=== PATIENT | female | born 1960 | race Two or more races ===

== ENCOUNTER → 2018-02-04 | Day surgery (SDC) | payer MEDICAID ==
[2018-02-02 10:48] LABS: Eosinophils # (auto) 0.3 uL; Eosinophils % (auto) 4.7 % (0.0-7.0); Lymphocytes # (auto) 3.2 uL; Mean Corpuscular Hgb Conc. 32.7 g/dL (32.0-36.0); Monocytes # (auto) 0.5 uL; Monocytes % (auto) 8.3 % (0.0-12.0); Neutrophils # (auto) 2.5 uL; Platelet Count (auto) 221 10^3/uL (140-450); Red Cell Distribution Width 14.9 % (11.8-14.3)
[2018-02-02 10:50] LABS: Basophils # (auto) 0 uL; Basophils % (auto) 0.7 % (0.0-2.0); Hematocrit 41.6 % (36.0-46.0); Hemoglobin 13.6 g/dL (12.2-16.2); Mean Corpuscular Hemoglobin 26.7 pg (28.0-32.0); Mean Corpuscular Volume 81.7 fL (80.0-100.0); Neutrophils % (auto) 38.3 % (37.0-80.0); Nucleated Red Blood Cells % 0.1 %; White Blood Cell 6.6 10^3/uL (4.4-10.8)
[2018-02-02 11:06] LABS: INR 1.01 (0.9-1.15); Partial Thromboplastin Time 30.5 sec (23.78-33.04); Prothrombin Time 10.8 sec (9.27-12.13)
[2018-02-02 11:11] LABS: Albumin 3.8 g/dL (3.4-5.0); BUN/Creatinine Ratio 24.7; Bilirubin, Total 0.3 mg/dL (0.2-1.0); Calcium 8.7 mg/dL (8.5-10.1); Potassium 3.4 mmol/L (3.5-5.1); Total Protein 7.2 g/dL (6.4-8.2)
[~2018-02-04] VITALS: Ht 154.9 cm; Wt 71.7 kg
[~2018-02-04] MED LIST: BUPIVACAINE 0.75% INJ 10ML MPV SDV IJ ONE; GABA300C10 PO; HYDR-4683 PO; LIDOCAINE 2% (LOCAL ANESTH.) PF 5ml SDV ONE; LOSA25TA40 PO; METH500T6 PO; MIDAZOLAM HCL 1MG/1ML-2 ML VIAL ONE; MORPHINE SULFATE 4 MG/ML SYR/VIAL IV PRN; ONDANSETRON HCL 4 MG/2 ML VIAL IV ONE; PROPOFOL 10 MG/ML 20 ML IV ONE; TRAM50TA2 PO; ceFAZolin 1GM/50ML 50 ML IV ONE; diphenhdrAMINE HCL 50 MG/1 ML VL ONE; ePHEDrine SULFATE 50 MG/ML AMP ONE; fentaNYL CITRATE 100 MCG/2 ML VL ONE
[2018-02-04 09:54] VITALS: BP 137/64
== END | disposition home or self-care (01) ==
LOC: SUR 07:22
PROVIDERS: ATTEND Podiatrist Foot & Ankle Surgery
DX: M20.21 Hallux rigidus, right foot (principal); M20.41 Other hammer toe(s) (acquired), right foot; M20.5X1 Other deformities of toe(s) (acquired), right foot; I10 Essential (primary) hypertension; F41.9 Anxiety disorder, unspecified; M19.90 Unspecified osteoarthritis, unspecified site; G47.33 Obstructive sleep apnea (adult) (pediatric); E66.9 Obesity, unspecified; K21.9 Gastro-esophageal reflux disease without esophagitis; Z79.891 Long term (current) use of opiate analgesic; Z79.1 Long term (current) use of non-steroidal anti-inflammatories (NSAID); Z79.899 Other long term (current) drug therapy
CPT/HCPCS: 28285; 28289; J1200; J3010; L3260; 36415; 80053; 85025; 85610; 85730; J0690; J2001; J2250; J2704; J3490

== ENCOUNTER 2023-12-24 12:36 | Inpatient (IN) | payer MEDICAID ==
[~2023-12-24] VITALS: Ht 154.9 cm; Wt 57.9 kg
[~2023-12-24 12:36] MED LIST changes: -BUPIVACAINE 0.75% INJ 10ML MPV SDV IJ ONE; +GABA-1250 PO; -GABA300C10 PO; -HYDR-4683 PO; +HYDR-4833 PO; -LIDOCAINE 2% (LOCAL ANESTH.) PF 5ml SDV ONE; +LOSA-533 PO; -LOSA25TA40 PO; +METH-1181 PO; -METH500T6 PO; -MIDAZOLAM HCL 1MG/1ML-2 ML VIAL ONE; -MORPHINE SULFATE 4 MG/ML SYR/VIAL IV PRN; -ONDANSETRON HCL 4 MG/2 ML VIAL IV ONE; -PROPOFOL 10 MG/ML 20 ML IV ONE; -ceFAZolin 1GM/50ML 50 ML IV ONE; -diphenhdrAMINE HCL 50 MG/1 ML VL ONE; -ePHEDrine SULFATE 50 MG/ML AMP ONE; -fentaNYL CITRATE 100 MCG/2 ML VL ONE
[2023-12-24 13:24] LABS: Basophils # (auto) 0 10 ^3/uL (0-0.2); Eosinophils # (auto) 0 10 ^3/uL (0-0.8); Hematocrit 33.4 % (36.0-46.0); Hemoglobin 10.5 g/dL (12.2-16.2); Lymphocytes # (auto) 0.9 10 ^3/uL (0.4-5.4); Monocytes # (auto) 0.7 10 ^3/uL (0-1.3); Neutrophils # (auto) 8.1 10 ^3/uL (1.6-8.6); Nucleated Red Blood Cells % 0.1 %; Red Blood Cells 4.55 10^6/uL (4.0-5.20); White Blood Cell 9.7 10^3/uL (4.4-10.8)
[2023-12-24 13:27] LABS: Basophils % (auto) 0.4 % (0.0-2.0); Lymphocytes % (auto) 9.5 % (10.0-50.0); Mean Corpuscular Hgb Conc. 31.3 g/dL (32.0-36.0); Mean Corpuscular Volume 73.5 fL (80.0-100.0); Monocytes % (auto) 6.7 % (0.0-12.0); Neutrophils % (auto) 83.4 % (37.0-80.0); Platelet Count (auto) 377 10^3/uL (140-450); Red Cell Distribution Width 19.2 % (11.8-14.3)
[2023-12-24 13:42] LABS: Alanine Aminotransferase 18 U/L (7-40); Albumin 4.3 g/dL (3.2-4.8); Alkaline Phosphatase 106 U/L (46-116); Anion Gap 12 (5-15); Aspartate Aminotransferase 19 U/L (13-40); BUN/Creatinine Ratio 22.8 (10.0-20.0); Blood Urea Nitrogen 28 mg/dL (9-23); Calcium 9.9 mg/dL (8.7-10.4); Carbon Dioxide 32 mmol/L (20-30); Chloride 95 mmol/L (98-107); Glucose 187 mg/dL (74-106); Lipase 33 U/L (12-53); Potassium 3.5 mmol/L (3.5-5.1); Sodium 139 mmol/L (136-145)
[2023-12-24 13:43] LABS: Bilirubin, Total 0.4 mg/dL (0.2-1.0); Total Protein 7.3 g/dL (5.7-8.2)
[2023-12-24 13:44] LABS: Lactic Acid w/Reflex 4.4 mmol/L (0.4-2.0)
[2023-12-24] MEDS: SODIUM CHLORIDE 0.9% 1,000 ML IV ONE ×2 (13:45→14:11)
[2023-12-24] MEDS: IOHEXOL 300 MG/ML 100ML BOTTLE IJ ONE (13:51)
[2023-12-24] MEDS: hydrALAZINE HCL 20 MG/ML VL IV ONE (15:04)
[2023-12-24 16:28] LABS: Urine Bacteria None Seen /hpf (None Seen)
[2023-12-24 16:40] LABS: Urine Blood Negative /uL (Negative); Urine Clarity Clear (Clear); Urine Color Light-Yellow (Yellow); Urine Protein, UAD TRACE (Negative); Urine Specific Gravity 1.049 (1.001-1.035); Urine Urobilinogen Normal (Negative); Urine WBC <1 /hpf (0 - 5); Urine pH 8.5 (5.0-9.0)
[2023-12-24] MEDS ORDERED: DEXTROSE (50%) 50ML SYRG IV PRN (19:00)
[2023-12-24] MEDS: LACTATED RINGER'S 1,000 ML IV ONE (19:00)
[2023-12-24] MEDS: ONDANSETRON HCL 4 MG/2 ML VIAL IV PRN (19:07)
[2023-12-24 19:10] VITALS: RESP 16; O2SAT 96
[2023-12-24] MEDS: PANTOPRAZOLE 40mg/50ML NS AE 50 ML IV SCH (19:45)
[2023-12-24] MEDS: POTASSIUM CHL 20MEQ/100ML 100 ML IV ONE (19:57)
[2023-12-24] MEDS ORDERED: PANTOPRAZOLE 40 MG/10 ML VIAL INJ IV SCH (22:00)
[2023-12-24] MEDS: SODIUM CHLOR 0.9% PF (SALINE LOCK) 10ML VIAL/SYR IV SCH (22:06)
[2023-12-24 23:57] VITALS: PULSE 94; RESP 18; O2SAT 95
[2023-12-24 23:58] VITALS: BP 128/69; PULSE 94; RESP 18; TEMP 99.2; O2SAT 95
[2023-12-25] VITALS (8 sets, daily range): BP systolic 115–152; BP diastolic 49–82; PULSE 77–95; RESP 17–20; TEMP 98–100.1; O2SAT 93–98
[2023-12-25] MEDS ORDERED: BACL20TA PO (00:24)
[2023-12-25] MEDS ORDERED: HYDR50TA47 PO (00:24)
[2023-12-25] MEDS: ACCU-CHEK COMFORT CURVE STRIP VI SCH ×2 (00:28→12:01)
[2023-12-25] MEDS ORDERED: PNEUMOCOCCAL VACC POLYS 25 MCG/0.5 ML VIAL IM ONE ×2 (05:00→05:15)
[2023-12-25 06:33] LABS: Basophils # (auto) 0 10 ^3/uL (0-0.2); Basophils % (auto) 0.4 % (0.0-2.0); Eosinophils # (auto) 0 10 ^3/uL (0-0.8); Hematocrit 28.1 % (36.0-46.0); Hemoglobin 8.8 g/dL (12.2-16.2); Mean Corpuscular Hemoglobin 22.8 pg (28.0-32.0); Nucleated Red Blood Cells % 0.1 %; White Blood Cell 8.3 10^3/uL (4.4-10.8)
[2023-12-25 06:35] LABS: Eosinophils % (auto) 0.3 % (0.0-7.0); Lymphocytes # (auto) 1.9 10 ^3/uL (0.4-5.4); Lymphocytes % (auto) 22.8 % (10.0-50.0); Mean Corpuscular Hgb Conc. 31.3 g/dL (32.0-36.0); Mean Corpuscular Volume 72.9 fL (80.0-100.0); Monocytes # (auto) 0.9 10 ^3/uL (0-1.3); Monocytes % (auto) 10.3 % (0.0-12.0); Neutrophils # (auto) 5.5 10 ^3/uL (1.6-8.6); Neutrophils % (auto) 66.2 % (37.0-80.0); Platelet Count (auto) 342 10^3/uL (140-450); Red Blood Cells 3.86 10^6/uL (4.0-5.20); Red Cell Distribution Width 19.4 % (11.8-14.3)
[2023-12-25 06:39] LABS: Alanine Aminotransferase 14 U/L (7-40); Albumin 3.9 g/dL (3.2-4.8); Alkaline Phosphatase 90 U/L (46-116); Anion Gap 7 (5-15); Aspartate Aminotransferase 18 U/L (13-40); BUN/Creatinine Ratio 31.9 (10.0-20.0); Blood Urea Nitrogen 23 mg/dL (9-23); Calcium 9.3 mg/dL (8.7-10.4); Carbon Dioxide 31 mmol/L (20-30); Chloride 104 mmol/L (98-107); Glucose 111 mg/dL (74-106); Potassium 2.7 mmol/L (3.5-5.1); Sodium 142 mmol/L (136-145)
[2023-12-25 06:40] LABS: Bilirubin, Total 0.3 mg/dL (0.2-1.0); Total Protein 6.5 g/dL (5.7-8.2)
[2023-12-25] MEDS: POTASSIUM CHLORIDE 60 MEQ, LIDOCAINE 1% (LOCAL ANESTH.) 6 ML in SODIUM CHL 0.9% 500 ML IV ONE (08:00)
[2023-12-25] MEDS: diphenhdrAMINE HCL 50 MG/1 ML VL IV ONE (09:13)
[2023-12-25] MEDS: NIFEdipine ER 30 MG TAB PO SCH (10:00)
[2023-12-25 10:01] LABS: Hepatitis B Surface Antigen Negative (Negative)
[2023-12-25 10:23] LABS: Hepatitis C Antibody Negative (Negative)
[2023-12-25] MEDS ORDERED: CLINIMIX PER PHARMACY 0 ML IV SCH (11:15)
[2023-12-25] MEDS ORDERED: DEXTROSE (50%) 50ML SYRG IV SCH (11:45)
[2023-12-25] MEDS: InsuLIN REG 1unit/0.01ml Soln (100units/ml) SC SCH ×2 (12:00)
[2023-12-25 12:57] LABS: INR 1.07 (0.9-1.15); Prothrombin Time 11.3 sec (9.3-11.8)
[2023-12-25] MEDS: HYDROmorphone HCL 2 MG/ML VL/or syr IV PRN (14:01)
[2023-12-25] MEDS: AMINO ACID INFUSION IN D10W 1,000 ML IV SCH (20:27)
[2023-12-26] VITALS (10 sets, daily range): BP systolic 134–150; BP diastolic 49–71; PULSE 77–92; RESP 11–20; TEMP 97.8–99.2; O2SAT 96–100
[2023-12-26 05:23] LABS: Eosinophils % (auto) 0.5 % (0.0-7.0)
[2023-12-26 05:27] LABS: Basophils # (auto) 0.1 10 ^3/uL (0-0.2); Basophils % (auto) 0.7 % (0.0-2.0); Eosinophils # (auto) 0.1 10 ^3/uL (0-0.8); Hematocrit 24.7 % (36.0-46.0); Lymphocytes # (auto) 1.8 10 ^3/uL (0.4-5.4); Lymphocytes % (auto) 18.6 % (10.0-50.0); Mean Corpuscular Hemoglobin 23.7 pg (28.0-32.0); Mean Corpuscular Hgb Conc. 32.3 g/dL (32.0-36.0); Mean Corpuscular Volume 73.5 fL (80.0-100.0); Monocytes # (auto) 0.8 10 ^3/uL (0-1.3); Monocytes % (auto) 8.2 % (0.0-12.0); Platelet Count (auto) 278 10^3/uL (140-450); Red Blood Cells 3.36 10^6/uL (4.0-5.20); Red Cell Distribution Width 20.6 % (11.8-14.3); White Blood Cell 9.7 10^3/uL (4.4-10.8)
[2023-12-26 05:45] LABS: Alanine Aminotransferase 32 U/L (7-40); Albumin 3.7 g/dL (3.2-4.8); Alkaline Phosphatase 87 U/L (46-116); Anion Gap 5 (5-15); Aspartate Aminotransferase 31 U/L (13-40); BUN/Creatinine Ratio 43.6 (10.0-20.0); Blood Urea Nitrogen 24 mg/dL (9-23); Carbon Dioxide 30 mmol/L (20-30); Chloride 108 mmol/L (98-107); Glucose 116 mg/dL (74-106); Magnesium 2.3 mg/dL (1.6-2.6); Potassium 3.5 mmol/L (3.5-5.1); Sodium 143 mmol/L (136-145)
[2023-12-26 05:46] LABS: Bilirubin, Total 0.3 mg/dL (0.2-1.0); Phosphorus 2.1 mg/dL (2.4-5.1); Total Protein 6.2 g/dL (5.7-8.2)
[2023-12-26 08:51] LABS: Urine Bacteria None Seen /hpf (None Seen)
[2023-12-26] MEDS ORDERED: BENZOCAINE (DENTAL) 20 % SPRAY 60ML MT ONE (09:00)
[2023-12-26 09:06] LABS: Urine Amorphous Crystal FEW /hpf (None Seen); Urine Blood Negative /uL (Negative); Urine Protein, UAD TRACE (Negative); Urine Specific Gravity 1.024 (1.001-1.035); Urine Urobilinogen Normal (Negative); Urine WBC 2 /hpf (0 - 5); Urine pH 7.5 (5.0-9.0)
[2023-12-26 09:15] LABS: Urine Color Yellow (Yellow)
[2023-12-26 09:16] LABS: Urine Clarity Hazy (Clear)
[2023-12-26] MEDS ORDERED: MIDAZOLAM HCL 2MG/2ML 2ml VIAL (1mg/ml) ONE (09:28)
[2023-12-26] MEDS: ONDANSETRON HCL 4 MG/2 ML VIAL IV ONE (09:30)
[2023-12-26] MEDS ORDERED: CLINIMIX PER PHARMACY 0 ML IV SCH (10:30)
[2023-12-26] MEDS: POTASSIUM PHOSPHATE 22 MEQ in SODIUM CHL 0.9% 100 ML IV ONE (11:32)
[2023-12-26] MEDS: SUCRALFATE 1 GM/10 ML ORAL SUSP GT SCH (11:32)
[2023-12-26] MEDS ORDERED: ENALAPRILAT 1.25 MG/ML-1ML VIAL IV PRN (12:45)
[2023-12-26] MEDS: MORPHINE SULFATE INJ 2 MG/ml SYRG IV PRN (13:01)
[2023-12-26] MEDS: IRON SUCROSE COMPLEX 100 ML IV SCH (13:19)
[2023-12-26] MEDS ORDERED: PROPOFOL 10 MG/ML 20 ML IV ONE (13:50)
[2023-12-26] MEDS: GASTROGRAFIN 120 ML SOL ONE (15:30)
[2023-12-26] MEDS: MELATONIN 5 MG TAB PO ONE (22:20)
[2023-12-27] VITALS (9 sets, daily range): BP systolic 122–151; BP diastolic 55–82; PULSE 67–91; RESP 14–20; TEMP 98.1–100.3; O2SAT 97–100
[2023-12-27 06:18] LABS: Eosinophils # (auto) 0 10 ^3/uL (0-0.8); Hemoglobin 8.1 g/dL (12.2-16.2); Mean Corpuscular Volume 74.4 fL (80.0-100.0); Neutrophils # (auto) 7.5 10 ^3/uL (1.6-8.6); White Blood Cell 10.1 10^3/uL (4.4-10.8)
[2023-12-27 06:23] LABS: Basophils # (auto) 0 10 ^3/uL (0-0.2); Basophils % (auto) 0.3 % (0.0-2.0); Eosinophils % (auto) 0.2 % (0.0-7.0); Hematocrit 25.3 % (36.0-46.0); Lymphocytes # (auto) 1.5 10 ^3/uL (0.4-5.4); Lymphocytes % (auto) 14.8 % (10.0-50.0); Mean Corpuscular Hemoglobin 23.8 pg (28.0-32.0); Monocytes % (auto) 10.2 % (0.0-12.0); Neutrophils % (auto) 74.5 % (37.0-80.0); Platelet Count (auto) 269 10^3/uL (140-450)
[2023-12-27 06:35] LABS: Alanine Aminotransferase 54 U/L (7-40); Albumin 3.9 g/dL (3.2-4.8); Alkaline Phosphatase 91 U/L (46-116); Anion Gap 7 (5-15); Aspartate Aminotransferase 44 U/L (13-40); Blood Urea Nitrogen 11 mg/dL (9-23); Calcium 8.8 mg/dL (8.7-10.4); Carbon Dioxide 23 mmol/L (20-30); Chloride 108 mmol/L (98-107); Glucose 126 mg/dL (74-106); Potassium 3.3 mmol/L (3.5-5.1); Sodium 138 mmol/L (136-145)
[2023-12-27 06:36] LABS: Bilirubin, Total 0.3 mg/dL (0.2-1.0); Phosphorus 1.7 mg/dL (2.4-5.1); Total Protein 6.3 g/dL (5.7-8.2)
[2023-12-27] MEDS: POTASSIUM PHOSPHATE 44 MEQ in D5W 5% 250 ML IV ONE (15:16)
[2023-12-27] MEDS: MORPHINE SULFATE INJ 2 MG/ml SYRG IV PRN (20:47)
[2023-12-28] VITALS (9 sets, daily range): BP systolic 121–136; BP diastolic 52–68; PULSE 74–92; RESP 15–18; TEMP 97.9–99; O2SAT 97–99
[2023-12-28 07:46] LABS: Basophils # (auto) 0 10 ^3/uL (0-0.2); Eosinophils # (auto) 0.1 10 ^3/uL (0-0.8); Hemoglobin 7.9 g/dL (12.2-16.2); Monocytes # (auto) 0.9 10 ^3/uL (0-1.3)
[2023-12-28 07:50] LABS: Basophils % (auto) 0.4 % (0.0-2.0); Eosinophils % (auto) 0.6 % (0.0-7.0); Hematocrit 24.9 % (36.0-46.0); Lymphocytes # (auto) 1.6 10 ^3/uL (0.4-5.4); Mean Corpuscular Hemoglobin 23.8 pg (28.0-32.0); Mean Corpuscular Hgb Conc. 31.8 g/dL (32.0-36.0); Mean Corpuscular Volume 74.8 fL (80.0-100.0); Neutrophils # (auto) 6.7 10 ^3/uL (1.6-8.6); Platelet Count (auto) 274 10^3/uL (140-450); Red Blood Cells 3.32 10^6/uL (4.0-5.20); Red Cell Distribution Width 20.6 % (11.8-14.3); White Blood Cell 9.3 10^3/uL (4.4-10.8)
[2023-12-28 08:03] LABS: Alanine Aminotransferase 37 U/L (7-40); Albumin 3.8 g/dL (3.2-4.8); Alkaline Phosphatase 95 U/L (46-116); Anion Gap 7 (5-15); Aspartate Aminotransferase 17 U/L (13-40); BUN/Creatinine Ratio 18.8 (10.0-20.0); Bilirubin, Total 0.2 mg/dL (0.2-1.0); Blood Urea Nitrogen 9 mg/dL (9-23); Calcium 9.3 mg/dL (8.7-10.4); Carbon Dioxide 24 mmol/L (20-30); Chloride 109 mmol/L (98-107); Glucose 122 mg/dL (74-106); Phosphorus 2.4 mg/dL (2.4-5.1); Potassium 3.1 mmol/L (3.5-5.1); Sodium 140 mmol/L (136-145); Total Protein 6.4 g/dL (5.7-8.2)
[2023-12-28] MEDS: POTASSIUM CHL 20MEQ/100ML 100 ML IV SCH ×2 (09:45→19:20)
[2023-12-28] MEDS ORDERED: TPN PER PHARMACY 0 ML IV SCH (12:30)
[2023-12-28] MEDS: diphenhdrAMINE HCL 25 MG CAP PO PRN (13:39)
[2023-12-28] MEDS: LIDOCAINE 5% TOPICAL PATCH TOP PRN (13:54)
[2023-12-28] MEDS: POTASSIUM PHOSPHATE 22 MEQ in SODIUM CHL 0.9% 100 ML IV ONE (16:04)
[2023-12-29] VITALS (8 sets, daily range): BP systolic 117–141; BP diastolic 59–66; PULSE 84–94; RESP 14–20; TEMP 98.1–100.4; O2SAT 90–99
[2023-12-29 07:01] LABS: Eosinophils # (auto) 0 10 ^3/uL (0-0.8); Hemoglobin 8.3 g/dL (12.2-16.2)
[2023-12-29 07:05] LABS: Basophils # (auto) 0 10 ^3/uL (0-0.2); Basophils % (auto) 0.3 % (0.0-2.0); Eosinophils % (auto) 0.2 % (0.0-7.0); Lymphocytes # (auto) 1.6 10 ^3/uL (0.4-5.4); Lymphocytes % (auto) 13.7 % (10.0-50.0); Mean Corpuscular Hemoglobin 23.7 pg (28.0-32.0); Mean Corpuscular Hgb Conc. 31.9 g/dL (32.0-36.0); Mean Corpuscular Volume 74.3 fL (80.0-100.0); Monocytes # (auto) 1.2 10 ^3/uL (0-1.3); Neutrophils # (auto) 8.8 10 ^3/uL (1.6-8.6); Neutrophils % (auto) 75.8 % (37.0-80.0); Nucleated Red Blood Cells % 0.1 %; Platelet Count (auto) 347 10^3/uL (140-450); Red Blood Cells 3.51 10^6/uL (4.0-5.20); White Blood Cell 11.6 10^3/uL (4.4-10.8)
[2023-12-29 07:07] LABS: Alanine Aminotransferase 32 U/L (7-40); Albumin 4.2 g/dL (3.2-4.8); Alkaline Phosphatase 113 U/L (46-116); Anion Gap 9 (5-15); Aspartate Aminotransferase 19 U/L (13-40); BUN/Creatinine Ratio 19.2 (10.0-20.0); Blood Urea Nitrogen 10 mg/dL (9-23); Calcium 9.3 mg/dL (8.7-10.4); Carbon Dioxide 22 mmol/L (20-30); Chloride 106 mmol/L (98-107); Glucose 118 mg/dL (74-106); Magnesium 1.8 mg/dL (1.6-2.6); Potassium 3.4 mmol/L (3.5-5.1); Sodium 137 mmol/L (136-145)
[2023-12-29 07:08] LABS: Bilirubin, Total 0.3 mg/dL (0.2-1.0)
[2023-12-29 08:17] LABS: INR 1.17 (0.9-1.15); Partial Thromboplastin Time 35.7 SEC (24.5-34.5); Prothrombin Time 12.3 sec (9.3-11.8)
[2023-12-29] MEDS: EZ-GAS II GRANULES (RADIOLOGY USE) PO ONE (09:31)
[2023-12-29] MEDS: GASTROGRAFIN 120 ML SOL ONE (09:31)
[2023-12-29] MEDS: POTASSIUM PHOSPHATE 26.4 MEQ in SODIUM CHL 0.9% 100 ML IV ONE (12:27)
[2023-12-29] MEDS ORDERED: GABA300T4 PO (14:40)
[2023-12-29] MEDS: BACLOFEN 10 MG TAB PO ONE (18:24)
[2023-12-29] MEDS: GABAPENTIN 300 MG CAP PO ONE (18:24)
[2023-12-29] MEDS: PPN PER PHARMACY IV NR (19:55)
[2023-12-29] MEDS: BACLOFEN 10 MG TAB PO SCH (21:43)
[2023-12-29] MEDS: GABAPENTIN 300 MG CAP PO SCH (21:43)
[2023-12-30] VITALS (8 sets, daily range): BP systolic 108–135; BP diastolic 61–78; PULSE 66–94; RESP 16–20; TEMP 97.9–99.6; O2SAT 95–98
[2023-12-30 06:06] LABS: Basophils # (auto) 0.1 10 ^3/uL (0-0.2); Eosinophils # (auto) 0.1 10 ^3/uL (0-0.8); Monocytes % (auto) 10.3 % (0.0-12.0); Neutrophils # (auto) 6.5 10 ^3/uL (1.6-8.6)
[2023-12-30 06:12] LABS: Basophils % (auto) 0.5 % (0.0-2.0); Eosinophils % (auto) 0.9 % (0.0-7.0); Hematocrit 24.9 % (36.0-46.0); Hemoglobin 8.2 g/dL (12.2-16.2); Lymphocytes % (auto) 20.7 % (10.0-50.0); Mean Corpuscular Hgb Conc. 32.9 g/dL (32.0-36.0); Neutrophils % (auto) 67.6 % (37.0-80.0); Platelet Count (auto) 370 10^3/uL (140-450); Red Blood Cells 3.28 10^6/uL (4.0-5.20); White Blood Cell 9.6 10^3/uL (4.4-10.8)
[2023-12-30 06:18] LABS: Alanine Aminotransferase 54 U/L (7-40); Alkaline Phosphatase 175 U/L (46-116); Anion Gap 9 (5-15); Aspartate Aminotransferase 41 U/L (13-40); BUN/Creatinine Ratio 19.2 (10.0-20.0); Bilirubin, Total 0.3 mg/dL (0.2-1.0); Blood Urea Nitrogen 10 mg/dL (9-23); Calcium 9.3 mg/dL (8.7-10.4); Carbon Dioxide 24 mmol/L (20-30); Chloride 108 mmol/L (98-107); Glucose 100 mg/dL (74-106); Magnesium 1.9 mg/dL (1.6-2.6); Phosphorus 2.6 mg/dL (2.4-5.1); Potassium 3.3 mmol/L (3.5-5.1); Sodium 141 mmol/L (136-145)
[2023-12-30 06:19] LABS: Total Protein 6.7 g/dL (5.7-8.2)
[2023-12-30 06:29] LABS: Red Cell Distribution Width 20.6 % (11.8-14.3)
[2023-12-30 06:38] LABS: Triglycerides 132 mg/dL (< 150)
[2023-12-30] MEDS: MAGNESIUM SULFATE 1GM/100ML 100 ML IV ONE (09:30)
[2023-12-30] MEDS: POTASSIUM CHLORIDE 20 MEQ, LIDOCAINE 1% (LOCAL ANESTH.) 2 ML in SODIUM CHL 0.9% 100 ML IV ONE (09:30)
[2023-12-30] MEDS: POTASSIUM EFFERVESENT TAB 25 MEQ PO ONE (12:37)
[2023-12-30] MEDS: PANTOPRAZOLE 40 MG TAB PO SCH (16:59)
[2023-12-30] MEDS: PANTOPRAZOLE 40 MG TAB PO ONE (17:33)
[2023-12-31 05:00] VITALS: BP 97/50; PULSE 69; RESP 16; TEMP 98.4; O2SAT 96
[2023-12-31 05:08] LABS: Eosinophils # (auto) 0.1 10 ^3/uL (0-0.8); Eosinophils % (auto) 1.9 % (0.0-7.0); Hemoglobin 8.6 g/dL (12.2-16.2); Lymphocytes # (auto) 1.8 10 ^3/uL (0.4-5.4); Monocytes # (auto) 0.6 10 ^3/uL (0-1.3)
[2023-12-31 05:10] LABS: Basophils # (auto) 0.1 10 ^3/uL (0-0.2); Basophils % (auto) 0.9 % (0.0-2.0); Hematocrit 26.2 % (36.0-46.0); Lymphocytes % (auto) 26.5 % (10.0-50.0); Mean Corpuscular Hemoglobin 24.6 pg (28.0-32.0); Mean Corpuscular Hgb Conc. 32.8 g/dL (32.0-36.0); Mean Corpuscular Volume 75.1 fL (80.0-100.0); Monocytes % (auto) 9.2 % (0.0-12.0); Neutrophils # (auto) 4.1 10 ^3/uL (1.6-8.6); Neutrophils % (auto) 61.5 % (37.0-80.0); Platelet Count (auto) 394 10^3/uL (140-450); Red Blood Cells 3.49 10^6/uL (4.0-5.20); White Blood Cell 6.7 10^3/uL (4.4-10.8)
[2023-12-31 05:12] LABS: Anion Gap 6 (5-15); Carbon Dioxide 26 mmol/L (20-30); Chloride 108 mmol/L (98-107); Potassium 3.8 mmol/L (3.5-5.1); Sodium 140 mmol/L (136-145)
[2023-12-31 05:13] LABS: Calcium 9.6 mg/dL (8.7-10.4); Red Cell Distribution Width 21.2 % (11.8-14.3)
[2023-12-31 05:18] LABS: BUN/Creatinine Ratio 11.3 (10.0-20.0); Blood Urea Nitrogen 6 mg/dL (9-23); Glucose 106 mg/dL (74-106)
[2023-12-31 08:00] VITALS: PULSE 76; RESP 15; O2SAT 99
[2023-12-31 08:52] VITALS: BP 102/66; PULSE 71; RESP 15; TEMP 98.2; O2SAT 99
[2023-12-31] MEDS: IRON SUCROSE COMPLEX 100 ML IV SCH (11:15)
[2023-12-31] MEDS ORDERED: IRON SUCROSE COMPLEX 100 ML IV SCH (12:00)
[2023-12-31 12:28] VITALS: BP 99/57; PULSE 74; RESP 16; TEMP 98.2; O2SAT 99
[2023-12-31] MEDS ORDERED: PANT40T PO (14:41)
[2023-12-31] MEDS ORDERED: SUCR1TAB31 OR (14:41)
[2023-12-31 16:03] VITALS: BP 102/66; TEMP 36.8
[2023-12-31 16:37] VITALS: BP 117/69; PULSE 78; RESP 15; TEMP 97.8; O2SAT 99
== END 2023-12-31 16:29 | disposition home or self-care (01) | DRG 241 ==
LOC: EDBD 12:36 → ER 12:59 → TELE 18:13 → TELE-WESTW 23:10 → WEST WING 12-25 16:09 → CENTRAL 12-25 21:26
PROVIDERS: ADMIT Internal Medicine; ATTEND Emergency Medicine
PROC: 0DB68ZX Excision of Stomach, Via Natural or Artificial Opening Endoscopic, Diagnostic (ICD-10-PCS; 2023-12-26)
PROC: 0DB98ZX Excision of Duodenum, Via Natural or Artificial Opening Endoscopic, Diagnostic (ICD-10-PCS; principal; 2023-12-26 09:26)
DX: K26.9 Duodenal ulcer, unspecified as acute or chronic, without hemorrhage or perforation (principal); N17.0 Acute kidney failure with tubular necrosis; K56.51 Intestinal adhesions [bands], with partial obstruction; E87.20 Acidosis, unspecified; K29.70 Gastritis, unspecified, without bleeding; K44.9 Diaphragmatic hernia without obstruction or gangrene; E87.6 Hypokalemia; K80.20 Calculus of gallbladder without cholecystitis without obstruction; I10 Essential (primary) hypertension; G89.29 Other chronic pain; M54.9 Dorsalgia, unspecified; D50.9 Iron deficiency anemia, unspecified; Z88.8 Allergy status to other drugs, medicaments and biological substances; Z79.1 Long term (current) use of non-steroidal anti-inflammatories (NSAID); Z79.891 Long term (current) use of opiate analgesic
CPT/HCPCS: 36415; 71045; 74177; 74246; 80048; 80053; 81001; 82270; 82962; 83036; 83605; 83690; 83735; 84100; 84478; 84484; 85025; 85048; 85610; 85730; 86803; 87340; 93005; 96365; 96375; G0378; J1756; J1815; J2001; J2250; J2405; J2704; J3480; J7060

== ENCOUNTER 2024-04-16 09:13 | Day surgery (SDC) | payer MEDICAID ==
[2024-04-13 14:51] LABS: Basophils # (auto) 0 10 ^3/uL (0-0.2); Basophils % (auto) 0.6 % (0.0-2.0); Eosinophils # (auto) 0.2 10 ^3/uL (0-0.8); Hemoglobin 12.9 g/dL (12.2-16.2); Lymphocytes % (auto) 46.3 % (10.0-50.0); Monocytes # (auto) 0.4 10 ^3/uL (0-1.3); Nucleated Red Blood Cells % 0.1 %
[2024-04-13 14:55] LABS: Hematocrit 39.3 % (36.0-46.0); Lymphocytes # (auto) 2.9 10 ^3/uL (0.4-5.4); Mean Corpuscular Hemoglobin 26.5 pg (28.0-32.0); Mean Corpuscular Hgb Conc. 32.8 g/dL (32.0-36.0); Mean Corpuscular Volume 80.8 fL (80.0-100.0); Monocytes % (auto) 6.3 % (0.0-12.0); Neutrophils # (auto) 2.7 10 ^3/uL (1.6-8.6); Neutrophils % (auto) 43.8 % (37.0-80.0); Platelet Count (auto) 243 10^3/uL (140-450); Red Blood Cells 4.86 10^6/uL (4.0-5.20); Red Cell Distribution Width 16.1 % (11.8-14.3); White Blood Cell 6.2 10^3/uL (4.4-10.8)
[2024-04-13 15:06] LABS: INR 1.01 (0.9-1.15); Partial Thromboplastin Time 30.6 SEC (24.5-34.5); Prothrombin Time 10.7 sec (9.3-11.8)
[2024-04-13 15:33] LABS: Alanine Aminotransferase 18 U/L (7-40); Albumin 4.1 g/dL (3.2-4.8); Alkaline Phosphatase 113 U/L (46-116); Anion Gap 5 (5-15); Aspartate Aminotransferase 19 U/L (13-40); BUN/Creatinine Ratio 19.7 (10.0-20.0); Blood Urea Nitrogen 13 mg/dL (9-23); Calcium 9.6 mg/dL (8.7-10.4); Chloride 102 mmol/L (98-107); Glucose 90 mg/dL (74-106); Potassium 4.4 mmol/L (3.5-5.1); Sodium 140 mmol/L (136-145)
[2024-04-13 15:34] LABS: Total Protein 6.6 g/dL (5.7-8.2)
[2024-04-13 15:39] LABS: Bilirubin, Total < 0.2 mg/dL (0.2-1.0); Carbon Dioxide 33 mmol/L (20-31)
[~2024-04-16] VITALS: Ht 154.9 cm; Wt 53.5 kg
[~2024-04-16 09:13] MED LIST changes: +ACET-1080 PO; +BACL20TA PO; +DICY20TA PO; +DOCU100T7 PO; +ESCI20TA PO; -GABA-1250 PO; +GABA300T4 PO; +HYDR-4069 PO; -HYDR-4833 PO; +HYDR25TA87 PO; -LOSA-533 PO; +LOSA100T25 PO; -METH-1181 PO; +ONDA-155 PO; +PANT40T PO; +POTA80TA OR; +SUCR1TAB31 OR; -TRAM50TA2 PO
[2024-04-16] MEDS ORDERED: SODIUM CHLORIDE LOCK 0 ML ONE (09:19)
[2024-04-16] MEDS ORDERED: MIDAZOLAM HCL 5 MG/ML-1ML VIAL ONE (09:19)
[2024-04-16] MEDS ORDERED: diphenhdrAMINE HCL 50 MG/1 ML VL ONE (09:19)
[2024-04-16] MEDS ORDERED: LIDOCAINE VISCOUS 2% 15ML UD ONE (09:19)
[2024-04-16] MEDS ORDERED: fentaNYL CITRATE 100 MCG/2 ML VL ONE (09:20)
[2024-04-16] MEDS ORDERED: PROPOFOL 10 MG/ML 20 ML IV ONE (13:46)
[2024-04-16] MEDS ORDERED: LIDOCAINE 2% (LOCAL ANESTH.) PF 5ml SDV ONE (13:46)
--- NOTE | 2024-04-16 14:19 | DVHOP2 ---
Operative Report DATE OF OPERATION: 04/16/24 PROCEDURE: Upper Endoscopy with biopsy and balloon dilation. PREOPERATIVE INDICATION: The patient is a 64 -year-old female undergoing endoscopy for history of duodenal ulcer and duodenal stricture undergoing re- evaluation POSTOPERATIVE DIAGNOSES: 1. Patient had a 1.5 to 2 cm residual pyloric duodenal ulcer within the pyloric channel without any signs of active bleeding or visible vessel; there was no obstruction or stricture at this point 2. Patient had a postbulbar duodenal area narrowing and inflammatory stricture through which the endoscope could not be advanced although I was able to visualize the duodenum beyond this area Attempt was made to dilate this with 8-10 mm of Microvasive radial expansion balloon. However deep cannulation could not be obtained into the 2nd part of the duodenum I was not able to pass the endoscope into the 2nd part of the duodenum post dilation at this time 3. 2 cm sliding-type hiatal hernia without any evidence of esophagitis 4. Otherwise normal examination to the postbulbar area with no active bleeding except oozing from the stricture because of dilation 5. Overall the endoscopic appearance appeared improved from her last endoscopy PROCEDURE PERFORMED BY: Low Dubois GI NURSE: Karolina SCOPE: Olympus videoendoscope. ASA CLASS: 2. PREOPERATIVE MEDICATIONS: Mac sedationBo PROCEDURE IN DETAIL: After obtaining an informed consent, the patient was placed on left lateral decubitus position. The patient was then sedated with the above medications. A bite block was placed between her teeth. The endoscope was then passed through the oropharynx, into the esophagus, and through the stomach and pylorus up to the postbulbar area and proximal portion of the 2nd part of the duodenum. At this point there was a circumferential narrowing or inflammatory stricture beyond which I could not pass the endoscope. This appeared to be slightly improved from previous examination I was able to visualize the part of the duodenal bulb beyond the stricture. Biopsies were obtained from the area of the stricture and the postbulbar area Attempt was made to dilate this with Microvasive radial expansion balloon from about 8-10 mm. There was minimal oozing. I was not able to pass the endoscope into the 2nd part of the duodenum . The duodenal bulb was normal There was a residual pyloric channel ulcer of about 1.5-2 cm at the 3 o'clock position with no visible vessel or active bleeding The pyloric channel was not obstructed and I was able to easily pass the endoscope through this area. The pre-pyloric area and antrum showed minimal gastritis. Duodenal and gastric biopsies were obtained. On retroflexion the fundus cardia and angularis were normal. There was no residual food in the stomach. The endoscope was then withdrawn into the distal esophagus where the patient had a 2 cm sliding-type hiatal hernia with no esophagitis The remaining distal and proximal esophagus and oropharynx were unremarkable The patient tolerated the procedure well without difficulty. COMPLICATIONS : None SPECIMENS: Duodenal biopsies Gastric biopsy DISPOSITION: Stable D/C to home PLAN: 1. Await for biopsy result 2. Will place pt on Protonix 40 mg bid 3. Carafate 1 g p.o. 4 times a day 5. DC aspirin NSAIDs smoking alcohol 6. Start with clear liquid diet advance to full liquid and then pureed 7. Outpatient follow up with me in 4-6 weeks to review results and discuss further management LOW DUBOIS MD Apr 16, 2024 14:19
[2024-04-16 14:55] VITALS: BP 125/60; PULSE 65; RESP 14; O2SAT 97
== END 2024-04-16 15:00 | disposition home or self-care (01) ==
LOC: GI 09:13
PROVIDERS: ATTEND Internal Medicine Gastroenterology
DX: K31.5 Obstruction of duodenum (principal); K26.9 Duodenal ulcer, unspecified as acute or chronic, without hemorrhage or perforation; K21.9 Gastro-esophageal reflux disease without esophagitis; K29.50 Unspecified chronic gastritis without bleeding; K29.80 Duodenitis without bleeding; K44.9 Diaphragmatic hernia without obstruction or gangrene; F17.200 Nicotine dependence, unspecified, uncomplicated; I10 Essential (primary) hypertension
CPT/HCPCS: 36415; 43239; 43245; 80053; 85025; 85610; 85730; 88305; 88312; 88342; J2003; J2704; J7030; J2250

== ENCOUNTER 2024-07-20 07:58 | Inpatient (IN) | payer MEDICAID ==
[~2024-07-20] VITALS: Ht 154.9 cm; Wt 50.0 kg
[2024-07-20 08:09] VITALS: PULSE 72; RESP 16; O2SAT 95
[2024-07-20 08:34] LABS: Urine Bacteria FEW /hpf (None Seen); Urine Blood Negative /uL (Negative); Urine Budding Yeast MODERATE /hpf (None Seen); Urine Clarity Turbid (Clear); Urine Color Yellow (Yellow); Urine Hyaline Cast FEW /lpf (0 - 2); Urine Mucus FEW (None Seen); Urine Protein, UAD 1+ (Negative); Urine Specific Gravity 1.025 (1.001-1.035); Urine Squamous Epithelial Cell FEW /hpf (<5); Urine Urobilinogen Normal (Negative); Urine WBC 2 /HPF (0-5)
--- NOTE | 2024-07-20 08:59 | ED.PDOC ---
GI ASSESSMENT HPI Comments 64 year old female presents to the ED with chief complaint of abdominal pain. Patient reports that she has been experiencing epigastric abdominal pain with associated nausea and vomiting since Friday. Patient relays that she was seen last year in the ED and evaluated by Dr. Dubois when admitted. Patient states she was told she had a small bowel obstruction and gastric ulcers, being advised that she will most likely have similar symptoms again in the future and to come into the ED if this occurs. Patient denies any diarrhea, chest pain, fever, chills, hematemesis, or dysuria. Chief Complaint: Abdominal Pain Time Seen by MD: 08:56 Primary Care Provider: [facility] Notes: Nurses Notes, Medications, Allergies Allergies: Coded Allergies: Fluticasone (Verified Allergy, Unknown, 04/15/24) HEADACHE Home Meds Active Scripts Pantoprazole Sodium Sesquihydr (Pantoprazole Sodium) 40 Mg Tab, 40 MG PO BID for 30 Days, #60 TAB 2 Refills Prov:ANDREW SINGER RESIDENT 12/31/23 Sucralfate (CARAFATE) 1 Gm Tab, 1 GM OR BID for 30 Days, #60 TAB 2 Refills Prov:ANDREW SINGER RESIDENT 12/31/23 Reported Medications Docusate Sodium (Stool Softener) 100 Mg Tab, 100 MG PO DAILY, TAB 04/13/24 Potassium Gluconate (POTASSIUM GLUCONATE) 80 Mg Tab, 80 MG OR DAILY, TAB 04/13/24 Acetaminophen (Tylenol 8 Hour Arthritis) 650 Mg Tab, 650 MG PO PRN, TAB 04/13/24 Losartan Potassium & Hydrochlo (Hyzaar) 1 Tab Tab, 1 TAB PO DAILY, TAB 04/13/24 Ondansetron HCl (Ondansetron) 4 Mg Tab, 4 MG PO DAILY, TAB 04/13/24 Dicyclomine Hcl (Dicyclomine Hcl) 20 Mg Tab, 20 MG PO, TAB 04/13/24 Escitalopram Oxalate (Lexapro) 20 Mg Tab, 20 MG PO DAILY, TAB 04/13/24 Hydralazine HCl (Hydralazine HCl) 25 Mg Tab, 25 MG PO DAILY, TAB 04/13/24 Hydrocodone-Acetaminophen (Hydrocodone/Acetaminophen 7.5-325 mg) 1 Tab Tab, 1 TAB PO DAILY, TAB 04/13/24 Gabapentin (Once-Daily) (Gabapentin) 300 Mg Tab, 600 MG PO, TAB 12/29/23 Baclofen (Baclofen) 20 Mg Tab, 10 TAB PO TID, #90 TAB 2 Refills 12/25/23 Information Source: Patient, Relative Mode of Arrival: Ambulatory Timing: Days Duration: Since onset Prehospital treatment: None Quality: Aching Vomitus: Watery Stool: Normal Severity: Moderate Recent: None Recent Hx of: None Pain Location: Epigastric Modifying Factors: Nothing Associated sign and symptoms: Nausea, Vomiting, Abdominal Pain Past Medical History PAST MEDICAL HISTORY: Arthritis, HTN Surgical History: Denies all surgeries DELIVERY DIRECTOR History: No Pertinent DELIVERY DIRECTOR History Family History Family History: No family hx of DM, No family hx of HTN Social History Smoker: Non-Smoker Alcohol: Denies ETOH Use Drugs: Denies Drug Use Lives In: Home Constitutional: denies: chills, diaphoresis, fatigue, fever, malaise, sweats, weakness, others EENTM: denies: blurred vision, double vision, ear bleeding, ear discharge, ear drainage, ear pain, ear ringing, eye pain, eye redness, hearing loss, mouth pain, mouth swelling, nasal discharge, nose bleeding, nose congestion, nose pain, photophobia, tearing, throat pain, throat swelling, voice changes, others Respiratory: denies: cough, hemoptysis, orthopnea, SOB at rest, shortness of breath, SOB with excertion, stridor, wheezing, others Cardiovascular: denies: chest pain, dizzy spells, diaphoresis, Dyspnea on exertion, edema, irregular heart beat, left arm pain, lightheadedness, palpitations, PND, syncope, others Gastrointestinal: reports: abdominal pain, nausea, vomiting; denies: abdomen distended, blood streaked bowels, constipated, diarrhea, dysphagia, difficulty swallowing, hematemesis, melena, poor appetite, poor fluid intake, rectal bleeding, rectal pain, others Genitourinary: denies: abnormal vagina bleeding, burning, dyspareunia, dysuria, flank pain, frequency, hematuria, incontinence, pain, , vagina discharge, urgency, others Neurological: denies: dizziness, fainting, headache, left sided numbness, left sided weakness, numbness, paresthesia, pre-existing deficit, right sided numbness, right sided weakness, seizure, speech problems, tingling, tremors, weakness, others Musculoskeletal: denies: back pain, gout, joint pain, joint swelling, muscle pain, muscle stiffness, neck pain, others Integumetry: denies: bruises, change in color, change in hair/nails, dryness, laceration, lesions, lumps, rash, wounds, others Allergic/Immunocompromised: denies: Difficulty Healing, Frequent Infections, Hives, Itching, others Hematologic/Lymphatic: denies: anemia, blood clots, easy bleeding, easy bruising, swollen glands, others Endocrine: denies: excessive hunger, excessive sweating, excessive thirst, excessive urination, flushing, intolerance to cold, intolerance to heat, unexplained weight gain, unexplained weight loss, others Psychiatric: denies: anxiety, bipolar disorder, depression, hopeless, panic disorder, schizophrenia, sleepless, suicidal, others All Other Systems: Reviewed and Negative Physical Exam General Appearance: Moderate Distress, Normal HEENT: Normal ENT Inspection, PERRL/EOMI Neck: Full Range of Motion, Non-Tender, Normal, Normal Inspection Respiratory: Chest Non-Tender, Lungs Clear, No Accessory Muscle Use, No Respiratory Distress, Normal Breath Sounds Cardiovascular: No Edema, No JVD, No Murmur, No Gallop, Normal Peripheral Pulses, Regular Rate/Rhythm Breast Exam: Deferred Gastrointestinal: Epigastric, No Organomegaly, No Pulsatile Mass, Normal Bowel Sounds, Soft Genitalia: Deferred Pelvic: Deferred Rectal: Deferred Extremities: No calf tenderness, Normal capillary refill, Normal inspection, Normal range of motion, Non-tender, No pedal edema Musculoskeletal : Apperance: Normal Neurologic: Alert, automatic steel tie adjuster II-XII nml as Tested, No Motor Deficits, Normal Affect, Normal Mood, No Sensory Deficits Cerebellar Function: Normal Reflexes: Normal Skin: Dry, Normal Color, Warm Peripheral Pulses: 3+ Radial (R), 3+ Radial (L) Lymphatic: No Adenopathy Was a procedure done? Was a procedure done?: No GI differential Dx Differential Diagnosis: Constipation, Diverticular disease, Esophagitis, Gastritis/PUD, Gastroenteritis X-Ray, Labs, Meds, VS Vital Signs Date Time Temp Pulse Resp B/P (MAP) Pulse Ox O2 Delivery O2 Flow Rate FiO2 07/20/24 09:37 98.7 72 16 143/67 (92) 95 98.7 07/20/24 09:37 72 16 07/20/24 09:34 72 20 143/67 07/20/24 08:09 97.5 72 16 142/73 (96) 95 97.5 07/20/24 08:09 97.5 72 16 142/73 (96) 95 97.5 07/20/24 08:09 72 16 95 Room Air* 0 21 Lab Test 07/20/24 09:32 07/20/24 08:12 Range/Units White Blood Count 5.6 4.4-10.8 10^3/uL Red Blood Count 4.47 4.0-5.20 10^6/uL Hemoglobin 10.7 L 12.2-16.2 g/dL Hematocrit 33.8 L 36.0-46.0 % Mean Corpuscular Volume 75.5 L 80.0-100.0 fL Mean Corpuscular Hemoglobin 24.0 L 28.0-32.0 pg Mean Corpuscular Hemoglobin Concent 31.8 L 32.0-36.0 g/dL Red Cell Distribution Width 16.5 H 11.8-14.3 % Platelet Count 337 140-450 10^3/uL Mean Platelet Volume 8.3 6.9-10.8 fL Neutrophils (%) (Auto) 68.6 37.0-80.0 % Lymphocytes (%) (Auto) 23.3 10.0-50.0 % Monocytes (%) (Auto) 6.4 0.0-12.0 % Eosinophils (%) (Auto) 1.0 0.0-7.0 % Basophils (%) (Auto) 0.7 0.0-2.0 % Neutrophils # (Auto) 3.8 1.6-8.6 10 ^3/uL Lymphocytes # (Auto) 1.3 0.4-5.4 10 ^3/uL Monocytes # (Auto) 0.4 0-1.3 10 ^3/uL Eosinophils # (Auto) 0.1 0-0.8 10 ^3/uL Basophils # (Auto) 0 0-0.2 10 ^3/uL Nucleated Red Blood Cells 0.0 % Sodium Level 140 136-145 mmol/L Potassium Level 3.6 3.5-5.1 mmol/L Chloride Level 101 98-107 mmol/L Carbon Dioxide Level 31 20-31 mmol/L Anion Gap 8 5-15 Blood Urea Nitrogen 12 9-23 mg/dL Creatinine 0.84 0.550-1.02 mg/dL Glomerular Filtration Rate Calc 79 >90 mL/min BUN/Creatinine Ratio 14.3 10.0-20.0 Serum Glucose 145 H 74-106 mg/dL Calcium Level 10.0 8.7-10.4 mg/dL Urine Color Yellow Yellow Urine Clarity Turbid H Clear Urine pH 8.0 5.0-9.0 Urine Specific [place] 1.025 1.001-1.035 Urine Protein 1+ H Negative Urine Ketones 1+ H Negative Urine Blood Negative Negative /uL Urine Nitrite Negative Negative Urine Bilirubin Negative Negative Urine Urobilinogen Normal Negative mg/dL Urine Leukocyte Esterase Negative Negative /uL Urine RBC 5 0 - 4 /hpf Urine Microscopic WBC 2 0-5 /HPF Urine Squamous Epithelial Cells Few <5 /hpf Urine Bacteria Few H None Seen /hpf Urine Hyaline Casts Few 0 - 2 /lpf Urine Mucus Few None Seen Urine Yeast (Budding) Moderate None Seen /hpf Urine Glucose Normal Normal mg/dL Current Medications Medications (Trade) Dose Ordered Sig/Francia Route Start Time Stop Time Status Last Admin Sodium Chloride 1,000 ml @ 1,000 mls/hr Q1H ONCE IV 07/20/24 09:15 07/20/24 10:14 DC 07/20/24 09:34 Morphine Sulfate 4 mg ONCE ONCE IV 07/20/24 09:15 07/20/24 09:16 DC 07/20/24 09:34 Ondansetron HCl (Zofran) 4 mg ONCE ONCE IV 07/20/24 09:15 07/20/24 09:16 DC 07/20/24 09:33 Ceftriaxone Sodium 50 ml @ 100 mls/hr ONCE ONCE IV 07/20/24 09:15 07/20/24 09:44 DC 07/20/24 09:33 Patient alert. Complaining of epigastric pain. Blood sugar elevated. Vitals stable. Examination she is tender in the epigastric region. History of gastric ulcer. GI consultation. Establish intravenous access. Was given fluids. Was given Rocephin. Was given morphine. Was given Zofran. Was given Protonix. Reviewed her previous visit. Blood pressure slightly elevated. Urinalysis shows few bacteria. Explained to the family. Continue cardiac monitoring. Time of 1ST Reevaluation: 09:54 Reevaluation 1ST: Unchanged Patient Education/Counseling: Diagnosis, Treatment Family Education/Counseling: Diagnosis, Treatment Additional Information Previous visit documents reviewed: 12/24/23 for abdominal pain w/ suspected SBO The following tests were ordered, and results were reviewed by me: UA, CBC, BMP, Urine Culture Additional Information was gathered from interviewing the following independent historians: Son-in-law I reviewed and agreed with the following test results read by other providers: None I discussed treatment and results with medical personnel and: Patient Departure 1 Departure Time of Disposition: 10:20 Impression: Primary Impression: Duodenal ulcer disease Additional Impressions: Gastritis Qualified Codes: K29.00 - Acute gastritis without bleeding Dehydration Disposition: ADMITTED INPATIENT Admit to: Med Surg Condition: Guarded Critical Care Note Critical Care Time?: No Stability Stability form required: No Heart Score Heart Score: Heart Score Response (Comments) Value History N/A 0 EKG N/A 0 Age N/A 0 Risk Factors N/A 0 Troponin N/A 0 Total 0 I personally scribed for JOSEPH RICHARDSON MD ([email or web address]) on 07/20/24 at 08:59. Electronically submitted by Stewart Baker ([email or web address]). I personally scribed for JOSEPH RICHARDSON MD ([email or web address]) on 07/20/24 at 09:26. Electronically submitted by Stewart Baker ([email or web address]). JOSEPH RICHARDSON MD Jul 20, 2024 08:59
[2024-07-20] MEDS: ONDANSETRON HCL 4 MG/2 ML VIAL IV ONE (09:33)
[2024-07-20] MEDS: cefTRIAXone 1GM/50ML D5W 50 ML IV ONE (09:33)
[2024-07-20] MEDS: MORPHINE SULFATE 4 MG/ML SYR/VIAL IV ONE (09:34)
[2024-07-20] MEDS: SODIUM CHLORIDE 0.9% 1,000 ML IV ONE ×2 (09:34→11:15)
[2024-07-20 09:40] LABS: Basophils # (auto) 0 10 ^3/uL (0-0.2); Basophils % (auto) 0.7 % (0.0-2.0); Eosinophils # (auto) 0.1 10 ^3/uL (0-0.8); Hematocrit 33.8 % (36.0-46.0); Hemoglobin 10.7 g/dL (12.2-16.2); Lymphocytes # (auto) 1.3 10 ^3/uL (0.4-5.4); Lymphocytes % (auto) 23.3 % (10.0-50.0); Mean Corpuscular Hgb Conc. 31.8 g/dL (32.0-36.0); Mean Corpuscular Volume 75.5 fL (80.0-100.0); Monocytes # (auto) 0.4 10 ^3/uL (0-1.3); Monocytes % (auto) 6.4 % (0.0-12.0); Neutrophils # (auto) 3.8 10 ^3/uL (1.6-8.6); Neutrophils % (auto) 68.6 % (37.0-80.0); Platelet Count (auto) 337 10^3/uL (140-450); Red Blood Cells 4.47 10^6/uL (4.0-5.20); Red Cell Distribution Width 16.5 % (11.8-14.3); White Blood Cell 5.6 10^3/uL (4.4-10.8)
[2024-07-20 09:56] LABS: Chloride 101 mmol/L (98-107); Potassium 3.6 mmol/L (3.5-5.1); Sodium 140 mmol/L (136-145)
[2024-07-20 09:57] LABS: Anion Gap 8 (5-15); Carbon Dioxide 31 mmol/L (20-31)
[2024-07-20 10:02] LABS: BUN/Creatinine Ratio 14.3 (10.0-20.0); Blood Urea Nitrogen 12 mg/dL (9-23)
[2024-07-20 10:07] LABS: Glucose 145 mg/dL (74-106)
[2024-07-20] MEDS: PANTOPRAZOLE 40 MG/10 ML VIAL INJ IV ONE (10:41)
[2024-07-20] MEDS ORDERED: METOCLOPRAMIDE HCL 5MG/ml INJ 2ml VIAL IV PRN (11:15)
[2024-07-20] MEDS ORDERED: GABA-339 PO (11:27)
[2024-07-20] MEDS ORDERED: HYDR-4069 PO (11:27)
[2024-07-20] MEDS ORDERED: BACL10TA PO (11:27)
[2024-07-20] MEDS: MAALOX PLUS or MAALOX 30 ML PO ONE (11:28)
[2024-07-20] MEDS: DONNATAL 5ml ORAL Elix (BELLADONNA ALK-PHENOBARB) PO ONE (11:28)
[2024-07-20] MEDS: LIDOCAINE VISCOUS 2% 15ML UD PO ONE (11:28)
--- NOTE | 2024-07-20 11:45 | DVHHP2 ---
History of Present Illness Reason for Visit: Abdominal Pain History of Present Illness Stephenie Fan is a 64-year-old female with past medical history of hypertension, arthritis, duodenal ulcer, duodenal stenosis, and chronic pain who came in for abdominal pain. Patient has been following with GI for duodenal ulcer and duodenal stricture. She has only been able to advance her diet to full liquids and some puree food. She came to the ER because she began having severe abdominal pain, nausea, and vomiting. She states the nausea medication has not been helping. That her stomach feels the way it did the last time she was admitted, like her food is not being digested. Cardiovascular: HTN Psych: Depression Musculoskeletal: Osteoarthritis Past Surgical History: Tubal Ligation Smoke: No ALCOHOL: none Drugs: None Lives: with Family Domestic Violence: Neg Review of Systems Constitutional: No: Fever, Chills, Sweats, Weakness, Malaise, Other Eyes: No: Pain, Vision change, Conjunctivae inflammation, Eyelid inflammation, Other, Redness ENT: No: Ear pain, Ear discharge, Nose pain, Nose discharge, Nose congestion, Mouth pain, Mouth swelling, Throat pain, Throat swelling, Other Respiratory: No: Cough, Dry, Shortness of breath, SOB with excertion, Wheezing, Hemoptysis, Pleuritic Pain, Sputum, Wheezing, Other Cardiovascular: No: Chest Pain, Palpitations, Orthopnea, Paroxysmal Noc. Dyspnea, Edema, Lt Headedness, Other Gastrointestinal: Nausea, Vomiting, Abdominal Pain; No: Diarrhea, Constipation, Melena, Hematochezia, Other Genitourinary: No Dysuria, No Frequency, No Incontinence, No Hematuria, No Retention, No Other Musculoskeletal: No: other, neck pain, shoulder pain, arm pain, back pain, hand pain, leg pain, foot pain Skin: No: Rash, Lesions, Jaundice, Bruising, Other Neurological: No: Weakness, Numbness, Incoordination, Change in speech, Confusion, Seizures, Other Allergies: Coded Allergies: Fluticasone (Verified Allergy, Unknown, 04/15/24) HEADACHE Exam Vital Signs Vital Signs Date Time Temp Pulse Resp B/P (MAP) Pulse Ox O2 Delivery O2 Flow Rate FiO2 07/20/24 11:08 69 18 122/51 07/20/24 11:06 98 07/20/24 09:37 98.7 98.7 07/20/24 08:09 Room Air* 0 21 General Appearance: Alert, Oriented X3, Cooperative, mild distress HEENT: Atraumatic, PERRLA Respiratory: Clear to auscultation, Normal air movement Cardiovascular: Regular rate, Normal S1, Normal S2, No murmurs Abdominal: Normal bowel sounds, Soft, Other (Tenderness to upper quadrants) Extremities: No clubbing, No cyanosis, No edema, Normal pulses, No tend erness/swelling Skin: No rashes, No breakdown, No significant lesion Neuro: Normal gait, Normal speech, Strength at 5/5 X4 ext, Normal tone Psych/Mental Status: Mental status NL, Mood NL Labs/Xrays Labs Test 07/20/24 09:32 07/20/24 08:12 Range/Units White Blood Count 5.6 4.4-10.8 10^3/uL Red Blood Count 4.47 4.0-5.20 10^6/uL Hemoglobin 10.7 L 12.2-16.2 g/dL Hematocrit 33.8 L 36.0-46.0 % Mean Corpuscular Volume 75.5 L 80.0-100.0 fL Mean Corpuscular Hemoglobin 24.0 L 28.0-32.0 pg Mean Corpuscular Hemoglobin Concent 31.8 L 32.0-36.0 g/dL Red Cell Distribution Width 16.5 H 11.8-14.3 % Platelet Count 337 140-450 10^3/uL Mean Platelet Volume 8.3 6.9-10.8 fL Neutrophils (%) (Auto) 68.6 37.0-80.0 % Lymphocytes (%) (Auto) 23.3 10.0-50.0 % Monocytes (%) (Auto) 6.4 0.0-12.0 % Eosinophils (%) (Auto) 1.0 0.0-7.0 % Basophils (%) (Auto) 0.7 0.0-2.0 % Neutrophils # (Auto) 3.8 1.6-8.6 10 ^3/uL Lymphocytes # (Auto) 1.3 0.4-5.4 10 ^3/uL Monocytes # (Auto) 0.4 0-1.3 10 ^3/uL Eosinophils # (Auto) 0.1 0-0.8 10 ^3/uL Basophils # (Auto) 0 0-0.2 10 ^3/uL Nucleated Red Blood Cells 0.0 % Sodium Level 140 136-145 mmol/L Potassium Level 3.6 3.5-5.1 mmol/L Chloride Level 101 98-107 mmol/L Carbon Dioxide Level 31 20-31 mmol/L Anion Gap 8 5-15 Blood Urea Nitrogen 12 9-23 mg/dL Creatinine 0.84 0.550-1.02 mg/dL Glomerular Filtration Rate Calc 79 >90 mL/min BUN/Creatinine Ratio 14.3 10.0-20.0 Serum Glucose 145 H 74-106 mg/dL Calcium Level 10.0 8.7-10.4 mg/dL Urine Color Yellow Yellow Urine Clarity Turbid H Clear Urine pH 8.0 5.0-9.0 Urine Specific [place] 1.025 1.001-1.035 Urine Protein 1+ H Negative Urine Ketones 1+ H Negative Urine Blood Negative Negative /uL Urine Nitrite Negative Negative Urine Bilirubin Negative Negative Urine Urobilinogen Normal Negative mg/dL Urine Leukocyte Esterase Negative Negative /uL Urine RBC 5 0 - 4 /hpf Urine Microscopic WBC 2 0-5 /HPF Urine Squamous Epithelial Cells Few <5 /hpf Urine Bacteria Few H None Seen /hpf Urine Hyaline Casts Few 0 - 2 /lpf Urine Mucus Few None Seen Urine Yeast (Budding) Moderate None Seen /hpf Urine Glucose Normal Normal mg/dL Exam: CT CT AB PEL WO CON-NO ORAL OR IV Findings: Evaluation of solid organs is limited due to lack of intravenous contrast use. Lung Bases: Dependent atelectasis. Liver: The liver is normal in size. No focal lesions. Gallbladder and Biliary Tree: Cholelithiasis noted without secondary findings of cholecystitis or biliary obstruction. Spleen: Unremarkable Pancreas: The pancreas is grossly normal in appearance. Adrenal Glands: Unremarkable Kidneys: Kidneys are grossly normal without calculi or hydronephrosis. Bladder: Grossly unremarkable for degree of distention. Bowel: Distended stomach. Moderate volume colonic stool. The appendix is not visualized; however, no secondary findings of acute appendicitis identified. Ascites: Absent Lymphadenopathy: No mesenteric, retroperitoneal or periportal lymphadenopathy. Abdominal Wall and Mesentery: Unremarkable. Vasculature: The visualized abdominal aorta is normal in size and caliber. Evaluation of abdominal and pelvic vessels is limited due to lack of intravenous contrast. Pelvic Organs: Unremarkable Musculoskeletal: No aggressive focal bony lesions, acute fractures or dislocation. Grade 1 anterolisthesis of L4 on L5. Degenerative changes of the spine. IMPRESSION: Distended stomach. Moderate volume colonic stool. Assessment/Plan Assessment/Plan Assessment: Duodenal stenosis, Duodenal ulcer disease, Hypertension, Chronic pain, Osteoarthritis, Plan: Admit to Med-Surg, GI consult, Clear liquid diet, Antiemetics, Home medications reconciled, Plan discussed with: Patient Date of Service: Jul 20, 2024 Billing Provider: DAYNA MANUEL Common Visit Codes: 11565-[id number] INP/OBS CARE (MOD) DAYNA MANUEL Jul 20, 2024 11:45
--- NOTE | 2024-07-20 12:13 | DVH ---
Exam: CT CT AB PEL WO CON-NO ORAL OR IV History: gastriculcer Comparison Study: None Technique: Multidetector spiral CT of the abdomen was performed from lung bases to pubic symphysis. I maging was performed without IV contrast. Axial, coronal and sagittal multiplanar reformats were obta ined from the axial data set by the technologist. Radiation Dose : 1. Abdomen/Pelvis: CTDIvol 8.29 mGy, DLP 394.8 mGy*cm. Findings: Evaluation of solid organs is limited due to lack of intravenous contrast use. Lung Bases: Dependent atelectasis. Liver: The liver is normal in size. No focal lesions. Gallbladder and Biliary Tree: Cholelithiasis noted without secondary findings of cholecystitis or isael iary obstruction. Spleen: Unremarkable Pancreas: The pancreas is grossly normal in appearance. Adrenal Glands: Unremarkable Kidneys: Kidneys are grossly normal without calculi or hydronephrosis. Bladder: Grossly unremarkable for degree of distention. Bowel: Distended stomach. Moderate volume colonic stool. The appendix is not visualized; however, no secondary findings of acute appendicitis identified. Ascites: Absent Lymphadenopathy: No mesenteric, retroperitoneal or periportal lymphadenopathy. Abdominal Wall and Mesentery: Unremarkable. Vasculature: The visualized abdominal aorta is normal in size and caliber. Evaluation of abdominal a nd pelvic vessels is limited due to lack of intravenous contrast. Pelvic Organs: Unremarkable Musculoskeletal: No aggressive focal bony lesions, acute fractures or dislocation. Grade 1 anterolist hesis of L4 on L5. Degenerative changes of the spine. IMPRESSION: Distended stomach. Moderate volume colonic stool. Radiation optimization: All CT scans at this facility use at least one of these dose optimization chaparrita hniques: automated exposure control mA and/or kV adjustment per patient size (includes targeted exam s where dose is matched to clinical indication) or iterative reconstruction.
[2024-07-20] MEDS: hydrALAZINE HCL 25 MG TAB PO SCH (12:58)
--- NOTE | 2024-07-20 15:27 | DVHCONRES ---
Date Seen: Jul 20, 2024 Resident Creating Document: MALDONADO CRUZ RESIDENT Referring Physician Dr. Corona Reason for Consultation Ulcer History of Present Illness Patient is a 63 year old female with a past medical history of duodenal ulcer w strictures causing SBO, Hypertension and chronic back pain came to the hospital with worsening abdominal pain. According to the patient, on Friday afternoon she started experiencing a midepigastric pain which was sharp in nature, 6/10 in intensity with radiation to bilateral flanks. Patient notes pain is relieved by morphine and denies any exacerbating factors. Patient notes she had similar pain 6 months ago and she was found to have a duodenal ulcer, patient notes pain is similar to the pain 6 months ago, but worse. Pain is also associated with vomiting, patient reports 7 episodes of vomiting since Friday. Denies any blood in vomitus. Last EGD was in April 2024. Family History: Hypertension G8 MOTHER Allergies: Coded Allergies: Fluticasone (Verified Allergy, Unknown, 04/15/24) HEADACHE Home Meds Active Scripts Pantoprazole Sodium Sesquihydr (Pantoprazole Sodium) 40 Mg Tab, 40 MG PO BID for 30 Days, #60 TAB 2 Refills Prov:ANDREW SINGER RESIDENT 12/31/23 Sucralfate (CARAFATE) 1 Gm Tab, 1 GM OR BID for 30 Days, #60 TAB 2 Refills Prov:ANDREW SINGER RESIDENT 12/31/23 Reported Medications Baclofen (Baclofen) 10 Mg Tab, 1 TAB PO Q8HPRN PRN 07/20/24 Hydrocodone-Acetaminophen (Hydrocodone/Acetaminophen 7.5-325 mg) 1 Tab Tab, 1 TAB PO TIDPRN PRN 07/20/24 Gabapentin (Gabapentin) 600 Mg Tab, 1 TAB PO TID 07/20/24 Docusate Sodium (Stool Softener) 100 Mg Tab, 100 MG PO DAILY, TAB 04/13/24 Potassium Gluconate (POTASSIUM GLUCONATE) 80 Mg Tab, 80 MG OR DAILY, TAB 04/13/24 Acetaminophen (Tylenol 8 Hour Arthritis) 650 Mg Tab, 650 MG PO PRN, TAB 04/13/24 Losartan Potassium & Hydrochlo (Hyzaar) 1 Tab Tab, 1 TAB PO DAILY, TAB 04/13/24 Ondansetron HCl (Ondansetron) 4 Mg Tab, 4 MG PO DAILY, TAB 04/13/24 Dicyclomine Hcl (Dicyclomine Hcl) 20 Mg Tab, 20 MG PO, TAB 04/13/24 Escitalopram Oxalate (Lexapro) 20 Mg Tab, 20 MG PO DAILY, TAB 04/13/24 Hydralazine HCl (Hydralazine HCl) 25 Mg Tab, 25 MG PO DAILY, TAB 04/13/24 Discontinued Reported Medications Hydrocodone-Acetaminophen (Hydrocodone/Acetaminophen 7.5-325 mg) 1 Tab Tab, 1 TAB PO DAILY, TAB 04/13/24 Gabapentin (Once-Daily) (Gabapentin) 300 Mg Tab, 600 MG PO, TAB 12/29/23 Baclofen (Baclofen) 20 Mg Tab, 10 TAB PO TID, #90 TAB 2 Refills 12/25/23 Current Medications Current Medications Medications (Trade) Dose Ordered Sig/Francia Route PRN Reason Start Time Stop Time Status Last Admin Ondansetron HCl (Zofran) 4 mg Q4HP PRN IV NAUSEA / VOMITING 07/20/24 11:15 Metoclopramide HCl (Reglan Injection) 10 mg Q6HPRN PRN IV NAUSEA / VOMITING 07/20/24 11:15 Hydrochlorothiazide (hydroCHLOROthiazide TABLET) 25 mg DAILY PO 07/21/24 10:00 Pantoprazole Sodium (Protonix) 40 mg BID IV 07/20/24 22:00 Hydralazine HCl (Apresoline Tablet) 25 mg DAILY PO 07/20/24 12:58 Hold Citalopram Hydrobromide (CeleXA TABLET) 40 mg DAILY PO 07/21/24 10:00 Baclofen (Liorisal Tablet) 10 mg Q8HPRN PRN PO FOR MUSCLE SPASM 07/20/24 11:30 Acetaminophen/ Hydrocodone Bitart ([place] 7.5/325MG Tab) 1 tab Q8HPRN PRN PO PAIN SCALE 1 THRU 6 07/20/24 11:30 Gabapentin (Neurontin Capsule) 600 mg TID PO 07/20/24 14:00 Losartan Potassium (Cozaar Tablet) 100 mg DAILY PO 07/21/24 10:00 Review of Systems Eyes: No Pain, No Vision change, No Conjunctivae inflammation, No Eyelid inflammation, No Other, No Redness ENT: No Ear pain, No Ear discharge, No Nose pain, No Nose discharge, No Nose congestion, No Mouth pain, No Mouth swelling, No Throat pain, No Throat swelling, No Other Cardiovascular: No Chest Pain, No Palpitations, No Orthopnea, No Paroxysmal No Dyspnea, No Edema, No Lt Headedness, No Other Respiratory: No Cough, No Dry, No Shortness of breath, No SOB with exertion, No Wheezing, No Hemoptysis, No Pleuritic Pain, No Sputum, No Other Gastrointestinal: Nausea, Vomiting, Abdominal Pain, No Diarrhea, No Constipation, No Melena, No Hematochezia, No Other Genitourinary: No Dysuria, No Frequency, No Incontinence, No Hematuria, No Retention, No Other Musculoskeletal: No other, No neck pain, No shoulder pain, No arm pain, No back pain, No hand pain, No leg pain, No foot pain Skin: No Rash, No Lesions, No Jaundice, No Bruising, No Other Vital Signs Vital Signs Date Time Temp Pulse Resp B/P (MAP) Pulse Ox O2 Delivery O2 Flow Rate FiO2 07/20/24 11:08 69 18 122/51 07/20/24 11:06 98 07/20/24 09:37 98.7 98.7 07/20/24 08:09 Room Air* 0 21 Physical Exam General Appearance: Cooperative. Well developed. Well nourished. NAD. Dry mucous membrane Head Exam: Normal inspection Neck Exam: Normal inspection. Non-tender. Normal alignment Pulmonary/Respiratory: Chest non-tender. Clear bilateral breath sounds, no crackles, no wheezing. Cardiovascular/Chest: Regular rate and rhythm. No murmurs. No JVD. Abdominal Exam: Normal bowel sounds. Soft. normal abdomen, no visible veins, some tenderness to palpation No hepatospenomegaly. No masses Lower extremities: Negative lower extremity edema Neuro/Mental Status: A&O x4. Coherent. Thoughts/Psych: Normal thought pattern. Appropriate mood and affect. Good judgement and insight Skin Exam: Normal inspection. Normal color. Warm. Dry Labs/Diagnostic Data Labs Test 07/20/24 09:32 07/20/24 08:12 Range/Units White Blood Count 5.6 4.4-10.8 10^3/uL Red Blood Count 4.47 4.0-5.20 10^6/uL Hemoglobin 10.7 L 12.2-16.2 g/dL Hematocrit 33.8 L 36.0-46.0 % Mean Corpuscular Volume 75.5 L 80.0-100.0 fL Mean Corpuscular Hemoglobin 24.0 L 28.0-32.0 pg Mean Corpuscular Hemoglobin Concent 31.8 L 32.0-36.0 g/dL Red Cell Distribution Width 16.5 H 11.8-14.3 % Platelet Count 337 140-450 10^3/uL Mean Platelet Volume 8.3 6.9-10.8 fL Neutrophils (%) (Auto) 68.6 37.0-80.0 % Lymphocytes (%) (Auto) 23.3 10.0-50.0 % Monocytes (%) (Auto) 6.4 0.0-12.0 % Eosinophils (%) (Auto) 1.0 0.0-7.0 % Basophils (%) (Auto) 0.7 0.0-2.0 % Neutrophils # (Auto) 3.8 1.6-8.6 10 ^3/uL Lymphocytes # (Auto) 1.3 0.4-5.4 10 ^3/uL Monocytes # (Auto) 0.4 0-1.3 10 ^3/uL Eosinophils # (Auto) 0.1 0-0.8 10 ^3/uL Basophils # (Auto) 0 0-0.2 10 ^3/uL Nucleated Red Blood Cells 0.0 % Sodium Level 140 136-145 mmol/L Potassium Level 3.6 3.5-5.1 mmol/L Chloride Level 101 98-107 mmol/L Carbon Dioxide Level 31 20-31 mmol/L Anion Gap 8 5-15 Blood Urea Nitrogen 12 9-23 mg/dL Creatinine 0.84 0.550-1.02 mg/dL Glomerular Filtration Rate Calc 79 >90 mL/min BUN/Creatinine Ratio 14.3 10.0-20.0 Serum Glucose 145 H 74-106 mg/dL Calcium Level 10.0 8.7-10.4 mg/dL Urine Color Yellow Yellow Urine Clarity Turbid H Clear Urine pH 8.0 5.0-9.0 Urine Specific [place] 1.025 1.001-1.035 Urine Protein 1+ H Negative Urine Ketones 1+ H Negative Urine Blood Negative Negative /uL Urine Nitrite Negative Negative Urine Bilirubin Negative Negative Urine Urobilinogen Normal Negative mg/dL Urine Leukocyte Esterase Negative Negative /uL Urine RBC 5 0 - 4 /hpf Urine Microscopic WBC 2 0-5 /HPF Urine Squamous Epithelial Cells Few <5 /hpf Urine Bacteria Few H None Seen /hpf Urine Hyaline Casts Few 0 - 2 /lpf Urine Mucus Few None Seen Urine Yeast (Budding) Moderate None Seen /hpf Urine Glucose Normal Normal mg/dL Assessment Acute intractable abdominal pain Hx of Postbulbar duodenal ulcer with surrounding inflammatory changes and i nflammatory stricture Mild antral gastritis 3 cm sliding-type hiatal hernia with no significant erosive esophagitis Plan: Scheduled for EGD tomorrow NPO starting midnight Protonix 40 mg b.i.d. Carafate 1 g p.o. 4 times a day DC aspirin NSAIDs smoking alcohol Plan discussed with Dr. Dubois Plan discussed with: Patient, Daughter, Other (RN) MALDONADO CRUZ RESIDENT Jul 20, 2024 15:27
[2024-07-20 15:30] VITALS: BP 109/55; PULSE 88; RESP 17; TEMP 98; O2SAT 92
[2024-07-20 16:16] VITALS: O2SAT 93
[2024-07-20 17:00] VITALS: BP 148/84; PULSE 64; RESP 19; TEMP 98.1; O2SAT 93
[2024-07-20] MEDS: SUCRALFATE 1 GM/10 ML ORAL SUSP GT SCH (17:11)
[2024-07-20] MEDS: GABAPENTIN 300 MG CAP PO SCH (17:11)
[2024-07-20] MEDS: HYDROcodone-ACET 7.5/325MG TAB PO PRN (18:08)
[2024-07-20 20:53] VITALS: BP 118/37; PULSE 62; RESP 20; TEMP 97.7; O2SAT 99
[2024-07-20] MEDS: PANTOPRAZOLE 40 MG/10 ML VIAL INJ IV SCH (21:18)
[2024-07-21] VITALS (8 sets, daily range): BP systolic 119–146; BP diastolic 49–64; PULSE 57–77; RESP 14–20; TEMP 98.1–98.3; O2SAT 93–100
[2024-07-21] MEDS: diphenhdrAMINE HCL 50 MG/1 ML VL IV ONE ×2 (01:54→23:49)
[2024-07-21 07:00] LABS: Alanine Aminotransferase 13 U/L (7-40); Albumin 4.6 g/dL (3.2-4.8); Alkaline Phosphatase 77 U/L (46-116); Anion Gap 5 (5-15); Aspartate Aminotransferase 18 U/L (13-40); BUN/Creatinine Ratio 11.5 (10.0-20.0); Blood Urea Nitrogen 9 mg/dL (9-23); Calcium 10.1 mg/dL (8.7-10.4); Carbon Dioxide 30 mmol/L (20-31); Chloride 105 mmol/L (98-107); Glucose 81 mg/dL (74-106); Potassium 3.8 mmol/L (3.5-5.1); Sodium 140 mmol/L (136-145); Total Protein 7.3 g/dL (5.7-8.2)
[2024-07-21 07:01] LABS: Bilirubin, Total 0.2 mg/dL (0.2-1.0)
[2024-07-21 07:04] LABS: INR 1.07 (0.9-1.15); Partial Thromboplastin Time 27.9 SEC (24.5-34.5); Prothrombin Time 11.3 sec (9.3-11.8)
[2024-07-21 07:06] LABS: Basophils # (auto) 0 10 ^3/uL (0-0.2); Eosinophils # (auto) 0.1 10 ^3/uL (0-0.8)
[2024-07-21 07:08] LABS: Basophils % (auto) 0.8 % (0.0-2.0); Eosinophils % (auto) 2.5 % (0.0-7.0); Hemoglobin 9.8 g/dL (12.2-16.2); Lymphocytes # (auto) 2.5 10 ^3/uL (0.4-5.4); Lymphocytes % (auto) 52.2 % (10.0-50.0); Mean Corpuscular Hgb Conc. 31.5 g/dL (32.0-36.0); Mean Corpuscular Volume 76.2 fL (80.0-100.0); Monocytes # (auto) 0.3 10 ^3/uL (0-1.3); Monocytes % (auto) 7.4 % (0.0-12.0); Neutrophils # (auto) 1.8 10 ^3/uL (1.6-8.6); Neutrophils % (auto) 37.1 % (37.0-80.0); Platelet Count (auto) 321 10^3/uL (140-450); Red Blood Cells 4.07 10^6/uL (4.0-5.20); Red Cell Distribution Width 16.5 % (11.8-14.3); White Blood Cell 4.7 10^3/uL (4.4-10.8)
--- NOTE | 2024-07-21 07:16 | DVH ---
EXAM: XR Chest, 1 View CLINICAL INDICATION: protocol TECHNIQUE: Frontal view of the chest. COMPARISON: XY CHEST XRAY 1 VIEW on DOS: 12/29/23, XY CHEST XRAY 1 VIEW on DOS: 12/25/23, XY CHEST PO RTABLE on DOS: 12/24/23 FINDINGS: LUNGS AND PLEURAL SPACES: Unremarkable. No consolidation. No pneumothorax. HEART: Unremarkable. No cardiomegaly. MEDIASTINUM: Unremarkable. Normal mediastinal contour. BONES/JOINTS: Unremarkable. No acute fracture. OTHER FINDINGS: . None. IMPRESSION: No acute cardiopulmonary process.
--- NOTE | 2024-07-21 07:49 | ECG ---
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
[2024-07-21] MEDS: CITALOPRAM HYDROBR 20 MG TAB PO SCH (10:00)
[2024-07-21] MEDS: hydroCHLOROthiazide 25 MG TAB PO SCH (10:00)
[2024-07-21] MEDS: LOSARTAN POTASSIUM 50 MG TAB PO SCH (10:00)
[2024-07-21] MEDS ORDERED: LIDOCAINE 2% (LOCAL ANESTH.) PF 5ml SDV ONE (12:22)
[2024-07-21] MEDS ORDERED: MIDAZOLAM HCL 2MG/2ML 2ml VIAL (1mg/ml) ONE (12:22)
[2024-07-21] MEDS ORDERED: PROPOFOL 10 MG/ML 20 ML IV ONE (13:01)
--- NOTE | 2024-07-21 13:38 | DVHPNRES ---
Progress Note Date Seen: Jul 21, 2024 Resident Creating Document: CRISTIAN CEDENO RESIDENT Medical Necessity Reason Pt with a Central, PICC or Fol: No Subjective Review of Systems Stephenie Fan is a 64-year-old female who came in for abdominal pain. PMH: HTN, Depression, Osteoarthritis Past Surgical History: Tubal Ligation Social history: Smoke: No. ALCOHOL: none. Drugs: None. Lives: with Family Patient has been following with GI for duodenal ulcer and duodenal stricture. She has only been able to advance her diet to full liquids and some puree food. She came to the ER because she began having severe abdominal pain, nausea, and vomiting. She states the nausea medication has not been helping. That her stomach feels the way it did the last time she was admitted, like her food is not being digested. On my initial assessment, patient continued to complain of a mild epigastric and right upper quadrant pain, she stated having some nausea. She has a mentioned that around 2-3 weeks ago she had a few episodes of black colored emesis. She denies any hematemesis or melena. Patient currently denies any chest pain, shortness of breath, dizziness, lightheadedness, diarrhea, constipation. Objective vital signs Vital Sign Date Time Temp Pulse Resp B/P (MAP) Pulse Ox O2 Delivery O2 Flow Rate FiO2 07/21/24 09:00 98.1 63 15 126/57 (80) 93 98.1 07/21/24 08:19 Room Air* 0 21 Total Intake and Output 07/20/24 07/20/24 07/21/24 15:00 23:00 07:00 Intake Total 300 ml Balance 300 ml medications Current Medications Medications Dose Ordered Sig/Francia Route Start Time Stop Time Status Last Admin Dose Admin Ondansetron HCl 4 mg Q4HP PRN IV 07/20/24 11:15 Metoclopramide HCl 10 mg Q6HPRN PRN IV 07/20/24 11:15 Hydrochlorothiazide 25 mg DAILY PO 07/21/24 10:00 Pantoprazole Sodium 40 mg BID IV 07/20/24 22:00 07/21/24 10:17 40 MG Hydralazine HCl 25 mg DAILY PO 07/20/24 12:58 Hold Citalopram Hydrobromide 40 mg DAILY PO 07/21/24 10:00 Baclofen 10 mg Q8HPRN PRN PO 07/20/24 11:30 Acetaminophen/ Hydrocodone Bitart 1 tab Q8HPRN PRN PO 07/20/24 11:30 07/20/24 18:08 1 TAB Gabapentin 600 mg TID PO 07/20/24 14:00 07/20/24 21:19 600 MG Losartan Potassium 100 mg DAILY PO 07/21/24 10:00 Sucralfate 1 gm ACHS GT 07/20/24 17:00 07/20/24 21:19 1 GM Examination General: Awake, alert, comfortable appearing, in no acute distress. HEENT: Head is normocephalic and atraumatic. Pupils are equal, round, and reactive to light. Extraocular muscles are intact. No nasal discharge. No facial trauma. Intraoral exam shows moist mucous membranes with no tonsillar enlargement or exudate. Neck: Supple with no cervical lymphadenopathy No meningismus. No goiter. Heart: Regular rate without murmur, rub, or gallop. Lungs: Equal breath sounds bilaterally with no wheezing, rales, or rhonchi. There is no chest wall tenderness or instability. Abdomen: No external sign of injury. Bowel sounds are present. Abdomen is soft, mild tenderness to palpation on epigastric region Extremities: Strong peripheral pulses. There is no clubbing, no cyanosis, and no edema. Skin: No rash. Neurologic: Cranial nerves II-XII intact without motor, sensory, or cerebellar deficit, no asterixis. laboratory and microbiology Laboratory Tests 07/21/24 05:31 Test 07/21/24 05:31 Range/Units Serum Glucose 81 74-106 mg/dL Labs and/or images reviewed: Labs reviewed by me, Image(s) reviewed by me Problem List/Assessment/Plan Problem List/Assessment/Plan Possible upper GI bleeding Anemia, mild-moderate, microcytic Abdominal pain likely due to Duodenal stenosis and Duodenal ulcer disease Hypertension, controlled Osteoarthritis Plan: EGD will be performed today GI doctor following Protonix 40mg iv bid carafate 1g achs Full liquid diet IV iron Patient will also undergo colonoscopy on 07/23, bowel prep ordered Continue home medications losartan, hydrochlorothiazide, citalopram, gabapentin, baclofen Goals of care were discussed for over 30 mins. FULL CODE Case was discussed with dr. reed Plan discussed with: Patient, Other (RN) Date of Service: Jul 21, 2024 Billing Provider: ÁLVARO REED MD Common Visit Codes: [id number] INP/OBS CARE(HIGH) NAZIA CEDENOIS RESIDENT Jul 21, 2024 13:38 ÁLVARO REED MD Jul 21, 2024 17:34
[2024-07-21 14:01] LABS: % Iron Saturation 7.6 % (15-50)
--- NOTE | 2024-07-21 14:18 | DVHOP2 ---
Operative Report DATE OF OPERATION: 07/21/24 PROCEDURE: Upper Endoscopy with biopsy and balloon dilation of duodenal stricture PREOPERATIVE INDICATION: The patient is a 64 -year-old female undergoing endoscopy for recurrent nausea and vomiting POSTOPERATIVE DIAGNOSES: 1. 2-3 cm sliding-type hiatal hernia with no significant erosive esophagitis 2. Mild gastroduodenitis 3. Persistent postbulbar duodenal stricture with surrounding inflammatory changes and unable to pass the endoscope through This was dilated with radial expansion balloon from up to 8-9 mm beyond which there was moderate resistance PROCEDURE PERFORMED BY: Low Dubois GI NURSE: SCOPE: Olympus videoendoscope. ASA CLASS: PREOPERATIVE MEDICATIONS: Kasi Milan PROCEDURE IN DETAIL: After obtaining an informed consent, the patient was placed on left lateral decubitus position. The patient was then sedated with the above medications. A bite block was placed between her teeth. The endoscope was then passed through the oropharynx, into the esophagus, and through the stomach and pylorus up to the 1st part of the duodenal. In the postbulbar area there w as a persistent duodenal stricture The endoscope could not be advanced beyond the stricture but was able to look beyond into the 2nd and 3rd part and it appeared to be inflammatory. The junction was attempted to be dilated with a Microvasive radial expansion balloon and I was able to expanded from 8-9 mm At this time there was moderate amount of resistance in the balloon and some oozing from the stricture area. No further dilation was attempted Biopsies were obtained from the duodenal bulb and around the stricture. The endoscope was then withdrawn into the stomach The pre-pyloric area and antrum showed minimal antral gastritis. On retroflexion the fundus and cardia were normal. Gastric biopsies were obtained. The endoscope was then withdrawn into the distal esophagus where she had a 3 cm sliding-type hiatal hernia with no significant erosive esophagitis at this time The remaining distal and proximal esophagus and oropharynx were unremarkable. Patient tolerated the procedure well COMPLICATIONS : None SPECIMENS: Duodenal biopsies Gastric biopsies DISPOSITION: Transfer back to the floor Stable PLAN: 1. Await for biopsy result 2. Will place pt on Protonix 40 mg bid IV 3. Carafate suspension 1 g p.o. 4 times a day 4. Full liquid diet 5. DC aspirin NSAIDs smoking alcohol 6. Patient will go undergo a bowel prep tomorrow and I will schedule colonoscopy on 07/23/2024 LOW DUBOIS MD 19, 2025 14:18
[2024-07-21 14:26] LABS: Ferritin 3.9 ng/mL (10-291); Folate (Folic Acid) 19.47 ng/mL (>5.38)
[2024-07-21] MEDS: SUCRALFATE 1 GM/10 ML ORAL SUSP PO SCH (17:19)
[2024-07-21] MEDS: IRON SUCROSE COMPLEX 110 ML IV SCH (17:51)
[2024-07-21] MEDS: diphenhdrAMINE HCL 50 MG/1 ML VL IM ONE (22:15)
[2024-07-22 01:19] VITALS: BP 123/63; PULSE 64; RESP 17; TEMP 98.3; O2SAT 96
[2024-07-22 05:00] VITALS: BP 120/63; PULSE 62; RESP 17; TEMP 97.9; O2SAT 95
[2024-07-22 06:16] LABS: Basophils # (auto) 0 10 ^3/uL (0-0.2); Eosinophils # (auto) 0.1 10 ^3/uL (0-0.8); Eosinophils % (auto) 1.4 % (0.0-7.0); Lymphocytes # (auto) 1.6 10 ^3/uL (0.4-5.4); Monocytes # (auto) 0.5 10 ^3/uL (0-1.3)
[2024-07-22 06:19] LABS: Basophils % (auto) 0.6 % (0.0-2.0); Hematocrit 32.5 % (36.0-46.0); Lymphocytes % (auto) 29.5 % (10.0-50.0); Mean Corpuscular Hemoglobin 23.3 pg (28.0-32.0); Mean Corpuscular Hgb Conc. 30.6 g/dL (32.0-36.0); Mean Corpuscular Volume 76.1 fL (80.0-100.0); Monocytes % (auto) 9.4 % (0.0-12.0); Neutrophils # (auto) 3.2 10 ^3/uL (1.6-8.6); Neutrophils % (auto) 59.1 % (37.0-80.0); Platelet Count (auto) 302 10^3/uL (140-450); Red Blood Cells 4.28 10^6/uL (4.0-5.20); Red Cell Distribution Width 16.3 % (11.8-14.3); White Blood Cell 5.4 10^3/uL (4.4-10.8)
[2024-07-22 06:36] LABS: Anion Gap 7 (5-15); Carbon Dioxide 29 mmol/L (20-31); Chloride 107 mmol/L (98-107); Potassium 3.6 mmol/L (3.5-5.1); Sodium 143 mmol/L (136-145)
[2024-07-22 06:37] LABS: Calcium 10.3 mg/dL (8.7-10.4)
[2024-07-22 06:42] LABS: Blood Urea Nitrogen 12 mg/dL (9-23); Glucose 98 mg/dL (74-106); Lipase 38 U/L (12-53)
[2024-07-22 06:43] LABS: Magnesium 2.4 mg/dL (1.6-2.6)
--- NOTE | 2024-07-22 06:57 | DVHPNRES ---
Progress Note Date Seen: Jul 22, 2024 Resident Creating Document: CRISTIAN CEDENO RESIDENT Medical Necessity Reason Pt with a Central, PICC or Fol: No Subjective Review of Systems On my assessment, patient stated feeling better only very mild epigastric. She denies any hematemesis or melena. Patient currently denies any chest pain, shortness of breath, dizziness, lightheadedness, diarrhea, constipation. Objective vital signs Vital Sign Date Time Temp Pulse Resp B/P (MAP) Pulse Ox O2 Delivery O2 Flow Rate FiO2 07/22/24 05:00 97.9 62 17 120/63 (82) 95 97.9 07/21/24 20:00 Room Air* 0 21 Total Intake and Output 07/21/24 07/21/24 07/22/24 15:00 23:00 07:00 Intake Total 100 ml 0 ml 200 ml Balance 100 ml 0 ml 200 ml medications Current Medications Medications Dose Ordered Sig/Francia Route Start Time Stop Time Status Last Admin Dose Admin Ondansetron HCl 4 mg Q4HP PRN IV 07/20/24 11:15 Metoclopramide HCl 10 mg Q6HPRN PRN IV 07/20/24 11:15 Hydrochlorothiazide 25 mg DAILY PO 07/21/24 10:00 Pantoprazole Sodium 40 mg BID IV 07/20/24 22:00 07/21/24 21:30 40 MG Hydralazine HCl 25 mg DAILY PO 07/20/24 12:58 Hold Citalopram Hydrobromide 40 mg DAILY PO 07/21/24 10:00 Baclofen 10 mg Q8HPRN PRN PO 07/20/24 11:30 Acetaminophen/ Hydrocodone Bitart 1 tab Q8HPRN PRN PO 07/20/24 11:30 07/21/24 23:03 1 TAB Gabapentin 600 mg TID PO 07/20/24 14:00 07/22/24 05:43 600 MG Losartan Potassium 100 mg DAILY PO 07/21/24 10:00 Sucralfate 1 gm ACHS GT 07/20/24 17:00 07/20/24 21:19 1 GM Sucralfate 1 gm QID@0600,1130,1700,2200 PO 07/21/24 17:00 07/22/24 05:43 1 GM Iron Sucrose 110 ml @ 110 mls/hr DAILY@1200 IV 07/21/24 14:45 07/25/24 12:59 07/21/24 17:51 110 MLS/HR Examination General: Awake, alert, comfortable appearing, in no acute distress. HEENT: Head is normocephalic and atraumatic. Pupils are equal, round, and reactive to light. Extraocular muscles are intact. No nasal discharge. No facial trauma. Intraoral exam shows moist mucous membranes with no tonsillar enlargement or exudate. Neck: Supple with no cervical lymphadenopathy No meningismus. No goiter. Heart: Regular rate without murmur, rub, or gallop. Lungs: Equal breath sounds bilaterally with no wheezing, rales, or rhonchi. There is no chest wall tenderness or instability. Abdomen: No external sign of injury. Bowel sounds are present. Abdomen is soft, mild tenderness to palpation on epigastric region Extremities: Strong peripheral pulses. There is no clubbing, no cyanosis, and no edema. Skin: No rash. Neurologic: Cranial nerves II-XII intact without motor, sensory, or cerebellar deficit, no asterixis. laboratory and microbiology Laboratory Tests 07/22/24 04:41 Test 07/22/24 04:41 Range/Units Serum Glucose 98 74-106 mg/dL Labs and/or images reviewed: Labs reviewed by me, Image(s) reviewed by me Problem List/Assessment/Plan Problem List/Assessment/Plan Possible upper GI bleeding Sliding hiatal hernia gastroduodenitis, mild Anemia, mild-moderate, microcytic Abdominal pain likely due to persistent Duodenal stricture Duodenal ulcer disease Hypertension, controlled Osteoarthritis Plan: EGD will be performed revealed sliding hiatal hernia, gastroduedenitis, cannot pass endoscope due to duodenal stenosis GI doctor following Protonix 40mg iv bid carafate 1g achs Full liquid diet IV iron Patient will also undergo colonoscopy on 07/23, bowel prep ordered Continue home medications losartan, hydrochlorothiazide, citalopram, gabapentin, baclofen Goals of care were discussed for over 30 mins. FULL CODE Case was discussed with dr. reed Plan discussed with: Patient, Other (RN) My Orders My Orders Orders - CRISTIAN CEDENO RESIDENT Procedure Category Date Status Time Iron Sucrose Complex PHA 07/21/24 In Process (Venofer) 14:45 Date of Service: Jul 22, 2024 Billing Provider: ÁLVARO REED MD Common Visit Codes: [id number] INP/OBS CARE(HIGH) CRISTIAN CEDENO RESIDENT Jul 22, 2024 06:57 ÁLVARO REED MD Jul 23, 2024 12:47
[2024-07-22 08:32] VITALS: BP 112/51; PULSE 65; RESP 16; TEMP 97.9; O2SAT 100
--- NOTE | 2024-07-22 11:30 | DVHPN2 ---
Progress Note Date Seen: Jul 22, 2024 Resident Creating Document: MALDONADO CRUZ RESIDENT Medical Necessity Reason Pt with a Central, PICC or Fol: No Subjective Review of Systems Patient is a 63 year old female with a past medical history of duodenal ulcer w strictures causing SBO, Hypertension and chronic back pain came to the hospital with worsening abdominal pain. According to the patient, on Friday afternoon she started experiencing a midepigastric pain which was sharp in nature, 6/10 in intensity with radiation to bilateral flanks. Patient notes pain is relieved by morphine and denies any exacerbating factors. Patient notes she had similar pain 6 months ago and she was found to have a duodenal ulcer, patient notes pain is similar to the pain 6 months ago, but worse. Pain is also associated with vomiting, patient reports 7 episodes of vomiting since Friday. Denies any blood in vomitus. Last EGD was in April 2024. Patient completed EGD yesterday on 07/21/2024 which showed 2-3 cm sliding-type hiatal hernia, mild gastroduodenitis. On repeat finding of persistent postbulbar duodenal stricture with surrounding inflammator changes and inability to pass the endoscope through, this was dilated with radial expansion balloon from up to 8-9 mm beyond which there was moderate resistance. Time of my assessment today, patient denies any active ongoing abdominal pain, nausea, vomiting or diarrhea. Patient is scheduled to undergo a colonoscopy tomorrow on 07/23/2024, started patient on a clear liquid diet and encourage to begin GoLYTELY by 11:00 a.m.-12:00 p.m.. Objective vital signs Vital Sign Date Time Temp Pulse Resp B/P (MAP) Pulse Ox O2 Delivery O2 Flow Rate FiO2 07/22/24 11:11 112/51 07/22/24 08:32 97.9 65 16 100 97.9 07/21/24 20:00 Room Air* 0 21 Total Intake and Output 07/21/24 07/21/24 07/22/24 15:00 23:00 07:00 Intake Total 100 ml 0 ml 200 ml Balance 100 ml 0 ml 200 ml medications Current Medications Medications Dose Ordered Sig/Francia Route Start Time Stop Time Status Last Admin Dose Admin Ondansetron HCl 4 mg Q4HP PRN IV 07/20/24 11:15 Metoclopramide HCl 10 mg Q6HPRN PRN IV 07/20/24 11:15 Hydrochlorothiazide 25 mg DAILY PO 07/21/24 10:00 07/22/24 11:11 25 MG Pantoprazole Sodium 40 mg BID IV 07/20/24 22:00 07/22/24 11:06 40 MG Hydralazine HCl 25 mg DAILY PO 07/20/24 12:58 Hold Citalopram Hydrobromide 40 mg DAILY PO 07/21/24 10:00 07/22/24 11:06 40 MG Baclofen 10 mg Q8HPRN PRN PO 07/20/24 11:30 Acetaminophen/ Hydrocodone Bitart 1 tab Q8HPRN PRN PO 07/20/24 11:30 07/22/24 08:26 1 TAB Gabapentin 600 mg TID PO 07/20/24 14:00 07/22/24 05:43 600 MG Losartan Potassium 100 mg DAILY PO 07/21/24 10:00 07/22/24 11:10 100 MG Sucralfate 1 gm ACHS GT 07/20/24 17:00 07/22/24 11:06 1 GM Sucralfate 1 gm QID@0600,1130,1700,2200 PO 07/21/24 17:00 07/22/24 05:43 1 GM Iron Sucrose 110 ml @ 110 mls/hr DAILY@1200 IV 07/21/24 14:45 07/25/24 12:59 07/22/24 11:05 110 MLS/HR Examination General Appearance: Cooperative. Well developed. Well nourished. NAD Head Exam: Normal inspection Neck Exam: Normal inspection. Non-tender. Normal alignment Pulmonary/Respiratory: Chest non-tender. Clear bilateral breath sounds, no crackles, no wheezing. Cardiovascular/Chest: Regular rate and rhythm. No murmurs. No JVD. Abdominal Exam: Normal bowel sounds. Soft. normal abdomen, no visible veins, mild midepigastric tenderness to palpation. No hepatospenomegaly. No masses Lower extremities: Negative lower extremity edema Neuro/Mental Status: A&O x4. Coherent. Thoughts/Psych: Normal thought pattern. Appropriate mood and affect. Good judgement and insight Skin Exam: Normal inspection. Normal color. Warm. Dry laboratory and microbiology Laboratory Tests 07/22/24 04:41 Test 07/22/24 04:41 Range/Units Serum Glucose 98 74-106 mg/dL Microbiology Date/Time Source Procedure Growth Status 07/20/24 08:12 Voided Urine Urine Culture - Final Complete Labs and/or images reviewed: Labs reviewed by me, Image(s) reviewed by me Problem List/Assessment/Plan Problem List/Assessment/Plan Acute intractable abdominal pain, now improved Postbulbar duodenal ulcer with surrounding inflammatory changes and inflammatory stricture Mild antral gastritis 3 cm sliding-type hiatal hernia with no significant erosive esophagitis Plan: Completed EGD yesterday Scheduled for colonoscopy tomorrow Begin clear liquid diet today Begin GoLYTELY today around noon Protonix 40 mg b.i.d. Carafate 1 g p.o. 4 times a day DC aspirin NSAIDs smoking alcohol Thank you so much for the opportunity to consult on your patient. GI team will follow the patient. In case of any questions or concerns please feel free to reach out. Plan discussed with Dr. Dubois, patient and RN Plan discussed with: Patient, Other (RN) MALDONADO CRUZ RESIDENT Jul 22, 2024 11:30
[2024-07-22] MEDS: GOLYTELY 4L KIT PO ONE (12:22)
[2024-07-22 13:00] VITALS: BP 141/65; PULSE 73; RESP 16; TEMP 98.1; O2SAT 99
[2024-07-22] MEDS ORDERED: METOCLOPRAMIDE HCL 5MG/ml INJ 2ml VIAL IV PRN (15:15)
[2024-07-22 17:00] VITALS: BP 139/79; PULSE 78; RESP 20; TEMP 97.6; O2SAT 98
[2024-07-22 21:00] VITALS: BP 173/62; PULSE 85; RESP 20; TEMP 98.2; O2SAT 95
[2024-07-22] MEDS: GABAPENTIN 300 MG CAP PO SCH (21:45)
[2024-07-22] MEDS: diphenhdrAMINE HCL 50 MG/1 ML VL IV ONE (21:49)
[2024-07-23] VITALS (7 sets, daily range): BP systolic 135–171; BP diastolic 72–77; PULSE 63–95; RESP 15–18; TEMP 97.3–98.8; O2SAT 95–99
[2024-07-23] MEDS: MAGNESIUM CITRATE SOLUTION 300 ML BTL PO ONE (06:16)
[2024-07-23 06:17] LABS: Sodium 143 mmol/L (136-145)
[2024-07-23 06:18] LABS: Anion Gap 9 (5-15); Calcium 10.2 mg/dL (8.7-10.4); Carbon Dioxide 27 mmol/L (20-31)
[2024-07-23 06:20] LABS: Chloride 107 mmol/L (98-107); Potassium 3.3 mmol/L (3.5-5.1)
[2024-07-23 06:23] LABS: BUN/Creatinine Ratio 11.3 (10.0-20.0); Glucose 98 mg/dL (74-106)
[2024-07-23 06:24] LABS: Blood Urea Nitrogen 7 mg/dL (9-23)
[2024-07-23] MEDS: GOLYTELY 4L KIT PO ONE (07:03)
[2024-07-23] MEDS: ONDANSETRON HCL 4 MG/2 ML VIAL IV PRN (09:19)
[2024-07-23 09:36] LABS: Basophils # (auto) 0 10 ^3/uL (0-0.2); Eosinophils # (auto) 0.1 10 ^3/uL (0-0.8); Eosinophils % (auto) 0.9 % (0.0-7.0); Lymphocytes # (auto) 2.4 10 ^3/uL (0.4-5.4); Monocytes # (auto) 0.7 10 ^3/uL (0-1.3); Nucleated Red Blood Cells % 0.1 %; White Blood Cell 5.7 10^3/uL (4.4-10.8)
[2024-07-23 09:38] LABS: Basophils % (auto) 0.7 % (0.0-2.0); Hematocrit 30.1 % (36.0-46.0); Hemoglobin 9.6 g/dL (12.2-16.2); Lymphocytes % (auto) 42.6 % (10.0-50.0); Mean Corpuscular Hemoglobin 24.2 pg (28.0-32.0); Mean Corpuscular Volume 75.6 fL (80.0-100.0); Monocytes % (auto) 11.8 % (0.0-12.0); Neutrophils # (auto) 2.5 10 ^3/uL (1.6-8.6); Platelet Count (auto) 294 10^3/uL (140-450); Red Blood Cells 3.99 10^6/uL (4.0-5.20); Red Cell Distribution Width 16.2 % (11.8-14.3)
[2024-07-23] MEDS: POTASSIUM CHLORIDE 40 MEQ, LIDOCAINE 1% (LOCAL ANESTH.) 4 ML in SODIUM CHL 0.9% 250 ML IV ONE (09:38)
[2024-07-23] MEDS ORDERED: PROPOFOL 10 MG/ML 20 ML IV ONE (11:47)
[2024-07-23] MEDS ORDERED: fentaNYL CITRATE 100 MCG/2 ML VL ONE (11:47)
--- NOTE | 2024-07-23 12:57 | DVHOP2 ---
Operative Report DATE OF OPERATION: 07/23/24 PROCEDURE: Diagnostic Colonoscopy. PREOPERATIVE INDICATION: The patient is a 64 -year-old female with abdominal pain undergoing colonoscopy for colon cancer screening POSTOPERATIVE DIAGNOSES: 1. Zjvh-ay-moninkpg tortuosity of the colon; early sigmoid diverticular disease 2. Trace internal hemorrhoids otherwise essentially completely normal colonoscopy examination up to the cecum and terminal ileum PROCEDURE PERFORMED BY: Low Dubois M.D. SCOPE: Olympus videocolonoscope. ASA CLASS: 3 PREOPERATIVE MEDICATIONS: Dr. Melissa Milan PROCEDURE IN DETAIL: After obtaining an informed consent, the patient was placed on left lateral decubitus position. She was then sedated with the above medications. A rectal examination was performed that was normal. The colonoscope was then passed through the anus into the rectosigmoid and through the descending, transverse, and ascending colon up to the cecum with visualization of the appendiceal orifice, base of the cecum and the ileocecal valve. The colonoscope was then withdrawn. The distal 5-10 cm of the terminal ileum were normal. No polyps or masses were. There was no colitis. Patient had fnik-xe-bbfufbdl tortuosity and redundancy of the colon. In the sigmoid colon I saw one or two early si gmoid diverticular pockets On retroflexion and straight on view the patient had trace to 1+ internal hemorrhoids. The patient tolerated the procedure well without difficulty. WITHDRAWAL TIME: 6 minutes QUALITY OF THE PREP: [place] Bowel Prep score: 9. COMPLICATIONS : None SPECIMENS: None DISPOSITION: Transfer back to the floor Stable PLAN: 1. Repeat colonoscopy in 10 years 2. Resume GI soft diet 3. Outpatient follow up with me in 4-6 weeks to review results and discuss further management 4. Patient can be discharged on Protonix Carafate Bentyl and Zofran for abdominal pain and nausea LOW DUBOIS MD Jul 23, 2024 12:57
--- NOTE | 2024-07-23 13:12 | DVHDSRES ---
Discharge Summary Date of Admission Resident Creating Document: CRISTIAN CEDENO RESIDENT Jul 20, 2024 at 11:08 Date of Discharge: Jul 23, 2024 Admitting Diagnosis Abdominal pain Labs/Diagnostic Data: Laboratory Results Test 07/23/24 05:30 07/22/24 04:41 07/21/24 05:31 07/20/24 08:12 White Blood Count 5.7 10^3/uL (4.4-10.8) Red Blood Count 3.99 10^6/uL (4.0-5.20) Hemoglobin 9.6 g/dL (12.2-16.2) Hematocrit 30.1 % (36.0-46.0) Mean Corpuscular Volume 75.6 fL (80.0-100.0) Mean Corpuscular Hemoglobin 24.2 pg (28.0-32.0) Mean Corpuscular Hemoglobin Concent 32.0 g/dL (32.0-36.0) Red Cell Distribution Width 16.2 % (11.8-14.3) Platelet Count 294 10^3/uL (140-450) Mean Platelet Volume 8.9 fL (6.9-10.8) Neutrophils (%) (Auto) 44.0 % (37.0-80.0) Lymphocytes (%) (Auto) 42.6 % (10.0-50.0) Monocytes (%) (Auto) 11.8 % (0.0-12.0) Eosinophils (%) (Auto) 0.9 % (0.0-7.0) Basophils (%) (Auto) 0.7 % (0.0-2.0) Neutrophils # (Auto) 2.5 10 ^3/uL (1.6-8.6) Lymphocytes # (Auto) 2.4 10 ^3/uL (0.4-5.4) Monocytes # (Auto) 0.7 10 ^3/uL (0-1.3) Eosinophils # (Auto) 0.1 10 ^3/uL (0-0.8) Basophils # (Auto) 0 10 ^3/uL (0-0.2) Nucleated Red Blood Cells 0.1 % Sodium Level 143 mmol/L (136-145) Potassium Level 3.3 mmol/L (3.5-5.1) Chloride Level 107 mmol/L (98-107) Carbon Dioxide Level 27 mmol/L (20-31) Anion Gap 9 (5-15) Blood Urea Nitrogen 7 mg/dL (9-23) Creatinine 0.62 mg/dL (0.550-1.02) Glomerular Filtration Rate Calc 101 mL/min (>90) BUN/Creatinine Ratio 11.3 (10.0-20.0) Serum Glucose 98 mg/dL (74-106) Calcium Level 10.2 mg/dL (8.7-10.4) Magnesium Level 2.4 mg/dL (1.6-2.6) Lipase 38 U/L (12-53) Prothrombin Time 11.3 sec (9.3-11.8) Prothrombin Time INR 1.07 (0.9-1.15) Activated Partial Thromboplast Time 27.9 SEC (24.5-34.5) Iron Level 25 ug/dL (50-170) Total Iron Binding Capacity 327 ug/dL (250-425) Percent Iron Saturation 7.6 % (15-50) Ferritin 3.9 ng/mL (10-291) Total Bilirubin 0.2 mg/dL (0.2-1.0) Aspartate Amino Transferase (AST) 18 U/L (13-40) Alanine Aminotransferase (ALT) 13 U/L (7-40) Alkaline Phosphatase 77 U/L (46-116) Total Protein 7.3 g/dL (5.7-8.2) Albumin 4.6 g/dL (3.2-4.8) Vitamin B12 Level 4345 pg/mL (211-911) Folic Acid 19.47 ng/mL (>5.38) Urine Color Yellow (Yellow) Urine Clarity Turbid (Clear) Urine pH 8.0 (5.0-9.0) Urine Specific [place] 1.025 (1.001-1.035) Urine Protein 1+ (Negative) Urine Ketones 1+ (Negative) Urine Blood Negative /uL (Negative) Urine Nitrite Negative (Negative) Urine Bilirubin Negative (Negative) Urine Urobilinogen Normal mg/dL (Negative) Urine Leukocyte Esterase Negative /uL (Negative) Urine RBC 5 /hpf (0 - 4) Urine Microscopic WBC 2 /HPF (0-5) Urine Squamous Epithelial Cells Few /hpf (<5) Urine Bacteria Few /hpf (None Seen) Urine Hyaline Casts Few /lpf (0 - 2) Urine Mucus Few (None Seen) Urine Yeast (Budding) Moderate /hpf (None Seen) Urine Glucose Normal mg/dL (Normal) Other Laboratory Tests 07/23/24 05:30 Brief Hx & Hospital Course: Jessica Fan is a 64-year-old female who came in for abdominal pain. PMH: HTN, Depression, Osteoarthritis Past Surgical History: Tubal Ligation Social history: Smoke: No. ALCOHOL: none. Drugs: None. Lives: with Family Patient has been following with GI for duodenal ulcer and duodenal stricture. She has only been able to advance her diet to full liquids and some puree food. She came to the ER because she began having severe abdominal pain, nausea, and vomiting. She states the nausea medication has not been helping. That her stomach feels the way it did the last time she was admitted, like her food is not being digested. On my initial assessment, patient continued to complain of a mild epigastric and right upper quadrant pain, she stated having some nausea. She has a mentioned that around 2-3 weeks ago she had a few episodes of black colored emesis. She denies any hematemesis or melena. Patient currently denies any chest pain, shortness of breath, dizziness, lightheadedness, diarrhea, constipation. During patient's hospitalization, she had significant clinical improvement, she initially had this epigastric pain moderate, fluctuating, waxing and waning. She was experiencing significant nausea and vomiting, acid reflux. Patient was placed on Protonix. She had an upper endoscopy which revealed sliding hiatal hernia, duodenal ulcers, and a duodenal stricture, these findings are similar to the previous ones she had. However, we will trying to pass the endoscope through the duodenal stricture only 8-9 mm were able to be dilated. No complications were seen during the procedure. Patient states feeling better after the procedure, she was able to tolerate full liquid diet. Patient also underwent colonoscopy, which only showed mild internal hemorrhoids, no polyps. Patient was comprehensively explained about all the findings in these procedures. Patient currently states feeling well, denies any chest pain, shortness of breath any significant abdominal pain, nausea or vomiting. She is currently tolerating diet, ambulatory. Physical examination as below: General: Awake, alert, comfortable appearing, in no acute distress. HEENT: Head is normocephalic and atraumatic. Pupils are equal, round, and reactive to light. Extraocular muscles are intact. No nasal discharge. No facial trauma. Intraoral exam shows moist mucous membranes with no tonsillar enlargement or exudate. Neck: Supple with no cervical lymphadenopathy No meningismus. No goiter. Heart: Regular rate without murmur, rub, or gallop. Lungs: Equal breath sounds bilaterally with no wheezing, rales, or rhonchi. There is no chest wall tenderness or instability. Abdomen: No external sign of injury. Bowel sounds are present. Abdomen is soft, mild tenderness to palpation on epigastric region Extremities: Strong peripheral pulses. There is no clubbing, no cyanosis, and no edema. Skin: No rash. Neurologic: Cranial nerves II-XII intact without motor, sensory, or cerebellar deficit, no asterixis. Patient will be discharged home and continue medications as prescribed. She will continue taking Protonix, Carafate, she can continue taking Zofran and Bentyl p.r.n.. Patient will continue taking full liquid diet and try to do soft diet, however, her prognosis in regard to the duodenal stricture is guarded, as the patient is a poor candidate for surgery. She will continue to follow up with with a GI doctor in outpatient setting. She will also follow up with Dr. Clark in the DC clinic this coming Friday. Both patient and family members verbalized understanding and agree with the DC plan, we spent over 30 minute explained the plan. Case was discussed with dr. reed Consults/Reason for consult GI was consulted due to duodenal ulcer and stricture Operations or Procedures Patient: JESSICA FAN Acct: [id number] : 1960 Loc: [facility] Age/Sex: 64/F Room: [facility] / Bed: A Attending Phy: CRISTIAN CEDENO RESIDENT Operative Report DATE OF OPERATION: 07/21/24 PROCEDURE: Upper Endoscopy with biopsy and balloon dilation of duodenal stricture PREOPERATIVE INDICATION: The patient is a 64 -year-old female undergoing endoscopy for recurrent nausea and vomiting POSTOPERATIVE DIAGNOSES: 1. 2-3 cm sliding-type hiatal hernia with no significant erosive esophagitis 2. Mild gastroduodenitis 3. Persistent postbulbar duodenal stricture with surrounding inflammatory changes and unable to pass the endoscope through This was dilated with radial expansion balloon from up to 8-9 mm beyond which there was moderate resistance PROCEDURE PERFORMED BY: Low Christine GI NURSE: SCOPE: Olympus videoendoscope. ASA CLASS: PREOPERATIVE MEDICATIONS: Kasi Milan PROCEDURE IN DETAIL: After obtaining an informed consent, the patient was placed on left lateral decubitus position. The patient was then sedated with the above medications. A bite block was placed between her teeth. The endoscope was then passed through the oropharynx, into the esophagus, and through the stomach and pylorus up to the 1st part of the duodenal. In the postbulbar area there was a persistent duodenal stricture The endoscope could not be advanced beyond the stricture but was able to look beyond into the 2nd and 3rd part and it appeared to be inflammatory. The junction was attempted to be dilated with a Microvasive radial expansion balloon and I was able to expanded from 8-9 mm At this time there was moderate amount of resistance in the balloon and some oozing from the stricture area. No further dilation was attempted Biopsies were obtained from the duodenal bulb and around the stricture. The endoscope was then withdrawn into the stomach The pre-pyloric area and antrum showed minimal antral gastritis. On retroflexion the fundus and cardia were normal. Gastric biopsies were obtained. The endoscope was then withdrawn into the distal esophagus where she had a 3 cm sliding-type hiatal hernia with no significant erosive esophagitis at this time The remaining distal and proximal esophagus and oropharynx were unremarkable. Patient tolerated the procedure well COMPLICATIONS : None SPECIMENS: Duodenal biopsies Gastric biopsies DISPOSITION: Transfer back to the floor Stable PLAN: 1. Await for biopsy result 2. Will place pt on Protonix 40 mg bid IV 3. Carafate suspension 1 g p.o. 4 times a day 4. Full liquid diet 5. DC aspirin NSAIDs smoking alcohol 6. Patient will go undergo a bowel prep tomorrow and I will schedule colonoscopy on 07/23/2024 LOW CHRISTINE MD Jul 21, 2024 14:18 DICTATED BY:LOW CHRISTINE MD DICTATED DATE/TIME:07/21/24 1418 ELECTRONICALLY SIGNED BY:LOW CHRISTINE MD 07/21/24 1418 ELECTRONICALLY CO-SIGNED BY: Patient: JESSICA FAN Acct: [id number] : 1960 Loc: [facility] Age/Sex: 64/F Room: [facility] / Bed: A Attending Phy: CRISTIAN CEDENO RESIDENT Operative Report DATE OF OPERATION: 07/23/24 PROCEDURE: Diagnostic Colonoscopy. PREOPERATIVE INDICATION: The patient is a 64 -year-old female with abdominal pain undergoing colonoscopy for colon cancer screening POSTOPERATIVE DIAGNOSES: 1. Mtdd-ht-apxlcarf tortuosity of the colon; early sigmoid diverticular disease 2. Trace internal hemorrhoids otherwise essentially completely normal colonoscopy examination up to the cecum and terminal ileum PROCEDURE PERFORMED BY: Low Christine M.D. SCOPE: Olympus videocolonoscope. ASA CLASS: 3 PREOPERATIVE MEDICATIONS: Dr. Melissa Milan PROCEDURE IN DETAIL: After obtaining an informed consent, the patient was placed on left lateral decubitus position. She was then sedated with the above medications. A rectal examination was performed that was normal. The colonoscope was then passed through the anus into the rectosigmoid and through the descending, transverse, and ascending colon up to the cecum with visualization of the appendiceal orifice, base of the cecum and the ileocecal valve. The colonoscope was then withdrawn. The distal 5-10 cm of the terminal ileum were normal. No polyps or masses were. There was no colitis. Patient had nzhk-sy-bnmmcufx tortuosity and redundancy of the colon. In the sigmoid colon I saw one or two early sigmoid diverticular pockets On retroflexion and straight on view the patient had trace to 1+ internal hemorrhoids. The patient tolerated the procedure well without difficulty. WITHDRAWAL TIME: 6 minutes QUALITY OF THE PREP: [place] Bowel Prep score: 9. COMPLICATIONS : None SPECIMENS: None DISPOSITION: Transfer back to the floor Stable PLAN: 1. Repeat colonoscopy in 10 years 2. Resume GI soft diet 3. Outpatient follow up with me in 4-6 weeks to review results and discuss further management 4. Patient can be discharged on Protonix Carafate Bentyl and Zofran for abdominal pain and nausea LOW CHRISTINE MD Jul 23, 2024 12:57 DICTATED BY:LOW CHRISTINE MD DICTATED DATE/TIME:07/23/24 1257 ELECTRONICALLY SIGNED BY:LOW CHRISTINE MD 07/23/24 1257 ELECTRONICALLY CO-SIGNED BY: [facility] [id number] [place] [id number] Ph: [phone] DIAGNOSTIC IMAGING Diagnostic Imaging Report : [id number] Signed PATIENT: JESSICA FAN ACCT: [id number] UNIT: [id number] : 1960 LOC: OVERFLOW ROOM / BED: 1015-ER / A AGE / SEX: 64 / F ADM STATUS: ADM IN SERVICE 1022 ORDERING PHYSICIAN: JOSEPH RICHARDSON MD PROCEDURE(s): ABPL - CT AB PEL WO CON-NO ORAL OR IV REASON: gastriculcer ORDER NUMBER(s): [id number], ACCESSION NUMBER(s): [id number] Exam: CT CT AB PEL WO CON-NO ORAL OR IV History: gastriculcer Comparison Study: None Technique: Multidetector spiral CT of the abdomen was performed from lung bases to pubic symphysis. Imaging was performed without IV contrast. Axial, coronal and sagittal multiplanar reformats were obtained from the axial data set by the technologist. Radiation Dose : 1. Abdomen/Pelvis: CTDIvol 8.29 mGy, DLP 394.8 mGy*cm. Findings: Evaluation of solid organs is limited due to lack of intravenous contrast use. Lung Bases: Dependent atelectasis. Liver: The liver is normal in size. No focal lesions. Gallbladder and Biliary Tree: Cholelithiasis noted without secondary findings of cholecystitis or biliary obstruction. Spleen: Unremarkable Pancreas: The pancreas is grossly normal in appearance. Adrenal Glands: Unremarkable Kidneys: Kidneys are grossly normal without calculi or hydronephrosis. Bladder: Grossly unremarkable for degree of distention. Bowel: Distended stomach. Moderate volume colonic stool. The appendix is not visualized; however, no secondary findings of acute appendicitis identified. Ascites: Absent Lymphadenopathy: No mesenteric, retroperitoneal or periportal lymphadenopathy. Abdominal Wall and Mesentery: Unremarkable. Vasculature: The visualized abdominal aorta is normal in size and caliber. Evaluation of abdominal and pelvic vessels is limited due to lack of intravenous contrast. Pelvic Organs: Unremarkable Musculoskeletal: No aggressive focal bony lesions, acute fractures or dislocation. Grade 1 anterolisthesis of L4 on L5. Degenerative changes of the spine. IMPRESSION: Distended stomach. Moderate volume colonic stool. Radiation optimization: All CT scans at this facility use at least one of these dose optimization techniques: automated exposure control mA and/or kV adjustment per patient size (includes targeted exams where dose is matched to clinical indication) or iterative reconstruction. ATED BY: WALI ISABEL MD DICTATED DATE/TIME: 07/20/241209 SIGNED BY: WALI ISABEL MD SIGNED DATE/TIME: 07/20/241209 CC: [place] [id number] Ph: [phone] DIAGNOSTIC IMAGING Diagnostic Imaging Report : [id number] Signed PATIENT: JESSICA FAN ACCT: [id number] UNIT: [id number] : 1960 LOC: [facility] ROOM / BED: [address] [place] [address] AGE / SEX: 64 / F ADM STATUS: ADM IN SERVICE 35 ORDERING PHYSICIAN: LOW CHRISTINE MD PROCEDURE(s): CXRP - CHEST PORTABLE REASON: protocol ORDER NUMBER(s): [id number], ACCESSION NUMBER(s): [id number] EXAM: XR Chest, 1 View CLINICAL INDICATION: protocol TECHNIQUE: Frontal view of the chest. COMPARISON: XY CHEST XRAY 1 VIEW on DOS: 12/29/23, XY CHEST XRAY 1 VIEW on DOS: 12/25/23, XY CHEST PORTABLE on DOS: 12/24/23 FINDINGS: LUNGS AND PLEURAL SPACES: Unremarkable. No consolidation. No pneumothorax. HEART: Unremarkable. No cardiomegaly. MEDIASTINUM: Unremarkable. Normal mediastinal contour. BONES/JOINTS: Unremarkable. No acute fracture. OTHER FINDINGS: . None. IMPRESSION: No acute cardiopulmonary process. ATED BY: MARIEL ESPINOZA MD DICTATED DATE/TIME: 07/21/24713 SIGNED BY: MARIEL ESPINOZA MD SIGNED DATE/TIME: 07/21/24713 CC: Condition at Discharge: Guarded Final Diagnosis/Problems List Possible upper GI bleeding, no active bleeding Sliding hiatal hernia gastroduodenitis, mild Anemia, mild-moderate, microcytic Abdominal pain likely due to persistent Duodenal stricture Duodenal ulcer disease Hypertension, controlled Osteoarthritis Discharge Disposition: Home Discharge Statement: "Patient was advised to return to the ER or call 911 if any headaches, dizziness, shortness of breath, chest pain, abdominal pain, bleeding, fevers, or worsening of medical condition. Patient was counseled about treatment plan, medications, possible side effects, patientverbalized understanding. All questions were answered to the best of my ability. This discharge took greater then 30 minutes in planning, reviewing documentation, counseling the patient, and discussing with other team members." ASSESSMENT ASSESSMENT Assessment Date of Service: Jul 23, 2024 Billing Provider: ÁLVARO REED MD Common Visit Codes: 11180-SNU/OBS DISCH DAY >30min CRISTIAN CEDENO RESIDENT Jul 23, 2024 13:11 ÁLVARO REED MD Jul 23, 2024 18:56
[2024-07-23] MEDS ORDERED: DICY10CA PO (13:14)
[2024-07-23] MEDS ORDERED: PANT40TA2 PO (13:14)
[2024-07-23] MEDS ORDERED: SUCR1SUS26 PO (13:14)
[2024-07-23] MEDS ORDERED: ZOFR4T PO (13:14)
[2024-07-23] MEDS: BACLOFEN 10 MG TAB PO PRN (15:55)
== END 2024-07-23 18:00 | disposition home or self-care (01) | DRG 254 ==
LOC: EEVIPCON 07:58 → ER 07:58 → OVERFLOW 11:08 → WEST WING 14:45
PROVIDERS: ADMIT Internal Medicine; ATTEND Emergency Medicine
PROC: 0DB68ZX Excision of Stomach, Via Natural or Artificial Opening Endoscopic, Diagnostic (ICD-10-PCS; 2024-07-21)
PROC: 0D798ZZ Dilation of Duodenum, Via Natural or Artificial Opening Endoscopic (ICD-10-PCS; 2024-07-21)
PROC: 0DB98ZX Excision of Duodenum, Via Natural or Artificial Opening Endoscopic, Diagnostic (ICD-10-PCS; principal; 2024-07-21 13:21)
PROC: 0DJD8ZZ Inspection of Lower Intestinal Tract, Via Natural or Artificial Opening Endoscopic (ICD-10-PCS; 2024-07-23)
DX: K64.8 Other hemorrhoids (principal); K22.11 Ulcer of esophagus with bleeding; K26.4 Chronic or unspecified duodenal ulcer with hemorrhage; K29.91 Gastroduodenitis, unspecified, with bleeding; K31.5 Obstruction of duodenum; G89.29 Other chronic pain; I10 Essential (primary) hypertension; K44.9 Diaphragmatic hernia without obstruction or gangrene; F32.A Depression, unspecified; M54.9 Dorsalgia, unspecified; K57.30 Diverticulosis of large intestine without perforation or abscess without bleeding; Z88.8 Allergy status to other drugs, medicaments and biological substances; Z79.899 Other long term (current) drug therapy; Z79.1 Long term (current) use of non-steroidal anti-inflammatories (NSAID); Z79.891 Long term (current) use of opiate analgesic; Z87.11 Personal history of peptic ulcer disease; D50.9 Iron deficiency anemia, unspecified
CPT/HCPCS: 36415; 71045; 74176; 80048; 80053; 81001; 82607; 82728; 82746; 83540; 83550; 83690; 83735; 85025; 85610; 85730; 86850; 86900; 86901; 87086; 93005; 96365; 96375; G0378; J1756; J2003; J2250; J2405; J2470; J2704

== ENCOUNTER 2024-11-05 11:59 | Emergency (ER) | payer MEDICAID ==
[~2024-11-05] VITALS: Ht 154.9 cm; Wt 56.4 kg
[~2024-11-05 11:59] MED LIST changes: +BACL10TA PO; -BACL20TA PO; +DICY10CA PO; -DICY20TA PO; +GABA-339 PO; -GABA300T4 PO; -ONDA-155 PO; -PANT40T PO; +PANT40TA2 PO; +SUCR1SUS26 PO; -SUCR1TAB31 OR; +ZOFR4T PO
--- NOTE | 2024-11-05 12:41 | ED.PDOC ---
GI ASSESSMENT HPI Comments A 64 YEAR-OLD FEMALE REPORTS TO THE ED WITH A CHIEF COMPLAINT OF EPIGASTRIC ABDOMINAL PAIN OF THIS MORNING. PATIENT ADDITIONALLY REPORTS N/V ASSOCIATED WITH ABDOMINAL PAIN. PATIENT HAS A PMHX OF GERD AND TAKES PROTONIX MEDICATION AT [facility]. PATIENT HAS NO FURTHER COMPLAINTS AT THIS TIME AND OTHERWISE DENIES FEVER, CHILLS, CHEST PAIN, DYSURIA, OR HEMATURIA. PATIENT IS ALERT, ORIENTED X 4, AND HAS STEADY GAIT. PT TAKES NORCO FOR HER CHRONIC LOW BACK PAIN. Chief Complaint: Abdominal Pain Time Seen by MD: 12:25 Primary Care Provider: [facility] Reviewed Notes: Nurses Notes, Medications, Allergies Allergies: Coded Allergies: Fluticasone (Verified Allergy, Unknown, 04/15/24) HEADACHE Home Meds Active Scripts Ondansetron Odt 4MG Tab (ZOFRAN PO) 4 Mg Tb, 4 MG PO BID, #20 TAB ODT TAB-DISSOLVE IN MOUTH, THEN SWALLOW Prov:BRANDIE ALMAZAN 11/05/24 Dicyclomine Hcl (BENTYL CAPSULE) 10 Mg Cp, 1 CAP PO Q6HPRN for 30 Days, #100 CAP 3 Refills Prov:CRISTIAN CEDENO RESIDENT 07/23/24 Ondansetron Odt 4MG Tab (ZOFRAN PO) 4 Mg Tb, 4 MG PO Q4HPRN PRN for 30 Days, #150 TAB 1 Refill ODT TAB-DISSOLVE IN MOUTH, THEN SWALLOW Prov:CRISTIAN CEDENO RESIDENT 07/23/24 Pantoprazole Sodium Sesquihydr (Protonix) 40 Mg Tab, 40 MG PO BID for 30 Days, #60 TAB 2 Refills Prov:CRISTIAN CEDENO RESIDENT 07/23/24 Sucralfate (CARAFATE SUSP) 1 Gm/10 Ml Ss, 10 ML PO QID for 30 Days, #1200 ML 3 Refills Prov:CRISTIAN CEDENO RESIDENT 07/23/24 Reported Medications Baclofen (Baclofen) 10 Mg Tab, 1 TAB PO Q8HPRN PRN 07/20/24 Hydrocodone-Acetaminophen (Hydrocodone/Acetaminophen 7.5-325 mg) 1 Tab Tab, 1 T AB PO TIDPRN PRN 07/20/24 Gabapentin (Gabapentin) 600 Mg Tab, 1 TAB PO TID 07/20/24 Docusate Sodium (Stool Softener) 100 Mg Tab, 100 MG PO DAILY, TAB 04/13/24 Potassium Gluconate (POTASSIUM GLUCONATE) 80 Mg Tab, 80 MG OR DAILY, TAB 04/13/24 Acetaminophen (Tylenol 8 Hour Arthritis) 650 Mg Tab, 650 MG PO PRN, TAB 04/13/24 Losartan Potassium & Hydrochlo (Hyzaar) 1 Tab Tab, 1 TAB PO DAILY, TAB 04/13/24 Escitalopram Oxalate (Lexapro) 20 Mg Tab, 20 MG PO DAILY, TAB 04/13/24 Hydralazine HCl (Hydralazine HCl) 25 Mg Tab, 25 MG PO DAILY, TAB 04/13/24 Information Source: Patient Mode of Arrival: Ambulatory Timing: Hours Duration: Since onset, Hours Prehospital treatment: None Quality: Aching, Burning, Cramping, Colicky Vomitus: Food Particles Severity: Moderate Recent: None Recent Hx of: Other (GERD) Pain Location: Epigastric Associated sign and symptoms: Nausea, Vomiting, Abdominal Pain (EPIGASTRIC ) Past Medical History PAST MEDICAL HISTORY: Arthritis, GERD, HTN Past Medical History (Other): CHRONIC LOW BACK PAIN Surgical History: Denies all surgeries CONFIGURATION MANAGEMENT SPECIALIST History: No Pertinent CONFIGURATION MANAGEMENT SPECIALIST History Family History Family History: No family hx of DM, No family hx of HTN Social History Smoker: Non-Smoker Alcohol: Denies ETOH Use Drugs: Denies Drug Use Lives In: Home Constitutional: reports: others (ANXIETY ); denies: chills, diaphoresis, fatigue, fever, malaise, sweats, weakness EENTM: denies: blurred vision, double vision, ear bleeding, ear discharge, ear drainage, ear pain, ear ringing, eye pain, eye redness, hearing loss, mouth pain, mouth swelling, nasal discharge, nose bleeding, nose congestion, nose pain, photophobia, tearing, throat pain, throat swelling, voice changes, others Respiratory: denies: cough, hemoptysis, orthopnea, SOB at rest, shortness of breath, SOB with excertion, stridor, wheezing, others Cardiovascular: denies: chest pain, dizzy spells, diaphoresis, Dyspnea on exertion, edema, irregular heart beat, left arm pain, lightheadedness, palpitations, PND, syncope, others Gastrointestinal: reports: abdominal pain (EPIGASTRIC ), nausea, vomiting; denies: abdomen distended, blood streaked bowels, constipated, diarrhea, dysphagia, difficulty swallowing, hematemesis, melena, poor appetite, poor fluid intake, rectal bleeding, rectal pain, others Genitourinary: denies: abnormal vagina bleeding, burning, dyspareunia, dysuria, flank pain, frequency, hematuria, incontinence, pain, , vagina discharge, urgency, others Neurological: denies: dizziness, fainting, headache, left sided numbness, left sided weakness, numbness, paresthesia, pre-existing deficit, right sided numbness, right sided weakness, seizure, speech problems, tingling, tremors, weakness, others Musculoskeletal: denies: back pain, gout, joint pain, joint swelling, muscle pain, muscle stiffness, neck pain, others Integumetry: denies: bruises, change in color, change in hair/nails, dryness, laceration, lesions, lumps, rash, wounds, others Allergic/Immunocompromised: denies: Difficulty Healing, Frequent Infections, Hives, Itching, others Hematologic/Lymphatic: denies: anemia, blood clots, easy bleeding, easy bruising, swollen glands, others Endocrine: denies: excessive hunger, excessive sweating, excessive thirst, excessive urination, flushing, intolerance to cold, intolerance to heat, unexplained weight gain, unexplained weight loss, others Psychiatric: reports: anxiety; denies: bipolar disorder, depression, hopeless, panic disorder, schizophrenia, sleepless, suicidal, others All Other Systems: Reviewed and Negative Physical Exam General Appearance: Mild Distress, Normal, Other (ANXIETY ) HEENT: Normal ENT Inspection, PERRL/EOMI, Pharynx Normal, TMs Normal Neck: Full Range of Motion, Non-Tender, Normal, Normal Inspection Respiratory: Chest Non-Tender, Lungs Clear, No Accessory Muscle Use, No Respiratory Distress, Normal Breath Sounds Cardiovascular: No Edema, No JVD, No Murmur, No Gallop, Normal Peripheral Pulses, Regular Rate/Rhythm Breast Exam: Deferred Gastrointestinal: Epigastric, No Organomegaly, No Pulsatile Mass, Normal Bowel Sounds, Soft, Tenderness (EPIGASTRIC, NO GUARDING AND REBOUND TENDERNESS. ) Genitalia: Deferred Pelvic: Deferred Rectal: Deferred Extremities: No calf tenderness, Normal capillary refill, Normal inspection, Normal range of motion, Non-tender, No pedal edema Musculoskeletal : Apperance: Normal Neurologic: Alert, public stenographer II-XII nml as Tested, No Motor Deficits, Normal Affect, Normal Mood, No Sensory Deficits Cerebellar Function: Normal Reflexes: Normal Skin: Dry, Normal Color, Warm Peripheral Pulses: 2+ carotid (R), 2+ carotid (L) Lymphatic: No Adenopathy Was a procedure done? Was a procedure done?: No GI differential Dx Differential Diagnosis: Appendicitis, Cholangitis, Cholecystitis, Gastritis/PUD, Gastroenteritis, Inflammatory BD, UTI, Food Poisoning, Bacterial, Parasitic, Viral X-Ray, Labs, Meds, VS Vital Signs Date Time Temp Pulse Resp B/P (MAP) Pulse Ox O2 Delivery O2 Flow Rate FiO2 11/05/24 14:04 73 18 97 Room Air* 0 21 11/05/24 13:53 73 18 97 Room Air 11/05/24 13:53 98.4 73 18 146/91 (109) 97 98.4 11/05/24 12:29 78 11/05/24 12:20 98.5 71 16 171/83 (112) 97 98.5 Lab Test 11/05/24 12:55 11/05/24 12:20 Range/Units White Blood Count 7.4 4.4-10.8 10^3/uL Red Blood Count 6.22 H 4.0-5.20 10^6/uL Hemoglobin 15.8 12.2-16.2 g/dL Hematocrit 47.9 H 36.0-46.0 % Mean Corpuscular Volume 77.1 L 80.0-100.0 fL Mean Corpuscular Hemoglobin 25.4 L 28.0-32.0 pg Mean Corpuscular Hemoglobin Concent 32.9 32.0-36.0 g/dL Red Cell Distribution Width 19.9 H 11.8-14.3 % Platelet Count 271 140-450 10^3/uL Mean Platelet Volume 8.8 6.9-10.8 fL Neutrophils (%) (Auto) 72.6 37.0-80.0 % Lymphocytes (%) (Auto) 19.6 10.0-50.0 % Monocytes (%) (Auto) 6.3 0.0-12.0 % Eosinophils (%) (Auto) 0.8 0.0-7.0 % Basophils (%) (Auto) 0.7 0.0-2.0 % Neutrophils # (Auto) 5.4 1.6-8.6 10 ^3/uL Lymphocytes # (Auto) 1.4 0.4-5.4 10 ^3/uL Monocytes # (Auto) 0.5 0-1.3 10 ^3/uL Eosinophils # (Auto) 0.1 0-0.8 10 ^3/uL Basophils # (Auto) 0.1 0-0.2 10 ^3/uL Nucleated Red Blood Cells 0.3 % Sodium Level 141 136-145 mmol/L Potassium Level 3.5 3.5-5.1 mmol/L Chloride Level 96 L 98-107 mmol/L Carbon Dioxide Level 36 H 20-31 mmol/L Anion Gap 9 5-15 Blood Urea Nitrogen 17 9-23 mg/dL Creatinine 0.79 0.550-1.02 mg/dL Glomerular Filtration Rate Calc 85 >90 mL/min BUN/Creatinine Ratio 21.5 H 10.0-20.0 Serum Glucose 142 H 74-106 mg/dL Calcium Level 10.7 H 8.7-10.4 mg/dL Total Bilirubin 0.4 0.2-1.0 mg/dL Aspartate Amino Transferase (AST) 21 13-40 U/L Alanine Aminotransferase (ALT) 12 7-40 U/L Alkaline Phosphatase 107 46-116 U/L Troponin I High Sensitivity < 3 L </=34 ng/L Total Protein 8.5 H 5.7-8.2 g/dL Albumin 5.3 H 3.2-4.8 g/dL Lipase 42 12-53 U/L Urine Color Light-yellow Yellow Urine Clarity Turbid H Clear Urine pH 8.5 5.0-9.0 Urine Specific [place] 1.022 1.001-1.035 Urine Protein 1+ H Negative Urine Ketones Negative Negative Urine Blood Negative Negative /uL Urine Nitrite Negative Negative Urine Bilirubin Negative Negative Urine Urobilinogen Normal Negative mg/dL Urine Leukocyte Esterase Negative Negative /uL Urine RBC 8 0 - 4 /hpf Urine Microscopic WBC 3 0-5 /HPF Urine Squamous Epithelial Cells Few <5 /hpf Urine Calcium Oxalate Crystals Few None Seen Urine Amorphous Crystals Few None Seen /hpf Urine Bacteria None seen None Seen /hpf Urine Glucose Normal Normal mg/dL Current Medications Medications (Trade) Dose Ordered Sig/Francia Route Start Time Stop Time Status Last Admin Metoclopramide HCl (Reglan Injection) 10 mg ONCE ONCE IV 11/05/24 14:00 7/4/25 14:01 DC 11/05/24 14:03 Sodium Chloride 1,000 ml @ 1,000 mls/hr Q1H ONCE IV 11/05/24 14:00 11/05/24 14:59 11/05/24 14:03 Ketorolac Tromethamine (Toradol Injection) 30 mg ONCE ONCE IV 11/05/24 14:00 11/05/24 14:01 DC 11/05/24 14:02 Famotidine (Pepcid Injection) 20 mg ONCE ONCE IV 11/05/24 14:00 11/05/24 14:01 DC 11/05/24 14:02 EXAM DESCRIPTION: US ABDOMEN LIMITED CLINICAL HISTORY: EPIGASTRIC PAIN COMPARISON: None TECHNIQUE: Using real-time ultrasonography multiple images of the abdomen were obtained. FINDINGS: The liver measures 12.5 cm. No focal liver masses. The liver echongenicity is within normal limits. The partially imaged pancreas is unremarkable. The gallbladder lumen is obscured by a large shadowing gallstone. No gallbladder wall thickening. No pericholecystic fluid. Negative sonographic Martinez sign. The common bile duct measures 5 mm in diameter. The right kidney measures 8.2 cm. There is no right renal calculi or hydronephrosis. There is no free intraperitoneal fluid. IMPRESSION: 1. Cholelithiasis without evidence of acute cholecystitis. 2. Mildly atrophic right kidney. X-Ray, Labs, Meds, VS Comment EXTERNAL MEDICAL RECORDS: NONE INDEPENDENT HISTORIANS: NONE SOCIAL DETERMINANTS OF HEALTH: NONE LABS ORDERED: BLOOD COUNT, METABOLIC PANEL, LIPASE, URINALYSIS, TROPONIN REVIEWED AND INTERPRETED RESULTS: NONE IMAGING ORDERED: ABDOMINAL US TREATMENTS ORDERED: NONE PATIENT HAS NORCO AT HOME FOR CHRONIC BACK PAIN. PATIENT'S CASE AND RESULTS HAVE BEEN DISCUSSED WITH THE ED ATTENDING PHYSICIAN, DR. RICHARDSON, AND THEY AGREE WITH MY PLAN OF CARE. I HAVE DISCUSSED IMAGING AND LAB RESULTS WITH THE PATIENT AND HAVE INSTRUCTED THE PATIENT TO FOLLOW UP WITH THEIR PCP IN 1-2 DAYS. THE PATIENT FULLY UNDERSTANDS THEIR RESULTS AND ARE AWARE THEY NEED TO FOLLOW UP WITH THEIR PCP FOR FURTHER EVALUATION IF THEIR SYMPTOMS PERSIST. Images Reviewed?: Images reviewed and evaluated by me Time of 1ST Reevaluation: 15:00 Reevaluation 1ST: Improved Patient Education/Counseling: Diagnosis, Treatment, Need For Follow Up Family Education/Counseling: Diagnosis, Treatment, Need For Follow Up Medical Screening: No EMC Exist At This Time SEPSIS Sepsis Screen Physician Orders Electrocardigram (11/05/24 12:26) Abdomen Limited (11/05/24 12:26) Heplock Iv (11/05/24 ) Sodium Chloride 0.9% (11/05/24 14:00) Vital Signs Date Time Temp Pulse Resp B/P (MAP) Pulse Ox O2 Delivery O2 Flow Rate FiO2 11/05/24 14:04 73 18 97 Room Air* 0 21 11/05/24 13:53 73 18 97 Room Air 11/05/24 13:53 98.4 73 18 146/91 (109) 97 98.4 11/05/24 12:29 78 11/05/24 12:20 98.5 71 16 171/83 (112) 97 98.5 Laboratory Tests Test 11/05/24 12:55 White Blood Count 7.4 10^3/uL (4.4-10.8) Medications Medications Dose Ordered Sig/Francia Route Start Time Stop Time Status Last Admin Dose Admin Famotidine 20 mg ONCE ONCE IV 11/05/24 14:00 11/05/24 14:01 DC 11/05/24 14:02 Ketorolac Tromethamine 30 mg ONCE ONCE IV 11/05/24 14:00 11/05/24 14:01 DC 11/05/24 14:02 Metoclopramide HCl 10 mg ONCE ONCE IV 11/05/24 14:00 11/05/24 14:01 DC 11/05/24 14:03 Sodium Chloride 1,000 ml @ 1,000 mls/hr Q1H ONCE IV 11/05/24 14:00 11/05/24 14:59 11/05/24 14:03 Departure 1 Departure Time of Disposition: 15:00 Impression: Primary Impression: Cholelithiases Qualified Codes: K80.21 - Calculus of gallbladder without cholecystitis with obstruction Disposition: HOME / SELF CARE / HOMELESS Condition: Stable Additional Instructions: FOLLOW-UP WITH PCP IN 1 TO 2 DAYS. TAKE MEDICATIONS PRESCRIBED. RETURN TO ED FOR ANY NEW OR WORSENING SYMPTOMS. e-Prescriptions Metoclopramide Hcl (Reglan) 10 Mg Tab 10 MG PO BID, #30 TAB Prov: BRANDIE ALMAZAN 11/05/24 Discharged With: Self Critical Care Note Critical Care Time?: No Stability Stability form required: No Heart Score Heart Score: Heart Score Response (Comments) Value History N/A 0 EKG N/A 0 Age N/A 0 Risk Factors N/A 0 Troponin N/A 0 Total 0 I personally scribed for NORAH,YINXIA PA ([email or web address]) on 11/05/24 at 12:41. Electronically submitted by Alpa Contreras ([employer]). I personally scribed for NORAH,YINXIA PA ([email or web address]) on 11/05/24 at 12:42. Electronically submitted by Alpa Contreras ([employer]). I personally scribed for NORAH,YINXIA PA ([email or web address]) on 11/05/24 at 13:11. Electronically submitted by Alpa Contreras ([employer]). I personally scribed for NORAH,YINXIA PA ([email or web address]) on 11/05/24 at 13:12. Electronically submitted by Alpa Contreras ([employer]). I personally scribed for NORAH,YINXIA PA ([email or web address]) on 11/05/24 at 13:40. Electronically submitted by Alpa Contreras ([employer]). I personally scribed for NORAH,YINXIA PA ([email or web address]) on 11/05/24 at 13:42. Electronically submitted by Alpa Contreras ([employer]). I personally scribed for NORAH,YINXIA PA ([email or web address]) on 11/05/24 at 13:44. Electronically submitted by Alpa Contreras ([employer]). NORAHYINXIA PA Nov 05, 2024 12:41
--- NOTE | 2024-11-05 13:01 | DVH ---
EXAM DESCRIPTION: US ABDOMEN LIMITED CLINICAL HISTORY: EPIGASTRIC PAIN COMPARISON: None TECHNIQUE: Using real-time ultrasonography multiple images of the abdomen were obtained. FINDINGS: The liver measures 12.5 cm. No focal liver masses. The liver echongenicity is within normal limits. The partially imaged pancreas is unremarkable. The gallbladder lumen is obscured by a large shadowing gallstone. No gallbladder wall thickening. No pericholecystic fluid. Negative sonographic Martinez sign. The common bile duct measures 5 mm in diameter. The right kidney measures 8.2 cm. There is no right renal calculi or hydronephrosis. There is no free intraperitoneal fluid. IMPRESSION: 1. Cholelithiasis without evidence of acute cholecystitis. 2. Mildly atrophic right kidney.
[2024-11-05 13:11] LABS: Hematocrit 47.9 % (36.0-46.0); Hemoglobin 15.8 g/dL (12.2-16.2); Mean Corpuscular Hemoglobin 25.4 pg (28.0-32.0); Mean Corpuscular Volume 77.1 fL (80.0-100.0); Nucleated Red Blood Cells % 0.3 %
[2024-11-05 13:27] LABS: Urine Amorphous Crystal FEW /hpf (None Seen); Urine Protein, UAD 1+ (Negative)
[2024-11-05 13:30] LABS: Alanine Aminotransferase 12 U/L (7-40); Alkaline Phosphatase 107 U/L (46-116); Anion Gap 9 (5-15); BUN/Creatinine Ratio 21.5 (10.0-20.0); Blood Urea Nitrogen 17 mg/dL (9-23); Lipase 42 U/L (12-53); Sodium 141 mmol/L (136-145)
[2024-11-05 13:31] LABS: Bilirubin, Total 0.4 mg/dL (0.2-1.0)
[2024-11-05 13:33] LABS: Albumin 5.3 g/dL (3.2-4.8); Calcium 10.7 mg/dL (8.7-10.4); Carbon Dioxide 36 mmol/L (20-31); Chloride 96 mmol/L (98-107); Glucose 142 mg/dL (74-106); Potassium 3.5 mmol/L (3.5-5.1); Total Protein 8.5 g/dL (5.7-8.2)
[2024-11-05] MEDS ORDERED: TRAM-626 PO (13:42)
[2024-11-05] MEDS ORDERED: ZOFR4T PO (13:42)
[2024-11-05] MEDS ORDERED: KETOROLAC TROMETH 60MG/2ML VIAL IM ONE (13:45)
[2024-11-05] MEDS ORDERED: ONDANSETRON ODT 4 MG TAB PO ONE (13:45)
[2024-11-05 13:53] VITALS: BP 146/91; TEMP 98.4
[2024-11-05] MEDS: KETOROLAC TROMETH 30 MG/ML 1ML VIAL IV ONE (14:02)
[2024-11-05] MEDS: FAMOTIDINE (10MG/ML) 2ML VL IV ONE (14:02)
[2024-11-05] MEDS: METOCLOPRAMIDE HCL 5MG/ml INJ 2ml VIAL IV ONE (14:03)
[2024-11-05] MEDS: SODIUM CHLORIDE 0.9% 1,000 ML IV ONE (14:03)
[2024-11-05 14:04] VITALS: PULSE 73; RESP 18; O2SAT 97
[2024-11-05] MEDS ORDERED: METO-281 PO (14:35)
--- NOTE | 2024-11-06 06:56 | ECG ---
[facility] Test Date: 2024-11-05 Test Time: 12:29:51 Pat Name: JESSICA HILL Department: ER Room: Gender: F Web Sizer: JONA : 1960 Requested By: BRANDIE ALMAZAN Order Number: [id number] Reading MD: Measurements Intervals Gary Rate: 78 P: 62 PA: 139 QRS: 67 QRSD: 91 T: 61 QT: 383 QTc: 437 Interpretive Statements Sinus rhythm Low voltage, precordial leads Please click the below link to view image of tracing.
== END 2024-11-05 14:47 | disposition home or self-care (01) ==
LOC: ER 11:59
DX: K80.20 Calculus of gallbladder without cholecystitis without obstruction (principal); M19.90 Unspecified osteoarthritis, unspecified site; I10 Essential (primary) hypertension; K21.9 Gastro-esophageal reflux disease without esophagitis; G89.29 Other chronic pain; Z79.899 Other long term (current) drug therapy; Z88.1 Allergy status to other antibiotic agents
CPT/HCPCS: 36415; 76705; 80053; 81001; 83690; 84484; 85025; 93005; 96361; 96374; 96375; 99285; J1885; J2765; J3490; J7030; Q0162

== ENCOUNTER 2025-01-27 07:14 | Inpatient (IN) | payer MEDICAID ==
[~2025-01-27] VITALS: Ht 149.9 cm; Wt 48.5 kg
[~2025-01-27 07:14] MED LIST changes: +METO-281 PO; +METO5TAB2 PO; +NYS5LQ MT
--- NOTE | 2025-01-27 07:33 | ECG ---
[facility] Test Date: 2025-01-27 Test Time: 07:27:54 Pat Name: JESSICA HILL Department: Room: 0207 Gender: F Community Music Therapist: MAGUE : 1960 Requested By: EMERGENCY EMERGENCY Order Number: [id number] Reading MD: Rick Archibald Measurements Intervals [place] Rate: 64 P: 58 IN: 138 QRS: 76 QRSD: 86 T: 38 QT: 422 QTc: 436 Interpretive Statements Sinus rhythm Electronically Signed On 02-03-2025 21:41:05 PDT by Rick Archibald Please click the below link to view image of tracing.
--- NOTE | 2025-01-27 07:45 | ED.PDOC ---
GI ASSESSMENT HPI Comments A 64 YEAR OLD FEMALE PRESENTS TO THE ED WITH COMPLAINT OF EPIGASTRIC PAIN. PATIENT STATES SHE HAS BEEN EXPERIENCING EPIGASTRIC PAIN WITH NAUSEA AND VOMITING FOR THE PAST 1 WEEK. PATIENT REPORTS SHE HAS A HISTORY OF GALLSTONES IN THE PAST, BUT IS NOT SURE IF THIS IS WHAT IS CAUSING HER SYMPTOMS AGAIN. PATIENT NOTES SHE WENT TO A GI SPECIALIST 6 MONTHS AGO WHERE AN ENDOSCOPY WAS DONE WHICH REVEALED ULCERS. PT STATES SHE IS UNABLE TO EAT DUE TO THE PAIN AND N/V. PATIENT DENIES FEVER, CHILLS, SHORTNESS OF BREATH, CHEST PAIN, HEADACHE, VOMITING BLOOD, RECTAL BLEEDING OR OTHER COMPLAINTS. NO OTHER SYMPTOMS OR MODIFYING FACTORS AT THIS TIME. PATIENT IS ALERT, ORIENTED X 4, AND HAS STEADY GAIT. Chief Complaint: Abdominal Pain Time Seen by MD: 07:23 Primary Care Provider: [facility] Notes: Nurses Notes, Medications, Allergies Allergies: Coded Allergies: Fluticasone (Verified Allergy, Unknown, 04/15/24) HEADACHE Home Meds Active Scripts Nystatin (Mouth-Throat) (Mycostatin (Mouth-Throat)) 500,000 Units/5 Ml Ss, 5 ML MT QID for 5 Days, #100 ML 1 Refill Prov:MALDONADO CRUZ 01/19/25 Metoclopramide Hcl (Metoclopramide Hcl) 5 Mg Tab, 5 MG PO BID for 30 Days, #60 TAB 2 Refills Prov:MALDONADO CRUZ [facility] 01/19/25 Metoclopramide Hcl (Reglan) 10 Mg Tab, 10 MG PO BID, #30 TAB Prov:BRANDIE ALMAZAN 11/05/24 Dicyclomine Hcl (BENTYL CAPSULE) 10 Mg Cp, 1 CAP PO Q6HPRN for 30 Days, #100 CAP 3 Refills Prov:CRISTIAN CEDENO RESIDENT 07/23/24 Ondansetron Odt 4MG Tab (ZOFRAN PO) 4 Mg Tb, 4 MG PO Q4HPRN PRN for 30 Days, #150 TAB 1 Refill ODT TAB-DISSOLVE IN MOUTH, THEN SWALLOW Prov:CRISTIAN CEDENO RESIDENT 07/23/24 Pantoprazole Sodium Sesquihydr (Protonix) 40 Mg Tab, 40 MG PO BID for 30 Days, #60 TAB 2 Refills Prov:CRISTIAN CEDENO RESIDENT 07/23/24 Sucralfate (CARAFATE SUSP) 1 Gm/10 Ml Ss, 10 ML PO QID for 30 Days, #1200 ML 3 Refills Prov:CRISTIAN CEDENO RESIDENT 07/23/24 Reported Medications Baclofen (Baclofen) 10 Mg Tab, 1 TAB PO Q8HPRN PRN 07/20/24 Hydrocodone-Acetaminophen (Hydrocodone/Acetaminophen 7.5-325 mg) 1 Tab Tab, 1 TAB PO TIDPRN PRN 07/20/24 Gabapentin (Gabapentin) 600 Mg Tab, 1 TAB PO TID 07/20/24 Docusate Sodium (Stool Softener) 100 Mg Tab, 100 MG PO DAILY, TAB 04/13/24 Potassium Gluconate (POTASSIUM GLUCONATE) 80 Mg Tab, 80 MG OR DAILY, TAB 04/13/24 Acetaminophen (Tylenol 8 Hour Arthritis) 650 Mg Tab, 650 MG PO PRN, TAB 04/13/24 Losartan Potassium & Hydrochlo (Hyzaar) 1 Tab Tab, 1 TAB PO DAILY, TAB 04/13/24 Escitalopram Oxalate (Lexapro) 20 Mg Tab, 20 MG PO DAILY, TAB 04/13/24 Hydralazine HCl (Hydralazine HCl) 25 Mg Tab, 25 MG PO DAILY, TAB 04/13/24 Information Source: Patient Mode of Arrival: Ambulatory Timing: Days Duration: Since onset, Days Prehospital treatment: None Quality: Aching, Cramping, Sharp, Colicky Vomitus: Food Particles Stool: Normal Severity: Moderate Recent: None Recent Hx of: None Pain Location: Epigastric Modifying Factors: Food, Nothing Associated sign and symptoms: Nausea, Vomiting, Abdominal Pain Past Medical History PAST MEDICAL HISTORY: Anemia, Anxiety, Gallstones, GERD, HTN Surgical History: Denies all surgeries TALLIER History: Denies all TALLIER Hx, No Pertinent TALLIER History Family History Family History: No family hx of DM, No family hx of HTN Social History Smoker: Non-Smoker Alcohol: Denies ETOH Use Drugs: Denies Drug Use Lives In: Home Constitutional: reports: others (ANXIOUS ); denies: chills, diaphoresis, fatigue, fever, malaise, sweats, weakness EENTM: denies: blurred vision, double vision, ear bleeding, ear discharge, ear drainage, ear pain, ear ringing, eye pain, eye redness, hearing loss, mouth pain, mouth swelling, nasal discharge, nose bleeding, nose congestion, nose pain, photophobia, tearing, throat pain, throat swelling, voice changes, others Respiratory: denies: cough, hemoptysis, orthopnea, SOB at rest, shortness of breath, SOB with excertion, stridor, wheezing, others Cardiovascular: denies: chest pain, dizzy spells, diaphoresis, Dyspnea on exertion, edema, irregular heart beat, left arm pain, lightheadedness, palpitations, PND, syncope, others Gastrointestinal: reports: abdominal pain, nausea, vomiting; denies: abdomen distended, blood streaked bowels, constipated, diarrhea, dysphagia, difficulty swallowing, hematemesis, melena, poor appetite, poor fluid intake, rectal bleeding, rectal pain, others Genitourinary: denies: abnormal vagina bleeding, burning, dyspareunia, dysuria, flank pain, frequency, hematuria, incontinence, pain, , vagina discharge, urgency, others Neurological: denies: dizziness, fainting, headache, left sided numbness, left sided weakness, numbness, paresthesia, pre-existing deficit, right sided numbness, right sided weakness, seizure, speech problems, tingling, tremors, weakness, others Musculoskeletal: denies: back pain, gout, joint pain, joint swelling, muscle pain, muscle stiffness, neck pain, others Integumetry: denies: bruises, change in color, change in hair/nails, dryness, laceration, lesions, lumps, rash, wounds, others Allergic/Immunocompromised: denies: Difficulty Healing, Frequent Infections, Hives, Itching, others Hematologic/Lymphatic: denies: anemia, blood clots, easy bleeding, easy bruising, swollen glands, others Endocrine: denies: excessive hunger, excessive sweating, excessive thirst, excessive urination, flushing, intolerance to cold, intolerance to heat, unexplained weight gain, unexplained weight loss, others Psychiatric: denies: anxiety, bipolar disorder, depression, hopeless, panic disorder, schizophrenia, sleepless, suicidal, others All Other Systems: Reviewed and Negative Physical Exam General Appearance: Mild Distress, Normal, Thin, Other (ANXIETY ) HEENT: Normal ENT Inspection, PERRL/EOMI, Pharynx Normal, TMs Normal Neck: Full Range of Motion, Non-Tender, Normal, Normal Inspection Respiratory: Chest Non-Tender, Lungs Clear, No Accessory Muscle Use, No Respiratory Distress, Normal Breath Sounds Cardiovascular: No Edema, No JVD, No Murmur, No Gallop, Normal Peripheral Pulses, Regular Rate/Rhythm Breast Exam: Deferred Gastrointestinal: Epigastric, No Organomegaly, No Pulsatile Mass, Normal Bowel Sounds, Soft, Tenderness (EPIGASTRIC WITH MILD GUARDING, NO REBOUND TENDERNESS. ) Genitalia: Deferred Pelvic: Deferred Rectal: Deferred Extremities: No calf tenderness, Normal capillary refill, Normal inspection, Normal range of motion, Non-tender, No pedal edema Musculoskeletal : Apperance: Normal Neurologic: Alert, medical oncology physician II-XII nml as Tested, No Motor Deficits, Normal Affect, Normal Mood, No Sensory Deficits Cerebellar Function: Normal Reflexes: Normal Skin: Dry, Normal Color, Warm Peripheral Pulses: 2+ carotid (R), 2+ carotid (L) Lymphatic: No Adenopathy Was a procedure done? Was a procedure done?: No GI differential Dx Differential Diagnosis: Cholecystitis, Constipation, Gastritis/PUD, Gastroenteritis, Pancreatitis, UTI X-Ray, Labs, Meds, VS Vital Signs Date Time Temp Pulse Resp B/P (MAP) Pulse Ox O2 Delivery O2 Flow Rate FiO2 01/27/25 09:55 98.2 64 17 123/65 (84) 95 98.2 01/27/25 07:27 64 01/27/25 07:20 98.1 69 18 139/76 98 98.1 Lab Test 01/27/25 07:50 01/27/25 07:41 Range/Units White Blood Count 6.0 4.4-10.8 10^3/uL Red Blood Count 4.89 4.0-5.20 10^6/uL Hemoglobin 13.0 12.2-16.2 g/dL Hematocrit 38.9 36.0-46.0 % Mean Corpuscular Volume 79.6 L 80.0-100.0 fL Mean Corpuscular Hemoglobin 26.5 L 28.0-32.0 pg Mean Corpuscular Hemoglobin Concent 33.3 32.0-36.0 g/dL Red Cell Distribution Width 14.7 H 11.8-14.3 % Platelet Count 288 140-450 10^3/uL Mean Platelet Volume 9.1 6.9-10.8 fL Neutrophils (%) (Auto) 57.4 37.0-80.0 % Lymphocytes (%) (Auto) 33.4 10.0-50.0 % Monocytes (%) (Auto) 7.3 0.0-12.0 % Eosinophils (%) (Auto) 1.4 0.0-7.0 % Basophils (%) (Auto) 0.5 0.0-2.0 % Neutrophils # (Auto) 3.4 1.6-8.6 10 ^3/uL Lymphocytes # (Auto) 2.0 0.4-5.4 10 ^3/uL Monocytes # (Auto) 0.4 0-1.3 10 ^3/uL Eosinophils # (Auto) 0.1 0-0.8 10 ^3/uL Basophils # (Auto) 0 0-0.2 10 ^3/uL Nucleated Red Blood Cells 0.0 % Sodium Level 140 136-145 mmol/L Potassium Level 2.9 L 3.5-5.1 mmol/L Chloride Level 100 98-107 mmol/L Carbon Dioxide Level 30 20-31 mmol/L Anion Gap 10 5-15 Blood Urea Nitrogen 13 9-23 mg/dL Creatinine 0.67 0.550-1.02 mg/dL Glomerular Filtration Rate Calc 99 >90 mL/min BUN/Creatinine Ratio 19.4 10.0-20.0 Serum Glucose 125 H 74-106 mg/dL Calcium Level 9.2 8.7-10.4 mg/dL Total Bilirubin 0.5 0.2-1.0 mg/dL Aspartate Amino Transferase (AST) 20 13-40 U/L Alanine Aminotransferase (ALT) 16 7-40 U/L Alkaline Phosphatase 100 46-116 U/L Troponin I High Sensitivity 4 </=34 ng/L Total Protein 6.8 5.7-8.2 g/dL Albumin 4.1 3.2-4.8 g/dL Lipase 26 12-53 U/L Urine Color Yellow Yellow Urine Clarity Clear Clear Urine pH 6.0 5.0-9.0 Urine Specific [place] 1.040 H 1.001-1.035 Urine Protein 1+ H Negative Urine Ketones 3+ H Negative Urine Blood Negative Negative /uL Urine Nitrite Negative Negative Urine Bilirubin Negative Negative Urine Urobilinogen 2 H Negative mg/dL Urine Leukocyte Esterase 1+ Negative /uL Urine RBC 4 0 - 4 /hpf Urine Microscopic WBC 9 H 0-5 /HPF Urine Squamous Epithelial Cells Few <5 /hpf Urine Bacteria None seen None Seen /hpf Urine Mucus Few None Seen Urine Glucose Normal Normal mg/dL Current Medications Medications (Trade) Dose Ordered Sig/Francia Route Start Time Stop Time Status Last Admin Sodium Chloride 1,000 ml @ 1,000 mls/hr Q1H ONCE IV 01/27/25 07:45 01/27/25 08:44 DC 01/27/25 07:59 Ondansetron HCl (Zofran) 4 mg ONCE ONCE IV 01/27/25 07:45 01/27/25 07:46 DC 01/27/25 08:07 Pantoprazole Sodium (Protonix) 40 mg ONCE ONCE IV 01/27/25 07:45 01/27/25 07:46 DC 01/27/25 08:09 Potassium Bicarbonate (Klor-Con/Ef) 75 meq ONCE ONCE PO 01/27/25 09:30 01/27/25 09:32 DC 01/27/25 10:01 INDICATION: EPIGASTRIC PAIN WITH N/V TECHNIQUE: Multiple real-time sonographic images of the abdomen were obtained. COMPARISON: US ABDOMEN LIMITED on DOS: 11/05/24, CT CT AB PEL WO CON-NO ORAL OR IV on DOS: 07/20/24, CT CT AB PEL WITH IV CON ONLY on DOS: 12/24/23 FINDINGS: The liver is homogenous in echogenicity. The liver measures 12 cm. No intrahepatic biliary ductal dilatation is noted. The gallbladder wall measures 0.3 cm and is unremarkable. Gallstones are noted. The common duct measures 0.6 cm and is unremarkable. No pericholecystic fluid is noted. The right kidney measures 9cm. No hydronephrosis. limits. The echogenicity is within normal limits. The pancreas is not well visualized due to obscuration from bowel gas. The visualized portions of the IVC and aorta are grossly unremarkable. IMPRESSION: Gallstones ATED BY: CHATO CM MD DICTATED DATE/TIME: 01/27/25929 SIGNED BY: CHATO CM MD SIGNED DATE/TIME: 01/27/25929 CC: X-Ray, Labs, Meds, VS Comment EXTERNAL MEDICAL RECORDS REVIEWED: [NONE] INDEPENDENT HISTORIANS: [NONE] SOCIAL DETERMINANTS OF HEALTH: [NONE] LABS ORDERED: CBC, CMP, LIPASE, UA, TROPONIN REVIEWED AND INTERPRETED RESULTS: KET 3+, LEUKO 1+, PROTEIN 1+, K 2.9 IMAGING ORDERED: US ABDOMEN TREATMENTS ORDERED: NS 1 L IV, ZOFRAN 4 MG IV, PROTONIX 40 MG IV AND KCL 70MEQ PO PROCEDURES PERFORMED: NONE CRITICAL CARE TIME: NONE I HAVE DISCUSSED THE PATIENT WITH THE ATTENDING PHYSICIAN DR. BUTT AND HE AGREES WITH THE PATIENT'S PLAN OF CARE. UPON MY PHYSICAL EXAMINATION, THE PATIENT HAD GUARDING NOTED UPON PALPATION TO HER EPIGASTRIC REGION, BUT NO REBOUND TENDERNESS NOTED. DUE TO THE PATIENT'S MEDICAL HISTORY AND INTRACTABLE NAUSEA AND VOMITING, I HAVE DETERMINED THE PATIENT NEEDS TO BE ADMITTED FOR FURTHER TREATMENT AND EVALUATION. THE ON-CALL HOSPITALIST WILL BE CONTACTED FOR ADMISSION OF THIS PATIENT. Images Reviewed?: Images reviewed and evaluated by me Time of 1ST Reevaluation: 09:47 Reevaluation 1ST: Unchanged Patient Education/Counseling: Diagnosis, Treatment Family Education/Counseling: Diagnosis, Treatment SEPSIS Sepsis Screen Date sepsis recognized/suspect: Jan 27, 2025 Time Sepsis recognized/suspect: 720 Recent Procedure: No On Antibiotic Therapy: No Respiratory Rate >20: No Heart Rate >90: No Temp<36 C (96.8 F) or >38.3 C: No SBP <90 or MAP <65 mmHG: No New Acute Mental Status Change: No Is the patient on CPAP, BIPAP,: No Physician Orders Heplock Iv (01/27/25 ) Abdomen Limited (01/27/25 07:40) Vital Signs Date Time Temp Pulse Resp B/P (MAP) Pulse Ox O2 Delivery O2 Flow Rate FiO2 01/27/25 09:55 98.2 64 17 123/65 (84) 95 98.2 01/27/25 07:27 64 01/27/25 07:20 98.1 69 18 139/76 98 98.1 Laboratory Tests Test 01/27/25 07:50 White Blood Count 6.0 10^3/uL (4.4-10.8) Medications Medications Dose Ordered Sig/Francia Route Start Time Stop Time Status Last Admin Dose Admin Ondansetron HCl 4 mg ONCE ONCE IV 01/27/25 07:45 01/27/25 07:46 DC 01/27/25 08:07 Pantoprazole Sodium 40 mg ONCE ONCE IV 01/27/25 07:45 01/27/25 07:46 DC 01/27/25 08:09 Potassium Bicarbonate 75 meq ONCE ONCE PO 01/27/25 09:30 01/27/25 09:32 DC 01/27/25 10:01 Sodium Chloride 1,000 ml @ 1,000 mls/hr Q1H ONCE IV 01/27/25 07:45 01/27/25 08:44 DC 01/27/25 07:59 Departure 1 Departure Time of Disposition: 09:47 Impression: Primary Impression: Intractable nausea and vomiting Additional Impressions: Cholelithiasis Qualified Codes: K80.20 - Calculus of gallbladder without cholecystitis without obstruction Hypokalemia Disposition: ADMITTED INPATIENT Condition: Serious Critical Care Note Critical Care Time?: No Stability Stability form required: Yes Unstable for transfer: Requires medication, ED Physician Assesment, Possible rapid decline I personally scribed for BRANDIE ALMAZAN ([email or web address]) on 01/27/25 at 07:45. Electronically submitted by Constantino Finney ([employer]). I personally scribed for BRANDIE ALMAZAN ([email or web address]) on 01/27/25 at 08:14. Electronically submitted by Constantino Finney ([employer]). I personally scribed for BRANDIE ALMAZAN ([email or web address]) on 01/27/25 at 09:16. Electronically submitted by Constantino Finney ([employer]). I personally scribed for BRANDIE ALMAZAN ([email or web address]) on 01/27/25 at 09:33. Electronically submitted by Constantino Finney ([employer]). I personally scribed for BRANDIE ALMAZAN ([email or web address]) on 01/27/25 at 09:34. Electronically submitted by Constantino Finney ([employer]). BRANDIE ALMAZAN Jan 27, 2025 07:45
[2025-01-27] MEDS: SODIUM CHLORIDE 0.9% 1,000 ML IV ONE ×2 (07:59→14:32)
[2025-01-27] MEDS: ONDANSETRON HCL 4 MG/2 ML VIAL IV ONE (08:07)
[2025-01-27] MEDS: PANTOPRAZOLE 40 MG/10 ML VIAL INJ IV ONE (08:09)
[2025-01-27 08:17] LABS: Hematocrit 38.9 % (36.0-46.0); Hemoglobin 13.0 g/dL (12.2-16.2); Mean Corpuscular Hemoglobin 26.5 pg (28.0-32.0); Mean Corpuscular Volume 79.6 fL (80.0-100.0); Nucleated Red Blood Cells % 0.0 %
[2025-01-27 08:25] LABS: Urine Protein, UAD 1+ (Negative)
[2025-01-27 08:29] LABS: Alanine Aminotransferase 16 U/L (7-40); Alkaline Phosphatase 100 U/L (46-116); Anion Gap 10 (5-15); Carbon Dioxide 30 mmol/L (20-31); Chloride 100 mmol/L (98-107); Sodium 140 mmol/L (136-145)
[2025-01-27 08:31] LABS: Albumin 4.1 g/dL (3.2-4.8)
[2025-01-27 08:32] LABS: Glucose 125 mg/dL (74-106); Potassium 2.9 mmol/L (3.5-5.1)
--- NOTE | 2025-01-27 09:32 | DVH ---
INDICATION: EPIGASTRIC PAIN WITH N/V TECHNIQUE: Multiple real-time sonographic images of the abdomen were obtained. COMPARISON: US ABDOMEN LIMITED on DOS: 11/05/24, CT CT AB PEL WO CON-NO ORAL OR IV on DOS: 07/20/24, CT CT AB PEL WITH IV CON ONLY on DOS: 12/24/23 FINDINGS: The liver is homogenous in echogenicity. The liver measures 12 cm. No intrahepatic biliary ductal dilatation is noted. The gallbladder wall measures 0.3 cm and is unremarkable. Gallstones are noted. The common duct dana ures 0.6 cm and is unremarkable. No pericholecystic fluid is noted. The right kidney measures 9cm. No hydronephrosis. limits. The echogenicity is within normal limits . The pancreas is not well visualized due to obscuration from bowel gas. The visualized portions of the IVC and aorta are grossly unremarkable. IMPRESSION: Gallstones
[2025-01-27] MEDS: POTASSIUM EFFERVESENT TAB 25 MEQ PO ONE (10:01)
[2025-01-27 10:24] LABS: Calcium 9.2 mg/dL (8.7-10.4)
[2025-01-27 10:29] LABS: BUN/Creatinine Ratio 19.4 (10.0-20.0); Blood Urea Nitrogen 13 mg/dL (9-23); Lipase 26 U/L (12-53); Total Protein 6.8 g/dL (5.7-8.2)
[2025-01-27 10:31] LABS: Bilirubin, Total 0.5 mg/dL (0.2-1.0)
[2025-01-27] MEDS ORDERED: MORPHINE SULFATE INJ 2 MG/ml SYRG IV PRN (11:15)
[2025-01-27] MEDS ORDERED: ONDANSETRON HCL 4 MG/2 ML VIAL IV PRN ×2 (11:15→13:15)
--- NOTE | 2025-01-27 11:20 | DVHHP2 ---
History of Present Illness Reason for Visit: Abdominal pain with nausea and vomiting History of Present Illness Stephenie Fan is a 64-year-old female with past medical history of anemia, anxiety, gallstones, GERD, hypertension, arthritis, duodenal ulcer, duodenal stenosis, depression, osteoarthritis, and tubal ligation who presents to the ED with abdominal pain with nausea and vomiting x1 week. Patient reports that there are no triggering or alleviating factors. She also reports that she had an endoscopy 6 months ago which revealed ulcers. Patient's son-in-law at chair side, Abhijit. Patient also reports that she has been vomiting yellow/brownish emesis x2 days and states that it tastes like blood. She reports the abdominal pain 5 out of 10 feels like agitation and constant. She also reports that she has been unable to hold food down. She has been trying to drink ensures but vomits on and off for 1 week. Patient denies any recent trauma or injury, recent sick contacts, recent ingestion of spoiled food, recent travels, fever, chills, lightheadedness, dizziness, chest pain, shortness of breath, or diarrhea. Patient also reports that she has been feeling weak the last 7 days. Patient also uses a cane with ambulation. Patient reports that she was seeing Dr. Dubois and was supposed to get an EGD but not scheduled until February 25 and requesting for her. Per notes, patient also had a colonoscopy in July of this year. Cardiovascular: HTN GI: GERD Heme/Onc: Anemia NOS Psych: Anxiety, Depression Past Medical History Cholelithiasis Arthritis Duodenal ulcer Duodenal stenosis Osteoarthritis Past Surgical History: Tubal Ligation Family History: None Smoke: No ALCOHOL: none Drugs: None Lives: with Family Domestic Violence: Neg Review of Systems Constitutional: Yes: Weakness Gastrointestinal: Nausea, Vomiting, Abdominal Pain Allergies: Coded Allergies: Fluticasone (Verified Allergy, Unknown, 04/15/24) HEADACHE Exam Vital Signs Vital Signs Date Time Temp Pulse Resp B/P (MAP) Pulse Ox O2 Delivery O2 Flow Rate FiO2 01/27/25 09:55 98.2 64 17 123/65 (84) 95 98.2 General Appearance: Alert, Oriented X3, Cooperative, No acute distress HEENT: Atraumatic, PERRLA, EOMI, Mucous membr. moist/pink Respiratory: Clear to auscultation, Normal air movement Cardiovascular: Regular rate, Normal S1, Normal S2, No murmurs Abdominal: Normal bowel sounds, Soft Extremities: No edema, Normal pulses Skin: No significant lesion Neuro: Normal gait, Normal speech, Strength at 5/5 X4 ext, Normal tone, Sensa tion intact Psych/Mental Status: Mental status NL, Mood NL Labs/Xrays Labs Test 01/27/25 07:50 01/27/25 07:41 Range/Units White Blood Count 6.0 4.4-10.8 10^3/uL Red Blood Count 4.89 4.0-5.20 10^6/uL Hemoglobin 13.0 12.2-16.2 g/dL Hematocrit 38.9 36.0-46.0 % Mean Corpuscular Volume 79.6 L 80.0-100.0 fL Mean Corpuscular Hemoglobin 26.5 L 28.0-32.0 pg Mean Corpuscular Hemoglobin Concent 33.3 32.0-36.0 g/dL Red Cell Distribution Width 14.7 H 11.8-14.3 % Platelet Count 288 140-450 10^3/uL Mean Platelet Volume 9.1 6.9-10.8 fL Neutrophils (%) (Auto) 57.4 37.0-80.0 % Lymphocytes (%) (Auto) 33.4 10.0-50.0 % Monocytes (%) (Auto) 7.3 0.0-12.0 % Eosinophils (%) (Auto) 1.4 0.0-7.0 % Basophils (%) (Auto) 0.5 0.0-2.0 % Neutrophils # (Auto) 3.4 1.6-8.6 10 ^3/uL Lymphocytes # (Auto) 2.0 0.4-5.4 10 ^3/uL Monocytes # (Auto) 0.4 0-1.3 10 ^3/uL Eosinophils # (Auto) 0.1 0-0.8 10 ^3/uL Basophils # (Auto) 0 0-0.2 10 ^3/uL Nucleated Red Blood Cells 0.0 % Sodium Level 140 136-145 mmol/L Potassium Level 2.9 L 3.5-5.1 mmol/L Chloride Level 100 98-107 mmol/L Carbon Dioxide Level 30 20-31 mmol/L Anion Gap 10 5-15 Blood Urea Nitrogen 13 9-23 mg/dL Creatinine 0.67 0.550-1.02 mg/dL Glomerular Filtration Rate Calc 99 >90 mL/min BUN/Creatinine Ratio 19.4 10.0-20.0 Serum Glucose 125 H 74-106 mg/dL Calcium Level 9.2 8.7-10.4 mg/dL Total Bilirubin 0.5 0.2-1.0 mg/dL Aspartate Amino Transferase (AST) 20 13-40 U/L Alanine Aminotransferase (ALT) 16 7-40 U/L Alkaline Phosphatase 100 46-116 U/L Troponin I High Sensitivity 4 </=34 ng/L Total Protein 6.8 5.7-8.2 g/dL Albumin 4.1 3.2-4.8 g/dL Lipase 26 12-53 U/L Urine Color Yellow Yellow Urine Clarity Clear Clear Urine pH 6.0 5.0-9.0 Urine Specific [place] 1.040 H 1.001-1.035 Urine Protein 1+ H Negative Urine Ketones 3+ H Negative Urine Blood Negative Negative /uL Urine Nitrite Negative Negative Urine Bilirubin Negative Negative Urine Urobilinogen 2 H Negative mg/dL Urine Leukocyte Esterase 1+ Negative /uL Urine RBC 4 0 - 4 /hpf Urine Microscopic WBC 9 H 0-5 /HPF Urine Squamous Epithelial Cells Few <5 /hpf Urine Bacteria None seen None Seen /hpf Urine Mucus Few None Seen Urine Glucose Normal Normal mg/dL INDICATION: EPIGASTRIC PAIN WITH N/V TECHNIQUE: Multiple real-time sonographic images of the abdomen were obtained. COMPARISON: US ABDOMEN LIMITED on DOS: 11/05/24, CT CT AB PEL WO CON-NO ORAL OR IV on DOS: 07/20/24, CT CT AB PEL WITH IV CON ONLY on DOS: 12/24/23 FINDINGS: The liver is homogenous in echogenicity. The liver measures 12 cm. No intrahepatic biliary ductal dilatation is noted. The gallbladder wall measures 0.3 cm and is unremarkable. Gallstones are noted. The common duct measures 0.6 cm and is unremarkable. No pericholecystic fluid is noted. The right kidney measures 9cm. No hydronephrosis. limits. The echogenicity is within normal limits. The pancreas is not well visualized due to obscuration from bowel gas. The visualized portions of the IVC and aorta are grossly unremarkable. IMPRESSION: Gallstones SEPSIS Sepsis Screen Date sepsis recognized/suspect: Jan 27, 2025 Time Sepsis recognized/suspect: 07 Recent Procedure: No On Antibiotic Therapy: No Respiratory Rate >20: No Heart Rate >90: No Temp<36 C (96.8 F) or >38.3 C: No SBP <90 or MAP <65 mmHG: No New Acute Mental Status Change: No Is the patient on CPAP, BIPAP,: No Physician Orders Heplock Iv (01/27/25 ) Abdomen Limited (01/27/25 07:40) Vital Signs Date Time Temp Pulse Resp B/P (MAP) Pulse Ox O2 Delivery O2 Flow Rate FiO2 01/27/25 09:55 98.2 64 17 123/65 (84) 95 98.2 01/27/25 07:27 64 01/27/25 07:20 98.1 69 18 139/76 98 98.1 Laboratory Tests Test 01/27/25 07:50 White Blood Count 6.0 10^3/uL (4.4-10.8) Medications Medications Dose Ordered Sig/Francia Route Start Time Stop Time Status Last Admin Dose Admin Ondansetron HCl 4 mg ONCE ONCE IV 01/27/25 07:45 01/27/25 07:46 DC 01/27/25 08:07 4 MG Pantoprazole Sodium 40 mg ONCE ONCE IV 01/27/25 07:45 01/27/25 07:46 DC 01/27/25 08:09 40 MG Potassium Bicarbonate 75 meq ONCE ONCE PO 01/27/25 09:30 01/27/25 09:32 DC 01/27/25 10:01 75 MEQ Sodium Chloride 1,000 ml @ 1,000 mls/hr Q1H ONCE IV 01/27/25 07:45 01/27/25 08:44 DC 01/27/25 07:59 1,000 MLS/HR Assessment/Plan Assessment/Plan Assessment Hypokalemia Acute cystitis Intractable abdominal pain with nausea and vomiting Rule out GI bleed History of anemia History of anxiety History of gallstones History of GERD History of hypertension History of arthritis History of duodenal ulcer History of duodenal stenosis history of depression History of osteoarthritis History of tubal ligation Plan Admit to med surge Antiemetics Pain management NS 1 L given in ED Troponin noted negative x1 UA Lipase EKG Abdominal ultrasound IV antibiotics-ceftriaxone Diet Home medications reconciled DVT prophylaxis-not indicated patient ambulating PUD prophylaxis-PPIs Discussed plan of care with patient and nurse GI consulted Dietary consult [id number] Preventive counseling healthy eating habits, physical activity, and regular checkups Plan discussed with: Patient Date of Service: Jan 27, 2025 Billing Provider: WIL MALONE Common Visit Codes: 30192-TVQHPOC INP/OBS CARE (HIGH) Secondary Visit Codes: 84919-[id number] COUNSELING IND WIL MALONE Jan 27, 2025 11:20
[2025-01-27] MEDS ORDERED: SUCRALFATE 1 GM/10 ML ORAL SUSP PO SCH (12:00)
[2025-01-27 12:45] VITALS: PULSE 70; RESP 16; O2SAT 98
[2025-01-27 13:31] LABS: Iron 64.0 ug/dL (50-170)
[2025-01-27 13:39] LABS: Total Iron Binding Capacity 241.0 ug/dL (250-425)
[2025-01-27] MEDS ORDERED: PATIENTS OWN MEDICATION (Gabapentin 1 TAB) PO SCH (14:00)
--- NOTE | 2025-01-27 14:58 | DVHINCON2 ---
GI Consult Consult Note GI consult note Date of Consultation: 01/27/2025 Chief Complaint: Rule out GI bleed Referring Physician: KIRA RIOS H&P: 64-year-old Citizen Of [place]-speaking female, son at bedside translating, admitted with complains of epigastric pain, for the last one-week. Patient also has nausea and vomiting, denies hematemesis. Patient had similar flare-up when in [place] four weeks ago, status post EGD. Patient also has 10 lb weight loss due to decreased appetite because of abdominal pain. Patient usually follows up with Dr. Dubois in [facility] also and is scheduled for an outpatient endoscopy in February Past Medical History: Anemia, Anxiety, Gallstones, GERD, HTN Past Surgical History: Denies Social History: NO smoking, drinking ETOH and use of illegal drugs. Family History: Noncontributory Review of Systems: Constitutional: no fever, chill, weight loss HEENT: no eye pain, no hearing loss, no oral lesion, no scleral icterus Heart: no chest pain, no chest pressure Lung: no cough, no dyspnea with exertion Abdomen: see HPI Physical exam: General: NAD, AAOX3 Chest: lung dasilva clear to auscultation Heart: RRR, no murmur Abdomen positive epigastric tenderness to palpation, +BS Labs: Labs Test 01/27/25 14:07 01/27/25 11:46 01/27/25 07:50 01/27/25 07:41 Range/Units Folic Acid 18.23 >5.38 ng/mL White Blood Count 6.0 4.4-10.8 10^3/uL Red Blood Count 4.89 4.0-5.20 10^6/uL Hemoglobin 13.0 12.2-16.2 g/dL Hematocrit 38.9 36.0-46.0 % Mean Corpuscular Volume 79.6 L 80.0-100.0 fL Mean Corpuscular Hemoglobin 26.5 L 28.0-32.0 pg Mean Corpuscular Hemoglobin Concent 33.3 32.0-36.0 g/dL Red Cell Distribution Width 14.7 H 11.8-14.3 % Platelet Count 288 140-450 10^3/uL Mean Platelet Volume 9.1 6.9-10.8 fL Neutrophils (%) (Auto) 57.4 37.0-80.0 % Lymphocytes (%) (Auto) 33.4 10.0-50.0 % Monocytes (%) (Auto) 7.3 0.0-12.0 % Eosinophils (%) (Auto) 1.4 0.0-7.0 % Basophils (%) (Auto) 0.5 0.0-2.0 % Neutrophils # (Auto) 3.4 1.6-8.6 10 ^3/uL Lymphocytes # (Auto) 2.0 0.4-5.4 10 ^3/uL Monocytes # (Auto) 0.4 0-1.3 10 ^3/uL Eosinophils # (Auto) 0.1 0-0.8 10 ^3/uL Basophils # (Auto) 0 0-0.2 10 ^3/uL Nucleated Red Blood Cells 0.0 % Reticulocyte Count (auto) 0.78 0.5-1.5 % Sodium Level 140 136-145 mmol/L Potassium Level 2.9 L 3.5-5.1 mmol/L Chloride Level 100 98-107 mmol/L Carbon Dioxide Level 30 20-31 mmol/L Anion Gap 10 5-15 Blood Urea Nitrogen 13 9-23 mg/dL Creatinine 0.67 0.550-1.02 mg/dL Glomerular Filtration Rate Calc 99 >90 mL/min BUN/Creatinine Ratio 19.4 10.0-20.0 Serum Glucose 125 H 74-106 mg/dL Calcium Level 9.2 8.7-10.4 mg/dL Iron Level 64 50-170 ug/dL Total Iron Binding Capacity 241 L 250-425 ug/dL Percent Iron Saturation 26.6 15-50 % Total Bilirubin 0.5 0.2-1.0 mg/dL Aspartate Amino Transferase (AST) 20 13-40 U/L Alanine Aminotransferase (ALT) 16 7-40 U/L Alkaline Phosphatase 100 46-116 U/L Troponin I High Sensitivity 4 </=34 ng/L Total Protein 6.8 5.7-8.2 g/dL Albumin 4.1 3.2-4.8 g/dL Lipase 26 12-53 U/L Urine Color Yellow Yellow Urine Clarity Clear Clear Urine pH 6.0 5.0-9.0 Urine Specific [place] 1.040 H 1.001-1.035 Urine Protein 1+ H Negative Urine Ketones 3+ H Negative Urine Blood Negative Negative /uL Urine Nitrite Negative Negative Urine Bilirubin Negative Negative Urine Urobilinogen 2 H Negative mg/dL Urine Leukocyte Esterase 1+ Negative /uL Urine RBC 4 0 - 4 /hpf Urine Microscopic WBC 9 H 0-5 /HPF Urine Squamous Epithelial Cells Few <5 /hpf Urine Bacteria None seen None Seen /hpf Urine Mucus Few None Seen Urine Glucose Normal Normal mg/dL Imaging: Liver ultrasound IMPRESSION: Gallstones Assessment: Abdominal pain Nausea and vomiting Cholelithiasis Plan: Discussed with Dr. Dubois Monitor labs Protonix and Carafate Zofran as needed Clear liquid diet advance to full liquids if tolerated Symptomatic treatment recommended at this time We will continue to monitor Discussed plan with patient family at bedside and RN Thank you for this consult Date of Service: Jan 27, 2025 Billing Provider: JELANI JOAQUIN Common Visit Codes: CONSULT ONLY Consultation Codes: [id number] CONSULT <60MIN JELANI JOAQUIN Jan 27, 2025 14:58
[2025-01-27 17:00] VITALS: BP 110/72; PULSE 69; RESP 16; TEMP 97.9; O2SAT 98
[2025-01-27] MEDS: HYDROcodone-ACET 5/325MG TAB PO PRN (19:56)
[2025-01-27 21:00] VITALS: BP 147/75; PULSE 55; RESP 18; TEMP 98.4; O2SAT 99
[2025-01-27] MEDS: SUCRALFATE 1 GM/10 ML ORAL SUSP PO SCH (21:07)
[2025-01-27] MEDS: GABAPENTIN 300 MG CAP PO SCH (21:07)
[2025-01-27] MEDS: PANTOPRAZOLE 40 MG/10 ML VIAL INJ IV SCH (21:08)
[2025-01-28] VITALS (7 sets, daily range): BP systolic 112–143; BP diastolic 49–72; PULSE 54–66; RESP 14–18; TEMP 98.1–98.5; O2SAT 96–100
[2025-01-28 04:39] LABS: Hematocrit 34.1 % (36.0-46.0); Hemoglobin 11.5 g/dL (12.2-16.2); Mean Corpuscular Hemoglobin 27.0 pg (28.0-32.0); Mean Corpuscular Volume 80.3 fL (80.0-100.0); Nucleated Red Blood Cells % 0.4 %
[2025-01-28 05:00] LABS: Alanine Aminotransferase 13 U/L (7-40); Alkaline Phosphatase 81 U/L (46-116); Anion Gap 10 (5-15); Carbon Dioxide 25 mmol/L (20-31); Glucose 94 mg/dL (74-106); Potassium 3.6 mmol/L (3.5-5.1)
[2025-01-28 05:01] LABS: Albumin 3.1 g/dL (3.2-4.8); BUN/Creatinine Ratio 8.8 (10.0-20.0); Bilirubin, Total < 0.2 mg/dL (0.2-1.0); Blood Urea Nitrogen < 5 mg/dL (9-23); Calcium 8.6 mg/dL (8.7-10.4); Chloride 111 mmol/L (98-107); Sodium 146 mmol/L (136-145); Total Protein 5.4 g/dL (5.7-8.2)
[2025-01-28] MEDS: hydroCHLOROthiazide 25 MG TAB PO SCH (09:55)
[2025-01-28] MEDS: LOSARTAN POTASSIUM 50 MG TAB PO SCH (09:55)
[2025-01-28] MEDS: CITALOPRAM HYDROBR 20 MG TAB PO SCH (09:56)
[2025-01-28] MEDS ORDERED: PATIENTS OWN MEDICATION (Losartan Potassium & Hydrochlo (Hyzaar) 1 TAB) PO SCH (10:00)
[2025-01-28] MEDS ORDERED: ESCITALOPRAM OXALATE 20 MG PO SCH (10:00)
--- NOTE | 2025-01-28 10:17 | DVHPN2 ---
Progress Note - Dictate Date Seen: Jan 28, 2025 Medical Necessity Reason Pt with a Central, PICC or Fol: No Subjective No new complaints Had some itching last night requiring Benadryl vital signs Vital Sign Date Time Temp Pulse Resp B/P (MAP) Pulse Ox O2 Delivery O2 Flow Rate FiO2 01/28/25 09:56 122/72 01/28/25 09:00 98.5 63 16 97 98.5 01/28/25 07:37 Room Air* 0 21 Total Intake and Output 01/27/25 01/27/25 01/28/25 15:00 23:00 07:00 Intake Total 1000 ml 940 ml Balance 1000 ml 940 ml medications Current Medications Medications Dose Ordered Sig/Francia Route Start Time Stop Time Status Last Admin Dose Admin Ceftriaxone Sodium 50 ml @ 100 mls/hr DAILY@09 IV 01/27/25 11:15 01/28/25 09:57 100 MLS/HR Acetaminophen/ Hydrocodone Bitart 1 tab Q4HP PRN PO 01/27/25 11:15 01/27/25 19:56 1 TAB Ondansetron HCl 4 mg Q4HP PRN IV 01/27/25 11:15 UNV Acetaminophen 650 mg Q6HP PRN PO 01/27/25 11:15 Morphine Sulfate 2 mg Q4HPRN PRN IV 01/27/25 11:15 Hydralazine HCl 25 mg DAILY PO 01/28/25 10:00 01/28/25 09:56 25 MG Sucralfate 1 gm QID PO 01/27/25 12:00 UNV Patient Own Medication 20 mg DAILY PO 01/28/25 10:00 UNV Patient Own Medication 1 tab TID PO 01/27/25 14:00 UNV Patient Own Medication 1 tab DAILY PO 01/28/25 10:00 UNV Pantoprazole Sodium 40 mg BID IV 01/27/25 22:00 01/28/25 09:56 40 MG Sucralfate 1 gm TID@0600,1130,2200 PO 01/27/25 22:00 01/28/25 05:54 1 GM Ondansetron HCl 4 mg Q4HPRN PRN IV 01/27/25 13:15 Gabapentin 600 mg BID PO 01/27/25 22:00 01/28/25 09:54 600 MG Citalopram Hydrobromide 40 mg DAILY PO 01/28/25 10:00 01/28/25 09:56 40 MG Losartan Potassium 100 mg DAILY PO 01/28/25 10:00 01/28/25 09:55 100 MG Hydrochlorothiazide 25 mg DAILY PO 01/28/25 10:00 01/28/25 09:55 25 MG objective General: NAD, AAOX3 Chest: lung dasilva clear to auscultation Heart: RRR, no murmur Abdomen positive epigastric tenderness to palpation, +BS laboratory and microbiology Laboratory Tests 01/28/25 04:17 Test 01/28/25 04:17 Range/Units Serum Glucose 94 74-106 mg/dL Problems(with codes): (1) Cholelithiasis (2) Intractable nausea and vomiting Prognosis PLAN Monitor labs Protonix and Carafate Zofran as needed Clear liquid diet advance to full liquids if tolerated Symptomatic treatment recommended at this time We will continue to monitor I can arrange a repeat endoscopy on Friday If the patient is discharged then patient will keep outpatient appointment for endoscopy Patient also has a surgical referral to discuss possible gastrojejunostomy or a bypass procedure for duodenal stricture Plan discussed with: Other (Candelaria Mcgee) LOW CHRISTINE MD Jan 28, 2025 10:16
--- NOTE | 2025-01-28 10:31 | DVHPN2 ---
Subjective Patient continues to have intermittent nausea and vomiting. Able to tolerate oral intake this morning. Noted epigastric in right lower quadrant pain. Reviewed: Care Plan, H&P, Labs, Medications Changes from previous H/P or p: No Changes Gastrointestinal: Nausea, Vomiting, Abdominal Pain Objective Vitals Vital Signs Date Time Temp Pulse Resp B/P (MAP) Pulse Ox O2 Delivery O2 Flow Rate FiO2 01/28/25 09:56 122/72 01/28/25 09:00 98.5 63 16 97 98.5 01/28/25 07:37 Room Air* 0 21 Intake/Output Intake and Output 01/28/25 07:00 Intake Total 1940 ml Balance 1940 ml Intake Oral 940 ml IV Total 1000 ml # Voids 4 # Bowel Movements 1 General Appearance: Alert, Oriented X3, Cooperative, mild distress HEENT: Atraumatic, PERRLA Lungs: Clear to auscultation, Normal air movement Cardiovascular: Normal S1, Normal S2 Abdomen: Normal bowel sounds, No tenderness, No hepatospenomegaly Musculoskeletal: Normal sensory function, Normal motor function Skin: Dry, Intact Psych/Mental Status: Mental status NL, Mood NL Medications Current Medications Medications Dose Ordered Sig/Francia Route Start Time Stop Time Status Last Admin Dose Admin Ceftriaxone Sodium 50 ml @ 100 mls/hr DAILY@09 IV 01/27/25 11:15 01/28/25 09:57 100 MLS/HR Acetaminophen/ Hydrocodone Bitart 1 tab Q4HP PRN PO 01/27/25 11:15 01/27/25 19:56 1 TAB Ondansetron HCl 4 mg Q4HP PRN IV 01/27/25 11:15 UNV Acetaminophen 650 mg Q6HP PRN PO 01/27/25 11:15 Morphine Sulfate 2 mg Q4HPRN PRN IV 01/27/25 11:15 Hydralazine HCl 25 mg DAILY PO 01/28/25 10:00 01/28/25 09:56 25 MG Sucralfate 1 gm QID PO 01/27/25 12:00 UNV Patient Own Medication 20 mg DAILY PO 01/28/25 10:00 UNV Patient Own Medication 1 tab TID PO 01/27/25 14:00 UNV Patient Own Medication 1 tab DAILY PO 01/28/25 10:00 UNV Pantoprazole Sodium 40 mg BID IV 01/27/25 22:00 01/28/25 09:56 40 MG Sucralfate 1 gm TID@0600,1130,2200 PO 01/27/25 22:00 01/28/25 05:54 1 GM Ondansetron HCl 4 mg Q4HPRN PRN IV 01/27/25 13:15 Gabapentin 600 mg BID PO 01/27/25 22:00 01/28/25 09:54 600 MG Citalopram Hydrobromide 40 mg DAILY PO 01/28/25 10:00 01/28/25 09:56 40 MG Losartan Potassium 100 mg DAILY PO 01/28/25 10:00 01/28/25 09:55 100 MG Hydrochlorothiazide 25 mg DAILY PO 01/28/25 10:00 01/28/25 09:55 25 MG Laboratory Results Laboratory Tests 01/28/25 04:17 Chemistry Test 01/28/25 04:17 Albumin 3.1 g/dL (3.2-4.8) L Calcium Level 8.6 mg/dL (8.7-10.4) L Total Protein 5.4 g/dL (5.7-8.2) L LFT Test 01/28/25 04:17 Alanine Aminotransferase (ALT) 13 U/L (7-40) Alkaline Phosphatase 81 U/L (46-116) Aspartate Amino Transferase (AST) 14 U/L (13-40) Total Bilirubin < 0.2 mg/dL (0.2-1.0) L Urinalysis Test 01/27/25 07:41 Urine Color Yellow (Yellow) Urine Clarity Clear (Clear) Urine pH 6.0 (5.0-9.0) Urine Specific [place] 1.040 (1.001-1.035) Urine Protein 1+ (Negative) H Urine Ketones 3+ (Negative) H Urine Blood Negative /uL (Negative) Urine Nitrite Negative (Negative) Urine Bilirubin Negative (Negative) Urine Urobilinogen 2 mg/dL (Negative) H Urine Leukocyte Esterase 1+ /uL (Negative) Urine RBC 4 /hpf (0 - 4) Urine Microscopic WBC 9 /HPF (0-5) H Urine Squamous Epithelial Cells Few /hpf (<5) Urine Bacteria None seen /hpf (None Seen) Urine Mucus Few (None Seen) Urine Glucose Normal mg/dL (Normal) Labs and/or images reviewed: Labs reviewed by me, Image(s) reviewed by me Assessment/Plan Assessment/Plan Impression: -intractable nausea and vomiting -peptic ulcer disease -cholelithiasis -primary hypertension -recent endoscopy Plan: -GI consultation: Continue Carafate and PPI -CT of the abdomen and pelvis with IV and oral contrast -continue clear liquid diet -restart IV hydration -antiemetics -repeat labs -discussion made with the patient's daughter and son-in-law. All questions answered. Total time spent with patient discussing and formulating plan of care: 35 minutes. This medical document was created using an electronic medical record system with [employer] dictation system. Although this document has been carefully reviewed, there may still be some phonetic and typographical errors. These areas are purely typographical due to imperfections of the software programs, and do not reflect any compromise in the patient's medical care. Plan discussed with: Patient, Other (RN) My Orders Orders - CORINA GONSALVES NP Procedure Category Date Status Time Ct Ab Pelv W Wo CT 01/28/25 Logged Con-Oral & Iv 10:11 Carcinoembryonic LAB 01/28/25 Transmitted Antigen 10:26 Carbohydrate Antigen LAB 01/28/25 Transmitted 19-9 NS PHA 01/28/25 Transmitted 10:30 Comprehensive LAB 01/29/25 Verified Metabolic Panel 04:00 Magnesium LAB 01/29/25 Verified 04:00 Date of Service: Jan 28, 2025 Billing Provider: CORINA GONSALVES NP Common Visit Codes: [id number] INP/OBS CARE(HIGH) CORINA GONSALVES NP Jan 28, 2025 10:31
[2025-01-28] MEDS: SODIUM CHLORIDE 0.9% 1,000 ML IV SCH (10:48)
[2025-01-28] MEDS: OMNIPAQUE 12mg/ml 500ml ORAL SOLUTION PO ONE (12:38)
[2025-01-28] MEDS: IOHEXOL 300 MG/ML 100ML BOTTLE IJ ONE (14:36)
--- NOTE | 2025-01-28 15:12 | DVH ---
Indication: N/V. QUESTIONABLE DUODENAL STENOSIS Technique: CT axial images of the abdomen and pelvis are obtained with intravenous contrast. Coronal and sagittal reformats were obtained. Radiation Dose Information: CTDI volume is 9.56 mGy. Dose-length product is 458.99 mGy*cm Comparison: CT CT AB PEL WITH IV CON ONLY on DOS: 12/24/23 FINDINGS: Lung bases demonstrate no pleural effusion. Adrenal glands, spleen pancreas unremarkable . Cholelithiasis and possible porcelain gallbladder. N o enhancing hepatic lesion. Kidneys demonstrate no hydronephrosis. Marked gastric distention. Small bowel loops are moderately distended. Contrast extends to the ileum . Large volume stool within the colon normal appendix. Abdominal aortic atherosclerotic disease. Bladder is partially distended. No free pelvic fluid. No in guinal lymphadenopathy. Moderate bilateral sacroiliac degenerative joint disease. Severe lumbar degenerative disc disease. 7 mm anterolisthesis of L4 upon L5. Severe lumbar facet hyp ertrophic changes. IMPRESSION: Marked gastric distention. Correlate for gastric outlet obstruction and other etiologies. Recommend GI consultation. Enteric contrast extends to the ileum. Cholelithiasis and possible porcelain gallbladder. Recommend surgical consultation. Large volume stool in the colon. Other findings as described.
--- NOTE | 2025-01-28 18:33 | DVHINCON2 ---
Date of service: Jan 28, 2025 History of Present Illness 64-year-old female with a history of postbulbar duodenal stricture status post EGD with balloon dilation by Dr. Loco Dubois in July now admitted secondary to nausea and vomiting. For today the patient denies any abdominal pain and has been able to tolerate liquid diet without problems. Past Medical History Anxiety. Depression. Duodenal stenosis. Past Surgical History No abdominal surgeries Family History: Hypertension G8 MOTHER Family History Noncontributory Social History Patient is . Denies any alcohol, tobacco, IV drug use Allergies: Coded Allergies: Fluticasone (Verified Allergy, Unknown, 04/15/24) HEADACHE Home Meds Active Scripts Nystatin (Mouth-Throat) (Mycostatin (Mouth-Throat)) 500,000 Units/5 Ml Ss, 5 ML MT QID for 5 Days, #100 ML 1 Refill Prov:MALDONADO CRUZ [facility] 01/19/25 Metoclopramide Hcl (Metoclopramide Hcl) 5 Mg Tab, 5 MG PO BID for 30 Days, #60 TAB 2 Refills Prov:MALDONADO CRUZ [facility] 01/19/25 Metoclopramide Hcl (Reglan) 10 Mg Tab, 10 MG PO BID, #30 TAB Prov:BRANDIE ALMAZAN 11/05/24 Dicyclomine Hcl (BENTYL CAPSULE) 10 Mg Cp, 1 CAP PO Q6HPRN for 30 Days, #100 CAP 3 Refills Prov:CRISTIAN CEDENO [facility] 07/23/24 Ondansetron Odt 4MG Tab (ZOFRAN PO) 4 Mg Tb, 4 MG PO Q4HPRN PRN for 30 Days, #150 TAB 1 Refill ODT TAB-DISSOLVE IN MOUTH, THEN SWALLOW Prov:CRISTIAN CEDENO [facility] 07/23/24 Pantoprazole Sodium Sesquihydr (Protonix) 40 Mg Tab, 40 MG PO BID for 30 Days, #60 TAB 2 Refills Prov:CRISTIAN CEDENO [facility] 07/23/24 Sucralfate (CARAFATE SUSP) 1 Gm/10 Ml Ss, 10 ML PO QID for 30 Days, #1200 ML 3 Refills Prov:CRISTIAN CEDENO [facility] 07/23/24 Reported Medications Baclofen (Baclofen) 10 Mg Tab, 1 TAB PO Q8HPRN PRN 07/20/24 Hydrocodone-Acetaminophen (Hydrocodone/Acetaminophen 7.5-325 mg) 1 Tab Tab, 1 TAB PO TIDPRN PRN 07/20/24 Gabapentin (Gabapentin) 600 Mg Tab, 1 TAB PO TID 07/20/24 Docusate Sodium (Stool Softener) 100 Mg Tab, 100 MG PO DAILY, TAB 04/13/24 Potassium Gluconate (POTASSIUM GLUCONATE) 80 Mg Tab, 80 MG OR DAILY, TAB 04/13/24 Acetaminophen (Tylenol 8 Hour Arthritis) 650 Mg Tab, 650 MG PO PRN, TAB 04/13/24 Losartan Potassium & Hydrochlo (Hyzaar) 1 Tab Tab, 1 TAB PO DAILY, TAB 04/13/24 Escitalopram Oxalate (Lexapro) 20 Mg Tab, 20 MG PO DAILY, TAB 04/13/24 Hydralazine HCl (Hydralazine HCl) 25 Mg Tab, 25 MG PO DAILY, TAB 04/13/24 Current Medications Current Medications Medications (Trade) Dose Ordered Sig/Francia Route PRN Reason Start Time Stop Time Status Last Admin Hydralazine HCl (Apresoline Tablet) 25 mg DAILY PO 01/28/25 10:00 01/28/25 09:56 Patient Own Medication 20 mg DAILY PO 01/28/25 10:00 UNV Patient Own Medication 1 tab DAILY PO 01/28/25 10:00 UNV Pantoprazole Sodium (Protonix) 40 mg BID IV 01/27/25 22:00 01/28/25 09:56 Sucralfate (Carafate Susp) 1 gm TID@0600,1130,2200 PO 01/27/25 22:00 01/28/25 05:54 Gabapentin (Neurontin Capsule) 600 mg BID PO 01/27/25 22:00 01/28/25 09:54 Citalopram Hydrobromide (CeleXA TABLET) 40 mg DAILY PO 01/28/25 10:00 01/28/25 09:56 Losartan Potassium (Cozaar Tablet) 100 mg DAILY PO 01/28/25 10:00 01/28/25 09:55 Hydrochlorothiazide (hydroCHLOROthiazide TABLET) 25 mg DAILY PO 01/28/25 10:00 01/28/25 09:55 Sodium Chloride 1,000 ml @ 75 mls/hr [id number] IV 01/28/25 10:30 01/28/25 10:48 Lactulose 30 ml BID PO 01/28/25 22:00 Vital Signs Vital Signs Date Time Temp Pulse Resp B/P (MAP) Pulse Ox O2 Delivery O2 Flow Rate FiO2 01/28/25 17:00 98.3 66 16 143/55 (84) 98 98.3 01/28/25 07:37 Room Air* 0 21 Physical Exam GEN: Age-appropriate female in no acute distress. Alert. HEENT: Normocephalic atraumatic. Moist mucous membranes. Anicteric sclerae. CV: RRR Respiratory: CTAB ABD: Soft. Nontender nondistended. CT of the abdomen and pelvis: Gastric distention. Cholelithiasis with possible porcelain gallbladder. Abdominal ultrasound: Cholelithiasis. Normal gallbladder wall thickness. CBD within normal limits. No pericholecystic fluid. Labs/Diagnostic Data Labs Test 01/28/25 10:53 01/28/25 04:17 01/27/25 14:07 01/27/25 11:46 Range/Units White Blood Count 4.7 4.4-10.8 10^3/uL Red Blood Count 4.25 4.0-5.20 10^6/uL Hemoglobin 11.5 L 12.2-16.2 g/dL Hematocrit 34.1 #L 36.0-46.0 % Mean Corpuscular Volume 80.3 80.0-100.0 fL Mean Corpuscular Hemoglobin 27.0 L 28.0-32.0 pg Mean Corpuscular Hemoglobin Concent 33.6 32.0-36.0 g/dL Red Cell Distribution Width 15.0 H 11.8-14.3 % Platelet Count 257 140-450 10^3/uL Mean Platelet Volume 9.0 6.9-10.8 fL Neutrophils (%) (Auto) 33.3 L 37.0-80.0 % Lymphocytes (%) (Auto) 51.0 H 10.0-50.0 % Monocytes (%) (Auto) 9.2 0.0-12.0 % Eosinophils (%) (Auto) 5.7 0.0-7.0 % Basophils (%) (Auto) 0.8 0.0-2.0 % Neutrophils # (Auto) 1.6 1.6-8.6 10 ^3/uL Lymphocytes # (Auto) 2.4 0.4-5.4 10 ^3/uL Monocytes # (Auto) 0.4 0-1.3 10 ^3/uL Eosinophils # (Auto) 0.3 0-0.8 10 ^3/uL Basophils # (Auto) 0 0-0.2 10 ^3/uL Nucleated Red Blood Cells 0.4 % Sodium Level 146 #H 136-145 mmol/L Potassium Level 3.6 3.5-5.1 mmol/L Chloride Level 111 #H 98-107 mmol/L Carbon Dioxide Level 25 20-31 mmol/L Anion Gap 10 5-15 Blood Urea Nitrogen < 5 L 9-23 mg/dL Creatinine 0.57 0.550-1.02 mg/dL Glomerular Filtration Rate Calc 103 >90 mL/min BUN/Creatinine Ratio 8.8 L 10.0-20.0 Serum Glucose 94 74-106 mg/dL Calcium Level 8.6 L 8.7-10.4 mg/dL Total Bilirubin < 0.2 L 0.2-1.0 mg/dL Aspartate Amino Transferase (AST) 14 13-40 U/L Alanine Aminotransferase (ALT) 13 7-40 U/L Alkaline Phosphatase 81 46-116 U/L Total Protein 5.4 L 5.7-8.2 g/dL Albumin 3.1 L 3.2-4.8 g/dL Carcinoembryonic Antigen 0.96 <=5.0 ng/mL Haptoglobin 236 37-355 mg/dL Folic Acid 18.23 >5.38 ng/mL Test 01/27/25 07:50 01/27/25 07:41 Range/Units Reticulocyte Count (auto) 0.78 0.5-1.5 % Iron Level 64 50-170 ug/dL Total Iron Binding Capacity 241 L 250-425 ug/dL Percent Iron Saturation 26.6 15-50 % Troponin I High Sensitivity 4 </=34 ng/L Lipase 26 12-53 U/L Urine Color Yellow Yellow Urine Clarity Clear Clear Urine pH 6.0 5.0-9.0 Urine Specific [place] 1.040 H 1.001-1.035 Urine Protein 1+ H Negative Urine Ketones 3+ H Negative Urine Blood Negative Negative /uL Urine Nitrite Negative Negative Urine Bilirubin Negative Negative Urine Urobilinogen 2 H Negative mg/dL Urine Leukocyte Esterase 1+ Negative /uL Urine RBC 4 0 - 4 /hpf Urine Microscopic WBC 9 H 0-5 /HPF Urine Squamous Epithelial Cells Few <5 /hpf Urine Bacteria None seen None Seen /hpf Urine Mucus Few None Seen Urine Glucose Normal Normal mg/dL Assessment 1. Duodenal stenosis 2. Cholelithiasis Plan/Recommendation 1. Patient is able to tolerate liquid diet. Patient is also scheduled for another repeat EGD by Dr. Dubois next week. I recommended that if she proceeds with a an elective surgery for the duodenal stenosis, I recommend removing the gallbladder at the same time. There was no indication for acute surgery at this time as patient is currently asymptomatic. I recommend follow up with Dr. Live's clinic for possible surgery for duodenal stenosis. Plan discussed with: Patient, Spouse LEWIS HOROWITZ MD Jan 28, 2025 18:33
[2025-01-28] MEDS: LACTULOSE 20Gm/30ML SOLN PO SCH (22:29)
[2025-01-29] VITALS (7 sets, daily range): BP systolic 113–148; BP diastolic 60–87; PULSE 55–64; RESP 12–18; TEMP 98.1–98.6; O2SAT 97–99
[2025-01-29 07:54] LABS: Hematocrit 36.6 % (36.0-46.0); Hemoglobin 12.4 g/dL (12.2-16.2); Mean Corpuscular Hemoglobin 27.4 pg (28.0-32.0); Mean Corpuscular Volume 80.8 fL (80.0-100.0); Nucleated Red Blood Cells % 0.2 %
[2025-01-29 08:09] LABS: Alanine Aminotransferase 13 U/L (7-40); Albumin 3.7 g/dL (3.2-4.8); Alkaline Phosphatase 86 U/L (46-116); Anion Gap 11 (5-15); Calcium 9.1 mg/dL (8.7-10.4); Carbon Dioxide 24 mmol/L (20-31); Glucose 90 mg/dL (74-106); Magnesium 2.2 mg/dL (1.6-2.6); Potassium 3.5 mmol/L (3.5-5.1); Sodium 142 mmol/L (136-145); Total Protein 6.3 g/dL (5.7-8.2)
[2025-01-29 08:11] LABS: BUN/Creatinine Ratio 7.9 (10.0-20.0); Bilirubin, Total < 0.2 mg/dL (0.2-1.0); Blood Urea Nitrogen < 5 mg/dL (9-23); Chloride 107 mmol/L (98-107)
[2025-01-29 08:20] LABS: INR 1.03 (0.9-1.15); Partial Thromboplastin Time 28.2 SEC (24.5-34.5); Prothrombin Time 10.9 sec (9.3-11.8)
--- NOTE | 2025-01-29 11:02 | DVHPN2 ---
Subjective better Reviewed: Care Plan, H&P, Labs, Medications, Previous Orders, Radiology, Other (consult) Changes from previous H/P or p: No Changes Gastrointestinal: Nausea, Vomiting, Abdominal Pain Objective Vitals Vital Signs Date Time Temp Pulse Resp B/P (MAP) Pulse Ox O2 Delivery O2 Flow Rate FiO2 01/29/25 09:24 124/81 01/29/25 09:00 98.3 64 12 98 98.3 01/29/25 08:10 Room Air* 0 21 Intake/Output Intake and Output 01/29/25 07:00 Intake Total 1840 ml Balance 1840 ml Intake Oral 1840 ml # Voids 6 General Appearance: Alert, Oriented X3, Cooperative HEENT: Atraumatic Lungs: Clear to auscultation, Normal air movement Cardiovascular: Regular rate Abdomen: Normal bowel sounds, Other (mild tenderness in mid epigastric) Medications Current Medications Medications Dose Ordered Sig/Francia Route Start Time Stop Time Status Last Admin Dose Admin Ceftriaxone Sodium 50 ml @ 100 mls/hr DAILY@09 IV 01/27/25 11:15 01/29/25 08:22 100 MLS/HR Acetaminophen/ Hydrocodone Bitart 1 tab Q4HP PRN PO 01/27/25 11:15 01/29/25 10:39 1 TAB Ondansetron HCl 4 mg Q4HP PRN IV 01/27/25 11:15 UNV Acetaminophen 650 mg Q6HP PRN PO 01/27/25 11:15 Morphine Sulfate 2 mg Q4HPRN PRN IV 01/27/25 11:15 Hydralazine HCl 25 mg DAILY PO 01/28/25 10:00 01/29/25 09:24 25 MG Sucralfate 1 gm QID PO 01/27/25 12:00 UNV Patient Own Medication 20 mg DAILY PO 01/28/25 10:00 UNV Patient Own Medication 1 tab TID PO 01/27/25 14:00 UNV Patient Own Medication 1 tab DAILY PO 01/28/25 10:00 UNV Pantoprazole Sodium 40 mg BID IV 01/27/25 22:00 01/29/25 09:25 40 MG Sucralfate 1 gm TID@0600,1130,2200 PO 01/27/25 22:00 01/29/25 05:29 1 GM Ondansetron HCl 4 mg Q4HPRN PRN IV 01/27/25 13:15 Gabapentin 600 mg BID PO 01/27/25 22:00 01/29/25 09:23 600 MG Citalopram Hydrobromide 40 mg DAILY PO 01/28/25 10:00 01/29/25 09:22 40 MG Losartan Potassium 100 mg DAILY PO 01/28/25 10:00 01/29/25 09:23 100 MG Hydrochlorothiazide 25 mg DAILY PO 01/28/25 10:00 01/29/25 09:23 25 MG Sodium Chloride 1,000 ml @ 75 mls/hr [id number] IV 01/28/25 10:30 01/28/25 23:50 75 MLS/HR Lactulose 30 ml BID PO 01/28/25 22:00 01/29/25 09:28 30 ML Laboratory Results Laboratory Tests 01/29/25 06:29 Chemistry Test 01/29/25 06:29 Albumin 3.7 g/dL (3.2-4.8) Calcium Level 9.1 mg/dL (8.7-10.4) Magnesium Level 2.2 mg/dL (1.6-2.6) Total Protein 6.3 g/dL (5.7-8.2) Coagulation Test 01/29/25 06:29 Prothrombin Time 10.9 sec (9.3-11.8) Prothrombin Time INR 1.03 (0.9-1.15) Activated Partial Thromboplast Time 28.2 SEC (24.5-34.5) LFT Test 01/29/25 06:29 Alanine Aminotransferase (ALT) 13 U/L (7-40) Alkaline Phosphatase 86 U/L (46-116) Aspartate Amino Transferase (AST) 17 U/L (13-40) Total Bilirubin < 0.2 mg/dL (0.2-1.0) L Urinalysis Test 01/27/25 07:41 Urine Color Yellow (Yellow) Urine Clarity Clear (Clear) Urine pH 6.0 (5.0-9.0) Urine Specific [place] 1.040 (1.001-1.035) Urine Protein 1+ (Negative) H Urine Ketones 3+ (Negative) H Urine Blood Negative /uL (Negative) Urine Nitrite Negative (Negative) Urine Bilirubin Negative (Negative) Urine Urobilinogen 2 mg/dL (Negative) H Urine Leukocyte Esterase 1+ /uL (Negative) Urine RBC 4 /hpf (0 - 4) Urine Microscopic WBC 9 /HPF (0-5) H Urine Squamous Epithelial Cells Few /hpf (<5) Urine Bacteria None seen /hpf (None Seen) Urine Mucus Few (None Seen) Urine Glucose Normal mg/dL (Normal) Assessment/Plan Assessment/Plan Abdominal pain Duodenal stricture Cholelithiasis /borderline gallbladder Peptic ulcer disease Hypertension Anemia Depression Plan: EGD on Friday. Then re-evaluation for possible surgery for both duodenal stricture and cholecystectomy at the same time possibly inpatient or as outpatient depending on the finding with the EGD. Plan discussed with: Patient Date of Service: Jan 29, 2025 Billing Provider: NATI HAWKINS MD Common Visit Codes: [id number] INP/OBS CARE(HIGH) NATI HAWKINS MD Jan 29, 2025 11:02
[2025-01-30] VITALS (8 sets, daily range): BP systolic 123–145; BP diastolic 61–88; PULSE 55–66; RESP 12–18; TEMP 97.5–99.1; O2SAT 97–98
--- NOTE | 2025-01-30 15:13 | DVHPN2 ---
Subjective better Reviewed: Care Plan, H&P, Labs, Medications, Previous Orders, Radiology, Other Changes from previous H/P or p: No Changes Objective Vitals Vital Signs Date Time Temp Pulse Resp B/P (MAP) Pulse Ox O2 Delivery O2 Flow Rate FiO2 01/30/25 13:00 97.5 66 18 129/61 (83) 98 97.5 01/30/25 08:00 Room Air* 0 21 Intake/Output Intake and Output 01/30/25 07:00 Intake Total 2861 ml Balance 2861 ml Intake Oral 2436 ml IV Total 425 ml # Voids 8 # Bowel Movements 5 General Appearance: Alert, Oriented X3, Cooperative HEENT: Atraumatic Lungs: Clear to auscultation, Normal air movement Cardiovascular: Regular rate Abdomen: Normal bowel sounds, Other (mild tenderness in mid epigastric) Medications Current Medications Medications Dose Ordered Sig/Francia Route Start Time Stop Time Status Last Admin Dose Admin Ceftriaxone Sodium 50 ml @ 100 mls/hr DAILY@09 IV 01/27/25 11:15 01/30/25 09:45 100 MLS/HR Acetaminophen/ Hydrocodone Bitart 1 tab Q4HP PRN PO 01/27/25 11:15 01/30/25 14:13 1 TAB Ondansetron HCl 4 mg Q4HP PRN IV 01/27/25 11:15 UNV Acetaminophen 650 mg Q6HP PRN PO 01/27/25 11:15 Morphine Sulfate 2 mg Q4HPRN PRN IV 01/27/25 11:15 Hydralazine HCl 25 mg DAILY PO 01/28/25 10:00 01/30/25 09:41 25 MG Sucralfate 1 gm QID PO 01/27/25 12:00 UNV Patient Own Medication 20 mg DAILY PO 01/28/25 10:00 UNV Patient Own Medication 1 tab TID PO 01/27/25 14:00 UNV Patient Own Medication 1 tab DAILY PO 01/28/25 10:00 UNV Pantoprazole Sodium 40 mg BID IV 01/27/25 22:00 01/30/25 09:42 40 MG Sucralfate 1 gm TID@0600,1130,2200 PO 01/27/25 22:00 01/30/25 11:35 1 GM Ondansetron HCl 4 mg Q4HPRN PRN IV 01/27/25 13:15 Gabapentin 600 mg BID PO 01/27/25 22:00 01/30/25 09:42 600 MG Citalopram Hydrobromide 40 mg DAILY PO 01/28/25 10:00 01/30/25 09:42 40 MG Losartan Potassium 100 mg DAILY PO 01/28/25 10:00 01/30/25 09:42 100 MG Hydrochlorothiazide 25 mg DAILY PO 01/28/25 10:00 01/30/25 09:41 25 MG Sodium Chloride 1,000 ml @ 75 mls/hr [id number] IV 01/28/25 10:30 01/30/25 14:14 75 MLS/HR Lactulose 30 ml BID PO 01/28/25 22:00 01/29/25 09:28 30 ML Diphenhydramine HCl 25 mg BIDP PRN PO 01/29/25 15:00 01/30/25 14:13 25 MG Laboratory Results Laboratory Tests 01/29/25 06:29 Urinalysis Test 01/27/25 07:41 Urine Color Yellow (Yellow) Urine Clarity Clear (Clear) Urine pH 6.0 (5.0-9.0) Urine Specific [place] 1.040 (1.001-1.035) Urine Protein 1+ (Negative) H Urine Ketones 3+ (Negative) H Urine Blood Negative /uL (Negative) Urine Nitrite Negative (Negative) Urine Bilirubin Negative (Negative) Urine Urobilinogen 2 mg/dL (Negative) H Urine Leukocyte Esterase 1+ /uL (Negative) Urine RBC 4 /hpf (0 - 4) Urine Microscopic WBC 9 /HPF (0-5) H Urine Squamous Epithelial Cells Few /hpf (<5) Urine Bacteria None seen /hpf (None Seen) Urine Mucus Few (None Seen) Urine Glucose Normal mg/dL (Normal) Assessment/Plan Assessment/Plan Abdominal pain Duodenal stricture Cholelithiasis /borderline gallbladder Peptic ulcer disease Hypertension Anemia Depression Plan: Continue current plan of care. Possible EGD tomorrow. Possible duodenal stricture surgery and cholecystectomy as inpatient or as outpatient depending on the EGD findings Plan discussed with: Patient Date of Service: Jan 30, 2025 Billing Provider: NATI HAWKINS MD Common Visit Codes: [id number] INP/OBS CARE(HIGH) NATI HAWKINS MD Jan 30, 2025 15:13
[2025-01-30] MEDS: KETOROLAC TROMETH 30 MG/ML 1ML VIAL IV ONE (22:57)
[2025-01-31] VITALS (8 sets, daily range): BP systolic 113–152; BP diastolic 73–86; PULSE 56–82; RESP 12–18; TEMP 97.9–98.7; O2SAT 97–99
--- NOTE | 2025-01-31 09:58 | DVHPN2 ---
Subjective Patient continues to have intermittent nausea and vomiting. Able to tolerate oral intake this morning. Noted epigastric in right lower quadrant pain. Reviewed: Care Plan, H&P, Labs, Medications, Previous Orders, Radiology, Other Changes from previous H/P or p: No Changes Objective Vitals Vital Signs Date Time Temp Pulse Resp B/P (MAP) Pulse Ox O2 Delivery O2 Flow Rate FiO2 01/31/25 09:43 152/76 01/31/25 08:41 98.1 66 18 98 98.1 01/30/25 20:00 Room Air* 0 21 Intake/Output Intake and Output 01/31/25 07:00 Intake Total 1448 ml Balance 1448 ml Intake Oral 1398 ml IV Total 50 ml # Voids 11 # Bowel Movements 3 General Appearance: Alert, Oriented X3, Cooperative, No acute distress HEENT: Atraumatic Lungs: Clear to auscultation, Normal air movement Cardiovascular: Regular rate Abdomen: Normal bowel sounds, Other (mild tenderness in mid epigastric) Skin: Dry, Intact Psych/Mental Status: Mental status NL, Mood NL Medications Current Medications Medications Dose Ordered Sig/Francia Route Start Time Stop Time Status Last Admin Dose Admin Ceftriaxone Sodium 50 ml @ 100 mls/hr DAILY@09 IV 01/27/25 11:15 01/31/25 09:34 100 MLS/HR Acetaminophen/ Hydrocodone Bitart 1 tab Q4HP PRN PO 01/27/25 11:15 01/30/25 14:13 1 TAB Ondansetron HCl 4 mg Q4HP PRN IV 01/27/25 11:15 UNV Acetaminophen 650 mg Q6HP PRN PO 01/27/25 11:15 Morphine Sulfate 2 mg Q4HPRN PRN IV 01/27/25 11:15 Hydralazine HCl 25 mg DAILY PO 01/28/25 10:00 01/31/25 09:43 25 MG Sucralfate 1 gm QID PO 01/27/25 12:00 UNV Patient Own Medication 20 mg DAILY PO 01/28/25 10:00 UNV Patient Own Medication 1 tab TID PO 01/27/25 14:00 UNV Patient Own Medication 1 tab DAILY PO 01/28/25 10:00 UNV Pantoprazole Sodium 40 mg BID IV 01/27/25 22:00 01/31/25 09:40 40 MG Sucralfate 1 gm TID@0600,1130,2200 PO 01/27/25 22:00 01/31/25 05:59 1 GM Ondansetron HCl 4 mg Q4HPRN PRN IV 01/27/25 13:15 Gabapentin 600 mg BID PO 01/27/25 22:00 01/31/25 09:40 600 MG Citalopram Hydrobromide 40 mg DAILY PO 01/28/25 10:00 01/31/25 09:41 40 MG Losartan Potassium 100 mg DAILY PO 01/28/25 10:00 01/31/25 09:41 100 MG Hydrochlorothiazide 25 mg DAILY PO 01/28/25 10:00 01/31/25 09:42 25 MG Sodium Chloride 1,000 ml @ 75 mls/hr [id number] IV 01/28/25 10:30 01/31/25 05:10 75 MLS/HR Lactulose 30 ml BID PO 01/28/25 22:00 01/29/25 09:28 30 ML Diphenhydramine HCl 25 mg BIDP PRN PO 01/29/25 15:00 01/31/25 01:45 25 MG Laboratory Results Laboratory Tests 01/29/25 06:29 Urinalysis Test 01/27/25 07:41 Urine Color Yellow (Yellow) Urine Clarity Clear (Clear) Urine pH 6.0 (5.0-9.0) Urine Specific [place] 1.040 (1.001-1.035) Urine Protein 1+ (Negative) H Urine Ketones 3+ (Negative) H Urine Blood Negative /uL (Negative) Urine Nitrite Negative (Negative) Urine Bilirubin Negative (Negative) Urine Urobilinogen 2 mg/dL (Negative) H Urine Leukocyte Esterase 1+ /uL (Negative) Urine RBC 4 /hpf (0 - 4) Urine Microscopic WBC 9 /HPF (0-5) H Urine Squamous Epithelial Cells Few /hpf (<5) Urine Bacteria None seen /hpf (None Seen) Urine Mucus Few (None Seen) Urine Glucose Normal mg/dL (Normal) Labs and/or images reviewed: Labs reviewed by me, Image(s) reviewed by me Assessment/Plan Assessment/Plan Impression: -intractable nausea and vomiting -peptic ulcer disease -cholelithiasis -primary hypertension -recent endoscopy Plan: -GI consultation: Questionable EGD today. Patient will be NPO after breakfast -CT of the abdomen and pelvis with IV and oral contrast -continue clear liquid diet -continue IV hydration -antiemetics -social service consultation for IHEP caser up referral for outpatient surgical consultation. Patient may require gastrojejunal bypass -discussion made with the patient's daughter and son-in-law. All questions answered. Total time spent with patient discussing and formulating plan of care: 35 minutes. This medical document was created using an electronic medical record system with [employer] dictation system. Although this document has been carefully reviewed, there may still be some phonetic and typographical errors. These areas are purely typographical due to imperfections of the software programs, and do not reflect any compromise in the patient's medical care. 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
--- NOTE | 2025-01-31 12:27 | DVHPN2 ---
Progress Note Date Seen: Jan 31, 2025 Resident Creating Document: MLADONADO CRUZ RESIDENT Medical Necessity Reason Pt with a Central, PICC or Fol: No Subjective Review of Systems Patient seen and examined at bedside Denies any nausea or vomiting Denies any abdominal pain Tolerating clear liquid diet Objective vital signs Vital Sign Date Time Temp Pulse Resp B/P (MAP) Pulse Ox O2 Delivery O2 Flow Rate FiO2 01/31/25 09:43 152/76 01/31/25 08:41 98.1 66 18 98 98.1 01/30/25 20:00 Room Air* 0 21 Total Intake and Output 01/30/25 01/30/25 01/31/25 15:00 23:00 07:00 Intake Total 50 ml 598 ml 800 ml Balance 50 ml 598 ml 800 ml medications Current Medications Medications Dose Ordered Sig/Francia Route Start Time Stop Time Status Last Admin Dose Admin Ceftriaxone Sodium 50 ml @ 100 mls/hr DAILY@09 IV 01/27/25 11:15 01/31/25 09:34 100 MLS/HR Acetaminophen/ Hydrocodone Bitart 1 tab Q4HP PRN PO 01/27/25 11:15 Hold 01/30/25 14:13 1 TAB Ondansetron HCl 4 mg Q4HP PRN IV 01/27/25 11:15 UNV Acetaminophen 650 mg Q6HP PRN PO 01/27/25 11:15 Morphine Sulfate 2 mg Q4HPRN PRN IV 01/27/25 11:15 Hydralazine HCl 25 mg DAILY PO 01/28/25 10:00 01/31/25 09:43 25 MG Sucralfate 1 gm QID PO 01/27/25 12:00 UNV Patient Own Medication 20 mg DAILY PO 01/28/25 10:00 UNV Patient Own Medication 1 tab TID PO 01/27/25 14:00 UNV Patient Own Medication 1 tab DAILY PO 01/28/25 10:00 UNV Pantoprazole Sodium 40 mg BID IV 01/27/25 22:00 01/31/25 09:40 40 MG Sucralfate 1 gm TID@0600,1130,2200 PO 01/27/25 22:00 01/31/25 05:59 1 GM Ondansetron HCl 4 mg Q4HPRN PRN IV 01/27/25 13:15 Gabapentin 600 mg BID PO 01/27/25 22:00 01/31/25 09:40 600 MG Citalopram Hydrobromide 40 mg DAILY PO 01/28/25 10:00 01/31/25 09:41 40 MG Losartan Potassium 100 mg DAILY PO 01/28/25 10:00 01/31/25 09:41 100 MG Hydrochlorothiazide 25 mg DAILY PO 01/28/25 10:00 01/31/25 09:42 25 MG Sodium Chloride 1,000 ml @ 75 mls/hr [id number] IV 01/28/25 10:30 01/31/25 05:10 75 MLS/HR Diphenhydramine HCl 25 mg BIDP PRN PO 01/29/25 15:00 01/31/25 01:45 25 MG Ketorolac Tromethamine 30 mg Q6HPRN PRN IV 01/31/25 11:00 02/05/25 10:59 Examination General Appearance: Cooperative. Well developed. Well nourished. NAD Pulmonary/Respiratory: Equal bilateral air entry Cardiovascular/Chest: Regular rate and rhythm. No murmurs. No JVD. Abdominal Exam: Normal bowel sounds. Soft. normal abdomen, no visible veins, midepigastric tenderness to palpation No hepatospenomegaly. No masses Neuro/Mental Status: A&O x4. Coherent. Thoughts/Psych: Normal thought pattern. Appropriate mood and affect. Good judgement and insight Skin Exam: Normal inspection. Normal color. Warm. 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 with meals Scheduled for EGD tomorrow Patient will eventually need surgical management to discuss possible gastrojejunostomy bypass procedure for the duodenal stricture Conservative and symptomatic management recommended Continue Protonix and Carafate IV Zofran as needed Thank you so much for the opportunity to consult on your patient. GI team will follow the patient. In case of any questions or concerns please feel free to reach out. Plan discussed with Dr. Dubois Plan discussed with: Patient, Other (RN) Dietary Evaluation Review Comments: Nutrition Recommendation 1) Ensure clear TID 2) Advance diet as medically feasible 3) Monitor PO intake, lab values, weight trend, and I/O Expected Outcomes/Goals: To meet >75% estimated needs GI symptoms to improve Fu 2-3 days MALDONADO CRUZ RESIDENT Jan 31, 2025 12:27
[2025-01-31] MEDS: KETOROLAC TROMETH 30 MG/ML 1ML VIAL IV PRN (12:28)
[2025-01-31] MEDS: LIDOCAINE 5% TOPICAL PATCH TOP SCH (15:25)
[2025-01-31 16:07] LABS: Vitamin D-2 25-Hydroxy <1.0 ng/mL (.); Vitamin D-3 25-Hydroxy 35 ng/mL (.)
[2025-01-31] MEDS: ENSURE CLEAR Mixed Berry 8oz Carton PO SCH (17:09)
[2025-02-01] VITALS (8 sets, daily range): BP systolic 123–151; BP diastolic 70–96; PULSE 59–99; RESP 15–18; TEMP 97.9–98.6; O2SAT 98–99
--- NOTE | 2025-02-01 10:01 | DVHPN2 ---
Subjective Patient continues to have intermittent nausea and vomiting. Able to tolerate oral intake this morning. Noted epigastric in right lower quadrant pain. Reviewed: Care Plan, H&P, Labs, Medications, Previous Orders, Radiology, Other Changes from previous H/P or p: No Changes Objective Vitals Vital Signs Date Time Temp Pulse Resp B/P (MAP) Pulse Ox O2 Delivery O2 Flow Rate FiO2 02/01/25 09:16 128/95 02/01/25 08:30 97.9 63 18 98 97.9 02/01/25 08:00 Room Air* 0 21 Intake/Output Intake and Output 02/01/25 06:59 Intake Total 2636 ml Balance 2636 ml Intake Oral 1606 ml IV Total 1030 ml # Voids 9 # Bowel Movements 3 General Appearance: Alert, Oriented X3, Cooperative, No acute distress HEENT: Atraumatic Lungs: Clear to auscultation, Normal air movement Cardiovascular: Regular rate Abdomen: Normal bowel sounds, Other (mild tenderness in mid epigastric) Skin: Dry, Intact Psych/Mental Status: Mental status NL, Mood NL Medications Current Medications Medications Dose Ordered Sig/Francia Route Start Time Stop Time Status Last Admin Dose Admin Ceftriaxone Sodium 50 ml @ 100 mls/hr DAILY@09 IV 01/27/25 11:15 02/01/25 09:04 100 MLS/HR Acetaminophen/ Hydrocodone Bitart 1 tab Q4HP PRN PO 01/27/25 11:15 Hold 01/30/25 14:13 1 TAB Ondansetron HCl 4 mg Q4HP PRN IV 01/27/25 11:15 UNV Acetaminophen 650 mg Q6HP PRN PO 01/27/25 11:15 Morphine Sulfate 2 mg Q4HPRN PRN IV 01/27/25 11:15 Hydralazine HCl 25 mg DAILY PO 01/28/25 10:00 02/01/25 09:15 25 MG Sucralfate 1 gm QID PO 01/27/25 12:00 UNV Patient Own Medication 20 mg DAILY PO 01/28/25 10:00 UNV Patient Own Medication 1 tab TID PO 01/27/25 14:00 UNV Patient Own Medication 1 tab DAILY PO 01/28/25 10:00 UNV Pantoprazole Sodium 40 mg BID IV 01/27/25 22:00 02/01/25 09:05 40 MG Sucralfate 1 gm TID@0600,1130,2200 PO 01/27/25 22:00 02/01/25 06:05 1 GM Ondansetron HCl 4 mg Q4HPRN PRN IV 01/27/25 13:15 Gabapentin 600 mg BID PO 01/27/25 22:00 02/01/25 09:04 600 MG Citalopram Hydrobromide 40 mg DAILY PO 01/28/25 10:00 02/01/25 09:04 40 MG Losartan Potassium 100 mg DAILY PO 01/28/25 10:00 02/01/25 09:15 100 MG Hydrochlorothiazide 25 mg DAILY PO 01/28/25 10:00 02/01/25 09:16 25 MG Sodium Chloride 1,000 ml @ 75 mls/hr [id number] IV 01/28/25 10:30 02/01/25 07:50 75 MLS/HR Diphenhydramine HCl 25 mg BIDP PRN PO 01/29/25 15:00 01/31/25 20:11 25 MG Ketorolac Tromethamine 30 mg Q6HPRN PRN IV 01/31/25 11:00 02/05/25 10:59 02/01/25 09:05 30 MG Enteral Nutritional Formula 240 ml TIDWM PO 01/31/25 18:00 01/31/25 17:09 240 ML Lidocaine 1 patch DAILY TOP 01/31/25 13:45 02/01/25 09:04 1 PATCH Laboratory Results Laboratory Tests 01/29/25 06:29 Urinalysis Test 01/27/25 07:41 Urine Color Yellow (Yellow) Urine Clarity Clear (Clear) Urine pH 6.0 (5.0-9.0) Urine Specific [place] 1.040 (1.001-1.035) Urine Protein 1+ (Negative) H Urine Ketones 3+ (Negative) H Urine Blood Negative /uL (Negative) Urine Nitrite Negative (Negative) Urine Bilirubin Negative (Negative) Urine Urobilinogen 2 mg/dL (Negative) H Urine Leukocyte Esterase 1+ /uL (Negative) Urine RBC 4 /hpf (0 - 4) Urine Microscopic WBC 9 /HPF (0-5) H Urine Squamous Epithelial Cells Few /hpf (<5) Urine Bacteria None seen /hpf (None Seen) Urine Mucus Few (None Seen) Urine Glucose Normal mg/dL (Normal) Labs and/or images reviewed: Labs reviewed by me, Image(s) reviewed by me Assessment/Plan Assessment/Plan Impression: -intractable nausea and vomiting -peptic ulcer disease -cholelithiasis -primary hypertension -recent endoscopy Plan: -GI consultation: Plans for EGD today. Advance to Full liquid diet. Surgical consult for Gastrojejunostomy bypass. -NPO, start diet post EGD -Stop IVF -antiemetics -Surgical consultation -discussion made with the patient's daughter and son-in-law. All questions answered. Total time spent with patient discussing and formulating plan of care: 35 minutes. This medical document was created using an electronic medical record system with [employer] dictation system. Although this document has been carefully reviewed, there may still be some phonetic and typographical errors. These areas are purely typographical due to imperfections of the software programs, and do not reflect any compromise in the patient's medical care. Plan discussed with: Patient, Other (RN) My Orders Orders - CORINA GONSALVES NP Procedure Category Date Status Time Ketorolac Injection PHA 01/31/25 In Process (Toradol Injection) 11:00 Lidocaine 5% Topical PHA 01/31/25 In Process Patch (Lidoderm 5% 13:45 Chest Portable XY 02/01/25 Logged 07:32 * Surgical Consult CONS 02/01/25 Transmitted Basic Metabolic Panel LAB 02/02/25 Verified 04:00 Complete Blood Count LAB 02/02/25 Verified 04:00 Full Liq Diet DIET 02/01/25 Transmitted Lunch Date of Service: Feb 01, 2025 Billing Provider: CORINA GONSALVES NP Common Visit Codes: [id number] INP/OBS CARE(HIGH) CORINA GONSALVES NP Feb 01, 2025 10:01
[2025-02-01 10:07] LABS: Vitamin B1, Whole Blood 316.4 nmol/L (66.5-200.0)
[2025-02-01] MEDS ORDERED: PROPOFOL 10 MG/ML 20 ML IV ONE (12:11)
[2025-02-01] MEDS ORDERED: LIDOCAINE 2% (LOCAL ANESTH.) PF 5ml SDV ONE (12:12)
--- NOTE | 2025-02-01 12:58 | DVHOP2 ---
Operative Report DATE OF OPERATION: 02/01/25 PROCEDURE: Upper Endoscopy with biopsy. PREOPERATIVE INDICATION: The patient is a 64 -year-old female undergoing endoscopy for chronic nausea vomiting gastric outlet obstruction history of duodenal stricture POSTOPERATIVE DIAGNOSES: 1. Patient had a 1.0 to 1.5 cm recurrent pyloric duodenal ulcer within the pyloric channel between 4 and 6 o cock positions without any signs of active bleeding or visible vessel; there was no obstruction or stricture at this point 2. Patient had a persist postbulbar duodenal area narrowing and inflammatory stricture and tortuoisity through which the endoscope could not be advanced . It was a pinpoint opening and I was unable to visualize the duodenal bulb beyond this area and I was not able to pass the endoscope into the 2nd part of the duodenum. No dilation attempt was attempted at this time as it was felt to be unsafe 3. 2 cm sliding-type hiatal hernia without any evidence of esophagitis 4. Mild gastric distention with some retained gastric fluids PROCEDURE PERFORMED BY: Low Dubois GI NURSE: Bea SCOPE: Olympus videoendoscope. ASA CLASS: 3 PREOPERATIVE MEDICATIONS: Bo Padilla PROCEDURE IN DETAIL: After obtaining an informed consent, the patient was placed on left lateral decubitus position. The patient was then sedated with the above medications. A bite block was placed between her teeth. The endoscope was then passed through the oropharynx, into the esophagus, and through the stomach and pylorus up to the postbulbar duodenal area. Patient had a persistent postbulbar duodenal stricture with a pinpoint opening narrowing tortuosity and inflammatory changes beyond which the endoscope could not be advanced This area was not felt safe to be dilated at this time because of the pinpoint opening and inability to visualize the duodenal beyond this area clearly. The endoscope was then withdrawn. Patient had a recurrent ulceration noted in the pyloric channel itself between the four and 6 o'clock position This was about 1-1.5 cm in size Wiliam classification C with no visible vessel and no active bleeding. There was mild pre-pyloric antral gastritis On retroflexion there was a pool of fluid in the stomach that was aspirated she had mild gastric distention. Duodenal and gastric biopsies were obtained The endoscope was then withdrawn into the distal esophagus where the patient had a 2 cm sliding-type hiatal hernia with slightly irregular squamocolumnar junction no significant esophagitis The remaining distal and proximal esophagus and oropharynx were unremarkable The patient tolerated the procedure well without difficulty. COMPLICATIONS : None SPECIMENS: Duodenal biopsies Gastric biopsies DISPOSITION: Transfer back to the floor Stable PLAN: 1. Await for biopsy result 2. Will place pt on Protonix 40 mg bid IV 3. Carafate suspension 1 g p.o. 4 times a day 4. Resume clear liquid diet only 5. Start Clinimix and IV TPN 6. Surgical consult has seen patient and there was a plan for possible gastric bypass, gastrojejunostomy and cholecystectomy later this week LOW DUBOIS MD Feb 01, 2025 12:58
[2025-02-01] MEDS ORDERED: CLINIMIX PER PHARMACY 0 ML IV SCH (13:00)
[2025-02-01] MEDS: SOD CHL 0.45% WITH 20MEQ KCL 1,000 ML IV SCH (15:15)
[2025-02-01 16:23] LABS: INR 1.06 (0.9-1.15); Partial Thromboplastin Time 30.1 SEC (24.5-34.5); Prothrombin Time 11.2 sec (9.3-11.8)
[2025-02-01] MEDS: SUCRALFATE 1 GM/10 ML ORAL SUSP PO SCH (17:00)
[2025-02-01] MEDS: AMINO ACID INFUSION IN D10W 1,000 ML IV SCH (21:59)
[2025-02-01] MEDS ORDERED: DEXTROSE (50%) 50ML SYRG IV SCH (22:00)
[2025-02-02] VITALS (7 sets, daily range): BP systolic 120–144; BP diastolic 73–89; PULSE 55–71; RESP 16–20; TEMP 98.1–98.9; O2SAT 98–99
[2025-02-02] MEDS: InsuLIN REG 1unit/0.01ml Soln (100units/ml) SC SCH
[2025-02-02] MEDS: ACCU-CHEK COMFORT CURVE STRIP VI SCH (00:16)
[2025-02-02 07:08] LABS: Hemoglobin 12.8 g/dL (12.2-16.2)
[2025-02-02 07:11] LABS: Hematocrit 38.1 % (36.0-46.0); Mean Corpuscular Hemoglobin 26.7 pg (28.0-32.0); Mean Corpuscular Volume 79.3 fL (80.0-100.0); Nucleated Red Blood Cells % 0.1 %
[2025-02-02 07:23] LABS: Anion Gap 10 (5-15); Carbon Dioxide 26 mmol/L (20-31); Sodium 144 mmol/L (136-145)
[2025-02-02 07:24] LABS: Calcium 9.1 mg/dL (8.7-10.4)
[2025-02-02 07:29] LABS: BUN/Creatinine Ratio 8.7 (10.0-20.0); Chloride 108 mmol/L (98-107); Potassium 3.4 mmol/L (3.5-5.1)
[2025-02-02 07:30] LABS: Magnesium 1.9 mg/dL (1.6-2.6)
[2025-02-02 07:31] LABS: Blood Urea Nitrogen 6 mg/dL (9-23); Glucose 108 mg/dL (74-106); Triglycerides 158 mg/dL (< 150)
--- NOTE | 2025-02-02 08:59 | DVHPN2 ---
Progress Note Date Seen: Feb 02, 2025 Resident Creating Document: MALDONADO CRUZ RESIDENT Medical Necessity Reason Pt with a Central, PICC or Fol: No Subjective Review of Systems Patient seen and examined at bedside Denies any nausea or vomiting Denies any abdominal pain Tolerating clear liquid diet Last BM today x2, soft brown Objective vital signs Vital Sign Date Time Temp Pulse Resp B/P (MAP) Pulse Ox O2 Delivery O2 Flow Rate FiO2 02/02/25 05:00 98.3 55 17 140/76 (97) 98 98.3 02/01/25 20:00 Room Air* 0 21 Total Intake and Output 02/01/25 02/01/25 02/02/25 14:59 22:59 06:59 Intake Total 60 ml 328 ml Balance 60 ml 328 ml medications Current Medications Medications Dose Ordered Sig/Francia Route Start Time Stop Time Status Last Admin Dose Admin Ceftriaxone Sodium 50 ml @ 100 mls/hr DAILY@09 IV 01/27/25 11:15 02/01/25 09:04 100 MLS/HR Acetaminophen/ Hydrocodone Bitart 1 tab Q4HP PRN PO 01/27/25 11:15 Hold 01/30/25 14:13 1 TAB Ondansetron HCl 4 mg Q4HP PRN IV 01/27/25 11:15 UNV Acetaminophen 650 mg Q6HP PRN PO 01/27/25 11:15 Morphine Sulfate 2 mg Q4HPRN PRN IV 01/27/25 11:15 Hydralazine HCl 25 mg DAILY PO 01/28/25 10:00 02/01/25 09:15 25 MG Sucralfate 1 gm QID PO 01/27/25 12:00 UNV Patient Own Medication 20 mg DAILY PO 01/28/25 10:00 UNV Patient Own Medication 1 tab TID PO 01/27/25 14:00 UNV Patient Own Medication 1 tab DAILY PO 01/28/25 10:00 UNV Pantoprazole Sodium 40 mg BID IV 01/27/25 22:00 02/01/25 21:58 40 MG Ondansetron HCl 4 mg Q4HPRN PRN IV 01/27/25 13:15 Gabapentin 600 mg BID PO 01/27/25 22:00 02/01/25 21:58 600 MG Citalopram Hydrobromide 40 mg DAILY PO 01/28/25 10:00 02/01/25 09:04 40 MG Losartan Potassium 100 mg DAILY PO 01/28/25 10:00 02/01/25 09:15 100 MG Hydrochlorothiazide 25 mg DAILY PO 01/28/25 10:00 02/01/25 09:16 25 MG Diphenhydramine HCl 25 mg BIDP PRN PO 01/29/25 15:00 02/01/25 21:58 25 MG Ketorolac Tromethamine 30 mg Q6HPRN PRN IV 01/31/25 11:00 02/05/25 10:59 02/01/25 20:21 30 MG Enteral Nutritional Formula 240 ml TIDWM PO 01/31/25 18:00 01/31/25 17:09 240 ML Lidocaine 1 patch DAILY TOP 01/31/25 13:45 02/01/25 09:04 1 PATCH Sucralfate 1 gm QID@0600,1130,1700,2200 PO 02/01/25 17:00 02/02/25 05:01 1 GM Amino Acids 0 ml @ 0 mls/hr PER PHARMACY IV 02/01/25 13:00 Amino Acids/ Electrolytes/ Dextrose 1,000 ml @ 41 mls/hr DAILY@2200 IV 02/01/25 22:00 02/01/25 21:59 41 MLS/HR Diagnostic Test (Pha) 1 strip Q6HR 02/02/25 00:00 02/02/25 05:06 1 STRIP Insulin Human Regular FOLLOW SLIDING SCALE Q6HR SC 02/02/25 00:00 Dextrose 50 ml UD IV 02/01/25 22:00 Potassium Chloride/Sodium Chloride 1,000 ml @ 120 mls/hr Q8H20M IV 02/01/25 15:15 02/01/25 15:15 120 MLS/HR Examination General Appearance: Cooperative. Well developed. Well nourished. NAD Pulmonary/Respiratory: Equal bilateral air entry Cardiovascular/Chest: Regular rate and rhythm. No murmurs. No JVD. Abdominal Exam: Normal bowel sounds. Soft. normal abdomen, no visible veins, midepigastric tenderness to palpation No hepatospenomegaly. No masses Neuro/Mental Status: A&O x4. Coherent. Thoughts/Psych: Normal thought pattern. Appropriate mood and affect. Good judgement and insight Skin Exam: Normal inspection. Normal color. Warm. 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 with meals Patient will eventually need surgical management to discuss possible gastrojejunostomy bypass procedure for the duodenal stricture Conservative and symptomatic management recommended Continue Protonix and Carafate IV Zofran as needed Thank you so much for the opportunity to consult on your patient. GI team will follow the patient. In case of any questions or concerns please feel free to reach out. Plan discussed with Dr. Dubois Plan discussed with: Patient, Son, Other (RN) Dietary Evaluation Review Comments: Nutrition Recommendation 1) Ensure clear TID 2) Advance diet as medically feasible 3) Monitor PO intake, lab values, weight trend, and I/O Expected Outcomes/Goals: To meet >75% estimated needs GI symptoms to improve Fu 2-3 days MALDONADO CRUZ RESIDENT Feb 02, 2025 08:59
--- NOTE | 2025-02-02 09:41 | DVH ---
INDICATION: pre procedure TECHNIQUE: Frontal view of the chest. COMPARISON: XY CHEST PORTABLE on DOS: 07/21/24, XY CHEST XRAY 1 VIEW on DOS: 12/29/23, XY CHEST XRAY 1 VIEW on DOS: 12/25/23, XY CHEST PORTABLE on DOS: 12/24/23 FINDINGS: . The heart and mediastinal contours are grossly unremarkable. There is no evidence of pleural disea se. The lungs are clear. The bony structures of the chest are intact without fracture. IMPRESSION: 1. No evidence of acute disease.
--- NOTE | 2025-02-02 09:42 | DVHINCON2 ---
Date of service: Feb 02, 2025 Family History: Hypertension G8 MOTHER Allergies: Coded Allergies: NO KNOWN ALLERGIES (Unverified , 02/01/25) Home Meds Active Scripts Nystatin (Mouth-Throat) (Mycostatin (Mouth-Throat)) 500,000 Units/5 Ml Ss, 5 ML MT QID for 5 Days, #100 ML 1 Refill Prov:MALDONADO CRUZ [facility] [place] 01/19/25 Metoclopramide Hcl (Metoclopramide Hcl) 5 Mg Tab, 5 MG PO BID for 30 Days, #60 TAB 2 Refills Prov:MALDONADO CRUZ [facility] [place] 01/19/25 Metoclopramide Hcl (Reglan) 10 Mg Tab, 10 MG PO BID, #30 TAB Prov:BRANDIE ALMAZAN 11/05/24 Dicyclomine Hcl (BENTYL CAPSULE) 10 Mg Cp, 1 CAP PO Q6HPRN for 30 Days, #100 CAP 3 Refills Prov:CRISTIAN CEDENO [facility] [place] 07/23/24 Ondansetron Odt 4MG Tab (ZOFRAN PO) 4 Mg Tb, 4 MG PO Q4HPRN PRN for 30 Days, #150 TAB 1 Refill ODT TAB-DISSOLVE IN MOUTH, THEN SWALLOW Prov:CRISTIAN CEDENO [facility] [place] 07/23/24 Pantoprazole Sodium Sesquihydr (Protonix) 40 Mg Tab, 40 MG PO BID for 30 Days, #60 TAB 2 Refills Prov:CRISTIAN CEDENO [facility] [place] 07/23/24 Sucralfate (CARAFATE SUSP) 1 Gm/10 Ml Ss, 10 ML PO QID for 30 Days, #1200 ML 3 Refills Prov:CRISTIAN CEDENO [facility] [place] 07/23/24 Reported Medications Baclofen (Baclofen) 10 Mg Tab, 1 TAB PO Q8HPRN PRN 07/20/24 Hydrocodone-Acetaminophen (Hydrocodone/Acetaminophen 7.5-325 mg) 1 Tab Tab, 1 TAB PO TIDPRN PRN 07/20/24 Gabapentin (Gabapentin) 600 Mg Tab, 1 TAB PO TID 07/20/24 Docusate Sodium (Stool Softener) 100 Mg Tab, 100 MG PO DAILY, TAB 04/13/24 Potassium Gluconate (POTASSIUM GLUCONATE) 80 Mg Tab, 80 MG OR DAILY, TAB 04/13/24 Acetaminophen (Tylenol 8 Hour Arthritis) 650 Mg Tab, 650 MG PO PRN, TAB 04/13/24 Losartan Potassium & Hydrochlo (Hyzaar) 1 Tab Tab, 1 TAB PO DAILY, TAB 04/13/24 Escitalopram Oxalate (Lexapro) 20 Mg Tab, 20 MG PO DAILY, TAB 04/13/24 Hydralazine HCl (Hydralazine HCl) 25 Mg Tab, 25 MG PO DAILY, TAB 04/13/24 Current Medications Current Medications Medications (Trade) Dose Ordered Sig/Francia Route PRN Reason Start Time Stop Time Status Last Admin Sucralfate (Carafate Susp) 1 gm QID@0600,1130,1700,2200 PO 02/01/25 17:00 02/02/25 05:01 Amino Acids 0 ml @ 0 mls/hr PER PHARMACY IV 02/01/25 13:00 Amino Acids/ Electrolytes/ Dextrose 1,000 ml @ 41 mls/hr DAILY@2200 IV 02/01/25 22:00 02/01/25 21:59 Diagnostic Test (Pha) (Accu-Chek Comfort Curve T) 1 strip Q6HR 02/02/25 00:00 02/02/25 05:06 Insulin Human Regular (InsuLIN R) FOLLOW SLIDING SCALE Q6HR SC 02/02/25 00:00 Dextrose 50 ml UD IV 02/01/25 22:00 Potassium Chloride/Sodium Chloride 1,000 ml @ 120 mls/hr Q8H20M IV 02/01/25 15:15 02/01/25 15:15 Vital Signs Vital Signs Date Time Temp Pulse Resp B/P (MAP) Pulse Ox O2 Delivery O2 Flow Rate FiO2 02/02/25 09:00 98.9 68 19 141/82 (101) 99 98.9 02/01/25 20:00 Room Air* 0 21 Labs/Diagnostic Data Labs Test 02/02/25 06:29 02/02/25 05:03 02/01/25 15:10 01/29/25 08:30 Range/Units White Blood Count 4.5 4.4-10.8 10^3/uL Red Blood Count 4.80 4.0-5.20 10^6/uL Hemoglobin 12.8 12.2-16.2 g/dL Hematocrit 38.1 36.0-46.0 % Mean Corpuscular Volume 79.3 L 80.0-100.0 fL Mean Corpuscular Hemoglobin 26.7 L 28.0-32.0 pg Mean Corpuscular Hemoglobin Concent 33.7 32.0-36.0 g/dL Red Cell Distribution Width 14.8 H 11.8-14.3 % Platelet Count 302 140-450 10^3/uL Mean Platelet Volume 9.0 6.9-10.8 fL Neutrophils (%) (Auto) 53.4 37.0-80.0 % Lymphocytes (%) (Auto) 37.8 10.0-50.0 % Monocytes (%) (Auto) 6.5 0.0-12.0 % Eosinophils (%) (Auto) 1.9 0.0-7.0 % Basophils (%) (Auto) 0.4 0.0-2.0 % Neutrophils # (Auto) 2.4 1.6-8.6 10 ^3/uL Lymphocytes # (Auto) 1.7 0.4-5.4 10 ^3/uL Monocytes # (Auto) 0.3 0-1.3 10 ^3/uL Eosinophils # (Auto) 0.1 0-0.8 10 ^3/uL Basophils # (Auto) 0 0-0.2 10 ^3/uL Nucleated Red Blood Cells 0.1 % Sodium Level 144 136-145 mmol/L Potassium Level 3.4 L 3.5-5.1 mmol/L Chloride Level 108 H 98-107 mmol/L Carbon Dioxide Level 26 20-31 mmol/L Anion Gap 10 5-15 Blood Urea Nitrogen 6 L 9-23 mg/dL Creatinine 0.69 0.550-1.02 mg/dL Glomerular Filtration Rate Calc 98 >90 mL/min BUN/Creatinine Ratio 8.7 L 10.0-20.0 Serum Glucose 108 H 74-106 mg/dL Calcium Level 9.1 8.7-10.4 mg/dL Phosphorus Level 2.9 2.4-5.1 mg/dL Magnesium Level 1.9 1.6-2.6 mg/dL Triglycerides Level 158 H < 150 mg/dL POC Glucose 112 H 70-106 mg/dl Prothrombin Time 11.2 9.3-11.8 sec Prothrombin Time INR 1.06 0.9-1.15 Activated Partial Thromboplast Time 30.1 24.5-34.5 SEC Stool Occult Blood Negative Negative Stool Occult Blood Sample #3 Negative Test 01/29/25 06:29 01/28/25 10:53 01/28/25 04:17 01/27/25 14:07 Range/Units Total Bilirubin < 0.2 L 0.2-1.0 mg/dL Aspartate Amino Transferase (AST) 17 13-40 U/L Alanine Aminotransferase (ALT) 13 7-40 U/L Alkaline Phosphatase 86 46-116 U/L Total Protein 6.3 5.7-8.2 g/dL Albumin 3.7 3.2-4.8 g/dL CA 19-9 Antigen 21 0-35 U/mL Carcinoembryonic Antigen 0.96 <=5.0 ng/mL Haptoglobin 236 37-355 mg/dL Vitamin B1 Level 316.4 H 66.5-200.0 nmol/L Vitamin D 25-Hydroxy 36 . ng/mL 25-Hydroxy Vitamin D2 <1.0 . ng/mL 25-Hydroxy Vitamin D3 35 . ng/mL Test 01/27/25 11:46 01/27/25 07:50 01/27/25 07:41 Range/Units Folic Acid 18.23 >5.38 ng/mL Reticulocyte Count (auto) 0.78 0.5-1.5 % Iron Level 64 50-170 ug/dL Total Iron Binding Capacity 241 L 250-425 ug/dL Percent Iron Saturation 26.6 15-50 % Troponin I High Sensitivity 4 </=34 ng/L Lipase 26 12-53 U/L Urine Color Yellow Yellow Urine Clarity Clear Clear Urine pH 6.0 5.0-9.0 Urine Specific [place] 1.040 H 1.001-1.035 Urine Protein 1+ H Negative Urine Ketones 3+ H Negative Urine Blood Negative Negative /uL Urine Nitrite Negative Negative Urine Bilirubin Negative Negative Urine Urobilinogen 2 H Negative mg/dL Urine Leukocyte Esterase 1+ Negative /uL Urine RBC 4 0 - 4 /hpf Urine Microscopic WBC 9 H 0-5 /HPF Urine Squamous Epithelial Cells Few <5 /hpf Urine Bacteria None seen None Seen /hpf Urine Mucus Few None Seen Urine Glucose Normal Normal mg/dL Assessment 64 year old female with long history of peptic ulcer disease resulting in pin point opening in the post pyloric duodenum,patient has lost much weight due to persistent nausea and vomiting and food intolerance. yesterday she had an endoscopy documenting presence of acute ulceration and gastric outlet obstruction due to stricturing. 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 I fear if we proceed with the originally planned gastrointestinal bypass only, she would possibly develop marginal ulcerations antrectomy,vagotomy, cholecystectomy and B II gastrojejunostomy, risks and complications explained in detail to patient in [place]ian. Plan discussed with: Patient GIN ORLANDO MD Feb 02, 2025 09:42
--- NOTE | 2025-02-02 10:41 | DVHPN2 ---
Subjective No new symptoms Reviewed: Care Plan, H&P, Labs, Medications, Previous Orders, Radiology, Other Changes from previous H/P or p: No Changes Objective Vitals Vital Signs Date Time Temp Pulse Resp B/P (MAP) Pulse Ox O2 Delivery O2 Flow Rate FiO2 02/02/25 09:00 98.9 68 19 141/82 (101) 99 98.9 02/02/25 08:20 Room Air* 0 21 Intake/Output Intake and Output 02/02/25 07:00 Intake Total 388 ml Balance 388 ml Intake Oral 0 ml IV Total 388 ml # Voids 8 # Bowel Movements 4 General Appearance: Alert, Oriented X3, Cooperative, No acute distress HEENT: Atraumatic, PERRLA Lungs: Clear to auscultation, Normal air movement Cardiovascular: Regular rate, Normal S1, Normal S2 Abdomen: Normal bowel sounds, Other (mild tenderness in mid epigastric) Skin: Dry, Intact Psych/Mental Status: Mental status NL, Mood NL Medications Current Medications Medications Dose Ordered Sig/Francia Route Start Time Stop Time Status Last Admin Dose Admin Ceftriaxone Sodium 50 ml @ 100 mls/hr DAILY@09 IV 01/27/25 11:15 02/01/25 09:04 100 MLS/HR Acetaminophen/ Hydrocodone Bitart 1 tab Q4HP PRN PO 01/27/25 11:15 Hold 01/30/25 14:13 1 TAB Ondansetron HCl 4 mg Q4HP PRN IV 01/27/25 11:15 UNV Acetaminophen 650 mg Q6HP PRN PO 01/27/25 11:15 Morphine Sulfate 2 mg Q4HPRN PRN IV 01/27/25 11:15 Hydralazine HCl 25 mg DAILY PO 01/28/25 10:00 02/01/25 09:15 25 MG Sucralfate 1 gm QID PO 01/27/25 12:00 UNV Patient Own Medication 20 mg DAILY PO 01/28/25 10:00 UNV Patient Own Medication 1 tab TID PO 01/27/25 14:00 UNV Patient Own Medication 1 tab DAILY PO 01/28/25 10:00 UNV Pantoprazole Sodium 40 mg BID IV 01/27/25 22:00 02/01/25 21:58 40 MG Ondansetron HCl 4 mg Q4HPRN PRN IV 01/27/25 13:15 Gabapentin 600 mg BID PO 01/27/25 22:00 02/01/25 21:58 600 MG Citalopram Hydrobromide 40 mg DAILY PO 01/28/25 10:00 02/01/25 09:04 40 MG Losartan Potassium 100 mg DAILY PO 01/28/25 10:00 02/01/25 09:15 100 MG Hydrochlorothiazide 25 mg DAILY PO 01/28/25 10:00 02/01/25 09:16 25 MG Diphenhydramine HCl 25 mg BIDP PRN PO 01/29/25 15:00 02/01/25 21:58 25 MG Ketorolac Tromethamine 30 mg Q6HPRN PRN IV 01/31/25 11:00 02/05/25 10:59 02/01/25 20:21 30 MG Enteral Nutritional Formula 240 ml TIDWM PO 01/31/25 18:00 01/31/25 17:09 240 ML Lidocaine 1 patch DAILY TOP 01/31/25 13:45 02/01/25 09:04 1 PATCH Sucralfate 1 gm QID@0600,1130,1700,2200 PO 02/01/25 17:00 02/02/25 05:01 1 GM Amino Acids 0 ml @ 0 mls/hr PER PHARMACY IV 02/01/25 13:00 Amino Acids/ Electrolytes/ Dextrose 1,000 ml @ 41 mls/hr DAILY@2200 IV 02/01/25 22:00 02/01/25 21:59 41 MLS/HR Diagnostic Test (Pha) 1 strip Q6HR 02/02/25 00:00 02/02/25 05:06 1 STRIP Insulin Human Regular FOLLOW SLIDING SCALE Q6HR SC 02/02/25 00:00 Dextrose 50 ml UD IV 02/01/25 22:00 Potassium Chloride/Sodium Chloride 1,000 ml @ 120 mls/hr Q8H20M IV 02/01/25 15:15 02/01/25 15:15 120 MLS/HR Laboratory Results Laboratory Tests 02/02/25 06:29 Chemistry Test 02/02/25 06:29 Calcium Level 9.1 mg/dL (8.7-10.4) Magnesium Level 1.9 mg/dL (1.6-2.6) Phosphorus Level 2.9 mg/dL (2.4-5.1) Coagulation Test 02/01/25 15:10 Prothrombin Time 11.2 sec (9.3-11.8) Prothrombin Time INR 1.06 (0.9-1.15) Activated Partial Thromboplast Time 30.1 SEC (24.5-34.5) Lipid panel Test 02/02/25 06:29 Triglycerides Level 158 mg/dL (< 150) H Urinalysis Test 01/27/25 07:41 Urine Color Yellow (Yellow) Urine Clarity Clear (Clear) Urine pH 6.0 (5.0-9.0) Urine Specific [place] 1.040 (1.001-1.035) Urine Protein 1+ (Negative) H Urine Ketones 3+ (Negative) H Urine Blood Negative /uL (Negative) Urine Nitrite Negative (Negative) Urine Bilirubin Negative (Negative) Urine Urobilinogen 2 mg/dL (Negative) H Urine Leukocyte Esterase 1+ /uL (Negative) Urine RBC 4 /hpf (0 - 4) Urine Microscopic WBC 9 /HPF (0-5) H Urine Squamous Epithelial Cells Few /hpf (<5) Urine Bacteria None seen /hpf (None Seen) Urine Mucus Few (None Seen) Urine Glucose Normal mg/dL (Normal) Labs and/or images reviewed: Labs reviewed by me, Image(s) reviewed by me Assessment/Plan Assessment/Plan Impression: -intractable nausea and vomiting -peptic ulcer disease -cholelithiasis -primary hypertension -recent endoscopy Plan: -GI consultation: Recommendation reviewed -Surgical consult: Plans for Gastrojejunostomy bypass and cholecystectomy tomorrow -NPO -Continue IVF and PPN -Echo, EKG -Repeat labs -IV antihypertensive Total time spent with patient discussing and formulating plan of care: 35 minutes. This medical document was created using an electronic medical record system with [employer] dictation system. Although this document has been carefully reviewed, there may still be some phonetic and typographical errors. These areas are purely typographical due to imperfections of the software programs, and do not reflect any compromise in the patient's medical care. Plan discussed with: Patient, Other (RN) My Orders Orders - CORINA GONSALVES [employer] Procedure Category Date Status Time Hydralazine Injection PHA 02/02/25 Logged (Apresoline Inject 10:30 Echo 2d Mode Cardiac US 02/02/25 Logged DOP 10:30 Electrocardigram EKG 02/02/25 Verified 10:37 Date of Service: Feb 02, 2025 Billing Provider: CORINA GONSALVES NP Common Visit Codes: [id number] INP/OBS CARE(HIGH) CORINA GONSALVES NP Feb 02, 2025 10:41
[2025-02-02] MEDS: LIDOCAINE 1% (LOCAL ANESTH.) PF 5ml SDV ID ONE (13:43)
[2025-02-02] MEDS: LORazepam 2MG/ML-1ML VIAL IV PRN (13:49)
[2025-02-02] MEDS: POTASSIUM PHOSPHATE 22 MEQ in SODIUM CHL 0.9% 100 ML IV ONE (13:49)
[2025-02-02] MEDS: SODIUM CHLOR 0.9% PF (SALINE LOCK) 10ML VIAL/SYR IV SCH (22:21)
[2025-02-03 00:59] VITALS: BP 132/87; PULSE 66; RESP 18; TEMP 98; O2SAT 97
[2025-02-03 05:05] VITALS: BP 154/85; PULSE 77; RESP 18; TEMP 98.7; O2SAT 98
[2025-02-03 05:54] VITALS: BP 144/83; PULSE 70; RESP 18; TEMP 98.3
[2025-02-03 06:07] LABS: Hematocrit 37.7 % (36.0-46.0); Hemoglobin 12.8 g/dL (12.2-16.2); Mean Corpuscular Hemoglobin 26.9 pg (28.0-32.0); Mean Corpuscular Volume 79.4 fL (80.0-100.0); Nucleated Red Blood Cells % 0.0 %
[2025-02-03 06:29] LABS: Albumin 3.9 g/dL (3.2-4.8); Alkaline Phosphatase 89 U/L (46-116); Anion Gap 13 (5-15); BUN/Creatinine Ratio 17.2 (10.0-20.0); Blood Urea Nitrogen 11 mg/dL (9-23); Calcium 8.9 mg/dL (8.7-10.4); Carbon Dioxide 22 mmol/L (20-31); Magnesium 2.0 mg/dL (1.6-2.6); Sodium 143 mmol/L (136-145); Total Protein 6.6 g/dL (5.7-8.2)
[2025-02-03 06:30] LABS: Bilirubin, Total 0.4 mg/dL (0.2-1.0)
[2025-02-03 06:32] LABS: Alanine Aminotransferase < 9 U/L (7-40); Chloride 108 mmol/L (98-107); Glucose 108 mg/dL (74-106); Potassium 3.0 mmol/L (3.5-5.1)
[2025-02-03] MEDS ORDERED: HYDROmorphone HCL 2 MG/ML VL/or syr ONE (08:22)
[2025-02-03] MEDS ORDERED: MIDAZOLAM HCL 2MG/2ML 2ml VIAL (1mg/ml) ONE (08:22)
[2025-02-03] MEDS ORDERED: fentaNYL CITRATE 100 MCG/2 ML VL ONE (08:22)
[2025-02-03] MEDS ORDERED: ONDANSETRON HCL 4 MG/2 ML VIAL ONE (08:23)
[2025-02-03] MEDS: ceFAZolin 2 GM/D5W50ml 50 ML IV ONE (08:28)
[2025-02-03] MEDS: POTASSIUM CHL 20MEQ/100ML 100 ML IV ONE (08:55)
--- NOTE | 2025-02-03 09:19 | DVHPN2 ---
Progress Note Date Seen: Feb 03, 2025 Resident Creating Document: MALDONADO CRUZ RESIDENT Medical Necessity Reason Pt with a Central, PICC or Fol: No Subjective Review of Systems Patient in the OR Last BM yesterday One TPN and NPO Objective vital signs Vital Sign Date Time Temp Pulse Resp B/P (MAP) Pulse Ox O2 Delivery O2 Flow Rate FiO2 02/03/25 05:54 98.3 70 18 144/83 (103) 98.3 02/03/25 05:05 98 02/02/25 20:25 Room Air* 0 21 Total Intake and Output 02/02/25 02/02/25 02/03/25 15:00 23:00 07:00 Intake Total 455 ml 0 ml Output Total 0 ml Balance 455 ml 0 ml medications Current Medications Medications Dose Ordered Sig/Francia Route Start Time Stop Time Status Last Admin Dose Admin Ceftriaxone Sodium 50 ml @ 100 mls/hr DAILY@09 IV 01/27/25 11:15 02/01/25 09:04 100 MLS/HR Acetaminophen/ Hydrocodone Bitart 1 tab Q4HP PRN PO 01/27/25 11:15 Hold 01/30/25 14:13 1 TAB Ondansetron HCl 4 mg Q4HP PRN IV 01/27/25 11:15 UNV Acetaminophen 650 mg Q6HP PRN PO 01/27/25 11:15 Morphine Sulfate 2 mg Q4HPRN PRN IV 01/27/25 11:15 Sucralfate 1 gm QID PO 01/27/25 12:00 UNV Patient Own Medication 20 mg DAILY PO 01/28/25 10:00 UNV Patient Own Medication 1 tab TID PO 01/27/25 14:00 UNV Patient Own Medication 1 tab DAILY PO 01/28/25 10:00 UNV Pantoprazole Sodium 40 mg BID IV 01/27/25 22:00 02/02/25 22:19 40 MG Ondansetron HCl 4 mg Q4HPRN PRN IV 01/27/25 13:15 Diphenhydramine HCl 25 mg BIDP PRN PO 01/29/25 15:00 02/01/25 21:58 25 MG Ketorolac Tromethamine 30 mg Q6HPRN PRN IV 01/31/25 11:00 02/05/25 10:59 02/02/25 17:48 30 MG Lidocaine 1 patch DAILY TOP 01/31/25 13:45 02/02/25 11:11 1 PATCH Amino Acids 0 ml @ 0 mls/hr PER PHARMACY IV 02/01/25 13:00 Amino Acids/ Electrolytes/ Dextrose 1,000 ml @ 41 mls/hr DAILY@2200 IV 02/01/25 22:00 02/02/25 22:19 41 MLS/HR Diagnostic Test (Pha) 1 strip Q6HR 02/02/25 00:00 02/03/25 05:59 1 STRIP Insulin Human Regular FOLLOW SLIDING SCALE Q6HR SC 02/02/25 00:00 Dextrose 50 ml UD IV 02/01/25 22:00 Hydralazine HCl 10 mg Q6HP PRN IV 02/02/25 10:30 Lorazepam 0.5 mg Q6HP PRN IV 02/02/25 12:00 02/03/25 00:00 0.5 MG Sodium Chloride 10 ml QSHIFT@10,22 IV 02/02/25 22:00 02/02/25 22:21 10 ML Examination General Appearance: Cooperative. Well developed. Well nourished. NAD Pulmonary/Respiratory: Equal bilateral air entry Cardiovascular/Chest: Regular rate and rhythm. No murmurs. No JVD. Abdominal Exam: Normal bowel sounds. Soft. normal abdomen, no visible veins, midepigastric tenderness to palpation No hepatospenomegaly. No masses Neuro/Mental Status: A&O x4. Coherent. Thoughts/Psych: Normal thought pattern. Appropriate mood and affect. Good judgement and insight Skin Exam: Normal inspection. Normal color. Warm. 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 with meals Patient will eventually need surgical management to discuss possible gastrojejunostomy bypass procedure for the duodenal stricture Conservative and symptomatic management recommended Continue Protonix and Carafate IV Zofran as needed Thank you so much for the opportunity to consult on your patient. GI team will follow the patient. In case of any questions or concerns please feel free to reach out. Plan discussed with Dr. Dubois Plan discussed with: Other (Son-in-law SABRINA Fuentes) Dietary Evaluation Review Comments: Nutrition Recommendation 1) Ensure clear TID 2) Advance diet as medically feasible 3) Monitor PO intake, lab values, weight trend, and I/O Expected Outcomes/Goals: To meet >75% estimated needs GI symptoms to improve Fu 2-3 days MALDONADO CRUZ RESIDENT Feb 03, 2025 09:19
--- NOTE | 2025-02-03 09:32 | ECG ---
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
--- NOTE | 2025-02-03 09:43 | DVHPN2 ---
Subjective No new symptoms Reviewed: Care Plan, H&P, Labs, Medications, Previous Orders, Radiology, Other Changes from previous H/P or p: No Changes Objective Vitals Vital Signs Date Time Temp Pulse Resp B/P (MAP) Pulse Ox O2 Delivery O2 Flow Rate FiO2 02/03/25 05:54 98.3 70 18 144/83 (103) 98.3 02/03/25 05:05 98 02/02/25 20:25 Room Air* 0 21 Intake/Output Intake and Output 02/03/25 07:00 Intake Total 455 ml Output Total 0 ml Balance 455 ml Intake Oral 0 ml IV Total 455 ml Tube Feeding 0 ml Output Urine Total 0 ml General Appearance: Alert, Oriented X3, Cooperative, No acute distress HEENT: Atraumatic, PERRLA Lungs: Clear to auscultation, Normal air movement Cardiovascular: Regular rate, Normal S1, Normal S2 Abdomen: Normal bowel sounds, Other (mild tenderness in mid epigastric) Skin: Dry, Intact Psych/Mental Status: Mental status NL, Mood NL Medications Current Medications Medications Dose Ordered Sig/Francia Route Start Time Stop Time Status Last Admin Dose Admin Ceftriaxone Sodium 50 ml @ 100 mls/hr DAILY@09 IV 01/27/25 11:15 02/01/25 09:04 100 MLS/HR Acetaminophen/ Hydrocodone Bitart 1 tab Q4HP PRN PO 01/27/25 11:15 Hold 01/30/25 14:13 1 TAB Ondansetron HCl 4 mg Q4HP PRN IV 01/27/25 11:15 UNV Acetaminophen 650 mg Q6HP PRN PO 01/27/25 11:15 Morphine Sulfate 2 mg Q4HPRN PRN IV 01/27/25 11:15 Sucralfate 1 gm QID PO 01/27/25 12:00 UNV Patient Own Medication 20 mg DAILY PO 01/28/25 10:00 UNV Patient Own Medication 1 tab TID PO 01/27/25 14:00 UNV Patient Own Medication 1 tab DAILY PO 01/28/25 10:00 UNV Pantoprazole Sodium 40 mg BID IV 01/27/25 22:00 02/02/25 22:19 40 MG Ondansetron HCl 4 mg Q4HPRN PRN IV 01/27/25 13:15 Diphenhydramine HCl 25 mg BIDP PRN PO 01/29/25 15:00 02/01/25 21:58 25 MG Ketorolac Tromethamine 30 mg Q6HPRN PRN IV 01/31/25 11:00 02/05/25 10:59 02/02/25 17:48 30 MG Lidocaine 1 patch DAILY TOP 01/31/25 13:45 02/02/25 11:11 1 PATCH Amino Acids 0 ml @ 0 mls/hr PER PHARMACY IV 02/01/25 13:00 Amino Acids/ Electrolytes/ Dextrose 1,000 ml @ 41 mls/hr DAILY@2200 IV 02/01/25 22:00 02/02/25 22:19 41 MLS/HR Diagnostic Test (Pha) 1 strip Q6HR 02/02/25 00:00 02/03/25 05:59 1 STRIP Insulin Human Regular FOLLOW SLIDING SCALE Q6HR SC 02/02/25 00:00 Dextrose 50 ml UD IV 02/01/25 22:00 Hydralazine HCl 10 mg Q6HP PRN IV 02/02/25 10:30 Lorazepam 0.5 mg Q6HP PRN IV 02/02/25 12:00 02/03/25 00:00 0.5 MG Sodium Chloride 10 ml QSHIFT@10,22 IV 02/02/25 22:00 02/02/25 22:21 10 ML Laboratory Results Laboratory Tests 02/03/25 05:04 Chemistry Test 02/03/25 05:04 Albumin 3.9 g/dL (3.2-4.8) Calcium Level 8.9 mg/dL (8.7-10.4) Magnesium Level 2.0 mg/dL (1.6-2.6) Phosphorus Level 2.4 mg/dL (2.4-5.1) Total Protein 6.6 g/dL (5.7-8.2) LFT Test 02/03/25 05:04 Alanine Aminotransferase (ALT) < 9 U/L (7-40) Alkaline Phosphatase 89 U/L (46-116) Aspartate Amino Transferase (AST) 18 U/L (13-40) Total Bilirubin 0.4 mg/dL (0.2-1.0) Urinalysis Test 01/27/25 07:41 Urine Color Yellow (Yellow) Urine Clarity Clear (Clear) Urine pH 6.0 (5.0-9.0) Urine Specific [place] 1.040 (1.001-1.035) Urine Protein 1+ (Negative) H Urine Ketones 3+ (Negative) H Urine Blood Negative /uL (Negative) Urine Nitrite Negative (Negative) Urine Bilirubin Negative (Negative) Urine Urobilinogen 2 mg/dL (Negative) H Urine Leukocyte Esterase 1+ /uL (Negative) Urine RBC 4 /hpf (0 - 4) Urine Microscopic WBC 9 /HPF (0-5) H Urine Squamous Epithelial Cells Few /hpf (<5) Urine Bacteria None seen /hpf (None Seen) Urine Mucus Few (None Seen) Urine Glucose Normal mg/dL (Normal) Labs and/or images reviewed: Labs reviewed by me, Image(s) reviewed by me Assessment/Plan Assessment/Plan Impression: -intractable nausea and vomiting -peptic ulcer disease -cholelithiasis -primary hypertension -recent endoscopy Plan: Events: to OR today for Gastrojejunostomy bypass and cholecystectomy tomorrow -Surgical consult -NPO -Continue IVF and PPN -Potassium replacement -IV antihypertensive -Repeat labs in AM. Total time spent with patient discussing and formulating plan of care: 35 minutes. This medical document was created using an electronic medical record system with [employer] dictation system. Although this document has been carefully reviewed, there may still be some phonetic and typographical errors. These areas are purely typographical due to imperfections of the software programs, and do not reflect any compromise in the patient's medical care. Plan discussed with: Patient, Other (RN) My Orders Orders - CORINA GONSALVES NP Procedure Category Date Status Time Hydralazine Injection PHA 02/02/25 In Process (Apresoline Inject 10:30 Lorazepam 2mg/Ml Inj PHA 02/02/25 In Process (Ativan Inj) 12:00 Date of Service: Feb 03, 2025 Billing Provider: CORINA GONSALVES NP Common Visit Codes: [id number] INP/OBS CARE(HIGH) CORINA GONSALVES NP Feb 03, 2025 09:43
[2025-02-03] MEDS ORDERED: PROPOFOL 10 MG/ML 20 ML IV ONE (10:02)
[2025-02-03] MEDS ORDERED: SUGAMMADEX 200mg/2ml Vial (100MG/ML) IV ONE (10:38)
[2025-02-03] MEDS: LIDOCAINE W/ EPINEPHRINE 1% 20ML VIAL ONE (10:50)
[2025-02-03] MEDS: BUPIVACAINE 0.5% P/F INJ 10 ML VIAL ONE (10:50)
[2025-02-03] MEDS: POVIDONE IODINE 10 % TOPICAL OINT 30GM TOP ONE (10:58)
[2025-02-03 11:11] VITALS: PULSE 70; RESP 12; O2SAT 98
[2025-02-03] MEDS ORDERED: CLINIMIX PER PHARMACY 0 ML IV SCH (11:15)
[2025-02-03] MEDS ORDERED: POTASSIUM CHL 20MEQ/100ML 100 ML IV ONE (11:15)
[2025-02-03] MEDS: D5W/SOD CHL 0.45%/KCL 20MEQ 1,000 ML IV SCH (11:15)
[2025-02-03] MEDS ORDERED: PANTOPRAZOLE 40mg/50ML NS AE 50 ML IV SCH (11:15)
[2025-02-03] MEDS: ACETAMINOPHEN IV 100 ML IV ONE (11:22)
[2025-02-03] MEDS: HYDROmorphone HCL 2 MG/ML VL/or syr IV PRN ×2 (11:28→17:56)
[2025-02-03] MEDS: ACETAMINOPHEN IV 1000 MG/100ML (10MG/ML) IV ONE (11:28)
[2025-02-03] MEDS ORDERED: ONDANSETRON HCL 4 MG/2 ML VIAL IV PRN (11:30)
[2025-02-03] MEDS: HYDROmorphone HCL 2 MG/ML VL/or syr ONE (11:30)
[2025-02-03] MEDS ORDERED: hydrALAZINE HCL 20 MG/ML VL IV PRN (11:30)
[2025-02-03] MEDS ORDERED: MIDAZOLAM HCL 2MG/2ML 2ml VIAL (1mg/ml) IV PRN (11:30)
[2025-02-03] MEDS: LABETALOL HCL 20 MG/4 ML VL IV PRN (11:45)
--- NOTE | 2025-02-03 11:55 | DVHOP ---
DATE OF SURGERY: 02/03/2025 PREOPERATIVE DIAGNOSES: Gastric outlet obstruction, peptic ulcer disease, duodenal stricture. SURGEON: Arash Hopkins MD ANESTHESIA: General endotracheal. ANESTHESIOLOGIST: Dr. Hamm. PROCEDURES: Cholecystectomy, antrectomy, truncal vagotomy, gastrojejunostomy. DESCRIPTION OF PROCEDURE: Under general endotracheal anesthesia with the patient's skin prepped and draped, an upper midline incision was made and deepened with electrocautery. Fascia was opened. The abdominal cavity was entered and explored visually and manually. It contained no visual evidence of unexpected pathology. The gallbladder was markedly contracted and chronically inflamed. It was recessed underneath the right lobe of the liver and the operation was made difficult by the large size of the liver and the very contracted gallbladder. The gallbladder was placed on tension. The cystic duct and cystic artery were identified, circumferentially dissected and traced into the hepatocystic triangle so as to minimize the potential for inadvertent injury to the common bile duct. The cystic duct was then divided between metallic clips close to the gallbladder as was the cystic artery. Subsequently, the gallbladder was resected from its liver bed by electrocautery and traction and retrieved from the peritoneal cavity. Attention was then directed to the left upper quadrant. The esophagus was palpated and circumferentially dissected and encircled with a Gia drain, which was placed on tension. The posterior surface of the esophagus was palpated. It was markedly scarred and the inflammation from the peptic ulcer disease and the gastric distention made this step of the operation exceedingly difficult. However, the left anterior vagus nerve was palpated and divided between metallic clips and submitted. Similarly, the posterior right nerve was similarly divided and submitted. The patient's spleen had been involved with the inflammatory processes around the stomach and the spleen was retracted and protected throughout the entire procedure. Subsequently, the duodenum, which was markedly scarred and the pylorus were delivered circumferentially dissected and transected distal to the pylorus with a MAURISIO stapler. The duodenum was then allowed to retract after assurance of hemostasis. The antrum was mobilized, division of the greater and lesser curvature vasculature and then divided with a MAURISIO stapler. The antrum was submitted as a specimen to the histopathology examination. Then, the jejunum was brought into opposition approximately 30 cm distal to the ligament of Treitz and an anastomosis established by a hand-sewn technique using 3-0 Prolene and 3-0 Monocryl sutures for the outer and inner layer respectively. The anastomosis measured approximately 5-7 cm in length. The nasogastric tube was passed by the anesthesiologist and directed by me into the afferent loop of the gastrojejunostomy and secured in place by the anesthesiologist. Subsequently, the abdomen was irrigated. Irrigant was aspirated. A 10 mm Elmo-Callaway was placed to the vicinity of the cholecystectomy site and vicinity of the gastrojejunostomy, but not in contact with the anastomosis. The drain was exteriorized separately and secured with a 2-0 nylon suture. Following assurance of complete hemostasis, the abdomen was closed using #1 double-stranded PDS suture and metallic skin mari. The patient remained stable throughout the procedure and left the operating room following an accurate needle and sponge count. The family was thoroughly informed in the waiting room. MD ELOY Ramirez/RPAVEEN TID: [id number] RECEIPT: [id number]
[2025-02-03] MEDS: MORPHINE SULFATE 4 MG/ML SYR/VIAL IV PRN (12:08)
[2025-02-03] MEDS ORDERED: MORPHINE SULFATE 4 MG/ML SYR/VIAL IV PRN (12:15)
[2025-02-03] MEDS: POTASSIUM PHOSPHATE 22 MEQ in SODIUM CHL 0.9% 100 ML IV ONE (15:38)
[2025-02-03] MEDS: PANTOPRAZOLE 80 MG in SODIUM CHL 0.9% 100 ML IV ONE (15:38)
[2025-02-03 20:00] VITALS: PULSE 57
[2025-02-03 21:00] VITALS: BP 182/93; PULSE 60; RESP 18; TEMP 98.1; O2SAT 99
[2025-02-03] MEDS: PANTOPRAZOLE 40mg/50ML NS AE 50 ML IV SCH (21:27)
[2025-02-04] VITALS (9 sets, daily range): BP systolic 110–183; BP diastolic 67–87; PULSE 60–81; RESP 16–18; TEMP 98.5–98.8; O2SAT 98–100
[2025-02-04] MEDS: hydrALAZINE HCL 20 MG/ML VL IV PRN (02:31)
[2025-02-04 05:57] LABS: Hematocrit 33.5 % (36.0-46.0); Hemoglobin 11.1 g/dL (12.2-16.2); Mean Corpuscular Hemoglobin 26.9 pg (28.0-32.0); Mean Corpuscular Volume 81.4 fL (80.0-100.0); Nucleated Red Blood Cells % 0.0 %
[2025-02-04 05:59] LABS: Alanine Aminotransferase 20 U/L (7-40); Alkaline Phosphatase 70 U/L (46-116); Anion Gap 8 (5-15); BUN/Creatinine Ratio 21.2 (10.0-20.0); Blood Urea Nitrogen 11 mg/dL (9-23); Carbon Dioxide 24 mmol/L (20-31); Chloride 105 mmol/L (98-107); Potassium 3.7 mmol/L (3.5-5.1); Sodium 137 mmol/L (136-145)
[2025-02-04 06:00] LABS: Albumin 3.3 g/dL (3.2-4.8); Bilirubin, Total 0.3 mg/dL (0.2-1.0)
[2025-02-04 06:09] LABS: Calcium 8.1 mg/dL (8.7-10.4); Glucose 177 mg/dL (74-106); Magnesium 1.4 mg/dL (1.6-2.6); Total Protein 5.6 g/dL (5.7-8.2)
[2025-02-04] MEDS: ONDANSETRON HCL 4 MG/2 ML VIAL IV PRN (08:20)
--- NOTE | 2025-02-04 08:53 | DVHPN2 ---
Progress Note Date Seen: Feb 04, 2025 Medical Necessity Reason Pt with a Central, PICC or Fol: No Objective vital signs Vital Sign Date Time Temp Pulse Resp B/P (MAP) Pulse Ox O2 Delivery O2 Flow Rate FiO2 02/04/25 08:21 73 18 168/87 02/04/25 04:43 98.5 98 98.5 02/03/25 20:00 Room Air* 0 21 Total Intake and Output 02/03/25 02/03/25 02/04/25 15:00 23:00 07:00 Intake Total 100 ml 1000 ml 1050 ml Output Total 150 ml 1000 ml Balance -50 ml 1000 ml 50 ml medications Current Medications Medications Dose Ordered Sig/Francia Route Start Time Stop Time Status Last Admin Dose Admin Ceftriaxone Sodium 50 ml @ 100 mls/hr DAILY@09 IV 01/27/25 11:15 02/04/25 08:19 100 MLS/HR Acetaminophen/ Hydrocodone Bitart 1 tab Q4HP PRN PO 01/27/25 11:15 Hold 01/30/25 14:13 1 TAB Ondansetron HCl 4 mg Q4HP PRN IV 01/27/25 11:15 UNV Acetaminophen 650 mg Q6HP PRN PO 01/27/25 11:15 Sucralfate 1 gm QID PO 01/27/25 12:00 UNV Patient Own Medication 20 mg DAILY PO 01/28/25 10:00 UNV Patient Own Medication 1 tab TID PO 01/27/25 14:00 UNV Patient Own Medication 1 tab DAILY PO 01/28/25 10:00 UNV Diphenhydramine HCl 25 mg BIDP PRN PO 01/29/25 15:00 02/01/25 21:58 25 MG Lidocaine 1 patch DAILY TOP 01/31/25 13:45 02/02/25 11:11 1 PATCH Amino Acids/ Electrolytes/ Dextrose 1,000 ml @ 41 mls/hr DAILY@2200 IV 02/01/25 22:00 02/03/25 21:19 41 MLS/HR Diagnostic Test (Pha) 1 strip Q6HR 02/02/25 00:00 02/04/25 06:19 1 STRIP Insulin Human Regular FOLLOW SLIDING SCALE Q6HR SC 02/02/25 00:00 02/04/25 06:19 4 UNITS Dextrose 50 ml UD IV 02/01/25 22:00 Hydralazine HCl 10 mg Q6HP PRN IV 02/02/25 10:30 02/04/25 02:31 10 MG Lorazepam 0.5 mg Q6HP PRN IV 02/02/25 12:00 02/03/25 00:00 0.5 MG Sodium Chloride 10 ml QSHIFT@10,22 IV 02/02/25 22:00 02/03/25 21:29 10 ML Potassium Chloride/Dextrose/ Sod Cl 1,000 ml @ 120 mls/hr Q8H20M IV 02/03/25 11:15 02/04/25 03:34 120 MLS/HR Hydromorphone HCl 1 mg Q3HPRN PRN IV 02/03/25 11:15 02/04/25 08:21 1 MG Ondansetron HCl 4 mg Q4HPRN PRN IV 02/03/25 11:15 02/04/25 08:20 4 MG Amino Acids 0 ml @ 0 mls/hr PER PHARMACY IV 02/03/25 11:15 Pantoprazole Sodium 50 ml @ 10 mls/hr Q5H IV 02/03/25 22:00 02/04/25 08:19 10 MLS/HR Morphine Sulfate 2 mg Q4HPRN PRN IV 02/03/25 12:15 laboratory and microbiology Laboratory Tests 02/04/25 04:59 Test 02/04/25 04:59 Range/Units Serum Glucose 177 H 74-106 mg/dL Problem List/Assessment/Plan Problem List/Assessment/Plan 02/04/25 c/o inadequate pain control,abdomen appropriately tender., non distended, dressing dry, ann-marie drainage serosanguineous,labs reviewed. will adjust pain Rx Plan discussed with: Patient, Other Dietary Evaluation Review Comments: Nutrition Recommendation 1) Ensure clear TID 2) Advance diet as medically feasible 3) Monitor PO intake, lab values, weight trend, and I/O Expected Outcomes/Goals: To meet >75% estimated needs GI symptoms to improve Fu 2-3 days GIN ORLANDO MD Feb 04, 2025 08:53
[2025-02-04] MEDS ORDERED: MORPHINE SULFATE 4 MG/ML SYR/VIAL IV PRN (09:00)
[2025-02-04] MEDS ORDERED: ACETAMINOPHEN IV 1000 MG/100ML (10MG/ML) IV PRN (09:00)
--- NOTE | 2025-02-04 09:50 | DVHPN2 ---
Progress Note Date Seen: Feb 04, 2025 Resident Creating Document: MALDONADO CRUZ RESIDENT Medical Necessity Reason Pt with a Central, PICC or Fol: No Subjective Review of Systems Patient seen and examined at bedside In abdominal binder, 50 cc serosanguineous output noted in the ANDREA drain Complaining of abdominal pain Complaining of nausea, no vomiting Objective vital signs Vital Sign Date Time Temp Pulse Resp B/P (MAP) Pulse Ox O2 Delivery O2 Flow Rate FiO2 02/04/25 08:21 73 18 168/87 02/04/25 04:43 98.5 98 98.5 02/03/25 20:00 Room Air* 0 21 Total Intake and Output 02/03/25 02/03/25 02/04/25 15:00 23:00 07:00 Intake Total 100 ml 1000 ml 1050 ml Output Total 150 ml 1000 ml Balance -50 ml 1000 ml 50 ml medications Current Medications Medications Dose Ordered Sig/Francia Route Start Time Stop Time Status Last Admin Dose Admin Ceftriaxone Sodium 50 ml @ 100 mls/hr DAILY@09 IV 01/27/25 11:15 02/04/25 08:19 100 MLS/HR Acetaminophen/ Hydrocodone Bitart 1 tab Q4HP PRN PO 01/27/25 11:15 Hold 01/30/25 14:13 1 TAB Ondansetron HCl 4 mg Q4HP PRN IV 01/27/25 11:15 UNV Acetaminophen 650 mg Q6HP PRN PO 01/27/25 11:15 Sucralfate 1 gm QID PO 01/27/25 12:00 UNV Patient Own Medication 20 mg DAILY PO 01/28/25 10:00 UNV Patient Own Medication 1 tab TID PO 01/27/25 14:00 UNV Patient Own Medication 1 tab DAILY PO 01/28/25 10:00 UNV Diphenhydramine HCl 25 mg BIDP PRN PO 01/29/25 15:00 02/01/25 21:58 25 MG Lidocaine 1 patch DAILY TOP 01/31/25 13:45 02/02/25 11:11 1 PATCH Amino Acids/ Electrolytes/ Dextrose 1,000 ml @ 41 mls/hr DAILY@2200 IV 02/01/25 22:00 02/03/25 21:19 41 MLS/HR Diagnostic Test (Pha) 1 strip Q6HR 02/02/25 00:00 02/04/25 06:19 1 STRIP Insulin Human Regular FOLLOW SLIDING SCALE Q6HR SC 02/02/25 00:00 02/04/25 06:19 4 UNITS Dextrose 50 ml UD IV 02/01/25 22:00 Hydralazine HCl 10 mg Q6HP PRN IV 02/02/25 10:30 02/04/25 02:31 10 MG Lorazepam 0.5 mg Q6HP PRN IV 02/02/25 12:00 02/03/25 00:00 0.5 MG Sodium Chloride 10 ml QSHIFT@10,22 IV 02/02/25 22:00 02/03/25 21:29 10 ML Potassium Chloride/Dextrose/ Sod Cl 1,000 ml @ 120 mls/hr Q8H20M IV 02/03/25 11:15 02/04/25 03:34 120 MLS/HR Ondansetron HCl 4 mg Q4HPRN PRN IV 02/03/25 11:15 02/04/25 08:20 4 MG Amino Acids 0 ml @ 0 mls/hr PER PHARMACY IV 02/03/25 11:15 Pantoprazole Sodium 50 ml @ 10 mls/hr Q5H IV 02/03/25 22:00 02/04/25 08:19 10 MLS/HR Morphine Sulfate 3 mg Q3HPRN PRN IV 02/04/25 09:00 Acetaminophen 1,000 mg Q12H PRN IV 02/04/25 09:30 Magnesium Sulfate/ Dextrose 100 ml @ 100 mls/hr Q1HR IV 02/04/25 10:00 02/04/25 11:59 Examination General Appearance: Cooperative. Well developed. Well nourished. NAD Pulmonary/Respiratory: Equal bilateral air entry Cardiovascular/Chest: Regular rate and rhythm. No murmurs. No JVD. Abdominal Exam: Decreased bowel sounds. In abdominal binder, appropriately tender to palpation. 50 cc serosanguineous ANDREA drain output Neuro/Mental Status: A&O x4. Coherent. Thoughts/Psych: Normal thought pattern. Appropriate mood and affect. Good judgement and insight Skin Exam: Normal inspection. Normal color. Warm. 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 with meals IV Protonix 40 mg b.i.d. IV Zofran as needed Physical therapy evaluation Thank you so much for the opportunity to consult on your patient. GI team will follow the patient. In case of any questions or concerns please feel free to reach out. Plan discussed with Dr. Dubois Plan discussed with: Patient, Spouse, Daughter, Other (RN) Dietary Evaluation Review Comments: Nutrition Recommendation 1) Ensure clear TID 2) Advance diet as medically feasible 3) Monitor PO intake, lab values, weight trend, and I/O Expected Outcomes/Goals: To meet >75% estimated needs GI symptoms to improve Fu 2-3 days MALDONADO CRUZ RESIDENT Feb 04, 2025 09:50
[2025-02-04] MEDS ORDERED: TPN PER PHARMACY 0 ML IV SCH (11:15)
[2025-02-04] MEDS: ACETAMINOPHEN IV 1000 MG/100ML (10MG/ML) IV PRN (11:17)
--- NOTE | 2025-02-04 11:17 | DVHSR ---
APPROVED REPORT EXAM: Two-dimensional and M-mode echocardiogram with Doppler and color Doppler. Blood Pressure: 141/82 mmHg INDICATION Pre-Op RISK FACTORS Height: 4' 11", Weight: 112 DIMENSIONS LVDd3.7 (3.8-5.7cm)LA (2D)3.4 (1.9-4.0cm)Aortic Root3.0 (2.0-3.7cm) LVDs2.6 (2.5-4.0cm)LA (MM) (1.9-4.0cm)Aortic Cusp Exc1.8 (1.5-2.0cm) EF (%) 57.0 (55-70%)Rt. Atrium3.4 (1.9-4.0cm)Asc. Aorta cm IVSd0.9 (0.7-1.1cm)RV (D) (1.8-2.4cm) PWd1.0 (0.7-1.1cm) Mitral Valve MitralMitral Stenosis E wave0.50m/sMV Mean GR.mmHg A wave0.80m/sMV Peak GR.mmHg E/A ratio0.62D MVAcm2 Aortic Valve Aortic ValveAortic Stenosis V10.90m/Thuan Mean GR.4mmHg V21.10m/Thuan Peak GR.6mmHg LVOT Diameter2.3 (1.8-2.4cm)Doppler AVA3.40cm2 Tricuspid Valve TR Velocity2.40m/s [id number] Conclusion Technically good study. Sinus rhythm. Normal chamber sizes. Valves are normal. EF of 60% with normal RV function. Dopplers unremarkable. No pericardial effusion masses or vegetations.
[2025-02-04] MEDS: SODIUM PHOSPHATES 40 MEQ in D5W 5% 250 ML IV ONE (11:29)
[2025-02-04] MEDS: MAGNESIUM SULFATE 1GM/100ML 100 ML IV SCH (11:40)
--- NOTE | 2025-02-04 11:43 | DVHPN2 ---
Subjective No new symptoms Reviewed: Care Plan, H&P, Labs, Medications, Previous Orders, Radiology, Other Changes from previous H/P or p: No Changes General: Per HPI Objective Vitals Vital Signs Date Time Temp Pulse Resp B/P (MAP) Pulse Ox O2 Delivery O2 Flow Rate FiO2 02/04/25 09:00 98.7 73 18 168/87 (114) 99 98.7 02/03/25 20:00 Room Air* 0 21 Intake/Output Intake and Output 02/04/25 07:00 Intake Total 2150 ml Output Total 1150 ml Balance 1000 ml Intake Oral 0 ml IV Total 2150 ml Output Urine Total 1100 ml Drainage Total 50 ml General Appearance: Alert, Oriented X3, Cooperative, No acute distress HEENT: Atraumatic, PERRLA Lungs: Clear to auscultation, Normal air movement Cardiovascular: Regular rate, Normal S1, Normal S2 Abdomen: Other (Absent bowel sounds) Neuro: Normal speech Skin: Dry, Intact Psych/Mental Status: Mental status NL, Mood NL Medications Current Medications Medications Dose Ordered Sig/Francia Route Start Time Stop Time Status Last Admin Dose Admin Ceftriaxone Sodium 50 ml @ 100 mls/hr DAILY@09 IV 01/27/25 11:15 02/04/25 08:19 100 MLS/HR Acetaminophen/ Hydrocodone Bitart 1 tab Q4HP PRN PO 01/27/25 11:15 Hold 01/30/25 14:13 1 TAB Ondansetron HCl 4 mg Q4HP PRN IV 01/27/25 11:15 UNV Acetaminophen 650 mg Q6HP PRN PO 01/27/25 11:15 Sucralfate 1 gm QID PO 01/27/25 12:00 UNV Patient Own Medication 20 mg DAILY PO 01/28/25 10:00 UNV Patient Own Medication 1 tab TID PO 01/27/25 14:00 UNV Patient Own Medication 1 tab DAILY PO 01/28/25 10:00 UNV Diphenhydramine HCl 25 mg BIDP PRN PO 01/29/25 15:00 02/01/25 21:58 25 MG Lidocaine 1 patch DAILY TOP 01/31/25 13:45 02/02/25 11:11 1 PATCH Diagnostic Test (Pha) 1 strip Q6HR 02/02/25 00:00 02/04/25 06:19 1 STRIP Insulin Human Regular FOLLOW SLIDING SCALE Q6HR SC 10/1/25 00:00 02/04/25 06:19 4 UNITS Dextrose 50 ml UD IV 02/01/25 22:00 Hydralazine HCl 10 mg Q6HP PRN IV 02/02/25 10:30 02/04/25 02:31 10 MG Lorazepam 0.5 mg Q6HP PRN IV 02/02/25 12:00 02/03/25 00:00 0.5 MG Sodium Chloride 10 ml QSHIFT@10,22 IV 02/02/25 22:00 02/03/25 21:29 10 ML Ondansetron HCl 4 mg Q4HPRN PRN IV 02/03/25 11:15 02/04/25 08:20 4 MG Pantoprazole Sodium 50 ml @ 10 mls/hr Q5H IV 02/03/25 22:00 02/04/25 08:19 10 MLS/HR Acetaminophen 1,000 mg Q12H PRN IV 02/04/25 09:30 Magnesium Sulfate/ Dextrose 100 ml @ 100 mls/hr Q1HR IV 02/04/25 10:00 02/04/25 11:59 Hydromorphone HCl 1.25 mg Q3HPRN PRN IV 02/04/25 10:45 Potassium Chloride/Dextrose/ Sod Cl 1,000 ml @ 75 mls/hr [id number] IV 02/04/25 11:15 UNV Metronidazole 100 ml @ 100 mls/hr Q8HR IV 02/04/25 14:00 UNV Amino Acids 0 ml @ 0 mls/hr PER PHARMACY IV 02/04/25 11:15 UNV Laboratory Results Laboratory Tests 02/04/25 04:59 Chemistry Test 02/04/25 04:59 Albumin 3.3 g/dL (3.2-4.8) Calcium Level 8.1 mg/dL (8.7-10.4) L Magnesium Level 1.4 mg/dL (1.6-2.6) L Phosphorus Level 1.7 mg/dL (2.4-5.1) L Total Protein 5.6 g/dL (5.7-8.2) L LFT Test 02/04/25 04:59 Alanine Aminotransferase (ALT) 20 U/L (7-40) Alkaline Phosphatase 70 U/L (46-116) Aspartate Amino Transferase (AST) 32 U/L (13-40) Total Bilirubin 0.3 mg/dL (0.2-1.0) Urinalysis Test 01/27/25 07:41 Urine Color Yellow (Yellow) Urine Clarity Clear (Clear) Urine pH 6.0 (5.0-9.0) Urine Specific [place] 1.040 (1.001-1.035) Urine Protein 1+ (Negative) H Urine Ketones 3+ (Negative) H Urine Blood Negative /uL (Negative) Urine Nitrite Negative (Negative) Urine Bilirubin Negative (Negative) Urine Urobilinogen 2 mg/dL (Negative) H Urine Leukocyte Esterase 1+ /uL (Negative) Urine RBC 4 /hpf (0 - 4) Urine Microscopic WBC 9 /HPF (0-5) H Urine Squamous Epithelial Cells Few /hpf (<5) Urine Bacteria None seen /hpf (None Seen) Urine Mucus Few (None Seen) Urine Glucose Normal mg/dL (Normal) Labs and/or images reviewed: Labs reviewed by me, Image(s) reviewed by me Assessment/Plan Assessment/Plan Impression: -intractable nausea and vomiting -peptic ulcer disease -cholelithiasis -primary hypertension -recent endoscopy Plan: Events: Patient with absent bowel sounds. ANDREA with serosanguineous fluid Pain improve with increasing hydromorphone to 1.25 mg IV q.3 hours. -Surgical consult: Recommendations reviewed -NPO -increase maintenance IV fluid, change Clinimix to TPN -electrolyte replacement -stop hydralazine, labetalol for BP control -Repeat labs in AM. Total time spent with patient discussing and formulating plan of care: 35 minutes. This medical document was created using an electronic medical record system with [employer] dictation system. Although this document has been carefully reviewed, there may still be some phonetic and typographical errors. These areas are purely typographical due to imperfections of the software programs, and do not reflect any compromise in the patient's medical care. Plan discussed with: Patient, Other (RN) My Orders Orders - CORINA GONSALVES PEARL PELLER Procedure Category Date Status Time Hydromorphone PHA 02/04/25 In Process Injection (Dilaudid 10:45 D5w/Sod Chl 0.45%/Kcl PHA 02/04/25 Logged 20meq 11:15 Metronidazole PHA 02/04/25 Logged 500mg/100ml (Flagyl 14:00 Tpn Per Pharmacy PHA 02/04/25 Logged 11:15 Date of Service: Feb 04, 2025 Billing Provider: CORINA GONSALVES NP Common Visit Codes: [id number] INP/OBS CARE(HIGH) CORINA GONSALVES NP Feb 04, 2025 11:43
[2025-02-04] MEDS: D5W/SOD CHL 0.45%/KCL 20MEQ 1,000 ML IV SCH (12:00)
[2025-02-04] MEDS: HYDROmorphone HCL 2 MG/ML VL/or syr IV PRN (13:37)
[2025-02-04] MEDS: PANTOPRAZOLE 40 MG/10 ML VIAL INJ IV SCH (21:45)
[2025-02-04] MEDS: [UNRECOGNIZED DRUG - OTHER] IV NR (21:48)
[2025-02-04] MEDS: POTASSIUM PHOSPHATE IV NR (21:48)
[2025-02-04] MEDS: SODIUM ACETATE IV NR (21:48)
[2025-02-04] MEDS: FAT EMULSION IV NR (21:48)
[2025-02-04] MEDS ORDERED: TPN PER PHARMACY IV NR (22:00)
[2025-02-05] VITALS (7 sets, daily range): BP systolic 126–144; BP diastolic 67–78; PULSE 81–97; RESP 17–20; TEMP 98.3–99.8; O2SAT 96–99
[2025-02-05 07:16] LABS: Alanine Aminotransferase 35 U/L (7-40); Alkaline Phosphatase 76 U/L (46-116); Anion Gap 10 (5-15); BUN/Creatinine Ratio 21.4 (10.0-20.0); Carbon Dioxide 27 mmol/L (20-31); Chloride 101 mmol/L (98-107); Magnesium 2.0 mg/dL (1.6-2.6); Potassium 3.8 mmol/L (3.5-5.1); Sodium 138 mmol/L (136-145)
[2025-02-05 07:17] LABS: Bilirubin, Total 0.4 mg/dL (0.2-1.0)
[2025-02-05 07:19] LABS: Albumin 3.2 g/dL (3.2-4.8); Blood Urea Nitrogen 9 mg/dL (9-23); Calcium 8.2 mg/dL (8.7-10.4); Glucose 132 mg/dL (74-106); Total Protein 5.5 g/dL (5.7-8.2)
--- NOTE | 2025-02-05 09:58 | DVHPN2 ---
Subjective No new symptoms Reviewed: Care Plan, H&P, Labs, Medications, Previous Orders, Radiology, Other Changes from previous H/P or p: No Changes General: Per HPI Objective Vitals Vital Signs Date Time Temp Pulse Resp B/P (MAP) Pulse Ox O2 Delivery O2 Flow Rate FiO2 02/05/25 08:30 99.8 97 17 138/78 (98) 97 99.8 02/04/25 20:00 Room Air* 0 21 Intake/Output Intake and Output 02/05/25 07:00 Intake Total 810 ml Output Total 1000 ml Balance -190 ml Intake Oral 0 ml IV Total 810 ml Output Urine Total 950 ml Gastric Drainage Total 50 ml General Appearance: Alert, Oriented X3, Cooperative, No acute distress HEENT: Atraumatic, PERRLA Lungs: Clear to auscultation, Normal air movement Cardiovascular: Regular rate, Normal S1, Normal S2 Abdomen: Other (Absent bowel sounds) Neuro: Normal speech Skin: Dry, Intact Psych/Mental Status: Mental status NL, Mood NL Medications Current Medications Medications Dose Ordered Sig/Farncia Route Start Time Stop Time Status Last Admin Dose Admin Ceftriaxone Sodium 50 ml @ 100 mls/hr DAILY@09 IV 01/27/25 11:15 02/05/25 07:51 100 MLS/HR Acetaminophen/ Hydrocodone Bitart 1 tab Q4HP PRN PO 01/27/25 11:15 Hold 01/30/25 14:13 1 TAB Ondansetron HCl 4 mg Q4HP PRN IV 01/27/25 11:15 UNV Acetaminophen 650 mg Q6HP PRN PO 01/27/25 11:15 Sucralfate 1 gm QID PO 01/27/25 12:00 UNV Patient Own Medication 20 mg DAILY PO 01/28/25 10:00 UNV Patient Own Medication 1 tab TID PO 01/27/25 14:00 UNV Patient Own Medication 1 tab DAILY PO 01/28/25 10:00 UNV Diphenhydramine HCl 25 mg BIDP PRN PO 01/29/25 15:00 02/01/25 21:58 25 MG Lidocaine 1 patch DAILY TOP 01/31/25 13:45 02/05/25 07:51 1 PATCH Diagnostic Test (Pha) 1 strip Q6HR 02/02/25 00:00 02/05/25 05:10 1 STRIP Insulin Human Regular FOLLOW SLIDING SCALE Q6HR SC 02/02/25 00:00 02/04/25 18:00 8 UNITS Dextrose 50 ml UD IV 02/01/25 22:00 Lorazepam 0.5 mg Q6HP PRN IV 02/02/25 12:00 02/03/25 00:00 0.5 MG Sodium Chloride 10 ml QSHIFT@10,22 IV 02/02/25 22:00 02/04/25 21:45 10 ML Ondansetron HCl 4 mg Q4HPRN PRN IV 02/03/25 11:15 02/04/25 08:20 4 MG Acetaminophen 1,000 mg Q12H PRN IV 02/04/25 09:30 02/04/25 11:17 1,000 MG Hydromorphone HCl 1.25 mg Q3HPRN PRN IV 02/04/25 10:45 02/05/25 07:48 1.25 MG Potassium Chloride/Dextrose/ Sod Cl 1,000 ml @ 75 mls/hr [id number] IV 02/04/25 11:15 02/04/25 21:45 75 MLS/HR Metronidazole 100 ml @ 100 mls/hr Q8HR IV 02/04/25 14:00 02/05/25 05:01 100 MLS/HR Amino Acids 0 ml @ 0 mls/hr PER PHARMACY IV 02/04/25 11:15 Fat Emulsion Intravenous 50 ml/ Sodium Acetate 20 meq/Potassium Phosphate 44 meq/ Calcium Gluconate 2.3 meq/Magnesium Sulfate 12 meq/ Multivitamins 10 ml/Chromium/ Copper/Manganese/ Zinc 1 ml/Amino Acids/Dextrose 888.9462 ml @ 38 mls/hr [id number] IV 02/04/25 22:00 02/05/25 21:59 Cancel Pantoprazole Sodium 40 mg BID IV 02/04/25 22:00 02/05/25 07:51 40 MG Labetalol HCl 10 mg Q2HPRN PRN IV 02/04/25 13:00 Fat Emulsion Intravenous 50 ml/ Sodium Acetate 20 meq/Potassium Phosphate 33 meq/ Calcium Gluconate 2.3 meq/Magnesium Sulfate 12 meq/ Multivitamins 10 ml/Chromium/ Copper/Manganese/ Zinc 1 ml/Insulin Human Regular 15 units/Amino Acids/ Dextrose 886.5962 ml @ 38 mls/hr [id number] IV 02/04/25 22:00 02/05/25 21:59 02/04/25 21:48 38 MLS/HR Laboratory Results Laboratory Tests 02/04/25 04:59 02/05/25 04:55 Chemistry Test 02/05/25 04:55 Albumin 3.2 g/dL (3.2-4.8) Calcium Level 8.2 mg/dL (8.7-10.4) L Magnesium Level 2.0 mg/dL (1.6-2.6) Phosphorus Level 1.6 mg/dL (2.4-5.1) L Total Protein 5.5 g/dL (5.7-8.2) L LFT Test 02/05/25 04:55 Alanine Aminotransferase (ALT) 35 U/L (7-40) Alkaline Phosphatase 76 U/L (46-116) Aspartate Amino Transferase (AST) 48 U/L (13-40) H Total Bilirubin 0.4 mg/dL (0.2-1.0) Urinalysis Test 01/27/25 07:41 Urine Color Yellow (Yellow) Urine Clarity Clear (Clear) Urine pH 6.0 (5.0-9.0) Urine Specific [place] 1.040 (1.001-1.035) Urine Protein 1+ (Negative) H Urine Ketones 3+ (Negative) H Urine Blood Negative /uL (Negative) Urine Nitrite Negative (Negative) Urine Bilirubin Negative (Negative) Urine Urobilinogen 2 mg/dL (Negative) H Urine Leukocyte Esterase 1+ /uL (Negative) Urine RBC 4 /hpf (0 - 4) Urine Microscopic WBC 9 /HPF (0-5) H Urine Squamous Epithelial Cells Few /hpf (<5) Urine Bacteria None seen /hpf (None Seen) Urine Mucus Few (None Seen) Urine Glucose Normal mg/dL (Normal) Labs and/or images reviewed: Labs reviewed by me, Image(s) reviewed by me Assessment/Plan Assessment/Plan Impression: -intractable nausea and vomiting -peptic ulcer disease -cholelithiasis -primary hypertension -recent endoscopy Plan: Events: Patient with increase pain after physical therapy. ANDREA drain with serosanguineous fluid. NG with bilious drainage. -incentive spirometer q.1 hour while awake -continue NG tube to LIS -Surgical consult: Recommendations reviewed -NPO -continue TPN -electrolyte replacement -continue use labetalol as needed -pain management: Dilaudid, IV acetaminophen -Repeat labs in AM. Total time spent with patient discussing and formulating plan of care: 35 minutes. This medical document was created using an electronic medical record system with [employer] dictation system. Although this document has been carefully reviewed, there may still be some phonetic and typographical errors. These areas are purely typographical due to imperfections of the software programs, and do not reflect any compromise in the patient's medical care. Plan discussed with: Patient, Other (RN) My Orders Orders - CORINA GONSALVES NP Procedure Category Date Status Time Hydromorphone PHA 02/04/25 In Process Injection (Dilaudid 10:45 D5w/Sod Chl 0.45%/Kcl PHA 02/04/25 In Process 20meq 11:15 Metronidazole PHA 02/04/25 In Process 500mg/100ml (Flagyl 14:00 Tpn Per Pharmacy PHA 02/04/25 In Process 11:15 Tpn Per Pharmacy [facility]ED[facility] 02/04/25 In Process 22:00 Pantoprazole PHA 02/04/25 In Process (Protonix) 22:00 Labetalol Hcl PHA 02/04/25 In Process (Labetalol Hcl) 13:00 Amino Acid PHA 02/04/25 In Process Infusion... W/Fat 22:00 Sodium Phosphates PHA 02/05/25 In Process 07:45 Complete Blood Count LAB 02/06/25 Verified 04:00 Communication Order ORDERS 02/05/25 Verified 09:50 Incentive Spirometry ORDERS 02/05/25 Verified Q 1hr 09:50 Date of Service: Feb 05, 2025 Billing Provider: CORINA GONSALVES NP Common Visit Codes: [id number] INP/OBS CARE(HIGH) CORINA GONSALVES NP Feb 05, 2025 09:58
[2025-02-05] MEDS: SODIUM PHOSPHATES 20 MEQ in SODIUM CHL 0.9% 100 ML IV ONE (10:16)
--- NOTE | 2025-02-05 10:49 | DVHPN2 ---
Progress Note Date Seen: Feb 05, 2025 Medical Necessity Reason Pt with a Central, PICC or Fol: No Objective vital signs Vital Sign Date Time Temp Pulse Resp B/P (MAP) Pulse Ox O2 Delivery O2 Flow Rate FiO2 02/05/25 08:30 99.8 97 17 138/78 (98) 97 99.8 02/05/25 08:00 Nasal Cannula* 1 24 Total Intake and Output 02/04/25 02/04/25 02/05/25 15:00 23:00 07:00 Intake Total 150 ml 560 ml 100 ml Output Total 550 ml 450 ml Balance 150 ml 10 ml -350 ml medications Current Medications Medications Dose Ordered Sig/Francia Route Start Time Stop Time Status Last Admin Dose Admin Ceftriaxone Sodium 50 ml @ 100 mls/hr DAILY@09 IV 01/27/25 11:15 02/05/25 07:51 100 MLS/HR Acetaminophen/ Hydrocodone Bitart 1 tab Q4HP PRN PO 01/27/25 11:15 Hold 01/30/25 14:13 1 TAB Ondansetron HCl 4 mg Q4HP PRN IV 01/27/25 11:15 UNV Acetaminophen 650 mg Q6HP PRN PO 01/27/25 11:15 Sucralfate 1 gm QID PO 01/27/25 12:00 UNV Patient Own Medication 20 mg DAILY PO 01/28/25 10:00 UNV Patient Own Medication 1 tab TID PO 01/27/25 14:00 UNV Patient Own Medication 1 tab DAILY PO 01/28/25 10:00 UNV Diphenhydramine HCl 25 mg BIDP PRN PO 01/29/25 15:00 02/01/25 21:58 25 MG Lidocaine 1 patch DAILY TOP 01/31/25 13:45 02/05/25 07:51 1 PATCH Diagnostic Test (Pha) 1 strip Q6HR 02/02/25 00:00 02/05/25 05:10 1 STRIP Insulin Human Regular FOLLOW SLIDING SCALE Q6HR SC 02/02/25 00:00 02/04/25 18:00 8 UNITS Dextrose 50 ml UD IV 02/01/25 22:00 Lorazepam 0.5 mg Q6HP PRN IV 02/02/25 12:00 02/03/25 00:00 0.5 MG Sodium Chloride 10 ml QSHIFT@ IV 02/02/25 22:00 10/4/25 10:00 10 ML Ondansetron HCl 4 mg Q4HPRN PRN IV 02/03/25 11:15 02/04/25 08:20 4 MG Hydromorphone HCl 1.25 mg Q3HPRN PRN IV 02/04/25 10:45 02/05/25 07:48 1.25 MG Potassium Chloride/Dextrose/ Sod Cl 1,000 ml @ 75 mls/hr [id number] IV 02/04/25 11:15 02/04/25 21:45 75 MLS/HR Metronidazole 100 ml @ 100 mls/hr Q8HR IV 02/04/25 14:00 02/05/25 05:01 100 MLS/HR Amino Acids 0 ml @ 0 mls/hr PER PHARMACY IV 02/04/25 11:15 Fat Emulsion Intravenous 50 ml/ Sodium Acetate 20 meq/Potassium Phosphate 44 meq/ Calcium Gluconate 2.3 meq/Magnesium Sulfate 12 meq/ Multivitamins 10 ml/Chromium/ Copper/Manganese/ Zinc 1 ml/Amino Acids/Dextrose 888.9462 ml @ 38 mls/hr [id number] IV 02/04/25 22:00 02/05/25 21:59 Cancel Pantoprazole Sodium 40 mg BID IV 02/04/25 22:00 02/05/25 07:51 40 MG Labetalol HCl 10 mg Q2HPRN PRN IV 02/04/25 13:00 Fat Emulsion Intravenous 50 ml/ Sodium Acetate 20 meq/Potassium Phosphate 33 meq/ Calcium Gluconate 2.3 meq/Magnesium Sulfate 12 meq/ Multivitamins 10 ml/Chromium/ Copper/Manganese/ Zinc 1 ml/Insulin Human Regular 15 units/Amino Acids/ Dextrose 886.5962 ml @ 38 mls/hr [id number] IV 02/04/25 22:00 02/05/25 21:59 02/04/25 21:48 38 MLS/HR Fat Emulsion Intravenous 100 ml/Sodium Chloride 40 meq/ Potassium Chloride 20 meq/ Potassium Phosphate 44 meq/ Calcium Gluconate 2.3 meq/Magnesium Sulfate 12 meq/ Multivitamins 10 ml/Chromium/ Copper/Manganese/ Zinc 1 ml/Insulin Human Regular 18 units/Amino Acids/ Dextrose 1,149.1262 ml @ 48 mls/hr [id number] IV 02/05/25 22:00 10/5/25 21:59 Acetaminophen 1,000 mg [id number] PRN IV 02/05/25 10:15 laboratory and microbiology Laboratory Tests 02/05/25 04:55 02/04/25 04:59 Test 02/05/25 04:55 Range/Units Serum Glucose 132 H 74-106 mg/dL Problem List/Assessment/Plan Problem List/Assessment/Plan 02/04/25 c/o inadequate pain control,abdomen appropriately tender., non distended, dressing dry, andrea drainage serosanguineous,labs reviewed. will adjust pain Rx 02/05/25 afebrile, normotensive, dressing dry, abdomen soft appropriately tender. ANDREA drainage serous, labs reviewed, continue PT, no changes, has not passed flatus. continue strict npo and NG tube suction. Plan discussed with: Patient Dietary Evaluation Review Comments: Nutrition Recommendation 1) Ensure clear TID 2) Advance diet as medically feasible 3) Monitor PO intake, lab values, weight trend, and I/O Expected Outcomes/Goals: To meet >75% estimated needs GI symptoms to improve Fu 2-3 days GIN ORLANDO MD Feb 05, 2025 10:49
[2025-02-05] MEDS: ACETAMINOPHEN IV 1000 MG/100ML (10MG/ML) IV PRN (20:05)
[2025-02-05] MEDS: TPN PER PHARMACY IV NR (21:37)
[2025-02-06] VITALS (10 sets, daily range): BP systolic 112–157; BP diastolic 62–82; PULSE 87–96; RESP 16–20; TEMP 98.3–99.9; O2SAT 96–98
[2025-02-06 05:41] LABS: Hematocrit 27.6 % (36.0-46.0); Hemoglobin 9.2 g/dL (12.2-16.2); Mean Corpuscular Hemoglobin 27.0 pg (28.0-32.0); Mean Corpuscular Volume 81.0 fL (80.0-100.0); Nucleated Red Blood Cells % 0.1 %
[2025-02-06 06:06] LABS: Alanine Aminotransferase 23 U/L (7-40); Alkaline Phosphatase 74 U/L (46-116); Anion Gap 7 (5-15); BUN/Creatinine Ratio 22.9 (10.0-20.0); Bilirubin, Total 0.3 mg/dL (0.2-1.0); Carbon Dioxide 27 mmol/L (20-31); Chloride 104 mmol/L (98-107); Magnesium 2.0 mg/dL (1.6-2.6); Potassium 3.6 mmol/L (3.5-5.1); Sodium 138 mmol/L (136-145)
[2025-02-06 06:08] LABS: Albumin 2.8 g/dL (3.2-4.8); Blood Urea Nitrogen 8 mg/dL (9-23); Calcium 7.7 mg/dL (8.7-10.4); Glucose 139 mg/dL (74-106); Total Protein 5.1 g/dL (5.7-8.2)
[2025-02-06] MEDS ORDERED: POTASSIUM PHOSPHATE 22 MEQ in SODIUM CHL 0.9% 100 ML IV ONE (09:30)
--- NOTE | 2025-02-06 09:53 | DVHPN2 ---
Subjective No new symptoms Reviewed: Care Plan, H&P, Labs, Medications, Previous Orders, Radiology, Other Changes from previous H/P or p: No Changes General: Per HPI Objective Vitals Vital Signs Date Time Temp Pulse Resp B/P (MAP) Pulse Ox O2 Delivery O2 Flow Rate FiO2 02/06/25 09:09 95 16 138/76 02/06/25 08:52 98.5 96 98.5 02/05/25 20:00 Nasal Cannula* 1 24 Intake/Output Intake and Output 02/06/25 07:00 Intake Total 1300 ml Output Total 2500 ml Balance -1200 ml Intake Oral 0 ml IV Total 1300 ml Output Urine Total 1650 ml Gastric Drainage Total 800 ml Other 50 ml General Appearance: Alert, Oriented X3, Cooperative, No acute distress HEENT: Atraumatic, PERRLA Lungs: Clear to auscultation, Normal air movement Cardiovascular: Regular rate, Normal S1, Normal S2 Abdomen: Other (Absent bowel sounds) Neuro: Normal speech Skin: Dry, Intact Psych/Mental Status: Mental status NL, Mood NL Medications Current Medications Medications Dose Ordered Sig/Francia Route Start Time Stop Time Status Last Admin Dose Admin Ceftriaxone Sodium 50 ml @ 100 mls/hr DAILY@09 IV 01/27/25 11:15 02/06/25 09:09 100 MLS/HR Acetaminophen/ Hydrocodone Bitart 1 tab Q4HP PRN PO 01/27/25 11:15 Hold 01/30/25 14:13 1 TAB Ondansetron HCl 4 mg Q4HP PRN IV 01/27/25 11:15 UNV Acetaminophen 650 mg Q6HP PRN PO 01/27/25 11:15 Sucralfate 1 gm QID PO 01/27/25 12:00 UNV Patient Own Medication 20 mg DAILY PO 01/28/25 10:00 UNV Patient Own Medication 1 tab TID PO 01/27/25 14:00 UNV Patient Own Medication 1 tab DAILY PO 01/28/25 10:00 UNV Diphenhydramine HCl 25 mg BIDP PRN PO 01/29/25 15:00 02/01/25 21:58 25 MG Lidocaine 1 patch DAILY TOP 01/31/25 13:45 02/05/25 07:51 1 PATCH Diagnostic Test (Pha) 1 strip Q6HR 02/02/25 00:00 02/06/25 05:52 1 STRIP Insulin Human Regular FOLLOW SLIDING SCALE Q6HR SC 02/02/25 00:00 02/06/25 05:56 2 UNITS Dextrose 50 ml UD IV 02/01/25 22:00 Lorazepam 0.5 mg Q6HP PRN IV 02/02/25 12:00 02/06/25 05:40 0.5 MG Sodium Chloride 10 ml QSHIFT@10,22 IV 02/02/25 22:00 02/06/25 09:09 10 ML Ondansetron HCl 4 mg Q4HPRN PRN IV 02/03/25 11:15 02/04/25 08:20 4 MG Hydromorphone HCl 1.25 mg Q3HPRN PRN IV 02/04/25 10:45 02/06/25 09:09 1.25 MG Potassium Chloride/Dextrose/ Sod Cl 1,000 ml @ 75 mls/hr [id number] IV 02/04/25 11:15 02/05/25 21:37 75 MLS/HR Metronidazole 100 ml @ 100 mls/hr Q8HR IV 02/04/25 14:00 02/06/25 05:44 100 MLS/HR Amino Acids 0 ml @ 0 mls/hr PER PHARMACY IV 02/04/25 11:15 Fat Emulsion Intravenous 50 ml/ Sodium Acetate 20 meq/Potassium Phosphate 44 meq/ Calcium Gluconate 2.3 meq/Magnesium Sulfate 12 meq/ Multivitamins 10 ml/Chromium/ Copper/Manganese/ Zinc 1 ml/Amino Acids/Dextrose 888.9462 ml @ 38 mls/hr [id number] IV 02/04/25 22:00 02/05/25 21:59 Cancel Pantoprazole Sodium 40 mg BID IV 02/04/25 22:00 02/06/25 09:09 40 MG Labetalol HCl 10 mg Q2HPRN PRN IV 02/04/25 13:00 Fat Emulsion Intravenous 100 ml/Sodium Chloride 40 meq/ Potassium Chloride 20 meq/ Potassium Phosphate 44 meq/ Calcium Gluconate 2.3 meq/Magnesium Sulfate 12 meq/ Multivitamins 10 ml/Chromium/ Copper/Manganese/ Zinc 1 ml/Insulin Human Regular 18 units/Amino Acids/ Dextrose 1,149.1262 ml @ 48 mls/hr [id number] IV 02/05/25 22:00 02/06/25 21:59 02/05/25 21:37 48 MLS/HR Acetaminophen 1,000 mg [id number] PRN IV 02/05/25 10:15 02/05/25 20:05 1,000 MG Laboratory Results Laboratory Tests 02/06/25 05:19 Chemistry Test 02/06/25 05:19 Albumin 2.8 g/dL (3.2-4.8) L Calcium Level 7.7 mg/dL (8.7-10.4) L Magnesium Level 2.0 mg/dL (1.6-2.6) Phosphorus Level 1.8 mg/dL (2.4-5.1) L Total Protein 5.1 g/dL (5.7-8.2) L LFT Test 02/06/25 05:19 Alanine Aminotransferase (ALT) 23 U/L (7-40) Alkaline Phosphatase 74 U/L (46-116) Aspartate Amino Transferase (AST) 26 U/L (13-40) Total Bilirubin 0.3 mg/dL (0.2-1.0) Urinalysis Test 01/27/25 07:41 Urine Color Yellow (Yellow) Urine Clarity Clear (Clear) Urine pH 6.0 (5.0-9.0) Urine Specific [place] 1.040 (1.001-1.035) Urine Protein 1+ (Negative) H Urine Ketones 3+ (Negative) H Urine Blood Negative /uL (Negative) Urine Nitrite Negative (Negative) Urine Bilirubin Negative (Negative) Urine Urobilinogen 2 mg/dL (Negative) H Urine Leukocyte Esterase 1+ /uL (Negative) Urine RBC 4 /hpf (0 - 4) Urine Microscopic WBC 9 /HPF (0-5) H Urine Squamous Epithelial Cells Few /hpf (<5) Urine Bacteria None seen /hpf (None Seen) Urine Mucus Few (None Seen) Urine Glucose Normal mg/dL (Normal) Labs and/or images reviewed: Labs reviewed by me, Image(s) reviewed by me Assessment/Plan Assessment/Plan Impression: -intractable nausea and vomiting -peptic ulcer disease -cholelithiasis -primary hypertension -recent endoscopy -pernicious drop in hemoglobin postoperatively Plan: Events: No events overnight. K-Phos replacement. -incentive spirometer q.1 hour while awake -continue NG tube to LIS -Surgical consult: Recommendations reviewed -NPO -SCD -continue TPN -electrolyte replacement -continue use labetalol as needed -pain management: Dilaudid, IV acetaminophen -Repeat labs in AM. Total time spent with patient discussing and formulating plan of care: 35 minutes. This medical document was created using an electronic medical record system with [employer] dictation system. Although this document has been carefully reviewed, there may still be some phonetic and typographical errors. These areas are purely typographical due to imperfections of the software programs, and do not reflect any compromise in the patient's medical care. Plan discussed with: Patient, Other (RN) My Orders Orders - CORINA GONSALVES NP Procedure Category Date Status Time Communication Order ORDERS 02/05/25 Transmitted 09:50 Incentive Spirometry ORDERS 02/05/25 Transmitted Q 1hr 09:50 Acetaminophen Iv PHA 02/05/25 In Process (Ofirmev) 10:15 Amino Acid PHA 02/05/25 In Process Infusion... W/Fat 22:00 Tpn Per Pharmacy [facility] 02/05/25 In Process 22:00 Potassium Phosphate PHA 02/06/25 Logged 09:30 Complete Blood Count LAB 02/07/25 Verified 04:00 Date of Service: Feb 06, 2025 Billing Provider: CORINA GONSALVES NP Common Visit Codes: [id number] INP/OBS CARE(HIGH) CORINA GONSALVES NP Feb 06, 2025 09:53
[2025-02-06] MEDS: POTASSIUM PHOSPHATE 44 MEQ in D5W 5% 250 ML IV ONE (11:22)
--- NOTE | 2025-02-06 12:00 | DVHPN2 ---
Progress Note Date Seen: Feb 06, 2025 Medical Necessity Reason Pt with a Central, PICC or Fol: No Objective vital signs Vital Sign Date Time Temp Pulse Resp B/P (MAP) Pulse Ox O2 Delivery O2 Flow Rate FiO2 02/06/25 09:09 95 16 138/76 02/06/25 08:52 98.5 96 98.5 02/05/25 20:00 Nasal Cannula* 1 24 Total Intake and Output 02/05/25 02/05/25 02/06/25 15:00 23:00 07:00 Intake Total 150 ml 1050 ml 100 ml Output Total 1350 ml 1150 ml Balance 150 ml -300 ml -1050 ml medications Current Medications Medications Dose Ordered Sig/Francia Route Start Time Stop Time Status Last Admin Dose Admin Ceftriaxone Sodium 50 ml @ 100 mls/hr DAILY@09 IV 01/27/25 11:15 02/06/25 09:09 100 MLS/HR Acetaminophen/ Hydrocodone Bitart 1 tab Q4HP PRN PO 01/27/25 11:15 Hold 01/30/25 14:13 1 TAB Ondansetron HCl 4 mg Q4HP PRN IV 01/27/25 11:15 UNV Acetaminophen 650 mg Q6HP PRN PO 01/27/25 11:15 Sucralfate 1 gm QID PO 01/27/25 12:00 UNV Patient Own Medication 20 mg DAILY PO 01/28/25 10:00 UNV Patient Own Medication 1 tab TID PO 01/27/25 14:00 UNV Patient Own Medication 1 tab DAILY PO 01/28/25 10:00 UNV Diphenhydramine HCl 25 mg BIDP PRN PO 01/29/25 15:00 02/01/25 21:58 25 MG Lidocaine 1 patch DAILY TOP 01/31/25 13:45 02/05/25 07:51 1 PATCH Diagnostic Test (Pha) 1 strip Q6HR 02/02/25 00:00 02/06/25 05:52 1 STRIP Insulin Human Regular FOLLOW SLIDING SCALE Q6HR SC 02/02/25 00:00 02/06/25 05:56 2 UNITS Dextrose 50 ml UD IV 02/01/25 22:00 Lorazepam 0.5 mg Q6HP PRN IV 02/02/25 12:00 02/06/25 05:40 0.5 MG Sodium Chloride 10 ml QSHIFT@ IV 02/02/25 22:00 02/06/25 09:09 10 ML Ondansetron HCl 4 mg Q4HPRN PRN IV 02/03/25 11:15 02/04/25 08:20 4 MG Hydromorphone HCl 1.25 mg Q3HPRN PRN IV 02/04/25 10:45 02/06/25 09:09 1.25 MG Potassium Chloride/Dextrose/ Sod Cl 1,000 ml @ 75 mls/hr [id number] IV 02/04/25 11:15 02/05/25 21:37 75 MLS/HR Metronidazole 100 ml @ 100 mls/hr Q8HR IV 02/04/25 14:00 02/06/25 05:44 100 MLS/HR Amino Acids 0 ml @ 0 mls/hr PER PHARMACY IV 02/04/25 11:15 Fat Emulsion Intravenous 50 ml/ Sodium Acetate 20 meq/Potassium Phosphate 44 meq/ Calcium Gluconate 2.3 meq/Magnesium Sulfate 12 meq/ Multivitamins 10 ml/Chromium/ Copper/Manganese/ Zinc 1 ml/Amino Acids/Dextrose 888.9462 ml @ 38 mls/hr [id number] IV 02/04/25 22:00 02/05/25 21:59 Cancel Pantoprazole Sodium 40 mg BID IV 02/04/25 22:00 02/06/25 09:09 40 MG Labetalol HCl 10 mg Q2HPRN PRN IV 02/04/25 13:00 Fat Emulsion Intravenous 100 ml/Sodium Chloride 40 meq/ Potassium Chloride 20 meq/ Potassium Phosphate 44 meq/ Calcium Gluconate 2.3 meq/Magnesium Sulfate 12 meq/ Multivitamins 10 ml/Chromium/ Copper/Manganese/ Zinc 1 ml/Insulin Human Regular 18 units/Amino Acids/ Dextrose 1,149.1262 ml @ 48 mls/hr [id number] IV 02/05/25 22:00 02/06/25 21:59 02/05/25 21:37 48 MLS/HR Acetaminophen 1,000 mg [id number] PRN IV 02/05/25 10:15 02/05/25 20:05 1,000 MG Fat Emulsion Intravenous 100 ml/Sodium Phosphate 40 meq/ Potassium Chloride 40 meq/ Potassium Acetate 20 meq/Calcium Gluconate 4.65 meq/Magnesium Sulfate 12 meq/ Multivitamins 10 ml/Chromium/ Copper/Manganese/ Zinc 1 ml/Insulin Human Regular 20 units/Amino Acids/ Dextrose 1,364.2 ml @ 57 mls/hr [id number] IV 02/06/25 22:00 02/07/25 21:59 laboratory and microbiology Laboratory Tests 02/06/25 05:19 Test 02/06/25 05:19 Range/Units Serum Glucose 139 H 74-106 mg/dL Problem List/Assessment/Plan Problem List/Assessment/Plan 02/04/25 c/o inadequate pain control,abdomen appropriately tender., non distended, dressing dry, andrea drainage serosanguineous,labs reviewed. will adjust pain Rx 02/05/25 afebrile, normotensive, dressing dry, abdomen soft appropriately tender. ANDREA drainage serous, labs reviewed, continue PT, no changes, has not passed flatus. continue strict npo and NG tube suction. 02/06/25 very reluctant to walk despite repeated explanation , wound clean and well approximated, drainage sero sanguineous, abdomen soft and non distended, appropriately tender, Labs's reviewed. Plan discussed with: Patient, Spouse Dietary Evaluation Review Comments: Nutrition Recommendation 1) Ensure clear TID 2) Advance diet as medically feasible 3) Monitor PO intake, lab values, weight trend, and I/O Expected Outcomes/Goals: To meet >75% estimated needs GI symptoms to improve Fu 2-3 days GIN ORLANDO MD Feb 06, 2025 12:00
[2025-02-06] MEDS: LABETALOL HCL 20 MG/4 ML VL IV PRN (17:29)
--- NOTE | 2025-02-06 20:16 | DVHPN2 ---
Progress Note - Dictate Date Seen: Feb 06, 2025 Medical Necessity Reason Pt with a Central, PICC or Fol: No Subjective Postop day 3. S/P laparotomy with Cholecystectomy, antrectomy, truncal vagotomy, gastrojejunostomy. Patient week with mild postop pain ongoing NG tube output 150 bilious Patient is on IV TPN vital signs Vital Sign Date Time Temp Pulse Resp B/P (MAP) Pulse Ox O2 Delivery O2 Flow Rate FiO2 02/06/25 19:11 91 19 154/81 02/06/25 16:51 99.9 97 99.9 02/06/25 08:00 Nasal Cannula* 1 24 Total Intake and Output 02/05/25 02/05/25 02/06/25 15:00 23:00 07:00 Intake Total 150 ml 1050 ml 100 ml Output Total 1350 ml 1150 ml Balance 150 ml -300 ml -1050 ml medications Current Medications Medications Dose Ordered Sig/Francia Route Start Time Stop Time Status Last Admin Dose Admin Ceftriaxone Sodium 50 ml @ 100 mls/hr DAILY@09 IV 01/27/25 11:15 02/06/25 09:09 100 MLS/HR Acetaminophen/ Hydrocodone Bitart 1 tab Q4HP PRN PO 01/27/25 11:15 Hold 01/30/25 14:13 1 TAB Ondansetron HCl 4 mg Q4HP PRN IV 01/27/25 11:15 UNV Acetaminophen 650 mg Q6HP PRN PO 01/27/25 11:15 Sucralfate 1 gm QID PO 01/27/25 12:00 UNV Patient Own Medication 20 mg DAILY PO 01/28/25 10:00 UNV Patient Own Medication 1 tab TID PO 01/27/25 14:00 UNV Patient Own Medication 1 tab DAILY PO 01/28/25 10:00 UNV Diphenhydramine HCl 25 mg BIDP PRN PO 01/29/25 15:00 02/01/25 21:58 25 MG Lidocaine 1 patch DAILY TOP 01/31/25 13:45 02/06/25 15:55 1 PATCH Diagnostic Test (Pha) 1 strip Q6HR 02/02/25 00:00 02/06/25 17:16 1 STRIP Insulin Human Regular FOLLOW SLIDING SCALE Q6HR SC 02/02/25 00:00 02/06/25 17:17 4 UNITS Dextrose 50 ml UD IV 02/01/25 22:00 Lorazepam 0.5 mg Q6HP PRN IV 02/02/25 12:00 02/06/25 13:54 0.5 MG Sodium Chloride 10 ml QSHIFT@10,22 IV 02/02/25 22:00 02/06/25 09:09 10 ML Ondansetron HCl 4 mg Q4HPRN PRN IV 02/03/25 11:15 02/04/25 08:20 4 MG Hydromorphone HCl 1.25 mg Q3HPRN PRN IV 02/04/25 10:45 02/06/25 19:11 1.25 MG Potassium Chloride/Dextrose/ Sod Cl 1,000 ml @ 75 mls/hr [id number] IV 02/04/25 11:15 02/06/25 14:02 75 MLS/HR Metronidazole 100 ml @ 100 mls/hr Q8HR IV 02/04/25 14:00 02/06/25 13:54 100 MLS/HR Amino Acids 0 ml @ 0 mls/hr PER PHARMACY IV 02/04/25 11:15 Fat Emulsion Intravenous 50 ml/ Sodium Acetate 20 meq/Potassium Phosphate 44 meq/ Calcium Gluconate 2.3 meq/Magnesium Sulfate 12 meq/ Multivitamins 10 ml/Chromium/ Copper/Manganese/ Zinc 1 ml/Amino Acids/Dextrose 888.9462 ml @ 38 mls/hr [id number] IV 02/04/25 22:00 02/05/25 21:59 Cancel Pantoprazole Sodium 40 mg BID IV 02/04/25 22:00 02/06/25 09:09 40 MG Labetalol HCl 10 mg Q2HPRN PRN IV 02/04/25 13:00 02/06/25 17:29 10 MG Fat Emulsion Intravenous 100 ml/Sodium Chloride 40 meq/ Potassium Chloride 20 meq/ Potassium Phosphate 44 meq/ Calcium Gluconate 2.3 meq/Magnesium Sulfate 12 meq/ Multivitamins 10 ml/Chromium/ Copper/Manganese/ Zinc 1 ml/Insulin Human Regular 18 units/Amino Acids/ Dextrose 1,149.1262 ml @ 48 mls/hr [id number] IV 02/05/25 22:00 02/06/25 21:59 02/05/25 21:37 48 MLS/HR Acetaminophen 1,000 mg [id number] PRN IV 02/05/25 10:15 02/05/25 20:05 1,000 MG Fat Emulsion Intravenous 100 ml/Sodium Phosphate 40 meq/ Potassium Chloride 40 meq/ Potassium Acetate 20 meq/Calcium Gluconate 4.65 meq/Magnesium Sulfate 12 meq/ Multivitamins 10 ml/Chromium/ Copper/Manganese/ Zinc 1 ml/Insulin Human Regular 20 units/Amino Acids/ Dextrose 1,364.2 ml @ 57 mls/hr [id number] IV 02/06/25 22:00 02/07/25 21:59 objective General: NAD, AAOX3; NG tube to low intermittent suction Chest: lung dasilva clear to auscultation Heart: RRR, no murmur Abdomen soft nontender drain in place dressing dry Extremities without clubbing cyanosis or edema laboratory and microbiology Laboratory Tests 02/06/25 05:19 Test 02/06/25 05:19 Range/Units Serum Glucose 139 H 74-106 mg/dL Problems(with codes): (1) Intractable nausea and vomiting (2) Hypokalemia (3) Cholelithiasis (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
[2025-02-06] MEDS: TPN PER PHARMACY IV NR (20:30)
[2025-02-07] VITALS (9 sets, daily range): BP systolic 123–153; BP diastolic 55–80; PULSE 77–100; RESP 17–19; TEMP 97.8–98.7; O2SAT 96–99
[2025-02-07 10:12] LABS: Hematocrit 27.7 % (36.0-46.0); Hemoglobin 9.1 g/dL (12.2-16.2); Mean Corpuscular Hemoglobin 26.6 pg (28.0-32.0); Mean Corpuscular Volume 81.5 fL (80.0-100.0); Nucleated Red Blood Cells % 0.0 %
[2025-02-07 10:45] LABS: Alanine Aminotransferase 15 U/L (7-40); Alkaline Phosphatase 76 U/L (46-116); Anion Gap 7 (5-15); BUN/Creatinine Ratio 28.6 (10.0-20.0); Blood Urea Nitrogen 10 mg/dL (9-23); Carbon Dioxide 27 mmol/L (20-31); Chloride 103 mmol/L (98-107); Magnesium 2.0 mg/dL (1.6-2.6); Potassium 4.1 mmol/L (3.5-5.1); Sodium 137 mmol/L (136-145)
[2025-02-07 10:46] LABS: Albumin 2.6 g/dL (3.2-4.8); Bilirubin, Total 0.2 mg/dL (0.2-1.0); Calcium 7.5 mg/dL (8.7-10.4); Glucose 155 mg/dL (74-106); Total Protein 4.6 g/dL (5.7-8.2)
--- NOTE | 2025-02-07 11:03 | DVHPN2 ---
Progress Note Date Seen: Feb 07, 2025 Medical Necessity Reason Pt with a Central, PICC or Fol: No Objective vital signs Vital Sign Date Time Temp Pulse Resp B/P (MAP) Pulse Ox O2 Delivery O2 Flow Rate FiO2 02/07/25 09:14 97 17 142/80 02/07/25 08:43 98.0 99 98.0 02/06/25 20:00 Nasal Cannula* 1 24 Total Intake and Output 02/06/25 02/06/25 02/07/25 15:00 23:00 07:00 Intake Total 150 ml 1393 ml 3450 ml Output Total 460 ml Balance 150 ml 933 ml 3450 ml medications Current Medications Medications Dose Ordered Sig/Francia Route Start Time Stop Time Status Last Admin Dose Admin Ceftriaxone Sodium 50 ml @ 100 mls/hr DAILY@09 IV 01/27/25 11:15 02/07/25 09:20 100 MLS/HR Acetaminophen/ Hydrocodone Bitart 1 tab Q4HP PRN PO 01/27/25 11:15 Hold 01/30/25 14:13 1 TAB Ondansetron HCl 4 mg Q4HP PRN IV 01/27/25 11:15 UNV Acetaminophen 650 mg Q6HP PRN PO 01/27/25 11:15 Sucralfate 1 gm QID PO 01/27/25 12:00 UNV Patient Own Medication 20 mg DAILY PO 01/28/25 10:00 UNV Patient Own Medication 1 tab TID PO 01/27/25 14:00 UNV Patient Own Medication 1 tab DAILY PO 01/28/25 10:00 UNV Diphenhydramine HCl 25 mg BIDP PRN PO 01/29/25 15:00 02/01/25 21:58 25 MG Lidocaine 1 patch DAILY TOP 01/31/25 13:45 02/07/25 09:21 1 PATCH Diagnostic Test (Pha) 1 strip Q6HR 02/02/25 00:00 02/07/25 06:24 1 STRIP Insulin Human Regular FOLLOW SLIDING SCALE Q6HR SC 02/02/25 00:00 02/07/25 06:23 2 UNITS Dextrose 50 ml UD IV 02/01/25 22:00 Lorazepam 0.5 mg Q6HP PRN IV 02/02/25 12:00 02/07/25 06:18 0.5 MG Sodium Chloride 10 ml QSHIFT@ IV 02/02/25 22:00 02/07/25 09:23 10 ML Ondansetron HCl 4 mg Q4HPRN PRN IV 02/03/25 11:15 02/04/25 08:20 4 MG Hydromorphone HCl 1.25 mg Q3HPRN PRN IV 02/04/25 10:45 02/07/25 09:14 1.25 MG Potassium Chloride/Dextrose/ Sod Cl 1,000 ml @ 75 mls/hr [id number] IV 02/04/25 11:15 02/07/25 01:17 75 MLS/HR Metronidazole 100 ml @ 100 mls/hr Q8HR IV 02/04/25 14:00 02/07/25 05:54 100 MLS/HR Amino Acids 0 ml @ 0 mls/hr PER PHARMACY IV 02/04/25 11:15 Fat Emulsion Intravenous 50 ml/ Sodium Acetate 20 meq/Potassium Phosphate 44 meq/ Calcium Gluconate 2.3 meq/Magnesium Sulfate 12 meq/ Multivitamins 10 ml/Chromium/ Copper/Manganese/ Zinc 1 ml/Amino Acids/Dextrose 888.9462 ml @ 38 mls/hr [id number] IV 02/04/25 22:00 02/05/25 21:59 Cancel Pantoprazole Sodium 40 mg BID IV 02/04/25 22:00 02/07/25 09:19 40 MG Labetalol HCl 10 mg Q2HPRN PRN IV 02/04/25 13:00 02/06/25 17:29 10 MG Acetaminophen 1,000 mg [id number] PRN IV 02/05/25 10:15 02/07/25 01:22 1,000 MG Fat Emulsion Intravenous 100 ml/Sodium Phosphate 40 meq/ Potassium Chloride 40 meq/ Potassium Acetate 20 meq/Calcium Gluconate 4.65 meq/Magnesium Sulfate 12 meq/ Multivitamins 10 ml/Chromium/ Copper/Manganese/ Zinc 1 ml/Insulin Human Regular 20 units/Amino Acids/ Dextrose 1,364.2 ml @ 57 mls/hr [id number] IV 02/06/25 22:00 02/07/25 21:59 02/06/25 20:30 57 MLS/HR laboratory and microbiology Laboratory Tests 02/07/25 09:50 Test 02/07/25 09:50 Range/Units Serum Glucose 155 H 74-106 mg/dL Problem List/Assessment/Plan Problem List/Assessment/Plan 02/04/25 c/o inadequate pain control,abdomen appropriately tender., non distended, dressing dry, andrea drainage serosanguineous,labs reviewed. will adjust pain Rx 02/05/25 afebrile, normotensive, dressing dry, abdomen soft appropriately tender. ANDREA drainage serous, labs reviewed, continue PT, no changes, has not passed flatus. continue strict npo and NG tube suction. 02/06/25 very reluctant to walk despite repeated explanation , wound clean and well approximated, drainage sero sanguineous, abdomen soft and non distended, appropriately tender, Labs's reviewed. 02/07/25 HAD A "BETTER NIGHT" LAST NIGHT BUT AGAIN ONLY WALKED ONCE LAST 24 HOURS, i HAVE ONCE AGAIN STRESSED THE IMPORTANCE OF AMBULATING. WOUND CLEAN AND WELL APPROXIMATED, DRAINAGE SEROSANGUINEOUS, REPORTEDLY PASSED FLATUS . LABS REVIEWED, I WILL ORDER A UGI WITH GASTROGRAFIN FOR FRIDAY TO EVALUATE THE PATENCY AND INTEGRITY OF THE GASTRO JEJUNOSTOMY. Plan discussed with: Patient, Spouse, Son, Other Dietary Evaluation Review Comments: Nutrition Recommendation 1) Ensure clear TID 2) Advance diet as medically feasible 3) Monitor PO intake, lab values, weight trend, and I/O Expected Outcomes/Goals: To meet >75% estimated needs GI symptoms to improve Fu 2-3 days GIN ORLANDO MD Feb 07, 2025 11:03
--- NOTE | 2025-02-07 11:10 | DVHPN2 ---
Subjective Patient continues to have abdominal pain. Reviewed: Care Plan, H&P, Labs, Medications, Previous Orders, Radiology, Other Changes from previous H/P or p: Changes General: Per HPI Objective Vitals Vital Signs Date Time Temp Pulse Resp B/P (MAP) Pulse Ox O2 Delivery O2 Flow Rate FiO2 02/07/25 09:14 97 17 142/80 02/07/25 08:43 98.0 99 98.0 02/06/25 20:00 Nasal Cannula* 1 24 Intake/Output Intake and Output 02/07/25 07:00 Intake Total 4993 ml Output Total 460 ml Balance 4533 ml Intake Oral 2300 ml IV Total 2165 ml Other 528 ml Output Urine Total 300 ml Gastric Drainage Total 150 ml Drainage Total 10 ml General Appearance: Alert, Oriented X3, Cooperative, No acute distress HEENT: Atraumatic, PERRLA Lungs: Clear to auscultation, Normal air movement Cardiovascular: Regular rate, Normal S1, Normal S2 Abdomen: Other (Absent bowel sounds) Neuro: Normal speech Skin: Dry, Intact Psych/Mental Status: Mental status NL, Mood NL Medications Current Medications Medications Dose Ordered Sig/Francia Route Start Time Stop Time Status Last Admin Dose Admin Ceftriaxone Sodium 50 ml @ 100 mls/hr DAILY@09 IV 01/27/25 11:15 02/07/25 09:20 100 MLS/HR Acetaminophen/ Hydrocodone Bitart 1 tab Q4HP PRN PO 01/27/25 11:15 Hold 01/30/25 14:13 1 TAB Ondansetron HCl 4 mg Q4HP PRN IV 01/27/25 11:15 UNV Acetaminophen 650 mg Q6HP PRN PO 01/27/25 11:15 Sucralfate 1 gm QID PO 01/27/25 12:00 UNV Patient Own Medication 20 mg DAILY PO 01/28/25 10:00 UNV Patient Own Medication 1 tab TID PO 01/27/25 14:00 UNV Patient Own Medication 1 tab DAILY PO 01/28/25 10:00 UNV Diphenhydramine HCl 25 mg BIDP PRN PO 01/29/25 15:00 02/01/25 21:58 25 MG Lidocaine 1 patch DAILY TOP 01/31/25 13:45 02/07/25 09:21 1 PATCH Diagnostic Test (Pha) 1 strip Q6HR 02/02/25 00:00 02/07/25 06:24 1 STRIP Insulin Human Regular FOLLOW SLIDING SCALE Q6HR SC 02/02/25 00:00 02/07/25 06:23 2 UNITS Dextrose 50 ml UD IV 02/01/25 22:00 Lorazepam 0.5 mg Q6HP PRN IV 02/02/25 12:00 02/07/25 06:18 0.5 MG Sodium Chloride 10 ml QSHIFT@10,22 IV 02/02/25 22:00 02/07/25 09:23 10 ML Ondansetron HCl 4 mg Q4HPRN PRN IV 02/03/25 11:15 02/04/25 08:20 4 MG Hydromorphone HCl 1.25 mg Q3HPRN PRN IV 02/04/25 10:45 02/07/25 09:14 1.25 MG Potassium Chloride/Dextrose/ Sod Cl 1,000 ml @ 75 mls/hr [id number] IV 02/04/25 11:15 02/07/25 01:17 75 MLS/HR Metronidazole 100 ml @ 100 mls/hr Q8HR IV 02/04/25 14:00 02/07/25 05:54 100 MLS/HR Amino Acids 0 ml @ 0 mls/hr PER PHARMACY IV 02/04/25 11:15 Fat Emulsion Intravenous 50 ml/ Sodium Acetate 20 meq/Potassium Phosphate 44 meq/ Calcium Gluconate 2.3 meq/Magnesium Sulfate 12 meq/ Multivitamins 10 ml/Chromium/ Copper/Manganese/ Zinc 1 ml/Amino Acids/Dextrose 888.9462 ml @ 38 mls/hr [id number] IV 02/04/25 22:00 02/05/25 21:59 Cancel Pantoprazole Sodium 40 mg BID IV 02/04/25 22:00 02/07/25 09:19 40 MG Labetalol HCl 10 mg Q2HPRN PRN IV 02/04/25 13:00 02/06/25 17:29 10 MG Acetaminophen 1,000 mg [id number] PRN IV 02/05/25 10:15 02/07/25 01:22 1,000 MG Fat Emulsion Intravenous 100 ml/Sodium Phosphate 40 meq/ Potassium Chloride 40 meq/ Potassium Acetate 20 meq/Calcium Gluconate 4.65 meq/Magnesium Sulfate 12 meq/ Multivitamins 10 ml/Chromium/ Copper/Manganese/ Zinc 1 ml/Insulin Human Regular 20 units/Amino Acids/ Dextrose 1,364.2 ml @ 57 mls/hr [id number] IV 02/06/25 22:00 02/07/25 21:59 02/06/25 20:30 57 MLS/HR Laboratory Results Laboratory Tests 02/07/25 09:50 Chemistry Test 02/07/25 09:50 Albumin 2.6 g/dL (3.2-4.8) L Calcium Level 7.5 mg/dL (8.7-10.4) L Magnesium Level 2.0 mg/dL (1.6-2.6) Phosphorus Level 2.6 mg/dL (2.4-5.1) Total Protein 4.6 g/dL (5.7-8.2) L LFT Test 02/07/25 09:50 Alanine Aminotransferase (ALT) 15 U/L (7-40) Alkaline Phosphatase 76 U/L (46-116) Aspartate Amino Transferase (AST) 9 U/L (13-40) L Total Bilirubin 0.2 mg/dL (0.2-1.0) Urinalysis Test 01/27/25 07:41 Urine Color Yellow (Yellow) Urine Clarity Clear (Clear) Urine pH 6.0 (5.0-9.0) Urine Specific [place] 1.040 (1.001-1.035) Urine Protein 1+ (Negative) H Urine Ketones 3+ (Negative) H Urine Blood Negative /uL (Negative) Urine Nitrite Negative (Negative) Urine Bilirubin Negative (Negative) Urine Urobilinogen 2 mg/dL (Negative) H Urine Leukocyte Esterase 1+ /uL (Negative) Urine RBC 4 /hpf (0 - 4) Urine Microscopic WBC 9 /HPF (0-5) H Urine Squamous Epithelial Cells Few /hpf (<5) Urine Bacteria None seen /hpf (None Seen) Urine Mucus Few (None Seen) Urine Glucose Normal mg/dL (Normal) Labs and/or images reviewed: Labs reviewed by me, Image(s) reviewed by me Assessment/Plan Assessment/Plan Impression: -intractable nausea and vomiting -peptic ulcer disease -cholelithiasis -primary hypertension -recent endoscopy -pernicious drop in hemoglobin postoperatively Plan: Events: No events overnight. Patient ambulating approximately 12-15 feet with physical therapy and walker. Patient to be out of bed multiple times a day with nursing as well as PT. NG secretions continue to be bilious. -incentive spirometer q.1 hour while awake -continue NG tube to LIS -Surgical consult: Recommendations reviewed -NPO -SCD -continue TPN -electrolyte replacement -continue use labetalol as needed -pain management: Dilaudid, IV acetaminophen -Repeat labs in AM. Total time spent with patient discussing and formulating plan of care: 35 minutes. This medical document was created using an electronic medical record system with [employer] dictation system. Although this document has been carefully reviewed, there may still be some phonetic and typographical errors. These areas are purely typographical due to imperfections of the software programs, and do not reflect any compromise in the patient's medical care. Plan discussed with: Patient, Other (RN) Date of Service: Feb 07, 2025 Billing Provider: CORINA GONSALVES NP Common Visit Codes: [id number] INP/OBS CARE(HIGH) CORINA GONSALVES NP Feb 07, 2025 11:10
[2025-02-07] MEDS: TPN PER PHARMACY IV NR (22:20)
[2025-02-08] VITALS (8 sets, daily range): BP systolic 114–147; BP diastolic 59–73; PULSE 94–101; RESP 16–20; TEMP 97.5–99.7; O2SAT 96–98
[2025-02-08 06:28] LABS: Alanine Aminotransferase 13 U/L (7-40); Alkaline Phosphatase 79 U/L (46-116); Anion Gap 8 (5-15); BUN/Creatinine Ratio 28.6 (10.0-20.0); Blood Urea Nitrogen 10 mg/dL (9-23); Carbon Dioxide 29 mmol/L (20-31); Chloride 100 mmol/L (98-107); Magnesium 2.2 mg/dL (1.6-2.6); Potassium 4.0 mmol/L (3.5-5.1); Sodium 137 mmol/L (136-145)
[2025-02-08 06:29] LABS: Albumin 2.9 g/dL (3.2-4.8); Bilirubin, Total 0.2 mg/dL (0.2-1.0); Calcium 8.0 mg/dL (8.7-10.4); Glucose 120 mg/dL (74-106); Total Protein 5.1 g/dL (5.7-8.2)
--- NOTE | 2025-02-08 08:55 | DVHPN2 ---
Subjective Reports pain is improving to abdomen. Reviewed: Care Plan, H&P, Labs, Medications, Previous Orders, Radiology, Other Changes from previous H/P or p: Changes General: Per HPI Objective Vitals Vital Signs Date Time Temp Pulse Resp B/P (MAP) Pulse Ox O2 Delivery O2 Flow Rate FiO2 02/08/25 07:07 100 20 126/62 02/08/25 05:00 98.1 96 98.1 02/07/25 20:00 Nasal Cannula* 1 24 Intake/Output Intake and Output 02/08/25 07:00 Intake Total 2634.2 ml Output Total 2100 ml Balance 534.2 ml Intake Oral 0 ml IV Total 2634.2 ml Output Urine Total 2100 ml General Appearance: Alert, Oriented X3, Cooperative, No acute distress HEENT: Atraumatic, PERRLA Lungs: Clear to auscultation, Normal air movement Cardiovascular: Regular rate, Normal S1, Normal S2 Abdomen: No hepatospenomegaly, Other (Hypoactive bowel sounds. ANDREA with minimal serosang. fluid) Neuro: Normal speech Skin: Dry, Intact Psych/Mental Status: Mental status NL, Mood NL Medications Current Medications Medications Dose Ordered Sig/Francia Route Start Time Stop Time Status Last Admin Dose Admin Ceftriaxone Sodium 50 ml @ 100 mls/hr DAILY@09 IV 01/27/25 11:15 02/07/25 09:20 100 MLS/HR Acetaminophen/ Hydrocodone Bitart 1 tab Q4HP PRN PO 01/27/25 11:15 Hold 01/30/25 14:13 1 TAB Ondansetron HCl 4 mg Q4HP PRN IV 01/27/25 11:15 UNV Acetaminophen 650 mg Q6HP PRN PO 01/27/25 11:15 Sucralfate 1 gm QID PO 01/27/25 12:00 UNV Patient Own Medication 20 mg DAILY PO 01/28/25 10:00 UNV Patient Own Medication 1 tab TID PO 01/27/25 14:00 UNV Patient Own Medication 1 tab DAILY PO 01/28/25 10:00 UNV Diphenhydramine HCl 25 mg BIDP PRN PO 01/29/25 15:00 02/01/25 21:58 25 MG Lidocaine 1 patch DAILY TOP 01/31/25 13:45 02/07/25 09:21 1 PATCH Diagnostic Test (Pha) 1 strip Q6HR 10/1/25 00:00 02/08/25 06:00 1 STRIP Insulin Human Regular FOLLOW SLIDING SCALE Q6HR SC 02/02/25 00:00 02/08/25 06:08 4 UNITS Dextrose 50 ml UD IV 02/01/25 22:00 Lorazepam 0.5 mg Q6HP PRN IV 02/02/25 12:00 02/07/25 23:34 0.5 MG Sodium Chloride 10 ml QSHIFT@10,22 IV 02/02/25 22:00 02/07/25 22:04 10 ML Ondansetron HCl 4 mg Q4HPRN PRN IV 02/03/25 11:15 02/04/25 08:20 4 MG Hydromorphone HCl 1.25 mg Q3HPRN PRN IV 02/04/25 10:45 02/08/25 07:07 1.25 MG Potassium Chloride/Dextrose/ Sod Cl 1,000 ml @ 75 mls/hr [id number] IV 02/04/25 11:15 02/07/25 18:14 75 MLS/HR Metronidazole 100 ml @ 100 mls/hr Q8HR IV 02/04/25 14:00 02/08/25 06:08 100 MLS/HR Amino Acids 0 ml @ 0 mls/hr PER PHARMACY IV 02/04/25 11:15 Fat Emulsion Intravenous 50 ml/ Sodium Acetate 20 meq/Potassium Phosphate 44 meq/ Calcium Gluconate 2.3 meq/Magnesium Sulfate 12 meq/ Multivitamins 10 ml/Chromium/ Copper/Manganese/ Zinc 1 ml/Amino Acids/Dextrose 888.9462 ml @ 38 mls/hr [id number] IV 02/04/25 22:00 02/05/25 21:59 Cancel Pantoprazole Sodium 40 mg BID IV 02/04/25 22:00 02/07/25 22:04 40 MG Labetalol HCl 10 mg Q2HPRN PRN IV 02/04/25 13:00 02/06/25 17:29 10 MG Acetaminophen 1,000 mg [id number] PRN IV 02/05/25 10:15 02/07/25 01:22 1,000 MG Fat Emulsion Intravenous 150 ml/Sodium Phosphate 40 meq/ Potassium Acetate 60 meq/Calcium Gluconate 4.65 meq/Magnesium Sulfate 12 meq/ Multivitamins 10 ml/Chromium/ Copper/Manganese/ Zinc 1 ml/Insulin Human Regular 20 units/Amino Acids/ Dextrose 1,514.2 ml @ 63 mls/hr [id number] IV 02/07/25 22:00 02/08/25 21:59 02/07/25 22:20 63 MLS/HR Laboratory Results Laboratory Tests 02/07/25 09:50 02/08/25 04:57 Chemistry Test 02/07/25 09:50 02/08/25 04:57 Albumin 2.6 g/dL (3.2-4.8) L 2.9 g/dL (3.2-4.8) L Calcium Level 7.5 mg/dL (8.7-10.4) L 8.0 mg/dL (8.7-10.4) L Magnesium Level 2.0 mg/dL (1.6-2.6) 2.2 mg/dL (1.6-2.6) Phosphorus Level 2.6 mg/dL (2.4-5.1) 3.3 mg/dL (2.4-5.1) Total Protein 4.6 g/dL (5.7-8.2) L 5.1 g/dL (5.7-8.2) L LFT Test 02/07/25 09:50 02/08/25 04:57 Alanine Aminotransferase (ALT) 15 U/L (7-40) 13 U/L (7-40) Alkaline Phosphatase 76 U/L (46-116) 79 U/L (46-116) Aspartate Amino Transferase (AST) 9 U/L (13-40) L 19 U/L (13-40) Total Bilirubin 0.2 mg/dL (0.2-1.0) 0.2 mg/dL (0.2-1.0) Urinalysis Test 01/27/25 07:41 Urine Color Yellow (Yellow) Urine Clarity Clear (Clear) Urine pH 6.0 (5.0-9.0) Urine Specific [place] 1.040 (1.001-1.035) Urine Protein 1+ (Negative) H Urine Ketones 3+ (Negative) H Urine Blood Negative /uL (Negative) Urine Nitrite Negative (Negative) Urine Bilirubin Negative (Negative) Urine Urobilinogen 2 mg/dL (Negative) H Urine Leukocyte Esterase 1+ /uL (Negative) Urine RBC 4 /hpf (0 - 4) Urine Microscopic WBC 9 /HPF (0-5) H Urine Squamous Epithelial Cells Few /hpf (<5) Urine Bacteria None seen /hpf (None Seen) Urine Mucus Few (None Seen) Urine Glucose Normal mg/dL (Normal) Labs and/or images reviewed: Labs reviewed by me, Image(s) reviewed by me Assessment/Plan Assessment/Plan Impression: -intractable nausea and vomiting -peptic ulcer disease -cholelithiasis -primary hypertension -recent endoscopy -pernicious drop in hemoglobin postoperatively Plan: Events: No events overnight. Increased activity tolerance. OOB TID to chair. Ambulated TID -incentive spirometer q.1 hour while awake -continue NG tube to LIS -Surgical consult: Recommendations reviewed -NPO -SCD -continue TPN -electrolyte replacement -continue use labetalol as needed -pain management: Dilaudid, IV acetaminophen -Repeat labs in AM. Total time spent with patient discussing and formulating plan of care: 35 minutes. This medical document was created using an electronic medical record system with [employer] dictation system. Although this document has been carefully reviewed, there may still be some phonetic and typographical errors. These areas are purely typographical due to imperfections of the software programs, and do not reflect any compromise in the patient's medical care. Plan discussed with: Patient, Son, Other (Rn) My Orders Orders - CORINA GONSALVES NP Procedure Category Date Status Time Amino Acid PHA 02/07/25 In Process Infusion... W/Fat 22:00 Tpn Per Pharmacy [facility] 02/07/25 In Process 22:00 Date of Service: Feb 08, 2025 Billing Provider: CORINA GONSALVES NP Common Visit Codes: [id number] INP/OBS CARE(HIGH) CORINA GONSALVES NP Feb 08, 2025 08:55
--- NOTE | 2025-02-08 22:10 | DVHPN2 ---
Progress Note - Dictate Date Seen: Feb 08, 2025 Medical Necessity Reason Pt with a Central, PICC or Fol: No Subjective Postop day 5. S/P laparotomy with Cholecystectomy, antrectomy, truncal vagotomy, gastrojejunostomy. Patient sitting up in bed with mild postop pain ongoing NG tube output minimal Patient is on IV TPN vital signs Vital Sign Date Time Temp Pulse Resp B/P (MAP) Pulse Ox O2 Delivery O2 Flow Rate FiO2 02/08/25 21:39 105 20 120/65 02/08/25 16:51 99.7 98 99.7 02/08/25 08:00 Nasal Cannula* 1 24 Total Intake and Output 02/07/25 02/07/25 02/08/25 15:00 23:00 07:00 Intake Total 150 ml 2384.2 ml 100 ml Output Total 400 ml 1700 ml Balance 150 ml 1984.2 ml -1600 ml medications Current Medications Medications Dose Ordered Sig/Francia Route Start Time Stop Time Status Last Admin Dose Admin Ceftriaxone Sodium 50 ml @ 100 mls/hr DAILY@09 IV 01/27/25 11:15 02/08/25 10:32 100 MLS/HR Acetaminophen/ Hydrocodone Bitart 1 tab Q4HP PRN PO 01/27/25 11:15 Hold 01/30/25 14:13 1 TAB Ondansetron HCl 4 mg Q4HP PRN IV 01/27/25 11:15 UNV Acetaminophen 650 mg Q6HP PRN PO 01/27/25 11:15 Sucralfate 1 gm QID PO 01/27/25 12:00 UNV Patient Own Medication 20 mg DAILY PO 01/28/25 10:00 UNV Patient Own Medication 1 tab TID PO 01/27/25 14:00 UNV Patient Own Medication 1 tab DAILY PO 01/28/25 10:00 UNV Diphenhydramine HCl 25 mg BIDP PRN PO 01/29/25 15:00 02/01/25 21:58 25 MG Lidocaine 1 patch DAILY TOP 01/31/25 13:45 02/08/25 11:09 1 PATCH Diagnostic Test (Pha) 1 strip Q6HR 02/02/25 00:00 02/08/25 18:08 1 STRIP Insulin Human Regular FOLLOW SLIDING SCALE Q6HR SC 02/02/25 00:00 02/08/25 18:08 4 UNITS Dextrose 50 ml UD IV 02/01/25 22:00 Lorazepam 0.5 mg Q6HP PRN IV 02/02/25 12:00 02/08/25 20:18 0.5 MG Sodium Chloride 10 ml QSHIFT@10,22 IV 02/02/25 22:00 02/08/25 10:32 10 ML Ondansetron HCl 4 mg Q4HPRN PRN IV 02/03/25 11:15 02/04/25 08:20 4 MG Hydromorphone HCl 1.25 mg Q3HPRN PRN IV 02/04/25 10:45 02/08/25 21:39 1.25 MG Potassium Chloride/Dextrose/ Sod Cl 1,000 ml @ 75 mls/hr [id number] IV 02/04/25 11:15 02/08/25 11:11 75 MLS/HR Metronidazole 100 ml @ 100 mls/hr Q8HR IV 02/04/25 14:00 02/08/25 14:02 100 MLS/HR Amino Acids 0 ml @ 0 mls/hr PER PHARMACY IV 02/04/25 11:15 Fat Emulsion Intravenous 50 ml/ Sodium Acetate 20 meq/Potassium Phosphate 44 meq/ Calcium Gluconate 2.3 meq/Magnesium Sulfate 12 meq/ Multivitamins 10 ml/Chromium/ Copper/Manganese/ Zinc 1 ml/Amino Acids/Dextrose 888.9462 ml @ 38 mls/hr [id number] IV 02/04/25 22:00 02/05/25 21:59 Cancel Pantoprazole Sodium 40 mg BID IV 02/04/25 22:00 02/08/25 10:32 40 MG Labetalol HCl 10 mg Q2HPRN PRN IV 02/04/25 13:00 02/06/25 17:29 10 MG Acetaminophen 1,000 mg [id number] PRN IV 02/05/25 10:15 02/07/25 01:22 1,000 MG Fat Emulsion Intravenous 150 ml/Sodium Acetate 20 meq/Sodium Phosphate 20 meq/ Potassium Chloride 50 meq/ Calcium Gluconate 4.65 meq/ Magnesium Sulfate 12 meq/ Multivitamins 10 ml/Chromium/ Copper/Manganese/ Zinc 1 ml/Insulin Human Regular 18 units/Amino Acids/ Dextrose 1,564.18 ml @ 65 mls/hr Q24H4M IV 02/08/25 22:00 10/8/25 21:59 objective General: NAD, AAOX3; NG tube to low intermittent suction Chest: lung dasilva clear to auscultation Heart: RRR, no murmur Abdomen soft nontender drain in place dressing dry Extremities without clubbing cyanosis or edema laboratory and microbiology Laboratory Tests 02/08/25 04:57 02/07/25 09:50 Test 02/08/25 04:57 Range/Units Serum Glucose 120 H 74-106 mg/dL Problems(with codes): (1) Duodenal stenosis (2) Abdominal pain (3) Duodenal ulcer disease (4) Intractable nausea and vomiting (5) Cholelithiasis Prognosis Plan Continue postop care as per surgical consult Patient is continue to be NPO with NG tube to low intermittent suction Continue IV TPN and antibiotics Continue IV Protonix 40 mg q.12 hours Tentative plan for a possible Gastrografin upper GI x-ray in the 2-3 days If that is negative then start clear liquid diet Ongoing PT Dietary Evaluation Review Comments: Nutrition Recommendation 1) Ensure clear TID 2) Advance diet as medically feasible 3) Monitor PO intake, lab values, weight trend, and I/O Expected Outcomes/Goals: To meet >75% estimated needs GI symptoms to improve Fu 2-3 days Plan discussed with: Patient, Son LOW CHRISTINE MD Feb 08, 2025 22:10
[2025-02-08] MEDS: TPN PER PHARMACY IV NR (22:21)
[2025-02-09] VITALS (9 sets, daily range): BP systolic 114–147; BP diastolic 63–73; PULSE 95–106; RESP 16–19; TEMP 98.2–99.5; O2SAT 92–97
[2025-02-09 07:18] LABS: Chloride 99.0 mmol/L (98-107); Potassium 4.1 mmol/L (3.5-5.1)
[2025-02-09 07:19] LABS: Anion Gap 7.0 (5-15); Carbon Dioxide 28.0 mmol/L (20-31)
[2025-02-09 07:20] LABS: Calcium 8.1 mg/dL (8.7-10.4); Sodium 134.0 mmol/L (136-145)
[2025-02-09 07:24] LABS: BUN/Creatinine Ratio 29.4 (10.0-20.0); Blood Urea Nitrogen 10.0 mg/dL (9-23); Triglycerides 94.0 mg/dL (< 150)
[2025-02-09 07:25] LABS: Magnesium 2.1 mg/dL (1.6-2.6)
[2025-02-09 07:27] LABS: Albumin 3.0 g/dL (3.2-4.8); Glucose 134.0 mg/dL (74-106)
[2025-02-09] MEDS: LORazepam 2MG/ML-1ML VIAL ONE (07:31)
--- NOTE | 2025-02-09 13:22 | DVHPN2 ---
Progress Note Date Seen: Feb 09, 2025 Medical Necessity Reason Pt with a Central, PICC or Fol: No Objective vital signs Vital Sign Date Time Temp Pulse Resp B/P (MAP) Pulse Ox O2 Delivery O2 Flow Rate FiO2 02/09/25 10:50 95 17 122/66 02/09/25 09:00 98.6 97 98.6 02/09/25 08:00 Nasal Cannula* 1 24 Total Intake and Output 02/08/25 02/08/25 02/09/25 15:00 23:00 07:00 Intake Total 150 ml 1814.2 ml 100 ml Output Total 625 ml 0 ml Balance 150 ml 1189.2 ml 100 ml medications Current Medications Medications Dose Ordered Sig/Francia Route Start Time Stop Time Status Last Admin Dose Admin Ceftriaxone Sodium 50 ml @ 100 mls/hr DAILY@09 IV 01/27/25 11:15 02/09/25 09:24 100 MLS/HR Acetaminophen/ Hydrocodone Bitart 1 tab Q4HP PRN PO 01/27/25 11:15 Hold 01/30/25 14:13 1 TAB Ondansetron HCl 4 mg Q4HP PRN IV 01/27/25 11:15 UNV Acetaminophen 650 mg Q6HP PRN PO 01/27/25 11:15 Sucralfate 1 gm QID PO 01/27/25 12:00 UNV Patient Own Medication 20 mg DAILY PO 01/28/25 10:00 UNV Patient Own Medication 1 tab TID PO 01/27/25 14:00 UNV Patient Own Medication 1 tab DAILY PO 01/28/25 10:00 UNV Diphenhydramine HCl 25 mg BIDP PRN PO 01/29/25 15:00 02/01/25 21:58 25 MG Lidocaine 1 patch DAILY TOP 01/31/25 13:45 02/09/25 09:25 1 PATCH Diagnostic Test (Pha) 1 strip Q6HR 02/02/25 00:00 02/09/25 12:03 1 STRIP Insulin Human Regular FOLLOW SLIDING SCALE Q6HR SC 02/02/25 00:00 02/09/25 06:24 2 UNITS Dextrose 50 ml UD IV 02/01/25 22:00 Lorazepam 0.5 mg Q6HP PRN IV 02/02/25 12:00 02/08/25 20:18 0.5 MG Sodium Chloride 10 ml QSHIFT@ IV 02/02/25 22:00 02/09/25 09:25 10 ML Ondansetron HCl 4 mg Q4HPRN PRN IV 02/03/25 11:15 02/04/25 08:20 4 MG Hydromorphone HCl 1.25 mg Q3HPRN PRN IV 02/04/25 10:45 02/09/25 10:20 1.25 MG Potassium Chloride/Dextrose/ Sod Cl 1,000 ml @ 75 mls/hr [id number] IV 02/04/25 11:15 02/09/25 09:43 75 MLS/HR Metronidazole 100 ml @ 100 mls/hr Q8HR IV 02/04/25 14:00 02/09/25 06:25 100 MLS/HR Amino Acids 0 ml @ 0 mls/hr PER PHARMACY IV 02/04/25 11:15 Fat Emulsion Intravenous 50 ml/ Sodium Acetate 20 meq/Potassium Phosphate 44 meq/ Calcium Gluconate 2.3 meq/Magnesium Sulfate 12 meq/ Multivitamins 10 ml/Chromium/ Copper/Manganese/ Zinc 1 ml/Amino Acids/Dextrose 888.9462 ml @ 38 mls/hr [id number] IV 02/04/25 22:00 02/05/25 21:59 Cancel Pantoprazole Sodium 40 mg BID IV 02/04/25 22:00 02/09/25 09:25 40 MG Labetalol HCl 10 mg Q2HPRN PRN IV 02/04/25 13:00 02/06/25 17:29 10 MG Acetaminophen 1,000 mg [id number] PRN IV 02/05/25 10:15 02/07/25 01:22 1,000 MG Fat Emulsion Intravenous 150 ml/Sodium Acetate 20 meq/Sodium Phosphate 20 meq/ Potassium Chloride 50 meq/ Calcium Gluconate 4.65 meq/ Magnesium Sulfate 12 meq/ Multivitamins 10 ml/Chromium/ Copper/Manganese/ Zinc 1 ml/Insulin Human Regular 18 units/Amino Acids/ Dextrose 1,564.18 ml @ 65 mls/hr Q24H4M IV 02/08/25 22:00 02/09/25 21:59 02/08/25 22:21 65 MLS/HR Fat Emulsion Intravenous 150 ml/Sodium Chloride 20 meq/ Sodium Phosphate 20 meq/Potassium Chloride 50 meq/ Calcium Gluconate 4.65 meq/ Magnesium Sulfate 12 meq/ Multivitamins 10 ml/Chromium/ Copper/Manganese/ Zinc 1 ml/Insulin Human Regular 18 units/Amino Acids/ Dextrose 1,559.18 ml @ 65 mls/hr Q24H IV 02/09/25 22:00 02/10/25 21:59 laboratory and microbiology Laboratory Tests 02/09/25 06:06 02/07/25 09:50 Test 02/09/25 06:06 Range/Units Serum Glucose 134 H 74-106 mg/dL Problem List/Assessment/Plan Problem List/Assessment/Plan 02/04/25 c/o inadequate pain control,abdomen appropriately tender., non distended, dressing dry, andrea drainage serosanguineous,labs reviewed. will adjust pain Rx 02/05/25 afebrile, normotensive, dressing dry, abdomen soft appropriately tender. ANDREA drainage serous, labs reviewed, continue PT, no changes, has not passed flatus. continue strict npo and NG tube suction. 02/06/25 very reluctant to walk despite repeated explanation , wound clean and well approximated, drainage sero sanguineous, abdomen soft and non distended, appropriately tender, Labs's reviewed. 02/07/25 HAD A "BETTER NIGHT" LAST NIGHT BUT AGAIN ONLY WALKED ONCE LAST 24 HOURS, i HAVE ONCE AGAIN STRESSED THE IMPORTANCE OF AMBULATING. WOUND CLEAN AND WELL APPROXIMATED, DRAINAGE SEROSANGUINEOUS, REPORTEDLY PASSED FLATUS . LABS REVIEWED, I WILL ORDER A UGI WITH GASTROGRAFIN FOR FRIDAY TO EVALUATE THE PATENCY AND INTEGRITY OF THE GASTRO JEJUNOSTOMY. 02/09/25 feeling better but still not ambulating ,wound clean and well approximated, abdomen appropriately tender, drainage per ANDREA drain serous, UGI xray pending Plan discussed with: Patient Dietary Evaluation Review Comments: Nutrition Recommendation 1) Ensure clear TID 2) Advance diet as medically feasible 3) Monitor PO intake, lab values, weight trend, and I/O Expected Outcomes/Goals: To meet >75% estimated needs GI symptoms to improve Fu 2-3 days GIN ORLANDO MD Feb 09, 2025 13:22
--- NOTE | 2025-02-09 13:42 | DVH ---
XY ESOPHAGUS GASTROGRAFIN SWALLOW, XY UGI WITH GASTROGRAFIN, HISTORY: EVAL PATENCY AND INTEGRITY OF GASTROJEJUNOSTOMY COMPARISON: XY UGI WITH GASTROGRAFIN on DOS: 02/09/25, XY UGI WITH GASTROGRAFIN on DOS: 12/29/23 PROCEDURE: A manometer technician radiograph was obtained prior to the procedure. Gastrografin was administered oral ly, and radiographs were obtained under intermittent fluoroscopic observation. Total fluoroscopic chrissy e was 0.3 minutes. FINDINGS: The esophagus was normal in caliber with no stricture, filling defect or wall irregularity demonstrat ed. Normal esophageal peristalsis was observed. There was prompt passage of contrast through a normal appearing gastroesophageal junction. The stomac h was distended with contrast and contrast was seen passing through the gastrojejunostomy into unrema rkable appearing small bowel.Contrast flowed into more distal loops of small bowel, with no abnormali ty identified. IMPRESSION: No extravasation of contrast seen at the site of the gastrojejunostomy with contrast passing through more distally into the small bowel.
--- NOTE | 2025-02-09 13:42 | DVH ---
XY ESOPHAGUS GASTROGRAFIN SWALLOW, XY UGI WITH GASTROGRAFIN, HISTORY: EVAL PATENCY AND INTEGRITY OF GASTROJEJUNOSTOMY COMPARISON: XY UGI WITH GASTROGRAFIN on DOS: 02/09/25, XY UGI WITH GASTROGRAFIN on DOS: 12/29/23 PROCEDURE: A enterprise systems manager radiograph was obtained prior to the procedure. Gastrografin was administered oral ly, and radiographs were obtained under intermittent fluoroscopic observation. Total fluoroscopic chrissy e was 0.3 minutes. FINDINGS: The esophagus was normal in caliber with no stricture, filling defect or wall irregularity demonstrat ed. Normal esophageal peristalsis was observed. There was prompt passage of contrast through a normal appearing gastroesophageal junction. The stomac h was distended with contrast and contrast was seen passing through the gastrojejunostomy into unrema rkable appearing small bowel.Contrast flowed into more distal loops of small bowel, with no abnormali ty identified. IMPRESSION: No extravasation of contrast seen at the site of the gastrojejunostomy with contrast passing through more distally into the small bowel.
[2025-02-09] MEDS: SODIUM CHLORIDE 0.9% 1,000 ML IV SCH (14:36)
--- NOTE | 2025-02-09 20:52 | DVHPN2 ---
Progress Note - Dictate Date Seen: Feb 09, 2025 (Time of visit 3:00 p.m.) Medical Necessity Reason Pt with a Central, PICC or Fol: No Subjective Postop day 6. S/P laparotomy with Cholecystectomy, antrectomy, truncal vagotomy, gastrojejunostomy. Patient is OOB to chair NG tube output minimal Patient is on IV TPN vital signs Vital Sign Date Time Temp Pulse Resp B/P (MAP) Pulse Ox O2 Delivery O2 Flow Rate FiO2 02/09/25 20:11 104 18 125/81 02/09/25 17:00 98.5 92 98.5 02/09/25 08:00 Nasal Cannula* 1 24 Total Intake and Output 02/08/25 02/08/25 02/09/25 15:00 23:00 07:00 Intake Total 150 ml 1814.2 ml 100 ml Output Total 625 ml 0 ml Balance 150 ml 1189.2 ml 100 ml medications Current Medications Medications Dose Ordered Sig/Francia Route Start Time Stop Time Status Last Admin Dose Admin Ceftriaxone Sodium 50 ml @ 100 mls/hr DAILY@09 IV 01/27/25 11:15 02/09/25 09:24 100 MLS/HR Acetaminophen/ Hydrocodone Bitart 1 tab Q4HP PRN PO 01/27/25 11:15 Hold 01/30/25 14:13 1 TAB Ondansetron HCl 4 mg Q4HP PRN IV 01/27/25 11:15 UNV Acetaminophen 650 mg Q6HP PRN PO 01/27/25 11:15 Sucralfate 1 gm QID PO 01/27/25 12:00 UNV Patient Own Medication 20 mg DAILY PO 01/28/25 10:00 UNV Patient Own Medication 1 tab TID PO 01/27/25 14:00 UNV Patient Own Medication 1 tab DAILY PO 01/28/25 10:00 UNV Diphenhydramine HCl 25 mg BIDP PRN PO 01/29/25 15:00 02/01/25 21:58 25 MG Lidocaine 1 patch DAILY TOP 01/31/25 13:45 02/09/25 09:25 1 PATCH Diagnostic Test (Pha) 1 strip Q6HR 02/02/25 00:00 02/09/25 18:29 1 STRIP Insulin Human Regular FOLLOW SLIDING SCALE Q6HR SC 02/02/25 00:00 02/09/25 18:30 4 UNITS Dextrose 50 ml UD IV 02/01/25 22:00 Lorazepam 0.5 mg Q6HP PRN IV 02/02/25 12:00 02/08/25 20:18 0.5 MG Sodium Chloride 10 ml QSHIFT@10,22 IV 02/02/25 22:00 02/09/25 09:25 10 ML Ondansetron HCl 4 mg Q4HPRN PRN IV 02/03/25 11:15 02/04/25 08:20 4 MG Hydromorphone HCl 1.25 mg Q3HPRN PRN IV 02/04/25 10:45 02/09/25 20:11 1.25 MG Metronidazole 100 ml @ 100 mls/hr Q8HR IV 02/04/25 14:00 02/09/25 15:53 100 MLS/HR Amino Acids 0 ml @ 0 mls/hr PER PHARMACY IV 02/04/25 11:15 Fat Emulsion Intravenous 50 ml/ Sodium Acetate 20 meq/Potassium Phosphate 44 meq/ Calcium Gluconate 2.3 meq/Magnesium Sulfate 12 meq/ Multivitamins 10 ml/Chromium/ Copper/Manganese/ Zinc 1 ml/Amino Acids/Dextrose 888.9462 ml @ 38 mls/hr [id number] IV 02/04/25 22:00 02/05/25 21:59 Cancel Pantoprazole Sodium 40 mg BID IV 02/04/25 22:00 02/09/25 09:25 40 MG Labetalol HCl 10 mg Q2HPRN PRN IV 02/04/25 13:00 02/06/25 17:29 10 MG Acetaminophen 1,000 mg [id number] PRN IV 02/05/25 10:15 02/07/25 01:22 1,000 MG Fat Emulsion Intravenous 150 ml/Sodium Acetate 20 meq/Sodium Phosphate 20 meq/ Potassium Chloride 50 meq/ Calcium Gluconate 4.65 meq/ Magnesium Sulfate 12 meq/ Multivitamins 10 ml/Chromium/ Copper/Manganese/ Zinc 1 ml/Insulin Human Regular 18 units/Amino Acids/ Dextrose 1,564.18 ml @ 65 mls/hr Q24H4M IV 02/08/25 22:00 02/09/25 21:59 02/08/25 22:21 65 MLS/HR Fat Emulsion Intravenous 150 ml/Sodium Chloride 20 meq/ Sodium Phosphate 20 meq/Potassium Chloride 50 meq/ Calcium Gluconate 4.65 meq/ Magnesium Sulfate 12 meq/ Multivitamins 10 ml/Chromium/ Copper/Manganese/ Zinc 1 ml/Insulin Human Regular 18 units/Amino Acids/ Dextrose 1,559.18 ml @ 65 mls/hr Q24H IV 02/09/25 22:00 02/10/25 21:59 Sodium Chloride 1,000 ml @ 40 mls/hr Q24H IV 02/09/25 13:30 02/09/25 14:36 40 MLS/HR objective General: NAD, AAOX3; NG tube to low intermittent suction Chest: lung dasilva clear to auscultation Heart: RRR, no murmur Abdomen soft nontender drain in place dressing dry Extremities without clubbing cyanosis or edema laboratory and microbiology Laboratory Tests 02/09/25 06:06 02/07/25 09:50 Test 02/09/25 06:06 Range/Units Serum Glucose 134 H 74-106 mg/dL Gastrograffin UGI XRay IMPRESSION: No extravasation of contrast seen at the site of the gastrojejunostomy with contrast passing through more distally into the small bowel. Problems(with codes): (1) Duodenal stenosis (2) Duodenal ulcer disease (3) Intractable nausea and vomiting (4) Abnormal finding on radiology exam (5) Abdominal pain Prognosis Plan PICC line dressing change Awaiting surgical follow up; continue physical therapy We will likely clamp and removed the NG tube and start her on clear liquids once cleared by surgical consult Dietary Evaluation Review Comments: Nutrition Recommendation 1) Ensure clear TID 2) Advance diet as medically feasible 3) Monitor PO intake, lab values, weight trend, and I/O Expected Outcomes/Goals: To meet >75% estimated needs GI symptoms to improve Fu 2-3 days Plan discussed with: Patient, Son LOW CHRISTINE MD Feb 09, 2025 20:52
[2025-02-09] MEDS: TPN PER PHARMACY IV NR (21:56)
[2025-02-10] VITALS (8 sets, daily range): BP systolic 116–135; BP diastolic 67–74; PULSE 91–103; RESP 16–18; TEMP 98–98.9; O2SAT 94–97
[2025-02-10 06:13] LABS: Alanine Aminotransferase 34 U/L (7-40); Anion Gap 11 (5-15); BUN/Creatinine Ratio 52.5 (10.0-20.0); Blood Urea Nitrogen 21 mg/dL (9-23); Carbon Dioxide 26 mmol/L (20-31); Chloride 102 mmol/L (98-107); Glucose 92 mg/dL (74-106); Magnesium 2.3 mg/dL (1.6-2.6); Potassium 3.9 mmol/L (3.5-5.1); Sodium 139 mmol/L (136-145); Total Protein 5.8 g/dL (5.7-8.2)
[2025-02-10 06:14] LABS: Bilirubin, Total 0.3 mg/dL (0.2-1.0)
[2025-02-10 06:19] LABS: Albumin 3.2 g/dL (3.2-4.8); Alkaline Phosphatase 162 U/L (46-116); Calcium 8.4 mg/dL (8.7-10.4)
--- NOTE | 2025-02-10 07:07 | DVHPN2 ---
Progress Note Date Seen: Feb 10, 2025 Medical Necessity Reason Pt with a Central, PICC or Fol: No Objective vital signs Vital Sign Date Time Temp Pulse Resp B/P (MAP) Pulse Ox O2 Delivery O2 Flow Rate FiO2 02/10/25 06:24 95 18 121/62 02/10/25 05:00 98.6 95 98.6 02/09/25 20:09 Nasal Cannula* 1 24 Total Intake and Output 02/09/25 02/09/25 02/10/25 15:00 23:00 07:00 Intake Total 600 ml 955 ml 0 ml Output Total 1875 ml 200 ml Balance 600 ml -920 ml -200 ml medications Current Medications Medications Dose Ordered Sig/Francia Route Start Time Stop Time Status Last Admin Dose Admin Ceftriaxone Sodium 50 ml @ 100 mls/hr DAILY@09 IV 01/27/25 11:15 02/09/25 09:24 100 MLS/HR Acetaminophen/ Hydrocodone Bitart 1 tab Q4HP PRN PO 01/27/25 11:15 Hold 01/30/25 14:13 1 TAB Ondansetron HCl 4 mg Q4HP PRN IV 01/27/25 11:15 UNV Acetaminophen 650 mg Q6HP PRN PO 01/27/25 11:15 Sucralfate 1 gm QID PO 01/27/25 12:00 UNV Patient Own Medication 20 mg DAILY PO 01/28/25 10:00 UNV Patient Own Medication 1 tab TID PO 01/27/25 14:00 UNV Patient Own Medication 1 tab DAILY PO 01/28/25 10:00 UNV Diphenhydramine HCl 25 mg BIDP PRN PO 01/29/25 15:00 02/01/25 21:58 25 MG Lidocaine 1 patch DAILY TOP 01/31/25 13:45 02/09/25 09:25 1 PATCH Diagnostic Test (Pha) 1 strip Q6HR 02/02/25 00:00 02/10/25 06:17 1 STRIP Insulin Human Regular FOLLOW SLIDING SCALE Q6HR SC 02/02/25 00:00 02/10/25 06:19 2 UNITS Dextrose 50 ml UD IV 02/01/25 22:00 Lorazepam 0.5 mg Q6HP PRN IV 02/02/25 12:00 02/09/25 21:45 0.5 MG Sodium Chloride 10 ml QSHIFT@,22 IV 02/02/25 22:00 02/09/25 21:45 10 ML Ondansetron HCl 4 mg Q4HPRN PRN IV 02/03/25 11:15 02/04/25 08:20 4 MG Hydromorphone HCl 1.25 mg Q3HPRN PRN IV 02/04/25 10:45 02/10/25 06:24 1.25 MG Metronidazole 100 ml @ 100 mls/hr Q8HR IV 02/04/25 14:00 02/10/25 05:43 100 MLS/HR Amino Acids 0 ml @ 0 mls/hr PER PHARMACY IV 02/04/25 11:15 Fat Emulsion Intravenous 50 ml/ Sodium Acetate 20 meq/Potassium Phosphate 44 meq/ Calcium Gluconate 2.3 meq/Magnesium Sulfate 12 meq/ Multivitamins 10 ml/Chromium/ Copper/Manganese/ Zinc 1 ml/Amino Acids/Dextrose 888.9462 ml @ 38 mls/hr [id number] IV 02/04/25 22:00 02/05/25 21:59 Cancel Pantoprazole Sodium 40 mg BID IV 02/04/25 22:00 02/09/25 21:45 40 MG Labetalol HCl 10 mg Q2HPRN PRN IV 02/04/25 13:00 02/06/25 17:29 10 MG Acetaminophen 1,000 mg [id number] PRN IV 02/05/25 10:15 02/07/25 01:22 1,000 MG Fat Emulsion Intravenous 150 ml/Sodium Chloride 20 meq/ Sodium Phosphate 20 meq/Potassium Chloride 50 meq/ Calcium Gluconate 4.65 meq/ Magnesium Sulfate 12 meq/ Multivitamins 10 ml/Chromium/ Copper/Manganese/ Zinc 1 ml/Insulin Human Regular 18 units/Amino Acids/ Dextrose 1,559.18 ml @ 65 mls/hr Q24H IV 02/09/25 22:00 02/10/25 21:59 02/09/25 21:56 65 MLS/HR Sodium Chloride 1,000 ml @ 40 mls/hr Q24H IV 02/09/25 13:30 02/09/25 14:36 40 MLS/HR laboratory and microbiology Laboratory Tests 02/10/25 04:57 02/07/25 09:50 Test 02/10/25 04:57 Range/Units Serum Glucose 92 74-106 mg/dL Problem List/Assessment/Plan Problem List/Assessment/Plan 02/04/25 c/o inadequate pain control,abdomen appropriately tender., non distended, dressing dry, andrea drainage serosanguineous,labs reviewed. will adjust pain Rx 02/05/25 afebrile, normotensive, dressing dry, abdomen soft appropriately tender. ANDREA drainage serous, labs reviewed, continue PT, no changes, has not passed flatus. continue strict npo and NG tube suction. 02/06/25 very reluctant to walk despite repeated explanation , wound clean and well approximated, drainage sero sanguineous, abdomen soft and non distended, appropriately tender, Labs's reviewed. 02/07/25 HAD A "BETTER NIGHT" LAST NIGHT BUT AGAIN ONLY WALKED ONCE LAST 24 HOURS, i HAVE ONCE AGAIN STRESSED THE IMPORTANCE OF AMBULATING. WOUND CLEAN AND WELL APPROXIMATED, DRAINAGE SEROSANGUINEOUS, REPORTEDLY PASSED FLATUS . LABS REVIEWED, I WILL ORDER A UGI WITH GASTROGRAFIN FOR FRIDAY TO EVALUATE THE PATENCY AND INTEGRITY OF THE GASTRO JEJUNOSTOMY. 02/09/25 feeling better but still not ambulating ,wound clean and well approximated, abdomen appropriately tender, drainage per ANDREA drain serous, UGI xray pending 02/10/25 X RAYS REVIEWED, THERE IS GOOD PASSAGE OG CONTRAST THROUGH THE GASTROJEJUNOSTOMY AND NO EVIDENCE OF EXTRAVASATION, THE GASTRIC REMNANT IS SLIGHTLY DISTENDED, WILL GIVE REGLAN, WILL DC NGT AND START PO LIQUIDS, WOUND IS CLEAN AND WELL APPROXIMATED, ABDOMEN APPROPRIATELY TENDER, ANDREA DRAINAGE SEROUS.CHEMISTRY OK. Plan discussed with: Patient Dietary Evaluation Review Comments: Nutrition Recommendation 1) Ensure clear TID 2) Advance diet as medically feasible 3) Monitor PO intake, lab values, weight trend, and I/O Expected Outcomes/Goals: To meet >75% estimated needs GI symptoms to improve Fu 2-3 days GIN ORLANDO MD Feb 10, 2025 07:07
--- NOTE | 2025-02-10 11:07 | DVHPN2 ---
Subjective Reports pain is improving to abdomen. Reviewed: Care Plan, H&P, Labs, Medications, Previous Orders, Radiology, Other Changes from previous H/P or p: No Changes General: Per HPI Objective Vitals Vital Signs Date Time Temp Pulse Resp B/P (MAP) Pulse Ox O2 Delivery O2 Flow Rate FiO2 02/10/25 09:37 91 16 122/68 02/10/25 09:00 98.5 95 98.5 02/09/25 20:09 Nasal Cannula* 1 24 Intake/Output Intake and Output 02/10/25 07:00 Intake Total 1555 ml Output Total 2075 ml Balance -520 ml Intake Oral 0 ml IV Total 1555 ml Output Urine Total 1950 ml Gastric Drainage Total 100 ml Drainage Total 25 ml # Bowel Movements 4 General Appearance: Alert, Oriented X3, Cooperative, No acute distress HEENT: Atraumatic, PERRLA Lungs: Clear to auscultation, Normal air movement Cardiovascular: Regular rate, Normal S1, Normal S2 Abdomen: No hepatospenomegaly, Other (Hypoactive bowel sounds. ANDREA with minimal serosang. fluid) Neuro: Normal speech Skin: Dry, Intact Psych/Mental Status: Mental status NL, Mood NL Medications Current Medications Medications Dose Ordered Sig/Francia Route Start Time Stop Time Status Last Admin Dose Admin Ceftriaxone Sodium 50 ml @ 100 mls/hr DAILY@09 IV 01/27/25 11:15 02/10/25 09:36 100 MLS/HR Acetaminophen/ Hydrocodone Bitart 1 tab Q4HP PRN PO 01/27/25 11:15 Hold 01/30/25 14:13 1 TAB Ondansetron HCl 4 mg Q4HP PRN IV 01/27/25 11:15 UNV Acetaminophen 650 mg Q6HP PRN PO 01/27/25 11:15 Sucralfate 1 gm QID PO 01/27/25 12:00 UNV Patient Own Medication 20 mg DAILY PO 01/28/25 10:00 UNV Patient Own Medication 1 tab TID PO 01/27/25 14:00 UNV Patient Own Medication 1 tab DAILY PO 01/28/25 10:00 UNV Diphenhydramine HCl 25 mg BIDP PRN PO 01/29/25 15:00 02/01/25 21:58 25 MG Lidocaine 1 patch DAILY TOP 01/31/25 13:45 02/10/25 09:37 1 PATCH Diagnostic Test (Pha) 1 strip Q6HR 02/02/25 00:00 02/10/25 06:17 1 STRIP Insulin Human Regular FOLLOW SLIDING SCALE Q6HR SC 02/02/25 00:00 02/10/25 06:19 2 UNITS Dextrose 50 ml UD IV 02/01/25 22:00 Lorazepam 0.5 mg Q6HP PRN IV 02/02/25 12:00 02/09/25 21:45 0.5 MG Sodium Chloride 10 ml QSHIFT@10,22 IV 02/02/25 22:00 02/10/25 09:37 10 ML Ondansetron HCl 4 mg Q4HPRN PRN IV 02/03/25 11:15 02/04/25 08:20 4 MG Hydromorphone HCl 1.25 mg Q3HPRN PRN IV 02/04/25 10:45 02/10/25 09:37 1.25 MG Metronidazole 100 ml @ 100 mls/hr Q8HR IV 02/04/25 14:00 02/10/25 05:43 100 MLS/HR Amino Acids 0 ml @ 0 mls/hr PER PHARMACY IV 02/04/25 11:15 Fat Emulsion Intravenous 50 ml/ Sodium Acetate 20 meq/Potassium Phosphate 44 meq/ Calcium Gluconate 2.3 meq/Magnesium Sulfate 12 meq/ Multivitamins 10 ml/Chromium/ Copper/Manganese/ Zinc 1 ml/Amino Acids/Dextrose 888.9462 ml @ 38 mls/hr [id number] IV 02/04/25 22:00 02/05/25 21:59 Cancel Pantoprazole Sodium 40 mg BID IV 02/04/25 22:00 02/10/25 09:36 40 MG Labetalol HCl 10 mg Q2HPRN PRN IV 02/04/25 13:00 02/06/25 17:29 10 MG Acetaminophen 1,000 mg [id number] PRN IV 02/05/25 10:15 02/07/25 01:22 1,000 MG Fat Emulsion Intravenous 150 ml/Sodium Chloride 20 meq/ Sodium Phosphate 20 meq/Potassium Chloride 50 meq/ Calcium Gluconate 4.65 meq/ Magnesium Sulfate 12 meq/ Multivitamins 10 ml/Chromium/ Copper/Manganese/ Zinc 1 ml/Insulin Human Regular 18 units/Amino Acids/ Dextrose 1,559.18 ml @ 65 mls/hr Q24H IV 02/09/25 22:00 02/10/25 21:59 02/09/25 21:56 65 MLS/HR Sodium Chloride 1,000 ml @ 40 mls/hr Q24H IV 02/09/25 13:30 02/09/25 14:36 40 MLS/HR Laboratory Results Laboratory Tests 02/07/25 09:50 02/10/25 04:57 Chemistry Test 02/10/25 04:57 Albumin 3.2 g/dL (3.2-4.8) Calcium Level 8.4 mg/dL (8.7-10.4) L Magnesium Level 2.3 mg/dL (1.6-2.6) Phosphorus Level 3.5 mg/dL (2.4-5.1) Total Protein 5.8 g/dL (5.7-8.2) LFT Test 02/10/25 04:57 Alanine Aminotransferase (ALT) 34 U/L (7-40) Alkaline Phosphatase 162 U/L (46-116) H Aspartate Amino Transferase (AST) 45 U/L (13-40) H Total Bilirubin 0.3 mg/dL (0.2-1.0) Urinalysis Test 01/27/25 07:41 Urine Color Yellow (Yellow) Urine Clarity Clear (Clear) Urine pH 6.0 (5.0-9.0) Urine Specific [place] 1.040 (1.001-1.035) Urine Protein 1+ (Negative) H Urine Ketones 3+ (Negative) H Urine Blood Negative /uL (Negative) Urine Nitrite Negative (Negative) Urine Bilirubin Negative (Negative) Urine Urobilinogen 2 mg/dL (Negative) H Urine Leukocyte Esterase 1+ /uL (Negative) Urine RBC 4 /hpf (0 - 4) Urine Microscopic WBC 9 /HPF (0-5) H Urine Squamous Epithelial Cells Few /hpf (<5) Urine Bacteria None seen /hpf (None Seen) Urine Mucus Few (None Seen) Urine Glucose Normal mg/dL (Normal) Labs and/or images reviewed: Labs reviewed by me, Image(s) reviewed by me Assessment/Plan Assessment/Plan Impression: -intractable nausea and vomiting -peptic ulcer disease -cholelithiasis -primary hypertension -recent endoscopy -pernicious drop in hemoglobin postoperatively Plan: Events: No events overnight. NG tube removed. Tolerating oral intake. Surgical site benign. Positive bowel movements. -incentive spirometer q.1 hour while awake -continue NG tube to LIS -Surgical consult: Recommendations reviewed -SCD -continue TPN, DC IV fluids -electrolyte replacement -continue use labetalol as needed -pain management: Dilaudid, IV acetaminophen -Repeat labs in AM. Total time spent with patient discussing and formulating plan of care: 35 minutes. This medical document was created using an electronic medical record system with [employer] dictation system. Although this document has been carefully reviewed, there may still be some phonetic and typographical errors. These areas are purely typographical due to imperfections of the software programs, and do not reflect any compromise in the patient's medical care. Plan discussed with: Patient, Other (RN) My Orders Orders - CORINA GONSALVES NP Procedure Category Date Status Time Sodium Chloride 0.9% PHA 02/09/25 In Process 13:30 Complete Blood Count LAB 02/11/25 Verified 04:00 Date of Service: Feb 10, 2025 Billing Provider: CORINA GONSALVES NP Common Visit Codes: [id number] INP/OBS CARE(HIGH) CORINA GONSALVES NP Feb 10, 2025 11:06
[2025-02-10] MEDS: GASTROGRAFIN 120 ML SOL ONE (17:52)
[2025-02-10] MEDS: [UNRECOGNIZED DRUG - OTHER] IV NR (22:24)
[2025-02-10] MEDS: FAT EMULSION IV NR (22:24)
[2025-02-10] MEDS: SODIUM PHOSPHATES IV NR (22:24)
[2025-02-10] MEDS: SODIUM CHLORIDE IV NR (22:24)
--- NOTE | 2025-02-10 22:37 | DVHPN2 ---
Progress Note - Dictate Date Seen: Feb 10, 2025 Medical Necessity Reason Pt with a Central, PICC or Fol: No Subjective Postop day 7 S/P laparotomy with Cholecystectomy, antrectomy, truncal vagotomy, gastrojejunostomy. Patient is OOB to chair NG tube discontinued Pt is on clear liquids Patient is on IV TPN vital signs Vital Sign Date Time Temp Pulse Resp B/P (MAP) Pulse Ox O2 Delivery O2 Flow Rate FiO2 02/10/25 22:15 104 20 139/71 02/10/25 21:00 98.9 97 98.9 02/10/25 08:00 Nasal Cannula* 1 24 Total Intake and Output 02/09/25 02/09/25 02/10/25 15:00 23:00 07:00 Intake Total 600 ml 955 ml 0 ml Output Total 1875 ml 200 ml Balance 600 ml -920 ml -200 ml medications Current Medications Medications Dose Ordered Sig/Francia Route Start Time Stop Time Status Last Admin Dose Admin Ceftriaxone Sodium 50 ml @ 100 mls/hr DAILY@09 IV 01/27/25 11:15 02/10/25 09:36 100 MLS/HR Acetaminophen/ Hydrocodone Bitart 1 tab Q4HP PRN PO 01/27/25 11:15 Hold 01/30/25 14:13 1 TAB Ondansetron HCl 4 mg Q4HP PRN IV 01/27/25 11:15 UNV Acetaminophen 650 mg Q6HP PRN PO 01/27/25 11:15 Sucralfate 1 gm QID PO 01/27/25 12:00 UNV Patient Own Medication 20 mg DAILY PO 01/28/25 10:00 UNV Patient Own Medication 1 tab TID PO 01/27/25 14:00 UNV Patient Own Medication 1 tab DAILY PO 01/28/25 10:00 UNV Diphenhydramine HCl 25 mg BIDP PRN PO 01/29/25 15:00 02/10/25 20:47 25 MG Lidocaine 1 patch DAILY TOP 01/31/25 13:45 02/10/25 09:37 1 PATCH Diagnostic Test (Pha) 1 strip Q6HR 02/02/25 00:00 02/10/25 18:38 1 STRIP Insulin Human Regular FOLLOW SLIDING SCALE Q6HR SC 02/02/25 00:00 02/10/25 12:36 4 UNITS Dextrose 50 ml UD IV 02/01/25 22:00 Lorazepam 0.5 mg Q6HP PRN IV 02/02/25 12:00 02/09/25 21:45 0.5 MG Sodium Chloride 10 ml QSHIFT@10,22 IV 02/02/25 22:00 02/10/25 22:15 10 ML Ondansetron HCl 4 mg Q4HPRN PRN IV 02/03/25 11:15 02/04/25 08:20 4 MG Hydromorphone HCl 1.25 mg Q3HPRN PRN IV 02/04/25 10:45 02/10/25 22:15 1.25 MG Metronidazole 100 ml @ 100 mls/hr Q8HR IV 02/04/25 14:00 02/10/25 22:12 100 MLS/HR Amino Acids 0 ml @ 0 mls/hr PER PHARMACY IV 02/04/25 11:15 Fat Emulsion Intravenous 50 ml/ Sodium Acetate 20 meq/Potassium Phosphate 44 meq/ Calcium Gluconate 2.3 meq/Magnesium Sulfate 12 meq/ Multivitamins 10 ml/Chromium/ Copper/Manganese/ Zinc 1 ml/Amino Acids/Dextrose 888.9462 ml @ 38 mls/hr [id number] IV 02/04/25 22:00 02/05/25 21:59 Cancel Pantoprazole Sodium 40 mg BID IV 02/04/25 22:00 02/10/25 22:11 40 MG Labetalol HCl 10 mg Q2HPRN PRN IV 02/04/25 13:00 02/06/25 17:29 10 MG Acetaminophen 1,000 mg [id number] PRN IV 02/05/25 10:15 02/07/25 01:22 1,000 MG Fat Emulsion Intravenous 150 ml/Sodium Chloride 20 meq/ Sodium Phosphate 20 meq/Potassium Chloride 50 meq/ Calcium Gluconate 4.65 meq/ Magnesium Sulfate 12 meq/ Multivitamins 10 ml/Chromium/ Copper/Manganese/ Zinc 1 ml/Insulin Human Regular 18 units/Amino Acids/ Dextrose 1,559.18 ml @ 65 mls/hr Q24H IV 02/10/25 22:00 02/11/25 21:59 02/10/25 22:24 65 MLS/HR objective General: NAD, AAOX3; NG tube to low intermittent suction Chest: lung dasilva clear to auscultation Heart: RRR, no murmur Abdomen soft nontender drain in place dressing dry Extremities without clubbing cyanosis or edema laboratory and microbiology Laboratory Tests 02/10/25 04:57 02/07/25 09:50 Test 02/10/25 04:57 Range/Units Serum Glucose 92 74-106 mg/dL Problems(with codes): (1) Abnormal finding on radiology exam (2) Duodenal stenosis (3) Abdominal pain (4) Duodenal ulcer disease (5) Intractable nausea and vomiting (6) Cholelithiasis Prognosis Plan Advance diet as tolerated Patient has been started on IV Reglan Patient undergoing physical therapy Taper off IV TPN Supportive care Discharge planning as per hospitalist Dietary Evaluation Review Comments: Nutrition Recommendation 1) Ensure clear TID 2) Advance diet as medically feasible 3) Monitor PO intake, lab values, weight trend, and I/O Expected Outcomes/Goals: To meet >75% estimated needs GI symptoms to improve Fu 2-3 days Plan discussed with: Patient LOW CHRISTINE MD Feb 10, 2025 22:37
[2025-02-11] VITALS (8 sets, daily range): BP systolic 128–155; BP diastolic 63–82; PULSE 80–101; RESP 16–19; TEMP 98–100.4; O2SAT 95–99
[2025-02-11] MEDS: ACETAMINOPHEN 325 MG TAB PO PRN (04:10)
[2025-02-11 06:24] LABS: Nucleated Red Blood Cells % 0.0 %
[2025-02-11 06:27] LABS: Hematocrit 26.8 % (36.0-46.0); Hemoglobin 8.9 g/dL (12.2-16.2); Mean Corpuscular Hemoglobin 26.3 pg (28.0-32.0); Mean Corpuscular Volume 79.5 fL (80.0-100.0)
[2025-02-11 06:50] LABS: Alanine Aminotransferase 28 U/L (7-40); Anion Gap 11 (5-15); BUN/Creatinine Ratio 39.5 (10.0-20.0); Blood Urea Nitrogen 17 mg/dL (9-23); Carbon Dioxide 25 mmol/L (20-31); Magnesium 2.1 mg/dL (1.6-2.6); Potassium 3.8 mmol/L (3.5-5.1); Total Protein 6.2 g/dL (5.7-8.2)
[2025-02-11 06:51] LABS: Albumin 3.3 g/dL (3.2-4.8)
[2025-02-11 06:56] LABS: Alkaline Phosphatase 170 U/L (46-116); Bilirubin, Total 0.3 mg/dL (0.2-1.0); Calcium 8.4 mg/dL (8.7-10.4); Chloride 97 mmol/L (98-107); Glucose 140 mg/dL (74-106); Sodium 133 mmol/L (136-145)
[2025-02-11] MEDS ORDERED: ESCI1TAB37 PO (13:18)
--- NOTE | 2025-02-11 13:21 | DVHPN2 ---
Progress Note Date Seen: Feb 11, 2025 Medical Necessity Reason Pt with a Central, PICC or Fol: No Objective vital signs Vital Sign Date Time Temp Pulse Resp B/P (MAP) Pulse Ox O2 Delivery O2 Flow Rate FiO2 02/11/25 12:39 98.2 94 18 128/72 (90) 98 98.2 02/10/25 20:00 Room Air* 0 N/A Nasal Cannula* Total Intake and Output 02/10/25 02/10/25 02/11/25 15:00 23:00 07:00 Intake Total 210 ml 1565 ml 500 ml Output Total 395 ml 750 ml Balance 210 ml 1170 ml -250 ml medications Current Medications Medications Dose Ordered Sig/Francia Route Start Time Stop Time Status Last Admin Dose Admin Ceftriaxone Sodium 50 ml @ 100 mls/hr DAILY@09 IV 01/27/25 11:15 02/10/25 09:36 100 MLS/HR Acetaminophen/ Hydrocodone Bitart 1 tab Q4HP PRN PO 01/27/25 11:15 Hold 01/30/25 14:13 1 TAB Ondansetron HCl 4 mg Q4HP PRN IV 01/27/25 11:15 UNV Acetaminophen 650 mg Q6HP PRN PO 01/27/25 11:15 02/11/25 04:10 650 MG Sucralfate 1 gm QID PO 01/27/25 12:00 UNV Patient Own Medication 20 mg DAILY PO 01/28/25 10:00 UNV Patient Own Medication 1 tab TID PO 01/27/25 14:00 UNV Patient Own Medication 1 tab DAILY PO 01/28/25 10:00 UNV Diphenhydramine HCl 25 mg BIDP PRN PO 01/29/25 15:00 02/10/25 20:47 25 MG Lidocaine 1 patch DAILY TOP 01/31/25 13:45 02/11/25 10:19 1 PATCH Diagnostic Test (Pha) 1 strip Q6HR 02/02/25 00:00 02/11/25 05:21 1 STRIP Insulin Human Regular FOLLOW SLIDING SCALE Q6HR SC 02/02/25 00:00 02/11/25 05:21 2 UNITS Dextrose 50 ml UD IV 02/01/25 22:00 Lorazepam 0.5 mg Q6HP PRN IV 02/02/25 12:00 02/09/25 21:45 0.5 MG Sodium Chloride 10 ml QSHIFT@10,22 IV 02/02/25 22:00 02/11/25 10:20 10 ML Ondansetron HCl 4 mg Q4HPRN PRN IV 02/03/25 11:15 02/04/25 08:20 4 MG Hydromorphone HCl 1.25 mg Q3HPRN PRN IV 02/04/25 10:45 02/11/25 10:19 1.25 MG Metronidazole 100 ml @ 100 mls/hr Q8HR IV 02/04/25 14:00 02/11/25 05:19 100 MLS/HR Amino Acids 0 ml @ 0 mls/hr PER PHARMACY IV 02/04/25 11:15 Fat Emulsion Intravenous 50 ml/ Sodium Acetate 20 meq/Potassium Phosphate 44 meq/ Calcium Gluconate 2.3 meq/Magnesium Sulfate 12 meq/ Multivitamins 10 ml/Chromium/ Copper/Manganese/ Zinc 1 ml/Amino Acids/Dextrose 888.9462 ml @ 38 mls/hr [id number] IV 02/04/25 22:00 02/05/25 21:59 Cancel Pantoprazole Sodium 40 mg BID IV 02/04/25 22:00 02/11/25 10:19 40 MG Labetalol HCl 10 mg Q2HPRN PRN IV 02/04/25 13:00 02/06/25 17:29 10 MG Acetaminophen 1,000 mg [id number] PRN IV 02/05/25 10:15 02/07/25 01:22 1,000 MG Fat Emulsion Intravenous 150 ml/Sodium Chloride 20 meq/ Sodium Phosphate 20 meq/Potassium Chloride 50 meq/ Calcium Gluconate 4.65 meq/ Magnesium Sulfate 12 meq/ Multivitamins 10 ml/Chromium/ Copper/Manganese/ Zinc 1 ml/Insulin Human Regular 18 units/Amino Acids/ Dextrose 1,559.18 ml @ 65 mls/hr Q24H IV 02/10/25 22:00 02/11/25 21:59 02/10/25 22:24 65 MLS/HR Fat Emulsion Intravenous 200 ml/Sodium Chloride 40 meq/ Sodium Phosphate 20 meq/Potassium Chloride 50 meq/ Potassium Phosphate 22 meq/ Calcium Gluconate 4.65 meq/ Magnesium Sulfate 12 meq/ Multivitamins 10 ml/Chromium/ Copper/Manganese/ Zinc 1 ml/Insulin Human Regular 10 units/Amino Aci... 1,619.1 ml @ 68 mls/hr [id number] IV 02/11/25 22:00 02/12/25 21:59 laboratory and microbiology Laboratory Tests 02/11/25 05:17 02/11/25 05:11 Test 02/11/25 05:11 Range/Units Serum Glucose 140 H 74-106 mg/dL Problem List/Assessment/Plan Problem List/Assessment/Plan 02/04/25 c/o inadequate pain control,abdomen appropriately tender., non distended, dressing dry, andrea drainage serosanguineous,labs reviewed. will adjust pain Rx 02/05/25 afebrile, normotensive, dressing dry, abdomen soft appropriately tender. ANDREA drainage serous, labs reviewed, continue PT, no changes, has not passed flatus. continue strict npo and NG tube suction. 02/06/25 very reluctant to walk despite repeated explanation , wound clean and well approximated, drainage sero sanguineous, abdomen soft and non distended, appropriately tender, Labs's reviewed. 02/07/25 HAD A "BETTER NIGHT" LAST NIGHT BUT AGAIN ONLY WALKED ONCE LAST 24 HOURS, i HAVE ONCE AGAIN STRESSED THE IMPORTANCE OF AMBULATING. WOUND CLEAN AND WELL APPROXIMATED, DRAINAGE SEROSANGUINEOUS, REPORTEDLY PASSED FLATUS . LABS REVIEWED, I WILL ORDER A UGI WITH GASTROGRAFIN FOR FRIDAY TO EVALUATE THE PATENCY AND INTEGRITY OF THE GASTRO JEJUNOSTOMY. 02/09/25 feeling better but still not ambulating ,wound clean and well approximated, abdomen appropriately tender, drainage per ANDREA drain serous, UGI xray pending 02/10/25 X RAYS REVIEWED, THERE IS GOOD PASSAGE OG CONTRAST THROUGH THE GASTROJEJUNOSTOMY AND NO EVIDENCE OF EXTRAVASATION, THE GASTRIC REMNANT IS SLIGHTLY DISTENDED, WILL GIVE REGLAN, WILL DC NGT AND START PO LIQUIDS, WOUND IS CLEAN AND WELL APPROXIMATED, ABDOMEN APPROPRIATELY TENDER, ANDREA DRAINAGE SEROUS.CHEMISTRY OK. 02/11/25 AFEBRILE NORMOTENSIVE, WOUND CLEAN AND WELL APPROXIMATED, MINIMAL DRAINAGE, TOLERATING PO INTAKE HAVING NL BOWEL ACTIVITY, WILL INCREASE PO INTAKE, AGAIN STRESSED THE IMPORTANCE OF AMBULATING Plan discussed with: Patient, Other Dietary Evaluation Review Comments: Nutrition Recommendation 1) Ensure clear TID 2) Advance diet as medically feasible 3) Monitor PO intake, lab values, weight trend, and I/O Expected Outcomes/Goals: To meet >75% estimated needs GI symptoms to improve Fu 2-3 days GIN ORLANDO MD Feb 11, 2025 13:21
--- NOTE | 2025-02-11 13:22 | DVHPN2 ---
Subjective Reports pain is improving to abdomen. Reviewed: Care Plan, H&P, Labs, Medications, Previous Orders, Radiology, Other Changes from previous H/P or p: No Changes General: Per HPI Objective Vitals Vital Signs Date Time Temp Pulse Resp B/P (MAP) Pulse Ox O2 Delivery O2 Flow Rate FiO2 02/11/25 12:39 98.2 94 18 128/72 (90) 98 98.2 02/10/25 20:00 Room Air* 0 N/A Nasal Cannula* Intake/Output Intake and Output 02/11/25 07:00 Intake Total 2275 ml Output Total 1145 ml Balance 1130 ml Intake Oral 1150 ml IV Total 1125 ml Output Urine Total 1125 ml Drainage Total 20 ml # Bowel Movements 5 General Appearance: Alert, Oriented X3, Cooperative, No acute distress HEENT: Atraumatic, PERRLA Lungs: Clear to auscultation, Normal air movement Cardiovascular: Regular rate, Normal S1, Normal S2 Abdomen: No hepatospenomegaly, Other (Hypoactive bowel sounds. ANDREA with minimal serosang. fluid) Neuro: Normal speech Skin: Dry, Intact Psych/Mental Status: Mental status NL, Mood NL Medications Current Medications Medications Dose Ordered Sig/Francia Route Start Time Stop Time Status Last Admin Dose Admin Acetaminophen/ Hydrocodone Bitart 1 tab Q4HP PRN PO 01/27/25 11:15 Hold 01/30/25 14:13 1 TAB Ondansetron HCl 4 mg Q4HP PRN IV 01/27/25 11:15 UNV Acetaminophen 650 mg Q6HP PRN PO 01/27/25 11:15 02/11/25 04:10 650 MG Sucralfate 1 gm QID PO 01/27/25 12:00 UNV Patient Own Medication 20 mg DAILY PO 01/28/25 10:00 UNV Patient Own Medication 1 tab TID PO 01/27/25 14:00 UNV Patient Own Medication 1 tab DAILY PO 01/28/25 10:00 UNV Diphenhydramine HCl 25 mg BIDP PRN PO 01/29/25 15:00 02/10/25 20:47 25 MG Lidocaine 1 patch DAILY TOP 01/31/25 13:45 02/11/25 10:19 1 PATCH Diagnostic Test (Pha) 1 strip Q6HR 02/02/25 00:00 02/11/25 05:21 1 STRIP Insulin Human Regular FOLLOW SLIDING SCALE Q6HR SC 02/02/25 00:00 02/11/25 05:21 2 UNITS Dextrose 50 ml UD IV 02/01/25 22:00 Lorazepam 0.5 mg Q6HP PRN IV 02/02/25 12:00 02/09/25 21:45 0.5 MG Sodium Chloride 10 ml QSHIFT@10,22 IV 02/02/25 22:00 02/11/25 10:20 10 ML Ondansetron HCl 4 mg Q4HPRN PRN IV 02/03/25 11:15 02/04/25 08:20 4 MG Hydromorphone HCl 1.25 mg Q3HPRN PRN IV 02/04/25 10:45 02/11/25 10:19 1.25 MG Amino Acids 0 ml @ 0 mls/hr PER PHARMACY IV 02/04/25 11:15 Fat Emulsion Intravenous 50 ml/ Sodium Acetate 20 meq/Potassium Phosphate 44 meq/ Calcium Gluconate 2.3 meq/Magnesium Sulfate 12 meq/ Multivitamins 10 ml/Chromium/ Copper/Manganese/ Zinc 1 ml/Amino Acids/Dextrose 888.9462 ml @ 38 mls/hr [id number] IV 02/04/25 22:00 02/05/25 21:59 Cancel Labetalol HCl 10 mg Q2HPRN PRN IV 02/04/25 13:00 02/06/25 17:29 10 MG Acetaminophen 1,000 mg [id number] PRN IV 02/05/25 10:15 02/07/25 01:22 1,000 MG Fat Emulsion Intravenous 150 ml/Sodium Chloride 20 meq/ Sodium Phosphate 20 meq/Potassium Chloride 50 meq/ Calcium Gluconate 4.65 meq/ Magnesium Sulfate 12 meq/ Multivitamins 10 ml/Chromium/ Copper/Manganese/ Zinc 1 ml/Insulin Human Regular 18 units/Amino Acids/ Dextrose 1,559.18 ml @ 65 mls/hr Q24H IV 02/10/25 22:00 02/11/25 21:59 02/10/25 22:24 65 MLS/HR Fat Emulsion Intravenous 200 ml/Sodium Chloride 40 meq/ Sodium Phosphate 20 meq/Potassium Chloride 50 meq/ Potassium Phosphate 22 meq/ Calcium Gluconate 4.65 meq/ Magnesium Sulfate 12 meq/ Multivitamins 10 ml/Chromium/ Copper/Manganese/ Zinc 1 ml/Insulin Human Regular 10 units/Amino Aci... 1,619.1 ml @ 68 mls/hr [id number] IV 02/11/25 22:00 02/12/25 21:59 Saccharomyces Boulardii 250 mg DAILY PO 02/12/25 10:00 UNV Pantoprazole Sodium 40 mg DAILY@0600 PO 02/12/25 06:00 UNV Laboratory Results Laboratory Tests 02/11/25 05:11 02/11/25 05:17 Chemistry Test 02/11/25 05:11 Albumin 3.3 g/dL (3.2-4.8) Calcium Level 8.4 mg/dL (8.7-10.4) L Magnesium Level 2.1 mg/dL (1.6-2.6) Phosphorus Level 2.7 mg/dL (2.4-5.1) Total Protein 6.2 g/dL (5.7-8.2) LFT Test 02/11/25 05:11 Alanine Aminotransferase (ALT) 28 U/L (7-40) Alkaline Phosphatase 170 U/L (46-116) H Aspartate Amino Transferase (AST) 34 U/L (13-40) Total Bilirubin 0.3 mg/dL (0.2-1.0) Urinalysis Test 01/27/25 07:41 Urine Color Yellow (Yellow) Urine Clarity Clear (Clear) Urine pH 6.0 (5.0-9.0) Urine Specific [place] 1.040 (1.001-1.035) Urine Protein 1+ (Negative) H Urine Ketones 3+ (Negative) H Urine Blood Negative /uL (Negative) Urine Nitrite Negative (Negative) Urine Bilirubin Negative (Negative) Urine Urobilinogen 2 mg/dL (Negative) H Urine Leukocyte Esterase 1+ /uL (Negative) Urine RBC 4 /hpf (0 - 4) Urine Microscopic WBC 9 /HPF (0-5) H Urine Squamous Epithelial Cells Few /hpf (<5) Urine Bacteria None seen /hpf (None Seen) Urine Mucus Few (None Seen) Urine Glucose Normal mg/dL (Normal) Labs and/or images reviewed: Labs reviewed by me, Image(s) reviewed by me Assessment/Plan Assessment/Plan Impression: -intractable nausea and vomiting -peptic ulcer disease -cholelithiasis -primary hypertension -recent endoscopy -pernicious drop in hemoglobin postoperatively Plan: Events: Patient moving bowels more frequently. Probably secondary to contrast and IV Reglan. -advanced to full liquid diet. Advanced to mechanical soft tomorrow -wean off TPN tomorrow -start p.o. pain management, antidepressant -change PPI to p.o. -incentive spirometer q.1 hour while awake -electrolyte replacement -continue use labetalol as needed -repeat labs in a.m. -social service consultation for DC planning with home health services and physical therapy. Total time spent with patient discussing and formulating plan of care: 35 minutes. This medical document was created using an electronic medical record system with [employer] dictation system. Although this document has been carefully reviewed, there may still be some phonetic and typographical errors. These areas are purely typographical due to imperfections of the software programs, and do not reflect any compromise in the patient's medical care. Plan discussed with: Patient, Other (RN) My Orders Orders - CORINA GONSALVES NP Procedure Category Date Status Time Amino Acid PHA 02/11/25 In Process Infusion... W/Fat 22:00 Comprehensive LAB 02/12/25 Verified Metabolic Panel 04:00 Magnesium LAB 02/12/25 Verified 04:00 Phosphorus LAB 02/12/25 Verified 04:00 Tpn Per Pharmacy ENEDEL[facility] 02/11/25 In Process 22:00 Florastor (S. PHA 02/12/25 Logged Boulardii) (Florastor) 10:00 Full Liq Diet DIET 02/11/25 Transmitted Lunch Pantoprazole Tablet PHA 02/12/25 Logged (Protonix Tablet) 06:00 Date of Service: Feb 11, 2025 Billing Provider: CORINA GONSALVES NP Common Visit Codes: [id number] INP/OBS CARE(HIGH) CORINA GONSALVES NP Feb 11, 2025 13:22
[2025-02-11] MEDS ORDERED: TPN PER PHARMACY 0 ML IV SCH (13:30)
[2025-02-11] MEDS ORDERED: HYDROcodone-ACET 5/325MG TAB PO PRN (13:30)
--- NOTE | 2025-02-11 21:35 | DVHPN2 ---
Progress Note - Dictate Date Seen: Feb 11, 2025 Medical Necessity Reason Pt with a Central, PICC or Fol: No Subjective Postop day 8 S/P laparotomy with Cholecystectomy, antrectomy, truncal vagotomy, gastrojejunostomy. Patient is feeling much better She is tolerating a full liquid diet and ate some puddings NG tube discontinued Patient is on IV TPN vital signs Vital Sign Date Time Temp Pulse Resp B/P (MAP) Pulse Ox O2 Delivery O2 Flow Rate FiO2 02/11/25 21:02 90 18 138/75 02/11/25 17:00 98.0 96 98.0 02/11/25 08:00 Room Air* 0 21 Total Intake and Output 02/10/25 02/10/25 02/11/25 15:00 23:00 07:00 Intake Total 210 ml 1565 ml 500 ml Output Total 395 ml 750 ml Balance 210 ml 1170 ml -250 ml medications Current Medications Medications Dose Ordered Sig/Francia Route Start Time Stop Time Status Last Admin Dose Admin Ondansetron HCl 4 mg Q4HP PRN IV 01/27/25 11:15 UNV Acetaminophen 650 mg Q6HP PRN PO 01/27/25 11:15 02/11/25 04:10 650 MG Sucralfate 1 gm QID PO 01/27/25 12:00 UNV Patient Own Medication 20 mg DAILY PO 01/28/25 10:00 UNV Patient Own Medication 1 tab TID PO 01/27/25 14:00 UNV Patient Own Medication 1 tab DAILY PO 01/28/25 10:00 UNV Diphenhydramine HCl 25 mg BIDP PRN PO 01/29/25 15:00 02/10/25 20:47 25 MG Lidocaine 1 patch DAILY TOP 01/31/25 13:45 02/11/25 10:19 1 PATCH Diagnostic Test (Pha) 1 strip Q6HR 02/02/25 00:00 02/11/25 21:59 02/11/25 05:21 1 STRIP Insulin Human Regular FOLLOW SLIDING SCALE Q6HR SC 02/02/25 00:00 02/11/25 21:59 02/11/25 18:19 2 UNITS Dextrose 50 ml UD IV 02/01/25 22:00 02/11/25 21:59 Lorazepam 0.5 mg Q6HP PRN IV 02/02/25 12:00 02/09/25 21:45 0.5 MG Sodium Chloride 10 ml QSHIFT@10,22 IV 02/02/25 22:00 02/11/25 21:10 10 ML Ondansetron HCl 4 mg Q4HPRN PRN IV 02/03/25 11:15 02/04/25 08:20 4 MG Hydromorphone HCl 1.25 mg Q3HPRN PRN IV 02/04/25 10:45 02/11/25 21:02 1.25 MG Fat Emulsion Intravenous 50 ml/ Sodium Acetate 20 meq/Potassium Phosphate 44 meq/ Calcium Gluconate 2.3 meq/Magnesium Sulfate 12 meq/ Multivitamins 10 ml/Chromium/ Copper/Manganese/ Zinc 1 ml/Amino Acids/Dextrose 888.9462 ml @ 38 mls/hr [id number] IV 02/04/25 22:00 02/05/25 21:59 Cancel Labetalol HCl 10 mg Q2HPRN PRN IV 02/04/25 13:00 02/06/25 17:29 10 MG Acetaminophen 1,000 mg [id number] PRN IV 02/05/25 10:15 02/07/25 01:22 1,000 MG Fat Emulsion Intravenous 150 ml/Sodium Chloride 20 meq/ Sodium Phosphate 20 meq/Potassium Chloride 50 meq/ Calcium Gluconate 4.65 meq/ Magnesium Sulfate 12 meq/ Multivitamins 10 ml/Chromium/ Copper/Manganese/ Zinc 1 ml/Insulin Human Regular 18 units/Amino Acids/ Dextrose 1,559.18 ml @ 65 mls/hr Q24H IV 02/10/25 22:00 02/11/25 21:59 02/10/25 22:24 65 MLS/HR Fat Emulsion Intravenous 200 ml/Sodium Chloride 40 meq/ Sodium Phosphate 20 meq/Potassium Chloride 50 meq/ Potassium Phosphate 22 meq/ Calcium Gluconate 4.65 meq/ Magnesium Sulfate 12 meq/ Multivitamins 10 ml/Chromium/ Copper/Manganese/ Zinc 1 ml/Insulin Human Regular 10 units/Amino Aci... 1,619.1 ml @ 68 mls/hr [id number] IV 02/11/25 22:00 02/12/25 21:59 Cancel Saccharomyces Boulardii 250 mg DAILY PO 02/12/25 10:00 Pantoprazole Sodium 40 mg DAILY@0600 PO 02/12/25 06:00 Acetaminophen/ Hydrocodone Bitart 1 tab Q6HPRN PRN PO 02/11/25 13:30 objective General: NAD, AAOX3; awake alert in no acute distress Chest: lung dasilva clear to auscultation Heart: RRR, no murmur Abdomen soft nontender drain in place dressing dry Extremities without clubbing cyanosis or edema laboratory and microbiology Laboratory Tests 02/11/25 05:17 02/11/25 05:11 Test 02/11/25 05:11 Range/Units Serum Glucose 140 H 74-106 mg/dL Problems(with codes): (1) Abnormal finding on radiology exam (2) Duodenal stenosis (3) Duodenal ulcer disease (4) Intractable nausea and vomiting (5) Abdominal pain (6) Cholelithiasis Prognosis Plan Continue physical therapy Advance diet as tolerated Taper IV TPN Continue Protonix 40 mg IV q.12 hours Avoid aspirin NSAIDs Review final pathology results Outpatient follow up me in clinic in 2-4 weeks after discharge Dietary Evaluation Review Comments: Nutrition Recommendation 1) Ensure clear TID 2) Advance diet as medically feasible 3) Monitor PO intake, lab values, weight trend, and I/O Expected Outcomes/Goals: To meet >75% estimated needs GI symptoms to improve Fu 2-3 days Plan discussed with: Patient, Son LOW CHRISTINE MD Feb 11, 2025 21:35
[2025-02-11] MEDS ORDERED: TPN PER PHARMACY IV NR (22:00)
[2025-02-12] VITALS (8 sets, daily range): BP systolic 120–132; BP diastolic 69–77; PULSE 80–101; RESP 16–19; TEMP 78.2–98.9; O2SAT 80–98
[2025-02-12] MEDS: PANTOPRAZOLE 40 MG TAB PO SCH (05:13)
[2025-02-12] MEDS: FLORASTOR (S. BOULARDII) 250 MG CAP PO SCH (08:18)
--- NOTE | 2025-02-12 09:45 | DVHPN2 ---
Progress Note Date Seen: Feb 12, 2025 Medical Necessity Reason Pt with a Central, PICC or Fol: No Objective vital signs Vital Sign Date Time Temp Pulse Resp B/P (MAP) Pulse Ox O2 Delivery O2 Flow Rate FiO2 02/12/25 09:00 78.2 80 17 131/69 (89) 80 78.2 02/11/25 20:00 Room Air* 0 21 Total Intake and Output 02/11/25 02/11/25 02/12/25 15:00 23:00 07:00 Intake Total 1000 ml 320 ml Output Total 1100 ml 575 ml Balance -100 ml -255 ml medications Current Medications Medications Dose Ordered Sig/Francia Route Start Time Stop Time Status Last Admin Dose Admin Ondansetron HCl 4 mg Q4HP PRN IV 01/27/25 11:15 UNV Acetaminophen 650 mg Q6HP PRN PO 01/27/25 11:15 02/11/25 04:10 650 MG Sucralfate 1 gm QID PO 01/27/25 12:00 UNV Patient Own Medication 20 mg DAILY PO 01/28/25 10:00 UNV Patient Own Medication 1 tab TID PO 01/27/25 14:00 UNV Patient Own Medication 1 tab DAILY PO 01/28/25 10:00 UNV Diphenhydramine HCl 25 mg BIDP PRN PO 01/29/25 15:00 02/10/25 20:47 25 MG Lidocaine 1 patch DAILY TOP 01/31/25 13:45 02/12/25 08:18 1 PATCH Lorazepam 0.5 mg Q6HP PRN IV 02/02/25 12:00 02/09/25 21:45 0.5 MG Sodium Chloride 10 ml QSHIFT@,22 IV 02/02/25 22:00 02/12/25 08:18 10 ML Ondansetron HCl 4 mg Q4HPRN PRN IV 02/03/25 11:15 02/04/25 08:20 4 MG Hydromorphone HCl 1.25 mg Q3HPRN PRN IV 02/04/25 10:45 02/12/25 08:17 1.25 MG Fat Emulsion Intravenous 50 ml/ Sodium Acetate 20 meq/Potassium Phosphate 44 meq/ Calcium Gluconate 2.3 meq/Magnesium Sulfate 12 meq/ Multivitamins 10 ml/Chromium/ Copper/Manganese/ Zinc 1 ml/Amino Acids/Dextrose 888.9462 ml @ 38 mls/hr [id number] IV 02/04/25 22:00 02/05/25 21:59 Cancel Labetalol HCl 10 mg Q2HPRN PRN IV 02/04/25 13:00 02/06/25 17:29 10 MG Acetaminophen 1,000 mg [id number] PRN IV 02/05/25 10:15 02/07/25 01:22 1,000 MG Fat Emulsion Intravenous 200 ml/Sodium Chloride 40 meq/ Sodium Phosphate 20 meq/Potassium Chloride 50 meq/ Potassium Phosphate 22 meq/ Calcium Gluconate 4.65 meq/ Magnesium Sulfate 12 meq/ Multivitamins 10 ml/Chromium/ Copper/Manganese/ Zinc 1 ml/Insulin Human Regular 10 units/Amino Aci... 1,619.1 ml @ 68 mls/hr [id number] IV 02/11/25 22:00 02/12/25 21:59 Cancel Saccharomyces Boulardii 250 mg DAILY PO 02/12/25 10:00 02/12/25 08:18 250 MG Pantoprazole Sodium 40 mg DAILY@0600 PO 02/12/25 06:00 02/12/25 05:13 40 MG Acetaminophen/ Hydrocodone Bitart 1 tab Q6HPRN PRN PO 02/11/25 13:30 laboratory and microbiology Laboratory Tests 02/11/25 05:17 02/11/25 05:11 Test 02/11/25 05:11 Range/Units Serum Glucose 140 H 74-106 mg/dL Problem List/Assessment/Plan Problem List/Assessment/Plan 02/04/25 c/o inadequate pain control,abdomen appropriately tender., non distended, dressing dry, andrea drainage serosanguineous,labs reviewed. will adjust pain Rx 02/05/25 afebrile, normotensive, dressing dry, abdomen soft appropriately tender. ANDREA drainage serous, labs reviewed, continue PT, no changes, has not passed flatus. continue strict npo and NG tube suction. 02/06/25 very reluctant to walk despite repeated explanation , wound clean and well approximated, drainage sero sanguineous, abdomen soft and non distended, appropriately tender, Labs's reviewed. 02/07/25 HAD A "BETTER NIGHT" LAST NIGHT BUT AGAIN ONLY WALKED ONCE LAST 24 HOURS, i HAVE ONCE AGAIN STRESSED THE IMPORTANCE OF AMBULATING. WOUND CLEAN AND WELL APPROXIMATED, DRAINAGE SEROSANGUINEOUS, REPORTEDLY PASSED FLATUS . LABS REVIEWED, I WILL ORDER A UGI WITH GASTROGRAFIN FOR FRIDAY TO EVALUATE THE PATENCY AND INTEGRITY OF THE GASTRO JEJUNOSTOMY. 02/09/25 feeling better but still not ambulating ,wound clean and well approximated, abdomen appropriately tender, drainage per ANDREA drain serous, UGI xray pending 02/10/25 X RAYS REVIEWED, THERE IS GOOD PASSAGE OG CONTRAST THROUGH THE GASTROJEJUNOSTOMY AND NO EVIDENCE OF EXTRAVASATION, THE GASTRIC REMNANT IS SLIGHTLY DISTENDED, WILL GIVE REGLAN, WILL DC NGT AND START PO LIQUIDS, WOUND IS CLEAN AND WELL APPROXIMATED, ABDOMEN APPROPRIATELY TENDER, ANDREA DRAINAGE SEROUS.CHEMISTRY OK. 02/11/25 AFEBRILE NORMOTENSIVE, WOUND CLEAN AND WELL APPROXIMATED, MINIMAL DRAINAGE, TOLERATING PO INTAKE HAVING NL BOWEL ACTIVITY, WILL INCREASE PO INTAKE, AGAIN STRESSED THE IMPORTANCE OF AMBULATING 02/12/25 afebrile, normotensive, wound ok drainage serous and minimal in volume, tolerating po intake, having normal bowel activity, cleared for discharge tomorrow Plan discussed with: Patient, Other Dietary Evaluation Review Comments: Nutrition Recommendation 1) Ensure clear TID 2) Advance diet as medically feasible 3) Monitor PO intake, lab values, weight trend, and I/O Expected Outcomes/Goals: To meet >75% estimated needs GI symptoms to improve Fu 2-3 days GIN ORLANDO MD Feb 12, 2025 09:44
--- NOTE | 2025-02-12 10:58 | DVHPN2 ---
Subjective Right lower extremity edema otherwise better Reviewed: Care Plan, H&P, Labs, Medications, Previous Orders, Radiology, Other Changes from previous H/P or p: No Changes General: Per HPI Objective Vitals Vital Signs Date Time Temp Pulse Resp B/P (MAP) Pulse Ox O2 Delivery O2 Flow Rate FiO2 02/12/25 09:00 78.2 80 17 131/69 (89) 80 78.2 02/12/25 08:00 Room Air* 0 21 Intake/Output Intake and Output 02/12/25 07:00 Intake Total 1320 ml Output Total 1675 ml Balance -355 ml Intake Oral 1320 ml Output Urine Total 1675 ml # Bowel Movements 3 General Appearance: Alert, Oriented X3, Cooperative, No acute distress HEENT: Atraumatic Lungs: Clear to auscultation, Normal air movement Cardiovascular: Regular rate Abdomen: Other (Minimal tenderness around surgical sites) Extremities: Other (1+ edema right lower extremity/right ankle and foot) Neuro: Normal speech Skin: Dry, Intact Psych/Mental Status: Mental status NL, Mood NL Medications Current Medications Medications Dose Ordered Sig/Francia Route Start Time Stop Time Status Last Admin Dose Admin Ondansetron HCl 4 mg Q4HP PRN IV 01/27/25 11:15 UNV Acetaminophen 650 mg Q6HP PRN PO 01/27/25 11:15 02/11/25 04:10 650 MG Sucralfate 1 gm QID PO 01/27/25 12:00 UNV Patient Own Medication 20 mg DAILY PO 01/28/25 10:00 UNV Patient Own Medication 1 tab TID PO 01/27/25 14:00 UNV Patient Own Medication 1 tab DAILY PO 01/28/25 10:00 UNV Diphenhydramine HCl 25 mg BIDP PRN PO 01/29/25 15:00 02/10/25 20:47 25 MG Lidocaine 1 patch DAILY TOP 01/31/25 13:45 02/12/25 08:18 1 PATCH Lorazepam 0.5 mg Q6HP PRN IV 02/02/25 12:00 02/09/25 21:45 0.5 MG Sodium Chloride 10 ml QSHIFT@10,22 IV 02/02/25 22:00 02/12/25 08:18 10 ML Ondansetron HCl 4 mg Q4HPRN PRN IV 02/03/25 11:15 02/04/25 08:20 4 MG Hydromorphone HCl 1.25 mg Q3HPRN PRN IV 02/04/25 10:45 02/12/25 08:17 1.25 MG Fat Emulsion Intravenous 50 ml/ Sodium Acetate 20 meq/Potassium Phosphate 44 meq/ Calcium Gluconate 2.3 meq/Magnesium Sulfate 12 meq/ Multivitamins 10 ml/Chromium/ Copper/Manganese/ Zinc 1 ml/Amino Acids/Dextrose 888.9462 ml @ 38 mls/hr [id number] IV 02/04/25 22:00 02/05/25 21:59 Cancel Labetalol HCl 10 mg Q2HPRN PRN IV 02/04/25 13:00 02/06/25 17:29 10 MG Acetaminophen 1,000 mg [id number] PRN IV 02/05/25 10:15 02/07/25 01:22 1,000 MG Fat Emulsion Intravenous 200 ml/Sodium Chloride 40 meq/ Sodium Phosphate 20 meq/Potassium Chloride 50 meq/ Potassium Phosphate 22 meq/ Calcium Gluconate 4.65 meq/ Magnesium Sulfate 12 meq/ Multivitamins 10 ml/Chromium/ Copper/Manganese/ Zinc 1 ml/Insulin Human Regular 10 units/Amino Aci... 1,619.1 ml @ 68 mls/hr [id number] IV 02/11/25 22:00 02/12/25 21:59 Cancel Saccharomyces Boulardii 250 mg DAILY PO 02/12/25 10:00 02/12/25 08:18 250 MG Pantoprazole Sodium 40 mg DAILY@0600 PO 02/12/25 06:00 02/12/25 05:13 40 MG Acetaminophen/ Hydrocodone Bitart 1 tab Q6HPRN PRN PO 02/11/25 13:30 Laboratory Results Laboratory Tests 02/11/25 05:11 02/11/25 05:17 Urinalysis Test 01/27/25 07:41 Urine Color Yellow (Yellow) Urine Clarity Clear (Clear) Urine pH 6.0 (5.0-9.0) Urine Specific [place] 1.040 (1.001-1.035) Urine Protein 1+ (Negative) H Urine Ketones 3+ (Negative) H Urine Blood Negative /uL (Negative) Urine Nitrite Negative (Negative) Urine Bilirubin Negative (Negative) Urine Urobilinogen 2 mg/dL (Negative) H Urine Leukocyte Esterase 1+ /uL (Negative) Urine RBC 4 /hpf (0 - 4) Urine Microscopic WBC 9 /HPF (0-5) H Urine Squamous Epithelial Cells Few /hpf (<5) Urine Bacteria None seen /hpf (None Seen) Urine Mucus Few (None Seen) Urine Glucose Normal mg/dL (Normal) Assessment/Plan Assessment/Plan Right lower extremity DVT/Cecilia Status post cholecystectomy and duodenal surgery for duodenal stricture Cholelithiasis Peptic ulcer disease Hypertension Anemia Depression Plan: Ultrasound right lower extremity done stat and showed DVT. Lovenox started today. Discontinue SCDs Plan discussed with: Patient, Spouse, Other (Family at bedside) My Orders Orders - NATI HAWKINS MD Procedure Category Date Status Time Complete Blood Count LAB 02/12/25 Logged 09:20 Comprehensive LAB 02/12/25 Logged Metabolic Panel 09:20 Rt Lower Dvt US 02/12/25 Taken 10:01 Date of Service: Feb 12, 2025 Billing Provider: NATI HAWKINS MD Common Visit Codes: [id number] INP/OBS CARE(HIGH) NATI HAWKINS MD Feb 12, 2025 10:58
--- NOTE | 2025-02-12 11:15 | DVH ---
Right lower extremity venous duplex Clinical History: SWELLING AND PAIN Comparison: None Technique: Duplex Doppler evaluation of the deep venous system of the right lower extremity from the common femo ral vein to the popliteal vein including color Doppler and spectral/pulsed waveform analysis was perf ormed. Findings: Thrombus of the right common femoral vein . Occlusive thrombus of the superficial femoral vein. RN informed findings 1. Positive DVT study. RN informed preliminary results.
[2025-02-12 11:48] LABS: Mean Corpuscular Volume 80.0 fL (80.0-100.0); Nucleated Red Blood Cells % 0.0 %
[2025-02-12 11:49] LABS: Hematocrit 26.8 % (36.0-46.0); Hemoglobin 8.9 g/dL (12.2-16.2); Mean Corpuscular Hemoglobin 26.6 pg (28.0-32.0)
[2025-02-12 12:06] LABS: Alanine Aminotransferase 20 U/L (7-40); Albumin 3.3 g/dL (3.2-4.8); Anion Gap 9 (5-15); BUN/Creatinine Ratio 27.7 (10.0-20.0); Blood Urea Nitrogen 13 mg/dL (9-23); Carbon Dioxide 27 mmol/L (20-31); Chloride 98 mmol/L (98-107); Potassium 4.5 mmol/L (3.5-5.1); Total Protein 6.2 g/dL (5.7-8.2)
[2025-02-12 12:07] LABS: Alkaline Phosphatase 157 U/L (46-116); Bilirubin, Total 0.3 mg/dL (0.2-1.0); Calcium 8.6 mg/dL (8.7-10.4); Glucose 120 mg/dL (74-106); Sodium 134 mmol/L (136-145)
[2025-02-12] MEDS: ENOXAPARIN SOD 60 MG/0.6 ML SYRINGE SC ONE (12:34)
--- NOTE | 2025-02-12 21:15 | DVHPN2 ---
Progress Note - Dictate Date Seen: Feb 12, 2025 Medical Necessity Reason Pt with a Central, PICC or Fol: No Subjective Postop day 9 S/P laparotomy with Cholecystectomy, antrectomy, truncal vagotomy, gastrojejunostomy. Patient is feeling much better She is tolerating a soft diet NG tube and IV TPN discontinued Patient ambulating with physical therapy vital signs Vital Sign Date Time Temp Pulse Resp B/P (MAP) Pulse Ox O2 Delivery O2 Flow Rate FiO2 02/12/25 19:11 88 18 136/68 02/12/25 16:54 98.5 97 98.5 02/12/25 08:00 Room Air* 0 21 Total Intake and Output 02/11/25 02/11/25 02/12/25 15:00 23:00 07:00 Intake Total 1000 ml 320 ml Output Total 1100 ml 575 ml Balance -100 ml -255 ml medications Current Medications Medications Dose Ordered Sig/Francia Route Start Time Stop Time Status Last Admin Dose Admin Ondansetron HCl 4 mg Q4HP PRN IV 01/27/25 11:15 UNV Acetaminophen 650 mg Q6HP PRN PO 01/27/25 11:15 02/11/25 04:10 650 MG Sucralfate 1 gm QID PO 01/27/25 12:00 UNV Patient Own Medication 20 mg DAILY PO 01/28/25 10:00 UNV Patient Own Medication 1 tab TID PO 01/27/25 14:00 UNV Patient Own Medication 1 tab DAILY PO 01/28/25 10:00 UNV Diphenhydramine HCl 25 mg BIDP PRN PO 01/29/25 15:00 02/10/25 20:47 25 MG Lidocaine 1 patch DAILY TOP 01/31/25 13:45 02/12/25 08:18 1 PATCH Lorazepam 0.5 mg Q6HP PRN IV 02/02/25 12:00 02/09/25 21:45 0.5 MG Sodium Chloride 10 ml QSHIFT@ IV 02/02/25 22:00 02/12/25 08:18 10 ML Ondansetron HCl 4 mg Q4HPRN PRN IV 02/03/25 11:15 02/04/25 08:20 4 MG Hydromorphone HCl 1.25 mg Q3HPRN PRN IV 02/04/25 10:45 02/12/25 18:41 1.25 MG Fat Emulsion Intravenous 50 ml/ Sodium Acetate 20 meq/Potassium Phosphate 44 meq/ Calcium Gluconate 2.3 meq/Magnesium Sulfate 12 meq/ Multivitamins 10 ml/Chromium/ Copper/Manganese/ Zinc 1 ml/Amino Acids/Dextrose 888.9462 ml @ 38 mls/hr [id number] IV 02/04/25 22:00 02/05/25 21:59 Cancel Labetalol HCl 10 mg Q2HPRN PRN IV 02/04/25 13:00 02/06/25 17:29 10 MG Acetaminophen 1,000 mg [id number] PRN IV 02/05/25 10:15 02/07/25 01:22 1,000 MG Fat Emulsion Intravenous 200 ml/Sodium Chloride 40 meq/ Sodium Phosphate 20 meq/Potassium Chloride 50 meq/ Potassium Phosphate 22 meq/ Calcium Gluconate 4.65 meq/ Magnesium Sulfate 12 meq/ Multivitamins 10 ml/Chromium/ Copper/Manganese/ Zinc 1 ml/Insulin Human Regular 10 units/Amino Aci... 1,619.1 ml @ 68 mls/hr [id number] IV 02/11/25 22:00 02/12/25 21:59 Cancel Saccharomyces Boulardii 250 mg DAILY PO 02/12/25 10:00 02/12/25 08:18 250 MG Pantoprazole Sodium 40 mg DAILY@0600 PO 02/12/25 06:00 02/12/25 05:13 40 MG Acetaminophen/ Hydrocodone Bitart 1 tab Q6HPRN PRN PO 02/11/25 13:30 Enoxaparin Sodium 50 mg Q12HR SC 02/12/25 22:00 objective General: NAD, AAOX3; awake alert in no acute distress Chest: lung dasilva clear to auscultation Heart: RRR, no murmur Abdomen soft nontender drain in place dressing dry Extremities without clubbing cyanosis or edema laboratory and microbiology Laboratory Tests 02/12/25 11:01 Test 02/12/25 11:01 Range/Units Serum Glucose 120 H 74-106 mg/dL Problems(with codes): (1) Abnormal finding on radiology exam (2) Duodenal stenosis (3) Abdominal pain (4) Duodenal ulcer disease (5) Intractable nausea and vomiting Prognosis Plan Continue physical therapy Advance diet as tolerated Continue Protonix 40 mg IV q.12 hours Avoid aspirin NSAIDs Review final pathology results Outpatient follow up me in clinic in 2-4 weeks after discharge Patient is cleared for discharge from surgical point of view Dietary Evaluation Review Comments: Nutrition Recommendation 1) Ensure clear TID 2) Advance diet as medically feasible 3) Monitor PO intake, lab values, weight trend, and I/O Expected Outcomes/Goals: To meet >75% estimated needs GI symptoms to improve Fu 2-3 days Plan discussed with: Patient, Son LOW CHRISTINE MD Feb 12, 2025 21:15
[2025-02-12] MEDS: ENOXAPARIN SOD 60 MG/0.6 ML SYRINGE SC SCH (21:28)
[2025-02-13] VITALS (9 sets, daily range): BP systolic 106–137; BP diastolic 62–81; PULSE 79–95; RESP 16–18; TEMP 98.1–99.1; O2SAT 94–97
--- NOTE | 2025-02-13 09:13 | DVHPN2 ---
Subjective Right lower extremity edema otherwise better Reviewed: Care Plan, H&P, Labs, Medications, Previous Orders, Radiology, Other Changes from previous H/P or p: No Changes General: Per HPI Objective Vitals Vital Signs Date Time Temp Pulse Resp B/P (MAP) Pulse Ox O2 Delivery O2 Flow Rate FiO2 02/13/25 05:49 98.3 81 98.3 02/13/25 05:08 18 106/56 02/13/25 05:00 94 02/12/25 20:00 Room Air* 0 21 Intake/Output Intake and Output 02/13/25 07:00 Intake Total 950 ml Output Total 550 ml Balance 400 ml Intake Oral 950 ml Output Urine Total 550 ml # Voids 2 # Bowel Movements 3 General Appearance: Alert, Oriented X3, Cooperative, No acute distress HEENT: Atraumatic Lungs: Clear to auscultation, Normal air movement Cardiovascular: Regular rate Abdomen: Other (Minimal tenderness around surgical sites) Extremities: Other (1+ edema right lower extremity/right ankle and foot) Neuro: Normal speech Skin: Dry, Intact Psych/Mental Status: Mental status NL, Mood NL Medications Current Medications Medications Dose Ordered Sig/Francia Route Start Time Stop Time Status Last Admin Dose Admin Ondansetron HCl 4 mg Q4HP PRN IV 01/27/25 11:15 UNV Acetaminophen 650 mg Q6HP PRN PO 01/27/25 11:15 02/11/25 04:10 650 MG Sucralfate 1 gm QID PO 01/27/25 12:00 UNV Patient Own Medication 20 mg DAILY PO 01/28/25 10:00 UNV Patient Own Medication 1 tab TID PO 01/27/25 14:00 UNV Patient Own Medication 1 tab DAILY PO 01/28/25 10:00 UNV Diphenhydramine HCl 25 mg BIDP PRN PO 01/29/25 15:00 02/10/25 20:47 25 MG Lidocaine 1 patch DAILY TOP 01/31/25 13:45 02/12/25 08:18 1 PATCH Lorazepam 0.5 mg Q6HP PRN IV 02/02/25 12:00 02/09/25 21:45 0.5 MG Sodium Chloride 10 ml QSHIFT@ IV 02/02/25 22:00 02/12/25 22:01 10 ML Ondansetron HCl 4 mg Q4HPRN PRN IV 02/03/25 11:15 02/04/25 08:20 4 MG Hydromorphone HCl 1.25 mg Q3HPRN PRN IV 02/04/25 10:45 02/13/25 04:38 1.25 MG Fat Emulsion Intravenous 50 ml/ Sodium Acetate 20 meq/Potassium Phosphate 44 meq/ Calcium Gluconate 2.3 meq/Magnesium Sulfate 12 meq/ Multivitamins 10 ml/Chromium/ Copper/Manganese/ Zinc 1 ml/Amino Acids/Dextrose 888.9462 ml @ 38 mls/hr [id number] IV 02/04/25 22:00 02/05/25 21:59 Cancel Labetalol HCl 10 mg Q2HPRN PRN IV 02/04/25 13:00 02/06/25 17:29 10 MG Acetaminophen 1,000 mg [id number] PRN IV 02/05/25 10:15 02/07/25 01:22 1,000 MG Fat Emulsion Intravenous 200 ml/Sodium Chloride 40 meq/ Sodium Phosphate 20 meq/Potassium Chloride 50 meq/ Potassium Phosphate 22 meq/ Calcium Gluconate 4.65 meq/ Magnesium Sulfate 12 meq/ Multivitamins 10 ml/Chromium/ Copper/Manganese/ Zinc 1 ml/Insulin Human Regular 10 units/Amino Aci... 1,619.1 ml @ 68 mls/hr [id number] IV 02/11/25 22:00 02/12/25 21:59 Cancel Saccharomyces Boulardii 250 mg DAILY PO 02/12/25 10:00 02/12/25 08:18 250 MG Pantoprazole Sodium 40 mg DAILY@0600 PO 02/12/25 06:00 02/13/25 05:13 40 MG Acetaminophen/ Hydrocodone Bitart 1 tab Q6HPRN PRN PO 02/11/25 13:30 Enoxaparin Sodium 50 mg Q12HR SC 02/12/25 22:00 02/12/25 21:28 50 MG Laboratory Results Laboratory Tests 02/12/25 11:01 Chemistry Test 02/12/25 11:01 Albumin 3.3 g/dL (3.2-4.8) Calcium Level 8.6 mg/dL (8.7-10.4) L Total Protein 6.2 g/dL (5.7-8.2) LFT Test 02/12/25 11:01 Alanine Aminotransferase (ALT) 20 U/L (7-40) Alkaline Phosphatase 157 U/L (46-116) H Aspartate Amino Transferase (AST) 26 U/L (13-40) Total Bilirubin 0.3 mg/dL (0.2-1.0) Urinalysis Test 01/27/25 07:41 Urine Color Yellow (Yellow) Urine Clarity Clear (Clear) Urine pH 6.0 (5.0-9.0) Urine Specific [place] 1.040 (1.001-1.035) Urine Protein 1+ (Negative) H Urine Ketones 3+ (Negative) H Urine Blood Negative /uL (Negative) Urine Nitrite Negative (Negative) Urine Bilirubin Negative (Negative) Urine Urobilinogen 2 mg/dL (Negative) H Urine Leukocyte Esterase 1+ /uL (Negative) Urine RBC 4 /hpf (0 - 4) Urine Microscopic WBC 9 /HPF (0-5) H Urine Squamous Epithelial Cells Few /hpf (<5) Urine Bacteria None seen /hpf (None Seen) Urine Mucus Few (None Seen) Urine Glucose Normal mg/dL (Normal) Assessment/Plan Assessment/Plan Right lower extremity DVT/New Status post cholecystectomy and duodenal surgery for duodenal stricture Cholelithiasis Peptic ulcer disease Hypertension Anemia Depression Plan: Continue Lovenox. Repeat labs. Further plan per orders Plan discussed with: Patient My Orders Orders - NATI HAWKINS MD Procedure Category Date Status Time Rt Lower Dvt US 02/12/25 Resulted 10:01 Enoxaparin Sodium PHA 02/12/25 In Process (Lovenox) 22:00 Complete Blood Count LAB 02/14/25 Verified 06:00 Comprehensive LAB 02/14/25 Verified Metabolic Panel 06:00 Date of Service: Feb 13, 2025 Billing Provider: NATI HAWKINS MD Common Visit Codes: [id number] INP/OBS CARE(HIGH) NATI HAWKINS MD Feb 13, 2025 09:13
--- NOTE | 2025-02-13 17:25 | DVHPN2 ---
Progress Note - Dictate Date Seen: Feb 13, 2025 Medical Necessity Reason Pt with a Central, PICC or Fol: No Subjective Postop day 10 S/P laparotomy with Cholecystectomy, antrectomy, truncal vagotomy, gastrojejunostomy. Patient is feeling much better She is tolerating a soft diet NG tube and IV TPN discontinued Patient ambulating with physical therapy Patient developed right leg swelling and was diagnosed with DVT Patient has been started on Lovenox vital signs Vital Sign Date Time Temp Pulse Resp B/P (MAP) Pulse Ox O2 Delivery O2 Flow Rate FiO2 02/13/25 16:15 90 18 131/81 02/13/25 13:00 98.8 96 98.8 02/13/25 08:00 Room Air* 0 21 Total Intake and Output 02/12/25 02/12/25 02/13/25 15:00 23:00 07:00 Intake Total 750 ml 200 ml Output Total 550 ml Balance 200 ml 200 ml medications Current Medications Medications Dose Ordered Sig/Francia Route Start Time Stop Time Status Last Admin Dose Admin Ondansetron HCl 4 mg Q4HP PRN IV 01/27/25 11:15 UNV Acetaminophen 650 mg Q6HP PRN PO 01/27/25 11:15 02/11/25 04:10 650 MG Sucralfate 1 gm QID PO 01/27/25 12:00 UNV Patient Own Medication 20 mg DAILY PO 01/28/25 10:00 UNV Patient Own Medication 1 tab TID PO 01/27/25 14:00 UNV Patient Own Medication 1 tab DAILY PO 01/28/25 10:00 UNV Diphenhydramine HCl 25 mg BIDP PRN PO 01/29/25 15:00 02/10/25 20:47 25 MG Lidocaine 1 patch DAILY TOP 01/31/25 13:45 02/13/25 09:32 1 PATCH Lorazepam 0.5 mg Q6HP PRN IV 02/02/25 12:00 02/09/25 21:45 0.5 MG Sodium Chloride 10 ml QSHIFT@ IV 02/02/25 22:00 02/13/25 09:32 10 ML Ondansetron HCl 4 mg Q4HPRN PRN IV 02/03/25 11:15 02/04/25 08:20 4 MG Hydromorphone HCl 1.25 mg Q3HPRN PRN IV 02/04/25 10:45 02/13/25 16:15 1.25 MG Fat Emulsion Intravenous 50 ml/ Sodium Acetate 20 meq/Potassium Phosphate 44 meq/ Calcium Gluconate 2.3 meq/Magnesium Sulfate 12 meq/ Multivitamins 10 ml/Chromium/ Copper/Manganese/ Zinc 1 ml/Amino Acids/Dextrose 888.9462 ml @ 38 mls/hr [id number] IV 02/04/25 22:00 02/05/25 21:59 Cancel Labetalol HCl 10 mg Q2HPRN PRN IV 02/04/25 13:00 02/06/25 17:29 10 MG Acetaminophen 1,000 mg [id number] PRN IV 02/05/25 10:15 02/07/25 01:22 1,000 MG Fat Emulsion Intravenous 200 ml/Sodium Chloride 40 meq/ Sodium Phosphate 20 meq/Potassium Chloride 50 meq/ Potassium Phosphate 22 meq/ Calcium Gluconate 4.65 meq/ Magnesium Sulfate 12 meq/ Multivitamins 10 ml/Chromium/ Copper/Manganese/ Zinc 1 ml/Insulin Human Regular 10 units/Amino Aci... 1,619.1 ml @ 68 mls/hr [id number] IV 02/11/25 22:00 02/12/25 21:59 Cancel Saccharomyces Boulardii 250 mg DAILY PO 02/12/25 10:00 02/13/25 09:32 250 MG Pantoprazole Sodium 40 mg DAILY@0600 PO 02/12/25 06:00 02/13/25 05:13 40 MG Acetaminophen/ Hydrocodone Bitart 1 tab Q6HPRN PRN PO 02/11/25 13:30 Enoxaparin Sodium 50 mg Q12HR SC 02/12/25 22:00 02/13/25 09:32 50 MG objective General Appearance: Alert, Oriented X3, Cooperative, No acute distress HEENT: Atraumatic Lungs: Clear to auscultation, Normal air movement Cardiovascular: Regular rate Abdomen: Other (Minimal tenderness around surgical sites) Extremities: Other (1+ edema right lower extremity/right ankle and foot) Neuro: Normal speech Skin: Dry, Intact Psych/Mental Status: Mental status NL, Mood NL laboratory and microbiology Laboratory Tests 02/12/25 11:01 Test 02/12/25 11:01 Range/Units Serum Glucose 120 H 74-106 mg/dL Doppler LE Findings: Thrombus of the right common femoral vein . Occlusive thrombus of the superficial femoral vein. RN informed findings 1. Positive DVT study. RN informed preliminary results. Problems(with codes): (1) Abnormal finding on radiology exam (2) Duodenal stenosis (3) Abdominal pain (4) Duodenal ulcer disease (5) Intractable nausea and vomiting (6) Cholelithiasis Prognosis Plan Continue physical therapy Advance diet as tolerated Continue Protonix 40 mg IV q.12 hours Avoid aspirin NSAIDs Continue Lovenox and possible treatment for DVT with the Eliquis Review final pathology results Outpatient follow up me in clinic in 2-4 weeks after discharge Patient is cleared for discharge from surgical point of view Dietary Evaluation Review Comments: Nutrition Recommendation 1) Ensure clear TID 2) Advance diet as medically feasible 3) Monitor PO intake, lab values, weight trend, and I/O Expected Outcomes/Goals: To meet >75% estimated needs GI symptoms to improve Fu 2-3 days Plan discussed with: Patient, Other (Dr Ivey) LOW CHRISTINE MD Feb 13, 2025 17:25
[2025-02-14] VITALS (8 sets, daily range): BP systolic 120–138; BP diastolic 55–75; PULSE 83–101; RESP 16–18; TEMP 98.2–99.5; O2SAT 95–99
[2025-02-14 08:03] LABS: Alanine Aminotransferase 18 U/L (7-40); Anion Gap 8 (5-15); BUN/Creatinine Ratio 20.0 (10.0-20.0); Bilirubin, Total 0.4 mg/dL (0.2-1.0); Blood Urea Nitrogen 9 mg/dL (9-23); Carbon Dioxide 29 mmol/L (20-31); Chloride 99 mmol/L (98-107); Glucose 83 mg/dL (74-106); Potassium 4.2 mmol/L (3.5-5.1); Sodium 136 mmol/L (136-145)
[2025-02-14 08:05] LABS: Albumin 3.0 g/dL (3.2-4.8); Alkaline Phosphatase 127 U/L (46-116); Calcium 8.1 mg/dL (8.7-10.4); Hemoglobin 8.4 g/dL (12.2-16.2); Total Protein 5.4 g/dL (5.7-8.2)
[2025-02-14 08:09] LABS: Hematocrit 25.4 % (36.0-46.0); Mean Corpuscular Hemoglobin 26.9 pg (28.0-32.0); Mean Corpuscular Volume 81.3 fL (80.0-100.0); Nucleated Red Blood Cells % 0.0 %
--- NOTE | 2025-02-14 11:03 | DVHPN2 ---
Subjective Reports pain is improving to abdomen. Reviewed: Care Plan, H&P, Labs, Medications, Previous Orders, Radiology, Other Changes from previous H/P or p: Changes General: Per HPI Musculoskeletal: leg pain (Right) Objective Vitals Vital Signs Date Time Temp Pulse Resp B/P (MAP) Pulse Ox O2 Delivery O2 Flow Rate FiO2 02/14/25 09:06 88 18 121/61 02/14/25 09:00 98.7 97 98.7 02/14/25 08:00 Room Air* 0 21 Intake/Output Intake and Output 02/14/25 07:00 Intake Total 800 ml Balance 800 ml Intake Oral 800 ml # Voids 8 # Bowel Movements 4 General Appearance: Alert, Oriented X3, Cooperative, No acute distress HEENT: Atraumatic, PERRLA Lungs: Clear to auscultation, Normal air movement Cardiovascular: Regular rate Abdomen: Other (Minimal tenderness around surgical sites) Extremities: Other (1+ edema right lower extremity/right ankle and foot) Neuro: Normal speech Skin: Dry, Intact Psych/Mental Status: Mental status NL, Mood NL Medications Current Medications Medications Dose Ordered Sig/Francia Route Start Time Stop Time Status Last Admin Dose Admin Ondansetron HCl 4 mg Q4HP PRN IV 01/27/25 11:15 UNV Acetaminophen 650 mg Q6HP PRN PO 01/27/25 11:15 02/11/25 04:10 650 MG Sucralfate 1 gm QID PO 01/27/25 12:00 UNV Patient Own Medication 20 mg DAILY PO 01/28/25 10:00 UNV Patient Own Medication 1 tab TID PO 01/27/25 14:00 UNV Patient Own Medication 1 tab DAILY PO 01/28/25 10:00 UNV Diphenhydramine HCl 25 mg BIDP PRN PO 01/29/25 15:00 02/10/25 20:47 25 MG Lidocaine 1 patch DAILY TOP 01/31/25 13:45 02/14/25 09:05 1 PATCH Lorazepam 0.5 mg Q6HP PRN IV 02/02/25 12:00 02/09/25 21:45 0.5 MG Sodium Chloride 10 ml QSHIFT@10,22 IV 02/02/25 22:00 02/14/25 09:13 10 ML Ondansetron HCl 4 mg Q4HPRN PRN IV 02/03/25 11:15 02/04/25 08:20 4 MG Hydromorphone HCl 1.25 mg Q3HPRN PRN IV 02/04/25 10:45 02/14/25 09:06 1.25 MG Fat Emulsion Intravenous 50 ml/ Sodium Acetate 20 meq/Potassium Phosphate 44 meq/ Calcium Gluconate 2.3 meq/Magnesium Sulfate 12 meq/ Multivitamins 10 ml/Chromium/ Copper/Manganese/ Zinc 1 ml/Amino Acids/Dextrose 888.9462 ml @ 38 mls/hr [id number] IV 02/04/25 22:00 02/05/25 21:59 Cancel Labetalol HCl 10 mg Q2HPRN PRN IV 02/04/25 13:00 02/06/25 17:29 10 MG Acetaminophen 1,000 mg [id number] PRN IV 02/05/25 10:15 02/07/25 01:22 1,000 MG Fat Emulsion Intravenous 200 ml/Sodium Chloride 40 meq/ Sodium Phosphate 20 meq/Potassium Chloride 50 meq/ Potassium Phosphate 22 meq/ Calcium Gluconate 4.65 meq/ Magnesium Sulfate 12 meq/ Multivitamins 10 ml/Chromium/ Copper/Manganese/ Zinc 1 ml/Insulin Human Regular 10 units/Amino Aci... 1,619.1 ml @ 68 mls/hr [id number] IV 02/11/25 22:00 02/12/25 21:59 Cancel Saccharomyces Boulardii 250 mg DAILY PO 02/12/25 10:00 02/14/25 09:13 250 MG Pantoprazole Sodium 40 mg DAILY@0600 PO 02/12/25 06:00 02/14/25 05:40 40 MG Acetaminophen/ Hydrocodone Bitart 1 tab Q6HP PRN PO 02/14/25 10:30 UNV Apixaban 10 mg BID PO 02/14/25 22:00 02/21/25 21:59 UNV Apixaban 5 mg BID PO 02/14/25 22:00 UNV Sodium Chloride 1,000 ml @ 75 mls/hr [id number] IV 02/14/25 10:30 02/14/25 23:49 UNV Laboratory Results Laboratory Tests 02/14/25 06:41 Chemistry Test 02/14/25 06:41 Albumin 3.0 g/dL (3.2-4.8) L Calcium Level 8.1 mg/dL (8.7-10.4) L Total Protein 5.4 g/dL (5.7-8.2) L LFT Test 02/14/25 06:41 Alanine Aminotransferase (ALT) 18 U/L (7-40) Alkaline Phosphatase 127 U/L (46-116) H Aspartate Amino Transferase (AST) 21 U/L (13-40) Total Bilirubin 0.4 mg/dL (0.2-1.0) Urinalysis Test 01/27/25 07:41 Urine Color Yellow (Yellow) Urine Clarity Clear (Clear) Urine pH 6.0 (5.0-9.0) Urine Specific [place] 1.040 (1.001-1.035) Urine Protein 1+ (Negative) H Urine Ketones 3+ (Negative) H Urine Blood Negative /uL (Negative) Urine Nitrite Negative (Negative) Urine Bilirubin Negative (Negative) Urine Urobilinogen 2 mg/dL (Negative) H Urine Leukocyte Esterase 1+ /uL (Negative) Urine RBC 4 /hpf (0 - 4) Urine Microscopic WBC 9 /HPF (0-5) H Urine Squamous Epithelial Cells Few /hpf (<5) Urine Bacteria None seen /hpf (None Seen) Urine Mucus Few (None Seen) Urine Glucose Normal mg/dL (Normal) Labs and/or images reviewed: Labs reviewed by me, Image(s) reviewed by me Assessment/Plan Assessment/Plan Impression: -intractable nausea and vomiting -peptic ulcer disease -cholelithiasis -primary hypertension -recent endoscopy -pernicious drop in hemoglobin postoperatively -right lower extremity DVT. Plan: Events: Positive DVT to right lower extremity. Reported by family that patient was not wearing SCDs as ordered. -CT angiogram chest -left lower extremity DVT study -change anticoagulation to DOAC -incentive spirometer q.1 hour while awake -electrolyte replacement -antihypertensives -repeat labs in a.m. -social service consultation for DC planning with home health services and physical therapy. Total time spent with patient discussing and formulating plan of care: 35 minutes. This medical document was created using an electronic medical record system with [employer] system. Although this document has been carefully reviewed, there may still be some phonetic and typographical errors. These areas are purely typographical due to imperfections of the software programs, and do not reflect any compromise in the patient's medical care. Plan discussed with: Patient, Other (RN) My Orders Orders - CORINA GONSALVES NP Procedure Category Date Status Time Hydrocodone-Acet PHA 02/14/25 Transmitted 7.5/325mg Tab ([place] 10:30 Apixaban (Eliquis) PHA 02/14/25 Transmitted 22:00 Apixaban (Eliquis) PHA 02/14/25 Transmitted 22:[address] 02/14/25 Transmitted Contrast 10:30 Basic Metabolic Panel LAB 02/15/25 Verified 04:00 NS PHA 02/14/25 Transmitted 10:30 Date of Service: Feb 14, 2025 Billing Provider: CORINA GONSALVES NP Common Visit Codes: [id number] INP/OBS CARE(HIGH) CORINA GONSALVES NP Feb 14, 2025 11:03
[2025-02-14] MEDS: HYDROcodone-ACET 7.5/325MG TAB PO PRN (11:14)
[2025-02-14] MEDS: IOHEXOL 350 MG/ML 100ML IJ ONE (11:58)
--- NOTE | 2025-02-14 12:57 | DVH ---
Indication: rule out PE, positive DVT Technique: CT axial images of the abdomen and pelvis are obtained with intravenous contrast. Coronal and sagittal reformats were obtained. Radiation Dose Information: CTDI volume is 5.92 mGy. Dose-length product is 339 mGy*cm Comparison: None FINDINGS: Filling defect within the distal right main pulmonary artery extending into the right lower and upper lobe segmental branches. Filling defects within the left lower lobe segmental and subsegmental branc hes. Trachea patent. No pneumothorax. Bilateral atelectasis. Heart normal in size. No supraclavicular, axillary lymphadenopathy. Surgical drain in the right upper quadrant of the abdomen. Pneumoperitoneum. Gastric wall edema / th ickening. Left perihepatic fluid collection measuring 4.5 x 2.6 cm. No acute osseous abnormality. IMPRESSION: Bilateral pulmonary emboli most pronounced within the distal right main pulmonary artery and right lo wer lobe segmental and subsegmental branches. Pneumoperitoneum. Surgical drain in the right upper quadrant of the abdomen. Left perihepatic fluid collection measuring 4.5 x 2.6 cm. Gastric wall edema and thickening. Recommend gI/surgical consultation for further evaluation. Findings were communicated to Amisha BENNETT at 12:50 p.m On 02/14/2025.
--- NOTE | 2025-02-14 13:11 | DVH ---
Bilateral lower extremity venous duplex Clinical History: rule out DVT Comparison: US RT LOWER DVT on DOS: 02/12/25 Technique: Duplex Doppler evaluation of the deep venous systems of both lower extremities from the common femora l veins to the popliteal veins including color Doppler and spectral/pulsed waveform analysis was perf ormed. Findings: LEFT SIDE: The common femoral vein demonstrates noncompressible left common femoral vein with no augmentation or flow. Findings consistent with deep venous thrombosis There is compressibility/patency of the great saphenous vein at the proximal thigh. The femoral vein demonstrates appropriate compressibility and waveform variability. The deep femoral vein demonstrates appropriate compressibility and waveform variability. The popliteal vein demonstrates although no thrombus is noted in the left popliteal vein rouleaux blo od flow is noted suggesting slow blood flow. There is normal compressibility at the tibioperoneal trunk. Impression: 1. Positive deep venous thrombosis left common femoral vein. 2. Slow blood flow left popliteal vein. 3. Lia BENNETT notified at preliminary findings.
[2025-02-14] MEDS: SODIUM CHLORIDE 0.9% 1,000 ML IV SCH (14:26)
[2025-02-14] MEDS: APIXABAN 5 MG TAB PO SCH (21:18)
[2025-02-14] MEDS ORDERED: ENOXAPARIN SOD 60 MG/0.6 ML SYRINGE SC SCH (22:00)
[2025-02-14] MEDS ORDERED: APIXABAN 5 MG TAB PO SCH ×2 (22:00)
--- NOTE | 2025-02-14 22:21 | DVHPN2 ---
Progress Note - Dictate Date Seen: Feb 14, 2025 Medical Necessity Reason Pt with a Central, PICC or Fol: No Subjective Postop day 11 S/P laparotomy with Cholecystectomy, antrectomy, truncal vagotomy, gastrojejunostomy. Patient is feeling much better She is tolerating a soft diet NG tube and IV TPN discontinued Patient ambulating with physical therapy Patient developed right leg swelling and was diagnosed with DVT Patient has been started on Lovenox vital signs Vital Sign Date Time Temp Pulse Resp B/P (MAP) Pulse Ox O2 Delivery O2 Flow Rate FiO2 02/14/25 21:00 98.3 93 16 128/73 (91) 99 98.3 02/14/25 20:00 Room Air* 0 21 Total Intake and Output 02/13/25 02/13/25 02/14/25 15:00 23:00 07:00 Intake Total 500 ml 300 ml Balance 500 ml 300 ml medications Current Medications Medications Dose Ordered Sig/Francia Route Start Time Stop Time Status Last Admin Dose Admin Ondansetron HCl 4 mg Q4HP PRN IV 01/27/25 11:15 UNV Acetaminophen 650 mg Q6HP PRN PO 01/27/25 11:15 02/11/25 04:10 650 MG Sucralfate 1 gm QID PO 01/27/25 12:00 UNV Patient Own Medication 20 mg DAILY PO 01/28/25 10:00 UNV Patient Own Medication 1 tab TID PO 01/27/25 14:00 UNV Patient Own Medication 1 tab DAILY PO 01/28/25 10:00 UNV Diphenhydramine HCl 25 mg BIDP PRN PO 01/29/25 15:00 02/10/25 20:47 25 MG Lidocaine 1 patch DAILY TOP 01/31/25 13:45 02/14/25 09:05 1 PATCH Lorazepam 0.5 mg Q6HP PRN IV 02/02/25 12:00 02/14/25 14:42 0.5 MG Sodium Chloride 10 ml QSHIFT@10,22 IV 02/02/25 22:00 02/14/25 21:18 10 ML Ondansetron HCl 4 mg Q4HPRN PRN IV 02/03/25 11:15 02/04/25 08:20 4 MG Hydromorphone HCl 1.25 mg Q3HPRN PRN IV 02/04/25 10:45 02/14/25 09:06 1.25 MG Fat Emulsion Intravenous 50 ml/ Sodium Acetate 20 meq/Potassium Phosphate 44 meq/ Calcium Gluconate 2.3 meq/Magnesium Sulfate 12 meq/ Multivitamins 10 ml/Chromium/ Copper/Manganese/ Zinc 1 ml/Amino Acids/Dextrose 888.9462 ml @ 38 mls/hr [id number] IV 02/04/25 22:00 02/05/25 21:59 Cancel Labetalol HCl 10 mg Q2HPRN PRN IV 02/04/25 13:00 02/06/25 17:29 10 MG Acetaminophen 1,000 mg [id number] PRN IV 02/05/25 10:15 02/07/25 01:22 1,000 MG Fat Emulsion Intravenous 200 ml/Sodium Chloride 40 meq/ Sodium Phosphate 20 meq/Potassium Chloride 50 meq/ Potassium Phosphate 22 meq/ Calcium Gluconate 4.65 meq/ Magnesium Sulfate 12 meq/ Multivitamins 10 ml/Chromium/ Copper/Manganese/ Zinc 1 ml/Insulin Human Regular 10 units/Amino Aci... 1,619.1 ml @ 68 mls/hr [id number] IV 02/11/25 22:00 02/12/25 21:59 Cancel Saccharomyces Boulardii 250 mg DAILY PO 02/12/25 10:00 02/14/25 09:13 250 MG Pantoprazole Sodium 40 mg DAILY@0600 PO 02/12/25 06:00 02/14/25 05:40 40 MG Acetaminophen/ Hydrocodone Bitart 1 tab Q6HP PRN PO 02/14/25 10:30 02/14/25 18:37 1 TAB Apixaban 10 mg BID PO 02/14/25 22:00 02/21/25 10:01 02/14/25 21:18 10 MG Apixaban 5 mg BID PO 02/21/25 22:00 objective General Appearance: Alert, Oriented X3, Cooperative, No acute distress HEENT: Atraumatic Lungs: Clear to auscultation, Normal air movement Cardiovascular: Regular rate Abdomen: Other (Minimal tenderness around surgical sites) Extremities: Other (1+ edema right lower extremity/right ankle and foot) Neuro: Normal speech Skin: Dry, Intact Psych/Mental Status: Mental status NL, Mood NL laboratory and microbiology Laboratory Tests 02/14/25 06:41 Test 02/14/25 06:41 Range/Units Serum Glucose 83 74-106 mg/dL Problems(with codes): (1) DVT (deep venous thrombosis) (2) Abnormal finding on radiology exam (3) Duodenal stenosis (4) Abdominal pain (5) Duodenal ulcer disease (6) Intractable nausea and vomiting Prognosis PLAN -CT angiogram chest -left lower extremity DVT study -change anticoagulation to DOAC -incentive spirometer q.1 hour while awake -electrolyte replacement -antihypertensives, Continue IV PPI and maintain -repeat labs in a.m. -social service consultation for DC planning with home health services and physical therapy. Dietary Evaluation Review Comments: Nutrition Recommendation 1) Ensure clear TID 2) Advance diet as medically feasible 3) Monitor PO intake, lab values, weight trend, and I/O Expected Outcomes/Goals: To meet >75% estimated needs GI symptoms to improve Fu 2-3 days Plan discussed with: Other (Dr Ivey) LOW CHRISTINE MD Feb 14, 2025 22:21
[2025-02-15 01:02] VITALS: BP 145/75; PULSE 95; RESP 16; TEMP 98.1; O2SAT 96
[2025-02-15 05:00] VITALS: BP 130/73; PULSE 97; RESP 17; TEMP 97.3; O2SAT 98
[2025-02-15 06:02] LABS: Chloride 102 mmol/L (98-107); Sodium 139 mmol/L (136-145)
[2025-02-15 06:03] LABS: Anion Gap 10 (5-15); Calcium 8.7 mg/dL (8.7-10.4); Carbon Dioxide 27 mmol/L (20-31)
[2025-02-15 06:08] LABS: BUN/Creatinine Ratio 11.4 (10.0-20.0); Blood Urea Nitrogen 5 mg/dL (9-23); Glucose 105 mg/dL (74-106); Potassium 3.2 mmol/L (3.5-5.1)
[2025-02-15 08:00] VITALS: PULSE 78; PULSE 96; RESP 18; O2SAT 98
[2025-02-15 09:00] VITALS: BP 119/76; PULSE 83; RESP 16; TEMP 98.4; O2SAT 96
[2025-02-15] MEDS ORDERED: APIX5TAB PO (12:48)
[2025-02-15 13:00] VITALS: BP 111/69; PULSE 87; RESP 16; TEMP 99; O2SAT 97
[2025-02-15] MEDS ORDERED: HYDR-4795 PO (13:11)
--- NOTE | 2025-02-15 13:17 | DVHDS2 ---
Discharge Summary Date of Admission Jan 27, 2025 at 11:12 Date of Discharge: Feb 15, 2025 Admitting Diagnosis Intractable nausea and vomiting Labs/Diagnostic Data: Laboratory Results Test 02/15/25 05:11 02/14/25 06:41 02/11/25 17:48 02/11/25 05:11 Sodium Level 139 mmol/L (136-145) Potassium Level 3.2 mmol/L (3.5-5.1) Chloride Level 102 mmol/L (98-107) Carbon Dioxide Level 27 mmol/L (20-31) Anion Gap 10 (5-15) Blood Urea Nitrogen 5 mg/dL (9-23) Creatinine 0.44 mg/dL (0.550-1.02) Glomerular Filtration Rate Calc 109 mL/min (>90) BUN/Creatinine Ratio 11.4 (10.0-20.0) Serum Glucose 105 mg/dL (74-106) Calcium Level 8.7 mg/dL (8.7-10.4) White Blood Count 9.5 10^3/uL (4.4-10.8) Red Blood Count 3.13 10^6/uL (4.0-5.20) Hemoglobin 8.4 g/dL (12.2-16.2) Hematocrit 25.4 % (36.0-46.0) Mean Corpuscular Volume 81.3 fL (80.0-100.0) Mean Corpuscular Hemoglobin 26.9 pg (28.0-32.0) Mean Corpuscular Hemoglobin Concent 33.0 g/dL (32.0-36.0) Red Cell Distribution Width 15.0 % (11.8-14.3) Platelet Count 417 10^3/uL (140-450) Mean Platelet Volume 8.0 fL (6.9-10.8) Neutrophils (%) (Auto) 70.2 % (37.0-80.0) Lymphocytes (%) (Auto) 16.5 % (10.0-50.0) Monocytes (%) (Auto) 7.6 % (0.0-12.0) Eosinophils (%) (Auto) 4.8 % (0.0-7.0) Basophils (%) (Auto) 0.9 % (0.0-2.0) Neutrophils # (Auto) 6.7 10 ^3/uL (1.6-8.6) Lymphocytes # (Auto) 1.6 10 ^3/uL (0.4-5.4) Monocytes # (Auto) 0.7 10 ^3/uL (0-1.3) Eosinophils # (Auto) 0.5 10 ^3/uL (0-0.8) Basophils # (Auto) 0.1 10 ^3/uL (0-0.2) Nucleated Red Blood Cells 0.0 % Total Bilirubin 0.4 mg/dL (0.2-1.0) Aspartate Amino Transferase (AST) 21 U/L (13-40) Alanine Aminotransferase (ALT) 18 U/L (7-40) Alkaline Phosphatase 127 U/L (46-116) Total Protein 5.4 g/dL (5.7-8.2) Albumin 3.0 g/dL (3.2-4.8) CA 125 Antigen 62.4 U/mL (0.0-38.1) POC Glucose 134 mg/dl (70-106) Phosphorus Level 2.7 mg/dL (2.4-5.1) Magnesium Level 2.1 mg/dL (1.6-2.6) Anti-Nuclear Antibody Screen Negative (Negative) Test 02/09/25 06:06 02/01/25 15:10 01/29/25 08:30 01/28/25 10:53 Estimated GFR () 251 mL/min Estimated GFR (Non- 207 mL/min Triglycerides Level 94 mg/dL (< 150) Prothrombin Time 11.2 sec (9.3-11.8) Prothrombin Time INR 1.06 (0.9-1.15) Activated Partial Thromboplast Time 30.1 SEC (24.5-34.5) Stool Occult Blood Negative (Negative) Stool Occult Blood Sample #3 (Negative) CA 19-9 Antigen 21 U/mL (0-35) Test 01/28/25 04:17 01/27/25 14:07 01/27/25 11:46 01/27/25 07:50 Carcinoembryonic Antigen 0.96 ng/mL (<=5.0) Haptoglobin 236 mg/dL (37-355) Vitamin B1 Level 316.4 nmol/L (66.5-200.0) Vitamin D 25-Hydroxy 36 ng/mL (.) 25-Hydroxy Vitamin D2 <1.0 ng/mL (.) 25-Hydroxy Vitamin D3 35 ng/mL (.) Folic Acid 18.23 ng/mL (>5.38) Reticulocyte Count (auto) 0.78 % (0.5-1.5) Iron Level 64 ug/dL (50-170) Total Iron Binding Capacity 241 ug/dL (250-425) Percent Iron Saturation 26.6 % (15-50) Troponin I High Sensitivity 4 ng/L (</=34) Lipase 26 U/L (12-53) Test 01/27/25 07:41 Urine Color Yellow (Yellow) Urine Clarity Clear (Clear) Urine pH 6.0 (5.0-9.0) Urine Specific [place] 1.040 (1.001-1.035) Urine Protein 1+ (Negative) Urine Ketones 3+ (Negative) Urine Blood Negative /uL (Negative) Urine Nitrite Negative (Negative) Urine Bilirubin Negative (Negative) Urine Urobilinogen 2 mg/dL (Negative) Urine Leukocyte Esterase 1+ /uL (Negative) Urine RBC 4 /hpf (0 - 4) Urine Microscopic WBC 9 /HPF (0-5) Urine Squamous Epithelial Cells Few /hpf (<5) Urine Bacteria None seen /hpf (None Seen) Urine Mucus Few (None Seen) Urine Glucose Normal mg/dL (Normal) Other Laboratory Tests 02/15/25 05:11 02/14/25 06:41 Brief Hx & Hospital Course: History of Present Illness Stephenie Fan is a 64-year-old female with past medical history of anemia, anxiety, gallstones, GERD, hypertension, arthritis, duodenal ulcer, duodenal stenosis, depression, osteoarthritis, and tubal ligation who presents to the ED with abdominal pain with nausea and vomiting x1 week. Patient reports that there are no triggering or alleviating factors. She also reports that she had an endoscopy 6 months ago which revealed ulcers. Patient's son-in-law at chair side, Abhijit. Patient also reports that she has been vomiting yellow/brownish emesis x2 days and states that it tastes like blood. She reports the abdominal pain 5 out of 10 feels like agitation and constant. She also reports that she has been unable to hold food down. She has been trying to drink ensures but vomits on and off for 1 week. Patient denies any recent trauma or injury, recent sick contacts, recent ingestion of spoiled food, recent travels, fever, chills, lightheadedness, dizziness, chest pain, shortness of breath, or diarrhea. Patient also reports that she has been feeling weak the last 7 days. Patient also uses a cane with ambulation. Patient reports that she was seeing Dr. Dubois and was supposed to get an EGD but not scheduled until February 25 and requesting for her. Per notes, patient also had a colonoscopy in July of this year. Course of hospitalization: Patient had EGD, with findings of severe duodenal stricture. Surgical consultation was obtained. Patient underwent gastrojejunostomy bypassed. Patient had her diet advanced postoperatively. Physical therapy was implemented with the patient. Patient did have postop anemia, for which SCDs were ordered for DVT prophylaxis. Swelling was noted to right lower extremity with DVT found to right lower extremity, as well as patient having thrombus to left lower extremity as well as having small bilateral PE. Patient had no symptoms of dyspnea or chest pain. Discussion was made with Interventional Radiology regarding possible thrombectomy intervention as well as IVC filter placement. Feelings at this time are to continue current treatment with anticoagulation. Patient has been transitioned to [facility]. Patient has been ambulating with a walker. Patient will be discharged home with a walker, commode, as well as home physical therapy. Instructions were given to the patient's family regarding outpatient follow up for mildly elevated CA 125 for further imaging per PCP recommendations. Patient will also follow up with Dr. Hopkins in 7-10 days as well as Dr. Eugenia Dubois in 3-4 weeks. Family and patient are agreeable with discharge plan. All questions answered Physical examination General: Alert and Oriented x3. No acute distress. Well-nourished. Eyes: EOMI. Anicteric. HENT: Moist mucous membranes. Lungs: Clear to auscultation bilaterally. No accessory muscle use. Cardiovascular: Regular rate and rhythm. No murmur. No JVD. Abdomen: Soft, non-tender and non-distended. No palpable masses. Extremities: No edema. Non-tender. Skin: No rashes or lesions. Warm. Neurologic: No focal neurological deficits. CN II-XII grossly intact, but not individually tested. Psychiatric: Cooperative. Appropriate mood and affect. Total time spent with patient discussing and formulating plan of care: 35 minutes. This medical document was created using an electronic medical record system with [employer] dictation system. Although this document has been carefully reviewed, there may still be some phonetic and typographical errors. These areas are purely typographical due to imperfections of the software programs, and do not reflect any compromise in the patient's medical care. Consults/Reason for consult Gastroenterology: Abdominal pain, duodenal stricture Surgery: Duodenal stricture Interventional Radiology: Pulmonary embolism, bilateral DVT Operations or Procedures EGD Gastro jejunostomy bypass Condition at Discharge: Guarded Final Diagnosis/Problems List Duodenal stricture, status post gastrojejunostomy bypass Pulmonary embolism Bilateral DVT Discharge Disposition: Home with Health Services Discharge Instruct/Medications Diet: Regular Activity: No Restrictions, As Tolerated Follow Up/Referral: Follow up with Dr. Ivey at scheduled appointment on 02/21/[address] Hopkins in 7-10 days Follow up with Dr. Eugenia Dubois in 3-4 weeks Medications: Eliquis 10 mg p.o. b.i.d. for a total of seven days and 5 mg p.o. b.i.d. [place] 7/325 mg p.o. q.8 hours for [id number] pain Scheduled Acetaminophen (Tylenol 8 Hour Arthritis), 650 MG PO PRN, (Reported) Apixaban Base (Eliquis), 5 MG PO BID Apixaban Base (Eliquis), 10 MG PO BID Dicyclomine Hcl (Bentyl Capsule), 1 CAP PO Q6HPRN Docusate Sodium (Stool Softener), 100 MG PO DAILY, (Reported) Escitalopram Oxalate (Lexapro), 20 MG PO DAILY, (Reported) Escitalopram Oxalate (Escitalopram Oxalate), 1 TAB PO DAILY, (Reported) Gabapentin (Gabapentin), 1 TAB PO TID, (Reported) Hydralazine HCl (Hydralazine HCl), 25 MG PO DAILY, (Reported) Losartan Potassium & Hydrochlo (Hyzaar), 1 TAB PO DAILY, (Reported) Metoclopramide Hcl (Reglan), 10 MG PO BID Metoclopramide Hcl (Metoclopramide Hcl), 5 MG PO BID Nystatin (Mouth-Throat) (Mycostatin (Mouth-Throat)), 5 ML MT QID Pantoprazole Sodium Sesquihydr (Protonix), 40 MG PO BID Potassium Gluconate (Potassium Gluconate), 80 MG OR DAILY, (Reported) Sucralfate (Carafate Susp), 10 ML PO QID Scheduled PRN Baclofen (Baclofen), 1 TAB PO Q8HPRN PRN, (Reported) Hydrocodone-Acetaminophen (Hydrocodone/Acetaminophen 7.5-325 mg), 1 TAB PO TIDPRN PRN, (Reported) Ondansetron Odt 4MG Tab (Zofran Po), 4 MG PO Q4HPRN PRN 36 Discharge Statement: "Patient was advised to return to the ER or call 911 if any headaches, dizziness, shortness of breath, chest pain, abdominal pain, bleeding, fevers, or worsening of medical condition. Patient was counseled about treatment plan, medications, possible side effects, patientverbalized understanding. All questions were answered to the best of my ability. This discharge took greater then 30 minutes in planning, reviewing documentation, counseling the patient, and discussing with other team members." DME: Diagnosis: Request sapphirestanley juan c Diagnosis: Right lower extremity DVT, status post gastrojejunostomy bypass ASSESSMENT ASSESSMENT Assessment Duodenal stricture, status post gastrojejunostomy bypass Pulmonary embolism Bilateral DVT Date of Service: Feb 15, 2025 Billing Provider: CORINA GONSALVES NP Common Visit Codes: 53370-ZAS/OBS DISCH DAY >30min CORINA GONSALVES NP Feb 15, 2025 13:17
[2025-02-15] MEDS: POTASSIUM EFFERVESENT TAB 25 MEQ PO ONE (14:48)
[2025-02-15 16:56] VITALS: BP 116/72; PULSE 93; RESP 18; TEMP 98.4; O2SAT 94
--- NOTE | 2025-02-15 21:08 | DVHPN2 ---
Progress Note - Dictate Date Seen: Feb 15, 2025 (Late entryPatient seen at 4:00 p.m.) Medical Necessity Reason Pt with a Central, PICC or Fol: No Subjective Postop day 12 S/P laparotomy with Cholecystectomy, antrectomy, truncal vagotomy, gastrojejunostomy. Patient is feeling much better She is tolerating a soft diet NG tube and IV TPN discontinued Patient ambulating with physical therapy Patient developed right leg swelling and was diagnosed with DVT Patient has been started on Eliquis vital signs Vital Sign Date Time Temp Pulse Resp B/P (MAP) Pulse Ox O2 Delivery O2 Flow Rate FiO2 02/15/25 16:56 98.4 93 18 116/72 (87) 94 98.4 02/15/25 08:00 Room Air* 0 21 Total Intake and Output 02/14/25 02/14/25 02/15/25 15:00 23:00 07:00 Intake Total 650 ml 700 ml Output Total 15 ml 5 ml Balance 635 ml 695 ml medications Current Medications Medications Dose Ordered Sig/Francia Route Start Time Stop Time Status Last Admin Dose Admin Ondansetron HCl 4 mg Q4HP PRN IV 01/27/25 11:15 UNV Sucralfate 1 gm QID PO 01/27/25 12:00 UNV Patient Own Medication 20 mg DAILY PO 01/28/25 10:00 UNV Patient Own Medication 1 tab TID PO 01/27/25 14:00 UNV Patient Own Medication 1 tab DAILY PO 01/28/25 10:00 UNV Fat Emulsion Intravenous 50 ml/ Sodium Acetate 20 meq/Potassium Phosphate 44 meq/ Calcium Gluconate 2.3 meq/Magnesium Sulfate 12 meq/ Multivitamins 10 ml/Chromium/ Copper/Manganese/ Zinc 1 ml/Amino Acids/Dextrose 888.9462 ml @ 38 mls/hr [id number] IV 02/04/25 22:00 02/05/25 21:59 Cancel Fat Emulsion Intravenous 200 ml/Sodium Chloride 40 meq/ Sodium Phosphate 20 meq/Potassium Chloride 50 meq/ Potassium Phosphate 22 meq/ Calcium Gluconate 4.65 meq/ Magnesium Sulfate 12 meq/ Multivitamins 10 ml/Chromium/ Copper/Manganese/ Zinc 1 ml/Insulin Human Regular 10 units/Amino Aci... 1,619.1 ml @ 68 mls/hr [id number] IV 02/11/25 22:00 02/12/25 21:59 Cancel objective General Appearance: Alert, Oriented X3, Cooperative, No acute distress HEENT: Atraumatic Lungs: Clear to auscultation, Normal air movement Cardiovascular: Regular rate Abdomen: Other (Minimal tenderness around surgical sites) Extremities: Other (1+ edema right lower extremity/right ankle and foot) Neuro: Normal speech Skin: Dry, Intact Psych/Mental Status: Mental status NL, Mood NL laboratory and microbiology Laboratory Tests 02/15/25 05:11 02/14/25 06:41 Test 02/15/25 05:11 Range/Units Serum Glucose 105 74-106 mg/dL Problems(with codes): (1) Abdominal pain (2) Abnormal finding on radiology exam (3) DVT (deep venous thrombosis) (4) Duodenal stenosis (5) Duodenal ulcer disease (6) Intractable nausea and vomiting (7) Cholelithiasis Prognosis Plan Discharge planning is in progress Await final pathology results IVC filter not recommended at this time by radiologist Advance diet as tolerated Dietary Evaluation Review Comments: Nutrition Recommendation 1) Ensure clear TID 2) Advance diet as medically feasible 3) Monitor PO intake, lab values, weight trend, and I/O Expected Outcomes/Goals: To meet >75% estimated needs GI symptoms to improve Fu 2-3 days Plan discussed with: Patient LOW CHRISTINE MD Feb 15, 2025 21:08
[2025-02-21] MEDS ORDERED: APIXABAN 5 MG TAB PO SCH (22:00)
== END 2025-02-15 18:25 | disposition home health service (06) | DRG 220 ==
LOC: EEVIPCON 07:14 → ER 07:14 → OVERFLOW 11:12 → CENTRAL 13:12 → TELE-CENTR 02-06 00:42
PROVIDERS: ADMIT Nurse Practitioner Acute Care; ATTEND Nurse Practitioner Acute Care
PROC: 0DB98ZX Excision of Duodenum, Via Natural or Artificial Opening Endoscopic, Diagnostic (ICD-10-PCS; 2025-02-01)
PROC: 0DB68ZX Excision of Stomach, Via Natural or Artificial Opening Endoscopic, Diagnostic (ICD-10-PCS; 2025-02-01)
PROC: 02HV33Z Insertion of Infusion Device into Superior Vena Cava, Percutaneous Approach (ICD-10-PCS; 2025-02-02)
PROC: B548ZZA Ultrasonography of Superior Vena Cava, Guidance (ICD-10-PCS; 2025-02-02)
PROC: 0D160ZA Bypass Stomach to Jejunum, Open Approach (ICD-10-PCS; 2025-02-03)
PROC: 0FT40ZZ Resection of Gallbladder, Open Approach (ICD-10-PCS; 2025-02-03)
PROC: 0DB70ZZ Excision of Stomach, Pylorus, Open Approach (ICD-10-PCS; 2025-02-03)
PROC: 008Q0ZZ Division of Vagus Nerve, Open Approach (ICD-10-PCS; principal; 2025-02-03 08:45)
DX: K26.9 Duodenal ulcer, unspecified as acute or chronic, without hemorrhage or perforation (principal); I26.99 Other pulmonary embolism without acute cor pulmonale; K31.5 Obstruction of duodenum; I82.413 Acute embolism and thrombosis of femoral vein, bilateral; K31.1 Adult hypertrophic pyloric stenosis; N30.00 Acute cystitis without hematuria; E87.6 Hypokalemia; K80.20 Calculus of gallbladder without cholecystitis without obstruction; F32.A Depression, unspecified; I10 Essential (primary) hypertension; K21.9 Gastro-esophageal reflux disease without esophagitis; F41.9 Anxiety disorder, unspecified; K29.70 Gastritis, unspecified, without bleeding; K44.9 Diaphragmatic hernia without obstruction or gangrene; D64.9 Anemia, unspecified; K31.89 Other diseases of stomach and duodenum; K90.49 Malabsorption due to intolerance, not elsewhere classified; R97.1 Elevated cancer antigen 125 [CA 125]; Z88.8 Allergy status to other drugs, medicaments and biological substances; Z98.51 Tubal ligation status; Z82.49 Family history of ischemic heart disease and other diseases of the circulatory system; Z79.899 Other long term (current) drug therapy
CPT/HCPCS: 36415; 36569; 71045; 71275; 74177; 74220; 74246; 76705; 76937; 80048; 80053; 80069; 81001; 82270; 82306; 82378; 82746; 82962; 83010; 83540; 83550; 83690; 83735; 84100; 84425; 84478; 84484; 85025; 85045; 85610; 85730; 86038; 86301; 86304; 86850; 86880; 86900; 86901; 93005; 93306; 93971; 96361; 96374; 96375; 97110; 97116; 97163; 97530; G0378; J0131; J1100; J1815; J1885; J2003; J2250; J2405; J2470; J2704; J3480; J3490; J7060; J7131

== ENCOUNTER 2025-03-04 06:37 | Inpatient (IN) | payer MEDICAID ==
[~2025-03-04] VITALS: Ht 152.4 cm; Wt 53.5 kg
[~2025-03-04 06:37] MED LIST changes: +APIX5TAB PO; +ESCI1TAB37 PO; +HYDR-4795 PO
[2025-03-04] MEDS: SODIUM CHLORIDE 0.9% 1,000 ML IV ONE ×2 (07:30)
--- NOTE | 2025-03-04 07:54 | DVH ---
CHEST RADIOGRAPH Indication: sob Technique: Single frontal view of the chest was obtained. Comparison: XY CHEST PORTABLE on DOS: 02/02/25. FINDINGS: Lines and Tubes: None Lungs: No focal consolidation. Pleura: No effusion. No pneumothorax. Cardiomediastinal contours: Unremarkable Bones: No acute osseous abnormality. S shaped curvature of the thoracolumbar spine. IMPRESSION: 1. No acute cardiopulmonary disease.
[2025-03-04 08:34] LABS: Hematocrit 25.4 % (36.0-46.0); Hemoglobin 8.1 g/dL (12.2-16.2); Mean Corpuscular Hemoglobin 23.9 pg (28.0-32.0); Mean Corpuscular Volume 75.3 fL (80.0-100.0); Nucleated Red Blood Cells % 0.0 %
[2025-03-04 08:46] LABS: Alanine Aminotransferase 16 U/L (7-40); Albumin 3.5 g/dL (3.2-4.8); Anion Gap 11 (5-15); BUN/Creatinine Ratio 28.1 (10.0-20.0); Blood Urea Nitrogen 18 mg/dL (9-23); Carbon Dioxide 26 mmol/L (20-31); Chloride 101 mmol/L (98-107); Glucose 84 mg/dL (74-106); Potassium 3.9 mmol/L (3.5-5.1); Sodium 138 mmol/L (136-145); Total Protein 7.0 g/dL (5.7-8.2)
[2025-03-04 08:47] LABS: Alkaline Phosphatase 134 U/L (46-116); Bilirubin, Total 0.3 mg/dL (0.2-1.0); Calcium 8.6 mg/dL (8.7-10.4)
[2025-03-04 09:03] LABS: Urine Protein, UAD TRACE (Negative)
[2025-03-04] MEDS: IOHEXOL 300 MG/ML 100ML BOTTLE IJ ONE (09:35)
[2025-03-04] MEDS: PIPERACILLIN-TAZOB 3.375GM 100 ML IV ONE (10:14)
--- NOTE | 2025-03-04 10:42 | DVH ---
CLINICAL HISTORY: POSSIBLE PE; ABSCESS TECHNIQUE: CTA of the chest, CT of the abdomen, and pelvis was performed with IV contrast. Coronal an d sagittal reformatted images were performed for better depiction of the anatomy. This exam was perfo rmed according to our departmental dose optimization program. Up-to-date CT equipment and radiation d ose reduction techniques are utilized as appropriate. CTDI 12 DLP 908 COMPARISON: XY CHEST PORTABLE on DOS: 03/04/25, XY CHEST PORTABLE on DOS: 02/02/25, CT CT ABD PELVIS W CON-ORAL IV on DOS: 01/28/25, XY CHEST PORTABLE on DOS: 07/21/24, XY CHEST XRAY 1 VIEW on DOS: FINDINGS: CHEST: There was good opacification of the pulmonary arterial tree. There is subacute thrombus at the distal right main pulmonary artery which extends into the right lower lobe segmental branches. No new throm bus is seen. The thoracic aorta is normal in course and caliber. There are no significant atherosclerotic calcific ations. The heart is normal in size. No pericardial effusion is seen. No enlarged mediastinal, hilar, or axillary lymph node is present. The central airways are patent. There is no bronchiectasis. There is no suspicious pulmonary nodule or area of consolidation. There are strands of Bilateral lowe r lobe atelectasis and/or scar. There is no pleural effusion present. ABDOMEN/PELVIS: The spleen, pancreas, adrenal glands, liver, kidneys, bladder, and uterus are unremarkable. Gallbladd er is absent. The abdominal aorta is normal in course and caliber. There are mild atherosclerotic calcifications. There has been distal gastrectomy with gastrojejunostomy. There is a 3.3 x 2.6 cm fluid collection wi th small amount of air just medial to the remaining stomach. This collection is just anterior to the pancreas. A tract of soft tissue extends from the inferior margin of this collection and extends inf eriorly and slightly laterally through the anterior left abdominal wall to the skin line, where there is an external pouch. Previous free intraperitoneal air appears resolved. There is mild residual inflammation within the p eritoneal cavity. There is no no enlarged abdominal or pelvic lymph node. BONES: No acute osseous abnormality is evident. IMPRESSION: Subacute pulmonary embolus the distal right main pulmonary artery extending to the right lower lobe s egmental branches. No new thrombus seen. Distal gastrectomy with gastrojejunostomy. Interval resolution of free intraperitoneal air. 3.3 x 2.6 cm fluid collection with small amount of intraluminal air just medial to the remaining stom ach. Tract of soft tissue extends from the inferior margin of the collection and extends inferiorly and slightly laterally through the left anterior abdominal wall to the skin line, where there is an e xternal pouch. Findings are concerning for a leak.
--- NOTE | 2025-03-04 11:40 | ED.PDOC ---
History of Present Illness(SKN HPI Comments 64 y.o female with PMHx of PE, DVT x2, and HTN, accompanied by son in law, presents to the ED for an evaluation of a wound check. Son in law reports patient had abdominal surgery on 02/03/25 involving a blockage with a cholecystectomy removed and had a ANDREA drain tube placed. Patient had drainage removed 6 days ago and was placed on antibiotics in which she is currently taking. Patient reports developing pus with swelling, redness and fevers located where the drainage tube was placed. Additionally, patient has orthopnea at night time and is concerned of possible PE given hx. Chief Complaint: Wound Check Time Seen by MD: 07:14 Primary Care Provider: [facility] History of Present Illness: Nurses Notes, Medications, Allergies Allergies: Coded Allergies: NO KNOWN ALLERGIES (Unverified , 02/01/25) Home Meds Active Scripts Hydrocodone-Acetaminophen (Hydrocodone Bitartrate/AC 7.5-325 mg) 1 Tab Tab, 1 TAB PO Q8HP PRN for 7 Days, #21 TAB Prov:CORINA GONSALVES NP 02/15/25 Apixaban Base (ELIQUIS) 5 Mg Tab, 10 MG PO BID for 6 Days, #24 TAB 10MG BID X 7 DAYS THEN 5MG PO BID FOR AT LEAST 6 MONTHS FOR DVT/PE TREATMENT 2 doses given in the hospital Prov:CORINA GONSALVES NP 02/15/25 Apixaban Base (ELIQUIS) 5 Mg Tab, 5 MG PO BID for 30 Days, #60 TAB 1 Refill Prov:CORINA GONSALVES NP 02/15/25 Nystatin (Mouth-Throat) (Mycostatin (Mouth-Throat)) 500,000 Units/5 Ml Ss, 5 ML MT QID for 5 Days, #100 ML 1 Refill Prov:MALDONADO CRUZ RESIDENT 01/19/25 Metoclopramide Hcl (Metoclopramide Hcl) 5 Mg Tab, 5 MG PO BID for 30 Days, #60 TAB 2 Refills Prov:MALDONADO CRUZ RESIDENT 01/19/25 Metoclopramide Hcl (Reglan) 10 Mg Tab, 10 MG PO BID, #30 TAB Prov:BRANDIE ALMAZAN 11/05/24 Dicyclomine Hcl (BENTYL CAPSULE) 10 Mg Cp, 1 CAP PO Q6HPRN for 30 Days, #100 CAP 3 Refills Prov:CRISTIAN CEDENO RESIDENT 07/23/24 Ondansetron Odt 4MG Tab (ZOFRAN PO) 4 Mg Tb, 4 MG PO Q4HPRN PRN for 30 Days, #150 TAB 1 Refill ODT TAB-DISSOLVE IN MOUTH, THEN SWALLOW Prov:CRISTIAN CEDENO RESIDENT 07/23/24 Pantoprazole Sodium Sesquihydr (Protonix) 40 Mg Tab, 40 MG PO BID for 30 Days, #60 TAB 2 Refills Prov:CRISTIAN CEDENO RESIDENT 07/23/24 Sucralfate (CARAFATE SUSP) 1 Gm/10 Ml Ss, 10 ML PO QID for 30 Days, #1200 ML 3 Refills Prov:CRISTIAN CEDENO RESIDENT 07/23/24 Reported Medications Escitalopram Oxalate (ESCITALOPRAM OXALATE) 20 Mg Tab, 1 TAB PO DAILY 02/11/25 Baclofen (Baclofen) 10 Mg Tab, 1 TAB PO Q8HPRN PRN 07/20/24 Hydrocodone-Acetaminophen (Hydrocodone/Acetaminophen 7.5-325 mg) 1 Tab Tab, 1 TAB PO TIDPRN PRN 07/20/24 Gabapentin (Gabapentin) 600 Mg Tab, 1 TAB PO TID 07/20/24 Docusate Sodium (Stool Softener) 100 Mg Tab, 100 MG PO DAILY, TAB 04/13/24 Potassium Gluconate (POTASSIUM GLUCONATE) 80 Mg Tab, 80 MG OR DAILY, TAB 04/13/24 Acetaminophen (Tylenol 8 Hour Arthritis) 650 Mg Tab, 650 MG PO PRN, TAB 04/13/24 Losartan Potassium & Hydrochlo (Hyzaar) 1 Tab Tab, 1 TAB PO DAILY, TAB 04/13/24 Escitalopram Oxalate (Lexapro) 20 Mg Tab, 20 MG PO DAILY, TAB 04/13/24 Hydralazine HCl (Hydralazine HCl) 25 Mg Tab, 25 MG PO DAILY, TAB 04/13/24 Information Source: Patient, Relative (son in law ) Mode of Arrival: Ambulatory Severity: Moderate Timing: Days (4) Duration: Since onset Location: Abdomen Wound Type: Other History of: None Associated Signs and Symptoms: Redness, Swelling, Pus Past Medical History PAST MEDICAL HISTORY: Anemia, Anxiety, Gallstones, GERD, HTN, PE Past Medical History (Other): DVT on bilateral legs Surgical History: Cholecystectomy SENIOR INSTRUCTIONAL DESIGNER History: Denies all SENIOR INSTRUCTIONAL DESIGNER Hx, No Pertinent SENIOR INSTRUCTIONAL DESIGNER History Family History Family History: No family hx of DM, No family hx of HTN Social History Smoker: Non-Smoker Alcohol: Denies ETOH Use Drugs: Denies Drug Use Lives In: Home Constitutional: denies: chills, diaphoresis, fatigue, fever, malaise, sweats, weakness, others EENTM: denies: blurred vision, double vision, ear bleeding, ear discharge, ear drainage, ear pain, ear ringing, eye pain, eye redness, hearing loss, mouth pain, mouth swelling, nasal discharge, nose bleeding, nose congestion, nose pain, photophobia, tearing, throat pain, throat swelling, voice changes, others Respiratory: reports: orthopnea; denies: cough, hemoptysis, SOB at rest, shortness of breath, SOB with excertion, stridor, wheezing, others Cardiovascular: denies: chest pain, dizzy spells, diaphoresis, Dyspnea on exertion, edema, irregular heart beat, left arm pain, lightheadedness, palpitations, PND, syncope, others Gastrointestinal: denies: abdomen distended, abdominal pain, blood streaked bowels, constipated, diarrhea, dysphagia, difficulty swallowing, hematemesis, melena, nausea, poor appetite, poor fluid intake, rectal bleeding, rectal pain, vomiting, others Genitourinary: denies: abnormal vagina bleeding, burning, dyspareunia, dysuria, flank pain, frequency, hematuria, incontinence, pain, , vagina discharge, urgency, others Neurological: denies: dizziness, fainting, headache, left sided numbness, left sided weakness, numbness, paresthesia, pre-existing deficit, right sided numbness, right sided weakness, seizure, speech problems, tingling, tremors, weakness, others Musculoskeletal: denies: back pain, gout, joint pain, joint swelling, muscle pain, muscle stiffness, neck pain, others Integumetry: reports: wounds; denies: bruises, change in color, change in hair/nails, dryness, laceration, lesions, lumps, rash, others Allergic/Immunocompromised: denies: Difficulty Healing, Frequent Infections, Hives, Itching, others Hematologic/Lymphatic: denies: anemia, blood clots, easy bleeding, easy bruising, swollen glands, others Endocrine: denies: excessive hunger, excessive sweating, excessive thirst, excessive urination, flushing, intolerance to cold, intolerance to heat, unexplained weight gain, unexplained weight loss, others Psychiatric: denies: anxiety, bipolar disorder, depression, hopeless, panic disorder, schizophrenia, sleepless, suicidal, others All Other Systems: Reviewed and Negative Physical Exam General Appearance: Moderate Distress HEENT: Normal ENT Inspection, Pharynx Normal, TMs Normal Neck: Full Range of Motion, Non-Tender, Normal, Normal Inspection Respiratory: Chest Non-Tender, Lungs Clear, No Accessory Muscle Use, No Respiratory Distress, Normal Breath Sounds Cardiovascular: No Edema, No JVD, No Murmur, No Gallop, Normal Peripheral Pulses, Regular Rate/Rhythm Breast Exam: Deferred Gastrointestinal: No Organomegaly, Non Tender, No Pulsatile Mass, Normal Bowel Sounds, Soft Genitalia: Deferred Pelvic: Deferred Rectal: Deferred Extremities: No calf tenderness, Normal capillary refill, Normal inspection, Normal range of motion, Non-tender, No pedal edema Musculoskeletal : Apperance: Normal Neurologic: Alert, inspector brake lining II-XII nml as Tested, No Motor Deficits, Normal Affect, Normal Mood, No Sensory Deficits Cerebellar Function: NOT DONE Reflexes: NOT DONE Skin: Dry, Normal Color, Warm, Wounds (ANDREA drain site ) Peripheral Pulses: 3+ Radial (R), 3+ Radial (L) Lymphatic: No Adenopathy Was a procedure done? Was a procedure done?: No Differential Diagnosis (INTG) Differential Diagnosis: Cellulitis Differential Diagnosis: Other (Surgical Site Infection ) X-Ray, Labs, Meds, VS Vital Signs Date Time Temp Pulse Resp B/P (MAP) Pulse Ox O2 Delivery O2 Flow Rate FiO2 03/04/25 06:39 98.9 65 18 104/52 92 98.9 Patient alert. Complaining of having discharged from the ANDREA drain site. Was operated here in this ER. Vitals stable. Answering questions. A sepsis workup. She is comfortable. Explained to the patient. Continue monitoring. Time of 1ST Reevaluation: 07:28 Reevaluation 1ST: Unchanged Patient Education/Counseling: Diagnosis, Treatment, Prognosis Family Education/Counseling: No Family Present SEPSIS Sepsis Screen Date sepsis recognized/suspect: Mar 04, 2025 Time Sepsis recognized/suspect: 45 Recent Procedure: No On Antibiotic Therapy: No Respiratory Rate >20: No Heart Rate >90: No Temp<36 C (96.8 F) or >38.3 C: No SBP <90 or MAP <65 mmHG: No New Acute Mental Status Change: No Is the patient on CPAP, BIPAP,: No Physician Orders Troponin-I Hs (03/04/25 07:24) Complete Blood Count (03/04/25 07:24) Comprehensive Metabolic Panel (03/04/25 07:24) Chest Portable (03/04/25 07:24) Urinalysis (03/04/25 07:24) 1 Liter Bolus Of 0.9% Ns (03/04/25 07:30) Sodium Chloride 0.9% (03/04/25 07:30) Blood Culture (03/04/25 07:24) Lactic Acid W/ Reflex Order (03/04/25 07:24) Piperacillin-Tazob 3.375gm (Zosyn 3.375g (03/04/25 07:30) Metronidazole 500mg/100ml (Flagyl 500mg/ (03/04/25 07:30) Vital Signs Date Time Temp Pulse Resp B/P (MAP) Pulse Ox O2 Delivery O2 Flow Rate FiO2 03/04/25 06:39 98.9 65 18 104/52 92 98.9 Departure 1 Departure Time of Disposition: 07:45 Impression: Primary Impression: Abscess Disposition: 09 ADMITTED INPATIENT Admit to: Med Surg Condition: Guarded Critical Care Note Critical Care Time?: No Stability Stability form required: No I personally scribed for JOSEPH RICHARDSON MD ([email or web address]) on 03/04/25 at 07:35. Electronically submitted by Susi Hinton ([facility]). JOSEPH RICHARDSON MD Mar 04, 2025 07:35
[2025-03-04 11:44] VITALS: PULSE 68; RESP 12; O2SAT 97
[2025-03-04] MEDS: SODIUM CHLORIDE 0.9% 1,000 ML IV SCH (12:15)
[2025-03-04] MEDS ORDERED: DOCUSATE SOD 100 MG CAP PO PRN (12:15)
--- NOTE | 2025-03-04 12:49 | DVHHP2 ---
History of Present Illness Reason for Visit: Abdominal Pain History of Present Illness Stephenie Coats is a 64-year-old female with past medial history of anemia, anxiety, GERD, gallstones, hypertension, arthritis, duodenal ulcer, duodenal stenosis, and osteoarthritis, who came to the hospital due to fever, and drainage from post surgical drain placement. Patient was seen here in the hospital about 1 month ago for abdominal pain. She went to surgery with Dr. Hopkins on 02/03/2025 and had gastrojejunostomy bypassed. She was discharged home on 02/15/2025 with a ANDREA drain. Patient followed up with surgery outpatient on 02/22/2025. She was supposed to have the ANDREA drain removed, however family was no t draining it. She kept it in for 2 more days then when back to the office on 02/24/2025 and had the drain removed. On Friday patient noticed pus draining from the drain site. Then she began to get fevers and chills at home. They called her surgeon and was informed to come back to the hospital to be evaluated. Cardiovascular: HTN GI: GERD, Other (duodenal ulcer, duodenal stenosis) Psych: Anxiety Past Surgical History: Other (Recent surgery on 02/03/2025), Tubal Ligation Smoke: No ALCOHOL: none Drugs: None Lives: with Family Domestic Violence: Neg Review of Systems Constitutional: No: Fever, Chills, Sweats, Weakness, Malaise, Other Eyes: No: Pain, Vision change, Conjunctivae inflammation, Eyelid inflammation, Other, Redness ENT: No: Ear pain, Ear discharge, Nose pain, Nose discharge, Nose congestion, Mouth pain, Mouth swelling, Throat pain, Throat swelling, Other Respiratory: No: Cough, Dry, Shortness of breath, SOB with excertion, Wheezing, Hemoptysis, Pleuritic Pain, Sputum, Wheezing, Other Cardiovascular: No: Chest Pain, Palpitations, Orthopnea, Paroxysmal Noc. Dyspnea, Edema, Lt Headedness, Other Gastrointestinal: Abdominal Pain; No: Nausea, Vomiting, Diarrhea, Constipation, Melena, Hematochezia, Other Genitourinary: No Dysuria, No Frequency, No Incontinence, No Hematuria, No Retention, No Other Musculoskeletal: No: other, neck pain, shoulder pain, arm pain, back pain, hand pain, leg pain, foot pain Skin: No: Rash, Lesions, Jaundice, Bruising, Other Neurological: No: Weakness, Numbness, Incoordination, Change in speech, Confusion, Seizures, Other Allergies: Coded Allergies: NO KNOWN ALLERGIES (Unverified , 02/01/25) Medications Current Medications Medications Dose Ordered Sig/Francia Route Start Time Stop Time Status Last Admin Dose Admin Sodium Chloride 1,000 ml @ 75 mls/hr [id number] IV 03/04/25 12:15 Ondansetron HCl 4 mg Q4HP PRN IV 03/04/25 12:15 Docusate Sodium 100 mg BIDPRN PRN PO 03/04/25 12:15 Acetaminophen 650 mg Q6HP PRN PO 03/04/25 12:15 Piperacillin Sod/ Tazobactam Sod 100 ml @ 25 mls/hr Q8HR IV 03/04/25 14:00 UNV Metronidazole 100 ml @ 100 mls/hr Q8HR IV 03/04/25 14:00 UNV Exam Vital Signs Vital Signs Date Time Temp Pulse Resp B/P (MAP) Pulse Ox O2 Delivery O2 Flow Rate FiO2 03/04/25 11:26 98.0 83 16 115/43 (67) 95 98.0 General Appearance: Alert, Oriented X3, Cooperative, moderate distress HEENT: Atraumatic, PERRLA Respiratory: Clear to auscultation, Normal air movement Cardiovascular: Regular rate, Normal S1, Normal S2 Abdominal: Soft, Other (Tnederness to left quadrant, redness and drainage noted to drain site.) Extremities: No clubbing, No cyanosis, No edema, Normal pulses, No tende rness/swelling Skin: No rashes, No breakdown, No significant lesion Neuro: Normal gait, Normal speech, Strength at 5/5 X4 ext Psych/Mental Status: Mental status NL, Mood NL Labs/Xrays Labs Test 03/04/25 08:53 03/04/25 08:00 Range/Units Urine Color Yellow Yellow Urine Clarity Clear Clear Urine pH 6.0 5.0-9.0 Urine Specific [place] 1.029 1.001-1.035 Urine Protein Trace H Negative Urine Ketones Negative Negative Urine Blood Negative Negative /uL Urine Nitrite Negative Negative Urine Bilirubin Negative Negative Urine Urobilinogen Normal Negative mg/dL Urine Leukocyte Esterase Negative Negative /uL Urine RBC 5 0 - 4 /hpf Urine Microscopic WBC 2 0-5 /HPF Urine Squamous Epithelial Cells Few <5 /hpf Urine Bacteria None seen None Seen /hpf Urine Mucus Few None Seen Urine Glucose Normal Normal mg/dL White Blood Count 9.2 4.4-10.8 10^3/uL Red Blood Count 3.37 L 4.0-5.20 10^6/uL Hemoglobin 8.1 L 12.2-16.2 g/dL Hematocrit 25.4 L 36.0-46.0 % Mean Corpuscular Volume 75.3 L 80.0-100.0 fL Mean Corpuscular Hemoglobin 23.9 L 28.0-32.0 pg Mean Corpuscular Hemoglobin Concent 31.8 L 32.0-36.0 g/dL Red Cell Distribution Width 16.5 H 11.8-14.3 % Platelet Count 737 H 140-450 10^3/uL Mean Platelet Volume 7.1 6.9-10.8 fL Neutrophils (%) (Auto) 76.8 37.0-80.0 % Lymphocytes (%) (Auto) 12.7 10.0-50.0 % Monocytes (%) (Auto) 8.1 0.0-12.0 % Eosinophils (%) (Auto) 1.7 0.0-7.0 % Basophils (%) (Auto) 0.7 0.0-2.0 % Neutrophils # (Auto) 7.1 1.6-8.6 10 ^3/uL Lymphocytes # (Auto) 1.2 0.4-5.4 10 ^3/uL Monocytes # (Auto) 0.7 0-1.3 10 ^3/uL Eosinophils # (Auto) 0.2 0-0.8 10 ^3/uL Basophils # (Auto) 0.1 0-0.2 10 ^3/uL Nucleated Red Blood Cells 0.0 % Sodium Level 138 136-145 mmol/L Potassium Level 3.9 3.5-5.1 mmol/L Chloride Level 101 98-107 mmol/L Carbon Dioxide Level 26 20-31 mmol/L Anion Gap 11 5-15 Blood Urea Nitrogen 18 9-23 mg/dL Creatinine 0.64 0.550-1.02 mg/dL Glomerular Filtration Rate Calc 100 >90 mL/min BUN/Creatinine Ratio 28.1 H 10.0-20.0 Serum Glucose 84 74-106 mg/dL Lactic Acid Level 0.7 0.4-2.0 mmol/L Calcium Level 8.6 L 8.7-10.4 mg/dL Total Bilirubin 0.3 0.2-1.0 mg/dL Aspartate Amino Transferase (AST) 22 13-40 U/L Alanine Aminotransferase (ALT) 16 7-40 U/L Alkaline Phosphatase 134 H 46-116 U/L Troponin I High Sensitivity < 3 L </=34 ng/L Total Protein 7.0 5.7-8.2 g/dL Albumin 3.5 3.2-4.8 g/dL CHEST RADIOGRAPH FINDINGS: Lines and Tubes: None Lungs: No focal consolidation. Pleura: No effusion. No pneumothorax. Cardiomediastinal contours: Unremarkable Bones: No acute osseous abnormality. S shaped curvature of the thoracolumbar spine. IMPRESSION: 1. No acute cardiopulmonary disease. TECHNIQUE: CTA of the chest, CT of the abdomen, and pelvis was performed with IV contrast. FINDINGS: CHEST: There was good opacification of the pulmonary arterial tree. There is subacute thrombus at the distal right main pulmonary artery which extends into the right lower lobe segmental branches. No new thrombus is seen. The thoracic aorta is normal in course and caliber. There are no significant atherosclerotic calcifications. The heart is normal in size. No pericardial effusion is seen. No enlarged mediastinal, hilar, or axillary lymph node is present. The central airways are patent. There is no bronchiectasis. There is no suspicious pulmonary nodule or area of consolidation. There are strands of Bilateral lower lobe atelectasis and/or scar. There is no pleural effusion present. ABDOMEN/PELVIS: The spleen, pancreas, adrenal glands, liver, kidneys, bladder, and uterus are unremarkable. Gallbladder is absent. The abdominal aorta is normal in course and caliber. There are mild atherosclerotic calcifications. There has been distal gastrectomy with gastrojejunostomy. There is a 3.3 x 2.6 cm fluid collection with small amount of air just medial to the remaining stomach. This collection is just anterior to the pancreas. A tract of soft tissue extends from the inferior margin of this collection and extends inferiorly and slightly laterally through the anterior left abdominal wall to the skin line, where there is an external pouch. Previous free intraperitoneal air appears resolved. There is mild residual inflammation within the peritoneal cavity. There is no no enlarged abdominal or pelvic lymph node. BONES: No acute osseous abnormality is evident. IMPRESSION: Subacute pulmonary embolus the distal right main pulmonary artery extending to the right lower lobe segmental branches. No new thrombus seen. Distal gastrectomy with gastrojejunostomy. Interval resolution of free intraperitoneal air. 3.3 x 2.6 cm fluid collection with small amount of intraluminal air just medial to the remaining stomach. Tract of soft tissue extends from the inferior margin of the collection and extends inferiorly and slightly laterally through the left anterior abdominal wall to the skin line, where there is an external pouch. Fin dings are concerning for a leak. SEPSIS Sepsis Screen Date sepsis recognized/suspect: Mar 04, 2025 Time Sepsis recognized/suspect: 644 Recent Procedure: No On Antibiotic Therapy: No Respiratory Rate >20: No Heart Rate >90: No Temp<36 C (96.8 F) or >38.3 C: No SBP <90 or MAP <65 mmHG: No New Acute Mental Status Change: No Is the patient on CPAP, BIPAP,: No Physician Orders Chest Portable (03/04/25 07:24) Sodium Chloride 0.9% (03/04/25 07:30) Blood Culture (03/04/25 07:24) Ct Chest/Ab/Pl W Con- Iv Only (03/04/25 09:49) Admit (03/04/25 12:06) Code Status (03/04/25 12:06) Sodium Chloride 0.9% (03/04/25 12:15) Ondansetron Hcl (Zofran) (03/04/25 12:15) Docusate Sodium Capsule (Colace Capsule) (03/04/25 12:15) Complete Blood Count (03/05/25 04:00) Comprehensive Metabolic Panel (03/05/25 04:00) Npo (Nothing By Mouth) Diet (03/04/25 Lunch) Condition: Serious (03/04/25 12:06) Acetaminophen Tablet (Tylenol Tablet) (03/04/25 12:15) * Surgical Consult (03/04/25 ) Piperacillin-Tazob 3.375gm (Zosyn 3.375g (03/04/25 14:00) Metronidazole 500mg/100ml (Flagyl 500mg/ (03/04/25 14:00) Ngt/Ogt (03/04/25 ) Ng To Lcs (03/04/25 12:19) Ugi With Gastrografin (03/04/25 12:19) Apixaban (Eliquis) (03/04/25 22:00) (Nf) Escitalopram Oxalate (Lexapro) (03/05/25 10:00) (Nf) Gabapentin (03/04/25 14:00) Vital Signs Date Time Temp Pulse Resp B/P (MAP) Pulse Ox O2 Delivery O2 Flow Rate FiO2 03/04/25 11:26 98.0 83 16 115/43 (67) 95 98.0 03/04/25 06:39 98.9 65 18 104/52 92 98.9 Laboratory Tests Test 03/04/25 08:00 Lactic Acid Level 0.7 mmol/L (0.4-2.0) White Blood Count 9.2 10^3/uL (4.4-10.8) Medications Medications Dose Ordered Sig/Francia Route Start Time Stop Time Status Last Admin Dose Admin Metronidazole 100 ml @ 100 mls/hr ONCE ONCE IV 03/04/25 07:30 03/04/25 08:29 DC 03/04/25 10:11 100 MLS/HR Piperacillin Sod/ Tazobactam Sod 100 ml @ 100 mls/hr ONCE ONCE IV 03/04/25 07:30 03/04/25 08:29 DC 03/04/25 10:14 100 MLS/HR Sodium Chloride 1,000 ml @ 1,000 mls/hr Q1H ONCE IV 03/04/25 07:30 03/04/25 08:29 DC 03/04/25 07:30 1,000 MLS/HR Assessment/Plan Assessment/Plan Assessment: Possible Abscess, PE, DVTs, Possible sepsis, Duodenal ulcer, Duodenal stricture, Hypertension, GERD, Plan: Admit to Med-Surg, Surgical consult, NPO, Therapeutic Lovenox, IV antibiotics, IV hydration, Home medications held due to NPO, Plan discussed with: Patient My Orders Orders - DAYNA MANUEL Procedure Category Date Status Time Admit ADMIT 03/04/25 Transmitted 12:06 Code Status CODE 03/04/25 Transmitted 12:06 Sodium Chloride 0.9% PHA 03/04/25 In Process 12:15 Ondansetron Hcl PHA 03/04/25 In Process (Zofran) 12:15 Docusate Sodium PHA 03/04/25 In Process Capsule (Colace 12:15 Complete Blood Count LAB 11/1/25 Verified 04:00 Comprehensive LAB 03/05/25 Verified Metabolic Panel 04:00 Npo (Nothing By DIET 03/04/25 Transmitted Mouth) Diet Lunch Condition: Serious ENEDELIA 03/04/25 In Process 12:06 Acetaminophen Tablet PHA 03/04/25 In Process (Tylenol Tablet) 12:15 * Surgical Consult CONS 03/04/25 Transmitted Piperacillin-Tazob PHA 03/04/25 Logged 3.375gm (Zosyn 3.375g 14:00 Metronidazole PHA 03/04/25 Logged 500mg/100ml (Flagyl 14:00 Apixaban (Eliquis) PHA 03/04/25 Transmitted 22:00 (Nf) Escitalopram PHA 03/05/25 Transmitted Oxalate (Lexapro) 10:00 (Nf) Gabapentin PHA 03/04/25 Transmitted 14:00 Date of Service: Mar 04, 2025 Billing Provider: DAYNA MANUEL Common Visit Codes: [id number] INP/OBS CARE (MOD) DAYNA MANUEL Mar 04, 2025 12:49
[2025-03-04] MEDS ORDERED: GASTROGRAFIN 120 ML SOL ONE (13:51)
[2025-03-04] MEDS ORDERED: GABAPENTIN 300 MG CAP PO SCH (14:00)
[2025-03-04] MEDS: PIPERACILLIN-TAZOB 3.375GM 100 ML IV SCH (15:20)
--- NOTE | 2025-03-04 15:30 | DVH ---
XY UGI WITH GASTROGRAFIN, HISTORY: r/o gastrojejunostomy leak COMPARISON: XY UGI WITH GASTROGRAFIN on DOS: 02/09/25, XY ESOPHAGUS GASTROGRAFIN SWALLOW on DOS: , XY UGI WITH GASTROGRAFIN on DOS: 12/29/23 PROCEDURE: A online health and fitness coach radiograph was obtained prior to the procedure. Gastrografin administered orally, and radiographs were obtained under intermittent fluoroscopic observation. Total fluoroscopic time w as 0.4 minutes. FINDINGS: The online health and fitness coach image demonstrates no evidence for obstruction or free intraperitoneal gas. Contrast materi al is noted in the bladder. The esophagus was normal in caliber with no stricture, filling defect or wall irregularity demonstrat ed. Normal esophageal peristalsis was observed. There was prompt passage of contrast through a normal appearing gastroesophageal junction. The stomac h distended normally with a normal mucosal pattern and no evidence for filling defect, mass or wall i rregularity. Post surgical anatomy from a gastro-jejunostomy is visualized with quick passage through the anastomo sis into normal appearing jejunum. Contrast flowed into more distal loops of small bowel, with no ab normality identified. IMPRESSION: Post surgical anatomy from a gastro-jejunostomy is visualized with quick passage through the anastomo sis into normal appearing jejunum. No extravasation of contrast is visualized.
[2025-03-04 16:30] VITALS: BP 131/72; PULSE 84; RESP 17; TEMP 100.3; O2SAT 97
--- NOTE | 2025-03-04 16:34 | DVH ---
CHEST RADIOGRAPH Indication: Verify NG tube placement Technique: Single frontal view of the chest was obtained Comparison: XY CHEST PORTABLE on DOS: 03/04/25, XY CHEST PORTABLE on DOS: 02/02/25, XY CHEST PORTABLE on DOS: 07/21/24 FINDINGS: Lines and Tubes: Enteric tube below the left diaphragm in the stomach Lungs: No focal consolidation. Pleura: No effusion. No pneumothorax. Cardiomediastinal contours: Unremarkable Bones: No acute osseous abnormality. IMPRESSION: 1. Bo tube below the left diaphragm in the stomach. 2. Artifact noted over the right chest.
[2025-03-04] MEDS: HYDROmorphone HCL 2 MG/ML VL/or syr IV PRN (16:45)
[2025-03-04 19:30] VITALS: PULSE 90; RESP 17; O2SAT 96
[2025-03-04 21:00] VITALS: BP 131/70; PULSE 92; RESP 17; TEMP 98.1; O2SAT 96
[2025-03-04] MEDS ORDERED: APIXABAN 5 MG TAB PO SCH (22:00)
[2025-03-04] MEDS: ENOXAPARIN SOD 60 MG/0.6 ML SYRINGE SC SCH (22:17)
[2025-03-05] VITALS (7 sets, daily range): BP systolic 133–148; BP diastolic 72–79; PULSE 72–88; RESP 15–18; TEMP 97.4–98.9; O2SAT 94–100
[2025-03-05 05:07] LABS: Hemoglobin 7.2 g/dL (12.2-16.2); Nucleated Red Blood Cells % 0.1 %
[2025-03-05 05:09] LABS: Hematocrit 22.3 % (36.0-46.0); Mean Corpuscular Hemoglobin 24.3 pg (28.0-32.0); Mean Corpuscular Volume 75.0 fL (80.0-100.0)
[2025-03-05 05:22] LABS: INR 1.32 (0.9-1.15); Partial Thromboplastin Time 40.3 SEC (24.5-34.5); Prothrombin Time 13.6 sec (9.3-11.8)
[2025-03-05 05:27] LABS: Alanine Aminotransferase 10 U/L (7-40); Alkaline Phosphatase 107 U/L (46-116); Anion Gap 11 (5-15); BUN/Creatinine Ratio 25.0 (10.0-20.0); Blood Urea Nitrogen 14 mg/dL (9-23); Carbon Dioxide 26 mmol/L (20-31); Glucose 83 mg/dL (74-106); Potassium 3.6 mmol/L (3.5-5.1); Total Protein 6.6 g/dL (5.7-8.2)
[2025-03-05 05:28] LABS: Albumin 3.2 g/dL (3.2-4.8); Bilirubin, Total 0.3 mg/dL (0.2-1.0); Calcium 8.5 mg/dL (8.7-10.4); Chloride 108 mmol/L (98-107); Sodium 145 mmol/L (136-145)
[2025-03-05] MEDS: CITALOPRAM HYDROBR 20 MG TAB PO SCH (10:03)
--- NOTE | 2025-03-05 11:09 | DVHPN2 ---
Subjective Admitted for drainage from the previous LLQ abd drain which was removed 10 days ago She had fever and chills at home Changes from previous H/P or p: Changes Eyes: No Pain, No Vision change, No Conjunctivae inflammation, No Eyelid inflammation, No Other, No Redness ENT: No Ear pain, No Ear discharge, No Nose pain, No Nose discharge, No Nose congestion, No Mouth pain, No Mouth swelling, No Throat pain, No Throat swelling, No Other Cardiovascular: No Chest Pain, No Palpitations, No Orthopnea, No Paroxysmal Noc. Dyspnea, No Edema, No Lt Headedness, No Other Respiratory: No Cough, No Dry, No Shortness of breath, No SOB with excertion, No Wheezing, No Hemoptysis, No Pleuritic Pain, No Sputum, No Other Gastrointestinal: No Nausea, No Vomiting; Abdominal Pain; No Diarrhea, No Constipation, No Melena, No Hematochezia, No Other Genitourinary: No Dysuria, No Frequency, No Incontinence, No Hematuria, No Retention, No Other Musculoskeletal: No other, No neck pain, No shoulder pain, No arm pain, No back pain, No hand pain, No leg pain, No foot pain Skin: No Rash, No Lesions, No Jaundice, No Bruising, No Other Objective Vitals Vital Signs Date Time Temp Pulse Resp B/P (MAP) Pulse Ox O2 Delivery O2 Flow Rate FiO2 03/05/25 10:14 81 16 138/79 03/05/25 09:00 98.9 96 98.9 03/05/25 08:00 Room Air* 0 21 Intake/Output Intake and Output 03/05/25 07:00 Intake Total 0 ml Output Total 11 ml Balance -11 ml Intake Oral 0 ml Output Urine Total 6 ml Stool Total 5 ml General Appearance: Alert, Oriented X3, Cooperative, No acute distress Lungs: Clear to auscultation, Normal air movement Cardiovascular: Regular rate, Normal S1, Normal S2 Abdomen: Normal bowel sounds, Soft, No tenderness, Other (purulent discharge from LLQ wound) Extremities: No edema Medications Current Medications Medications Dose Ordered Sig/Francia Route Start Time Stop Time Status Last Admin Dose Admin Sodium Chloride 1,000 ml @ 75 mls/hr [id number] IV 03/04/25 12:15 03/05/25 01:35 75 MLS/HR Ondansetron HCl 4 mg Q4HP PRN IV 10/31/25 12:15 Acetaminophen 650 mg Q6HP PRN PO 03/04/25 12:15 Piperacillin Sod/ Tazobactam Sod 100 ml @ 25 mls/hr Q8HR IV 03/04/25 14:00 03/05/25 05:58 25 MLS/HR Metronidazole 100 ml @ 100 mls/hr Q8HR IV 03/04/25 18:00 03/05/25 05:17 100 MLS/HR Citalopram Hydrobromide 40 mg DAILY PO 03/05/25 10:00 03/05/25 10:03 40 MG Hydromorphone HCl 0.25 mg Q3HPRN PRN IV 03/04/25 15:45 03/05/25 10:14 0.25 MG Enoxaparin Sodium 50 mg Q12HR SC 03/04/25 22:00 03/05/25 10:03 50 MG Laboratory Results Laboratory Tests 03/05/25 04:36 Chemistry Test 03/05/25 04:36 Albumin 3.2 g/dL (3.2-4.8) Calcium Level 8.5 mg/dL (8.7-10.4) L Total Protein 6.6 g/dL (5.7-8.2) Coagulation Test 03/05/25 04:36 Prothrombin Time 13.6 sec (9.3-11.8) H Prothrombin Time INR 1.32 (0.9-1.15) H Activated Partial Thromboplast Time 40.3 SEC (24.5-34.5) H LFT Test 03/05/25 04:36 Alanine Aminotransferase (ALT) 10 U/L (7-40) Alkaline Phosphatase 107 U/L (46-116) Aspartate Amino Transferase (AST) 17 U/L (13-40) Total Bilirubin 0.3 mg/dL (0.2-1.0) Urinalysis Test 03/04/25 08:53 Urine Color Yellow (Yellow) Urine Clarity Clear (Clear) Urine pH 6.0 (5.0-9.0) Urine Specific [place] 1.029 (1.001-1.035) Urine Protein Trace (Negative) H Urine Ketones Negative (Negative) Urine Blood Negative /uL (Negative) Urine Nitrite Negative (Negative) Urine Bilirubin Negative (Negative) Urine Urobilinogen Normal mg/dL (Negative) Urine Leukocyte Esterase Negative /uL (Negative) Urine RBC 5 /hpf (0 - 4) Urine Microscopic WBC 2 /HPF (0-5) Urine Squamous Epithelial Cells Few /hpf (<5) Urine Bacteria None seen /hpf (None Seen) Urine Mucus Few (None Seen) Urine Glucose Normal mg/dL (Normal) Microbiology Microbiology Date/Time Source Procedure Growth Status 03/04/25 08:06 Blood Blood Culture - Preliminary NO GROWTH AFTER 24 HOURS OF INCUBATION. Resulted Assessment/Plan Assessment/Plan Abdominal infection Possible intra-abdominal abscess Recent abdominal surgery with recent removal of ANDREA andrew from LLQ Chronic PE, on Eliquis Chronic DVTs, h/o Duodenal ulcer, h/o Duodenal stricture, s/p surgery Hypertension, GERD, PLAN: Start diet Protonix Culture wound of LLQ Surgical consult Kellie Aburto IV Zosyn and Sergey Lovenox, hold Eliquis in case patient needs a procedure Discussed with her son at the bedside Full code Advanced directives discussed x 18 minutes Plan discussed with: Patient My Orders Orders - MELANIE RAJPUT MD Procedure Category Date Status Time Cardiac DIET 03/05/25 Transmitted Diet-2gna,Lofat,Lochol Lunch Wound Culture W/ Gs ADILENE 03/05/25 Uncollected 10:55 Pantoprazole Tablet PHA 03/05/25 Verified (Protonix Tablet) 11:15 Pantoprazole Tablet PHA 03/06/25 Verified (Protonix Tablet) 06:00 Date of Service: Mar 05, 2025 Billing Provider: MELANIE RAJPUT MD Common Visit Codes: [id number] INP/OBS CARE(HIGH) Secondary Visit Codes: [id number] CARE PLAN 30 MINUTES MELANIE RAJPUT MD Mar 05, 2025 11:09
[2025-03-05] MEDS: SUCRALFATE 1 GM TAB PO SCH (11:40)
[2025-03-05] MEDS: PANTOPRAZOLE 40 MG TAB PO ONE (11:40)
[2025-03-06] VITALS (7 sets, daily range): BP systolic 124–152; BP diastolic 64–78; PULSE 71–88; RESP 16–18; TEMP 97.6–98.7; O2SAT 95–98
[2025-03-06] MEDS: ONDANSETRON HCL 4 MG/2 ML VIAL IV PRN (04:08)
[2025-03-06 06:02] LABS: Hematocrit 22.7 % (36.0-46.0); Hemoglobin 7.5 g/dL (12.2-16.2)
[2025-03-06 06:06] LABS: Chloride 106 mmol/L (98-107); Mean Corpuscular Hemoglobin 24.8 pg (28.0-32.0); Mean Corpuscular Volume 74.9 fL (80.0-100.0); Nucleated Red Blood Cells % 0.1 %; Sodium 142 mmol/L (136-145)
[2025-03-06 06:07] LABS: Anion Gap 12 (5-15); Carbon Dioxide 24 mmol/L (20-31)
[2025-03-06] MEDS: PANTOPRAZOLE 40 MG TAB PO SCH (06:11)
[2025-03-06 06:13] LABS: Magnesium 2.0 mg/dL (1.6-2.6)
[2025-03-06 06:14] LABS: Calcium 8.5 mg/dL (8.7-10.4); Glucose 108 mg/dL (74-106); Potassium 2.9 mmol/L (3.5-5.1)
[2025-03-06 06:15] LABS: BUN/Creatinine Ratio 17.0 (10.0-20.0); Blood Urea Nitrogen 9 mg/dL (9-23)
[2025-03-06] MEDS ORDERED: POTASSIUM CHL 20 Meq TABLET PO ONE (09:00)
--- NOTE | 2025-03-06 09:55 | DVHPN2 ---
Subjective Doing well No discharge from the wound Culture the wound is still pending Blood culture is negative so far Changes from previous H/P or p: Changes Eyes: No Pain, No Vision change, No Conjunctivae inflammation, No Eyelid inflammation, No Other, No Redness ENT: No Ear pain, No Ear discharge, No Nose pain, No Nose discharge, No Nose congestion, No Mouth pain, No Mouth swelling, No Throat pain, No Throat swelling, No Other Cardiovascular: No Chest Pain, No Palpitations, No Orthopnea, No Paroxysmal Noc. Dyspnea, No Edema, No Lt Headedness, No Other Respiratory: No Cough, No Dry, No Shortness of breath, No SOB with excertion, No Wheezing, No Hemoptysis, No Pleuritic Pain, No Sputum, No Other Gastrointestinal: No Nausea, No Vomiting; Abdominal Pain; No Diarrhea, No Constipation, No Melena, No Hematochezia, No Other Genitourinary: No Dysuria, No Frequency, No Incontinence, No Hematuria, No Retention, No Other Musculoskeletal: No other, No neck pain, No shoulder pain, No arm pain, No back pain, No hand pain, No leg pain, No foot pain Skin: No Rash, No Lesions, No Jaundice, No Bruising, No Other Objective Vitals Vital Signs Date Time Temp Pulse Resp B/P (MAP) Pulse Ox O2 Delivery O2 Flow Rate FiO2 03/06/25 09:00 98.1 79 18 146/74 (98) 97 98.1 03/05/25 19:30 Room Air* 0 21 Intake/Output Intake and Output 03/06/25 07:00 Intake Total 1600 ml Output Total 5 ml Balance 1595 ml Intake Oral 1300 ml IV Total 300 ml Output Urine Total 5 ml # Voids 6 # Bowel Movements 3 General Appearance: Alert, Oriented X3, Cooperative, No acute distress Lungs: Clear to auscultation, Normal air movement Cardiovascular: Regular rate, Normal S1, Normal S2 Abdomen: Normal bowel sounds, Soft, No tenderness, Other Extremities: No edema Medications Current Medications Medications Dose Ordered Sig/Francia Route Start Time Stop Time Status Last Admin Dose Admin Ondansetron HCl 4 mg Q4HP PRN IV 03/04/25 12:15 03/06/25 04:08 4 MG Acetaminophen 650 mg Q6HP PRN PO 03/04/25 12:15 Piperacillin Sod/ Tazobactam Sod 100 ml @ 25 mls/hr Q8HR IV 03/04/25 14:00 03/06/25 06:11 25 MLS/HR Metronidazole 100 ml @ 100 mls/hr Q8HR IV 03/04/25 18:00 03/06/25 04:55 100 MLS/HR Citalopram Hydrobromide 40 mg DAILY PO 03/05/25 10:00 03/05/25 10:03 40 MG Hydromorphone HCl 0.25 mg Q3HPRN PRN IV 03/04/25 15:45 03/06/25 04:08 0.25 MG Enoxaparin Sodium 50 mg Q12HR SC 03/04/25 22:00 03/05/25 22:00 50 MG Pantoprazole Sodium 40 mg DAILY@0600 PO 03/06/25 06:00 03/06/25 06:11 40 MG Sucralfate 1 gm QIDACHS PO 03/05/25 11:30 03/06/25 06:11 1 GM Laboratory Results Laboratory Tests 03/06/25 04:38 Chemistry Test 03/06/25 04:38 Calcium Level 8.5 mg/dL (8.7-10.4) L Magnesium Level 2.0 mg/dL (1.6-2.6) Urinalysis Test 03/04/25 08:53 Urine Color Yellow (Yellow) Urine Clarity Clear (Clear) Urine pH 6.0 (5.0-9.0) Urine Specific [place] 1.029 (1.001-1.035) Urine Protein Trace (Negative) H Urine Ketones Negative (Negative) Urine Blood Negative /uL (Negative) Urine Nitrite Negative (Negative) Urine Bilirubin Negative (Negative) Urine Urobilinogen Normal mg/dL (Negative) Urine Leukocyte Esterase Negative /uL (Negative) Urine RBC 5 /hpf (0 - 4) Urine Microscopic WBC 2 /HPF (0-5) Urine Squamous Epithelial Cells Few /hpf (<5) Urine Bacteria None seen /hpf (None Seen) Urine Mucus Few (None Seen) Urine Glucose Normal mg/dL (Normal) Microbiology Microbiology Date/Time Source Procedure Growth Status 03/05/25 10:55 Abdomen Gram Stain Pending Resulted 03/05/25 10:55 Abdomen Wound Culture - Preliminary Resulted 03/04/25 08:06 Blood Blood Culture - Preliminary NO GROWTH AFTER 48 HOURS OF INCUBATION. Resulted Assessment/Plan Assessment/Plan Abdominal infection Possible intra-abdominal abscess Recent abdominal surgery with recent removal of ANDREA andrew from LLQ Chronic PE, on Eliquis Chronic DVTs, h/o Duodenal ulcer, h/o Duodenal stricture, s/p surgery Hypertension, GERD, Anemia of chronic disease rule out iron deficiency PLAN: Start diet Protonix Culture wound of LLQ Surgical consult Kellie Aburto IV Zosyn and Flagyl Lovenox, hold Eliquis in case patient needs a procedure Discussed with her son at the bedside Full code Advanced directives discussed x 18 minutes 03/06/2025: Continue IV antibiotics pending the culture results Hypokalemia: Replace potassium p.o. and IV Surgery is on board Monitor closely Anemia: Get iron studies Plan discussed with: Patient My Orders Orders - MELANIE RAJPUT MD Procedure Category Date Status Time Cardiac DIET 03/05/25 Transmitted Diet-2gna,Lofat,Lochol Lunch Wound Culture W/ Gs ADILENE 03/05/25 In Process 10:55 Pantoprazole Tablet PHA 03/06/25 In Process (Protonix Tablet) 06:00 Sucralfate Tab PHA 03/05/25 In Process (Carafate Tab) 11:30 Iron Panel LAB 03/06/25 In Process 08:51 Potassium Chl PHA 03/06/25 In Process 20meq/100ml 09:00 Date of Service: Mar 06, 2025 Billing Provider: MELANIE RAJPUT MD Common Visit Codes: [id number] INP/OBS CARE(HIGH) MELANIE RAJPUT MD Mar 06, 2025 09:55
[2025-03-06 10:03] LABS: Iron 21.0 ug/dL (50-170); Total Iron Binding Capacity 170.0 ug/dL (250-425)
[2025-03-06] MEDS: POTASSIUM CHL 20MEQ/100ML 100 ML IV ONE (10:09)
--- NOTE | 2025-03-06 13:43 | DVHPN2 ---
Progress Note Date Seen: Mar 06, 2025 Medical Necessity Reason Pt with a Central, PICC or Fol: No Objective vital signs Vital Sign Date Time Temp Pulse Resp B/P (MAP) Pulse Ox O2 Delivery O2 Flow Rate FiO2 03/06/25 12:31 97.6 77 16 124/71 (88) 95 97.6 03/05/25 19:30 Room Air* 0 21 Total Intake and Output 03/05/25 03/05/25 03/06/25 15:00 23:00 07:00 Intake Total 100 ml 700 ml 800 ml Output Total 5 ml Balance 100 ml 695 ml 800 ml medications Current Medications Medications Dose Ordered Sig/Francia Route Start Time Stop Time Status Last Admin Dose Admin Ondansetron HCl 4 mg Q4HP PRN IV 03/04/25 12:15 03/06/25 04:08 4 MG Acetaminophen 650 mg Q6HP PRN PO 03/04/25 12:15 Piperacillin Sod/ Tazobactam Sod 100 ml @ 25 mls/hr Q8HR IV 03/04/25 14:00 03/06/25 06:11 25 MLS/HR Metronidazole 100 ml @ 100 mls/hr Q8HR IV 03/04/25 18:00 03/06/25 04:55 100 MLS/HR Citalopram Hydrobromide 40 mg DAILY PO 03/05/25 10:00 03/06/25 10:09 40 MG Hydromorphone HCl 0.25 mg Q3HPRN PRN IV 03/04/25 15:45 03/06/25 09:59 0.25 MG Enoxaparin Sodium 50 mg Q12HR SC 03/04/25 22:00 03/06/25 10:10 50 MG Pantoprazole Sodium 40 mg DAILY@0600 PO 03/06/25 06:00 03/06/25 06:11 40 MG Sucralfate 1 gm QIDACHS PO 03/05/25 11:30 03/06/25 10:09 1 GM laboratory and microbiology Laboratory Tests 03/06/25 04:38 Test 03/06/25 04:38 Range/Units Serum Glucose 108 H 74-106 mg/dL Problem List/Assessment/Plan Problem List/Assessment/Plan PATIENT WAS ADMITTED DUE TO PURULENT STAINING OG BANDAGE ON SITE OF ann-marie DRAIN WHICH HAD BEEN REMOVED A WEEK AGO, CT SUGGESTED GASTROINTESTINAL ANASTOMOTIC LEAK, WHICH HAS NOW BEEN RULED OUT BY A GASTROGHRAFIN UGI. SHE RFESUMED HAVING BOWEL ACTIVITY, HER WBC IS NORMAL, ABDOMEN NON DISTENDED AND NON TENDER, OK TO RESUME PO INTAKE Plan discussed with: Patient, Spouse, Other GIN ORLANDO MD Mar 06, 2025 13:43
[2025-03-06] MEDS: HYDROcodone-ACET 5/325MG TAB PO PRN (14:13)
[2025-03-06] MEDS: POTASSIUM EFFERVESENT TAB 25 MEQ PO ONE (14:43)
[2025-03-07 01:05] VITALS: BP 142/76; PULSE 66; RESP 17; TEMP 98.6; O2SAT 97
[2025-03-07 04:36] VITALS: BP 153/84; PULSE 73; RESP 17; TEMP 98.2; O2SAT 97
[2025-03-07 07:32] LABS: Hematocrit 25.2 % (36.0-46.0); Hemoglobin 8.0 g/dL (12.2-16.2); Mean Corpuscular Hemoglobin 23.7 pg (28.0-32.0); Mean Corpuscular Volume 74.6 fL (80.0-100.0); Nucleated Red Blood Cells % 0.3 %
[2025-03-07 07:52] LABS: Alkaline Phosphatase 100 U/L (46-116); Anion Gap 11 (5-15); BUN/Creatinine Ratio 10.4 (10.0-20.0); Carbon Dioxide 26 mmol/L (20-31); Chloride 106 mmol/L (98-107); Glucose 81 mg/dL (74-106); Magnesium 2.1 mg/dL (1.6-2.6); Potassium 3.7 mmol/L (3.5-5.1); Sodium 143 mmol/L (136-145); Total Protein 6.6 g/dL (5.7-8.2)
[2025-03-07 07:54] LABS: Alanine Aminotransferase < 9 U/L (7-40); Albumin 3.2 g/dL (3.2-4.8); Bilirubin, Total < 0.2 mg/dL (0.2-1.0); Blood Urea Nitrogen 5 mg/dL (9-23); Calcium 8.6 mg/dL (8.7-10.4)
[2025-03-07 08:00] VITALS: PULSE 85; RESP 16; O2SAT 96
[2025-03-07 08:43] VITALS: BP 160/78; PULSE 78; RESP 16; TEMP 98.5; O2SAT 98
[2025-03-07] MEDS: ACETAMINOPHEN 325 MG TAB PO PRN (09:31)
[2025-03-07] MEDS ORDERED: hydrALAZINE HCL 20 MG/ML VL IV PRN (10:00)
[2025-03-07] MEDS: HYDROcodone-ACET 7.5/325MG TAB PO PRN (10:28)
[2025-03-07] MEDS: LOSARTAN POTASSIUM 50 MG TAB PO SCH (10:28)
--- NOTE | 2025-03-07 11:18 | DVHPN2 ---
Subjective Date Seen: Mar 07, 2025 Post op day Post op day: 0 Patient reports: No new complaints Nursing reports: No new complaints General: Normal HNT: Normal Cardiovascular: Normal Respiratory: Normal Gastrointestinal: Normal Genitourinary: Normal Musculoskeletal: Normal Neurological: Normal Objective Vitals Vital Sign Date Time Temp Pulse Resp B/P (MAP) Pulse Ox O2 Delivery O2 Flow Rate FiO2 03/07/25 10:28 160/78 03/07/25 08:43 98.5 78 16 98 98.5 03/07/25 08:00 Room Air* 0 21 Total Intake and Output 03/06/25 03/06/25 03/07/25 15:00 23:00 07:00 Intake Total 1550 ml 840 ml Balance 1550 ml 840 ml Medications Current Medications Medications Dose Ordered Sig/Francia Route Start Time Stop Time Status Last Admin Dose Admin Ondansetron HCl 4 mg Q4HP PRN IV 03/04/25 12:15 03/06/25 04:08 4 MG Acetaminophen 650 mg Q6HP PRN PO 03/04/25 12:15 03/07/25 09:31 650 MG Piperacillin Sod/ Tazobactam Sod 100 ml @ 25 mls/hr Q8HR IV 03/04/25 14:00 03/07/25 06:00 25 MLS/HR Metronidazole 100 ml @ 100 mls/hr Q8HR IV 03/04/25 18:00 03/07/25 06:18 100 MLS/HR Citalopram Hydrobromide 40 mg DAILY PO 03/05/25 10:00 03/07/25 09:31 40 MG Enoxaparin Sodium 50 mg Q12HR SC 03/04/25 22:00 03/07/25 09:31 50 MG Pantoprazole Sodium 40 mg DAILY@0600 PO 03/06/25 06:00 03/07/25 06:34 40 MG Sucralfate 1 gm QIDACHS PO 03/05/25 11:30 03/07/25 06:34 1 GM Hydralazine HCl 10 mg Q6HP PRN IV 03/07/25 10:00 Losartan Potassium 50 mg DAILY PO 03/07/25 10:00 03/07/25 10:28 50 MG Acetaminophen/ Hydrocodone Bitart 1 tab Q6HP PRN PO 03/07/25 10:15 03/07/25 10:28 1 TAB General: Normal, Well developed Head/Eyes: Normal ENT: Normal Neck: Normal Lungs: Normal, Normal inspection Cardiovascular: Normal Abdominal: Normal, Soft Musculoskeletal: Normal Extremities: Normal Skin: Normal, Normal inspection Neurological: Normal Labs and Microbiology Laboratory Tests 03/07/25 05:16 Test 03/07/25 05:16 Range/Units Serum Glucose 81 74-106 mg/dL Ass/Plan Problem List PATIENT WAS ADMITTED DUE TO PURULENT STAINING OG BANDAGE ON SITE OF ann-marie DRAIN WHICH HAD BEEN REMOVED A WEEK AGO, CT SUGGESTED GASTROINTESTINAL ANASTOMOTIC LEAK, WHICH HAS NOW BEEN RULED OUT BY A GASTROGHRAFIN UGI. SHE RFESUMED HAVING BOWEL ACTIVITY, HER WBC IS NORMAL, ABDOMEN NON DISTENDED AND NON TENDER, OK TO RESUME PO INTAKE Assessment/Plan no new complaints abdomen soft , non distended, non tender Plan: ok to discharge per surgery point of view patient to follow up in surgery clinic in 2 weeks wet warm compress over ANN-MARIE drain site send home with antibiotics Prognosis: Excellent Plan discussed with patient, Dr. Hopkins Visit Coding Surgery Date of Service if different f: Mar 07, 2025 Billing Provider: GIN HOPKINS MD Surgery Visit Codes: [id number] INP/OBS CARE(HIGH) ANGELO CASTELLANO [employer] Mar 07, 2025 11:18
[2025-03-07 13:00] VITALS: BP 140/86; PULSE 72; RESP 18; TEMP 97.7; O2SAT 98
[2025-03-07] MEDS ORDERED: AUG875T PO ×2 (13:24→14:52)
--- NOTE | 2025-03-07 13:26 | DVHDS2 ---
Discharge Summary Date of Admission Mar 04, 2025 at 12:06 Date of Discharge: Mar 07, 2025 Labs/Diagnostic Data: Laboratory Results Test 03/07/25 05:16 03/06/25 04:38 03/05/25 04:36 03/04/25 08:53 White Blood Count 5.0 10^3/uL (4.4-10.8) Red Blood Count 3.38 10^6/uL (4.0-5.20) Hemoglobin 8.0 g/dL (12.2-16.2) Hematocrit 25.2 % (36.0-46.0) Mean Corpuscular Volume 74.6 fL (80.0-100.0) Mean Corpuscular Hemoglobin 23.7 pg (28.0-32.0) Mean Corpuscular Hemoglobin Concent 31.8 g/dL (32.0-36.0) Red Cell Distribution Width 16.8 % (11.8-14.3) Platelet Count 647 10^3/uL (140-450) Mean Platelet Volume 7.4 fL (6.9-10.8) Neutrophils (%) (Auto) 45.8 % (37.0-80.0) Lymphocytes (%) (Auto) 36.6 % (10.0-50.0) Monocytes (%) (Auto) 11.2 % (0.0-12.0) Eosinophils (%) (Auto) 5.6 % (0.0-7.0) Basophils (%) (Auto) 0.8 % (0.0-2.0) Neutrophils # (Auto) 2.3 10 ^3/uL (1.6-8.6) Lymphocytes # (Auto) 1.8 10 ^3/uL (0.4-5.4) Monocytes # (Auto) 0.6 10 ^3/uL (0-1.3) Eosinophils # (Auto) 0.3 10 ^3/uL (0-0.8) Basophils # (Auto) 0 10 ^3/uL (0-0.2) Nucleated Red Blood Cells 0.3 % Sodium Level 143 mmol/L (136-145) Potassium Level 3.7 mmol/L (3.5-5.1) Chloride Level 106 mmol/L (98-107) Carbon Dioxide Level 26 mmol/L (20-31) Anion Gap 11 (5-15) Blood Urea Nitrogen 5 mg/dL (9-23) Creatinine 0.48 mg/dL (0.550-1.02) Glomerular Filtration Rate Calc 107 mL/min (>90) BUN/Creatinine Ratio 10.4 (10.0-20.0) Serum Glucose 81 mg/dL (74-106) Calcium Level 8.6 mg/dL (8.7-10.4) Magnesium Level 2.1 mg/dL (1.6-2.6) Total Bilirubin < 0.2 mg/dL (0.2-1.0) Aspartate Amino Transferase (AST) 17 U/L (13-40) Alanine Aminotransferase (ALT) < 9 U/L (7-40) Alkaline Phosphatase 100 U/L (46-116) Total Protein 6.6 g/dL (5.7-8.2) Albumin 3.2 g/dL (3.2-4.8) Iron Level 21 ug/dL (50-170) Total Iron Binding Capacity 170 ug/dL (250-425) Percent Iron Saturation 12.4 % (15-50) Prothrombin Time 13.6 sec (9.3-11.8) Prothrombin Time INR 1.32 (0.9-1.15) Activated Partial Thromboplast Time 40.3 SEC (24.5-34.5) Urine Color Yellow (Yellow) Urine Clarity Clear (Clear) Urine pH 6.0 (5.0-9.0) Urine Specific [place] 1.029 (1.001-1.035) Urine Protein Trace (Negative) Urine Ketones Negative (Negative) Urine Blood Negative /uL (Negative) Urine Nitrite Negative (Negative) Urine Bilirubin Negative (Negative) Urine Urobilinogen Normal mg/dL (Negative) Urine Leukocyte Esterase Negative /uL (Negative) Urine RBC 5 /hpf (0 - 4) Urine Microscopic WBC 2 /HPF (0-5) Urine Squamous Epithelial Cells Few /hpf (<5) Urine Bacteria None seen /hpf (None Seen) Urine Mucus Few (None Seen) Urine Glucose Normal mg/dL (Normal) Test 03/04/25 08:00 Lactic Acid Level 0.7 mmol/L (0.4-2.0) Troponin I High Sensitivity < 3 ng/L (</=34) Other Laboratory Tests 03/07/25 05:16 Brief Hx & Hospital Course: Final diagnoses: Abdominal infection of ANDREA drain site, superficial Recent abdominal surgery with recent removal of ANDREA andrew from LLQ Chronic PE, on Eliquis Chronic DVTs, h/o Duodenal ulcer, h/o Duodenal stricture, s/p surgeryHypertension, GERD, Anemia of chronic disease 64-year-old female with recent abdominal surgery came with abdominal wound drainage from the ANDREA drain which was removed few days before The CT scan of the abdomen raised the possibility of a fluid collection of 3.3 x 2.6 cm raising possibility of abscess and therefore she was started on IV antibiotics and general surgery was consulted, Dr. Hopkins recommended to continue IV antibiotics and no surgical intervention was needed We took a sample of the drainage from the left lower quadrant opening at the ANDREA drain previous site, the culture is still negative at this time She is feeling better No nausea or vomiting She is tolerating her diet Discharged home today on Augmentin for 7 days Follow up as an outpatient She has a chronic PE which was also evident on the CT scan of the abdomen and pelvis and she is already taking Eliquis at home which she will continue Continue Protonix and Carafate and her other home medications Follow up with the primary care physician as soon as possible Condition at Discharge: Stable Final Diagnosis/Problems List Abdominal infection of ANDREA drain site, superficial Recent abdominal surgery with recent removal of ANDREA andrew from LLQ Chronic PE, on Eliquis Chronic DVTs, h/o Duodenal ulcer, h/o Duodenal stricture, s/p surgery Hypertension, GERD, Anemia of chronic disease rule out iron deficiency Discharge Disposition: Home SNF Discharge Will this Physician continue t: No Discharge Instruct/Medications Scheduled Acetaminophen (Tylenol 8 Hour Arthritis), 650 MG PO PRN, (Reported) Amoxicillin & Pot Clavulanate (Augmentin Tablet), 875 MG PO BID Apixaban Base (Eliquis), 5 MG PO BID Apixaban Base (Eliquis), 10 MG PO BID Dicyclomine Hcl (Bentyl Capsule), 1 CAP PO Q6HPRN Docusate Sodium (Stool Softener), 100 MG PO DAILY, (Reported) Escitalopram Oxalate (Lexapro), 20 MG PO DAILY, (Reported) Gabapentin (Gabapentin), 1 TAB PO TID, (Reported) Hydralazine HCl (Hydralazine HCl), 25 MG PO DAILY, (Reported) Losartan Potassium & Hydrochlo (Hyzaar), 1 TAB PO DAILY, (Reported) Metoclopramide Hcl (Reglan), 10 MG PO BID Metoclopramide Hcl (Metoclopramide Hcl), 5 MG PO BID Nystatin (Mouth-Throat) (Mycostatin (Mouth-Throat)), 5 ML MT QID Pantoprazole Sodium Sesquihydr (Protonix), 40 MG PO BID Potassium Gluconate (Potassium Gluconate), 80 MG OR DAILY, (Reported) Sucralfate (Carafate Susp), 10 ML PO QID Scheduled PRN Baclofen (Baclofen), 1 TAB PO Q8HPRN PRN, (Reported) Hydrocodone-Acetaminophen (Hydrocodone/Acetaminophen 7.5-325 mg), 1 TAB PO TIDPRN PRN, (Reported) Hydrocodone-Acetaminophen (Hydrocodone Bitartrate/AC 7.5-325 mg), 1 TAB PO Q8HP PRN Ondansetron Odt 4MG Tab (Zofran Po), 4 MG PO Q4HPRN PRN Discontinued Medications Escitalopram Oxalate (Escitalopram Oxalate), 1 TAB PO DAILY, (Reported) Discharge Statement: "Patient was advised to return to the ER or call 911 if any headaches, dizziness, shortness of breath, chest pain, abdominal pain, bleeding, fevers, or worsening of medical condition. Patient was counseled about treatment plan, medications, possible side effects, patientverbalized understanding. All questions were answered to the best of my ability. This discharge took greater then 30 minutes in planning, reviewing documentation, counseling the patient, and discussing with other team members." ASSESSMENT ASSESSMENT Assessment Date of Service: Mar 07, 2025 Billing Provider: MELANIE RAJPUT MD Common Visit Codes: [id number] DISCH DAY >30min MELANIE RAJPUT MD Mar 07, 2025 13:26
[2025-03-07 14:02] VITALS: TEMP 36.5
== END 2025-03-07 14:50 | disposition home or self-care (01) | DRG 721 ==
LOC: ER 06:37 → OVERFLOW 12:06 → EAST 13:07
PROVIDERS: ADMIT Internal Medicine Geriatric Medicine; ATTEND Internal Medicine Geriatric Medicine
DX: T81.41XA Infection following a procedure, superficial incisional surgical site, initial encounter (principal); D63.8 Anemia in other chronic diseases classified elsewhere; F41.9 Anxiety disorder, unspecified; I10 Essential (primary) hypertension; K21.9 Gastro-esophageal reflux disease without esophagitis; Y83.8 Other surgical procedures as the cause of abnormal reaction of the patient, or of later complication, without mention of misadventure at the time of the procedure; Z90.49 Acquired absence of other specified parts of digestive tract; Z86.718 Personal history of other venous thrombosis and embolism; Z86.711 Personal history of pulmonary embolism; Z87.11 Personal history of peptic ulcer disease; Y92.89 Other specified places as the place of occurrence of the external cause
CPT/HCPCS: 36415; 71045; 71260; 74177; 74246; 80048; 80053; 81001; 83540; 83550; 83605; 83735; 84484; 85025; 85610; 85730; 87040; 87081; 87205; 96361; 96365; G0378; J2405; J2543; J3480; J3490